=== PATIENT | female | born 1960 | race African-American/Black ===

== ENCOUNTER 2017-02-01 23:01 | Inpatient (IN) | payer MEDICARE ==
--- NOTE | 2017-02-01 23:51 | RAD ---
CHEST ONE VIEW 02/01/17 HISTORY: Dyspnea. COMPARISON: 05/23/16 FINDINGS: The cardiac silhouette is markedly enlarged. Pulmonary vasculature is engorged. Mediastinum is midlin e with aortic calcification and a dual lead left subclavian cardiac electronic device. No lobar conso lidation or pneumothorax are visible. IMPRESSION: CHF. Appearance is similar to the 05/22/16 exam. POS: KACI
[2017-02-02 00:02] LABS: Hematocrit 52.5 % (36.0-47.0); Mean Platelet Volume 9.3 fL (7.4-10.4); Red Blood Cell (RBC) Count 5.39 mill/uL (4.20-5.40); White Blood Cell (WBC) Count 5.1 thou/uL (4.8-10.8)
[2017-02-02] MEDS ORDERED: Nitroglycerin 2% Ointment 1 INCH/1 GM Packet ONE (00:15)
[2017-02-02 00:17] LABS: Lactic Acid - Sepsis 1.8 mmol/L (0.5-2.2)
[2017-02-02 00:21] LABS: ALT (SGPT) 11 U/L (8-55); AST (SGOT) 20 U/L (5-34); Alkaline Phosphatase 83 U/L (40-150); Anion Gap 14 mmol/L (10-20); BUN (Urea Nitrogen) 26 mg/dL (9.8-20.1); Bilirubin, Total 3.1 mg/dL (0.2-1.2); Calc. Creatinine Clearance 0 mL/min (70-130); Calcium 9.6 mg/dL (7.8-10.44); Carbon Dioxide 27 mmol/L (22-29); Chloride 103 mmol/L (98-107); Estimated GFR-MDRD 58; Globulin 3.7 g/dL (2.4-3.5); Lipase 20 U/L (8-78); Magnesium 1.8 mg/dL (1.6-2.6); Protein, Total 7.4 g/dL (6.0-8.3)
[2017-02-02 00:25] LABS: Band 1 % (5-11); Neutrophil 52 % (42-75); Polychromasia SLIGHT = 2-3 cells (100X) (0-2/hpf); Target Cells SLIGHT = 2-5 cells (100X) (0-1/hpf)
[2017-02-02 00:27] LABS: Troponin I 0.548 ng/mL (< 0.028)
[2017-02-02] MEDS ORDERED: Furosemide 40 MG/4 ML VIAL ONE (00:46)
[2017-02-02] MEDS ORDERED: Furosemide 20 MG/2 ML VIAL ONE (00:46)
[2017-02-02] MEDS ORDERED: Enoxaparin Sodium 100 MG/ML SYRINGE ONE (00:46)
[2017-02-02] MEDS ORDERED: Labetalol HCl 100 MG/20 ML VIAL ONE (02:46)
[2017-02-02] MEDS ORDERED: Insulin Regular 300 UNITS/3 ML VIAL SC PRN (03:05)
[2017-02-02] MEDS ORDERED: HYDROcodone/Acetaminophen 5/325 mg Tablet PO PRN (03:05)
[2017-02-02] MEDS ORDERED: Dextrose 50% Abboject 50 ML SYRINGE SLOW IVP PRN (03:05)
[2017-02-02] MEDS ORDERED: Dextrose 5% in Water 1,000 ML IV PRN (03:05)
[2017-02-02] MEDS ORDERED: Acetaminophen 325 MG TAB PO PRN (03:05)
[2017-02-02] MEDS ORDERED: HYDROcodone/Acetaminophen 10/325 mg Tablet PO PRN (03:05)
[2017-02-02] MEDS ORDERED: Ondansetron ODT 4 MG TAB PO PRN (03:05)
--- NOTE | 2017-02-02 03:28 | HP ---
DATE OF ADMISSION: 02/02/2017 TIME OF SERVICE: 0100 hours. CHIEF COMPLAINT: Shortness of breath. HISTORY OF PRESENT ILLNESS: Ms. Plaza is a 56-year-old -[place] female with history of is chemic cardiomyopathy, pacemaker placement, defibrillator placement, hyperlipidemia, and diabetes wit h chronic systolic congestive heart failure, who presented to the emergency department for shortness of breath. The patient had increasing shortness of breath over the last 5 days. She has been decreasing p.o. in take per the family and I had increased the sodium load. The patient has not been taking her medications because she does not have any, because she could not afford them. Subsequently, she comes in she has lower extremity edema, she is satting okay on room air, but is vis ibly short of breath with dyspnea on exertion and orthopnea, and a BNP is elevated at 2100. We were subsequently called for admit. Troponin I was noted to be 0.548, but it is always chronically elevated. She denies any chest pain o r nausea and vomiting, no diarrhea, constipation, no diaphoresis. PAST MEDICAL HISTORY: 1. Hypertension. 2. Hyperlipidemia. 3. Congestive heart failure. 4. Diabetes mellitus type 2. PAST SURGICAL HISTORY: Defibrillator placement. HOME MEDICATIONS: 1. Hydralazine 50 mg p.o. b.i.d. 2. Coreg 25 mg p.o. b.i.d. 3. Lisinopril 10 mg p.o. b.i.d. 4. Amlodipine 5 mg daily. 5. Lasix 20 mg p.o. b.i.d. 6. Glimepiride 4 mg unsure if it is daily or b.i.d. 7. Zocor 20 mg p.o. daily. ALLERGIES: NKDA. FAMILY HISTORY: Negative for clotting or bleeding disorder, no venous function, no premature coronar y artery disease. SOCIAL HISTORY: Significant for ongoing tobacco use one-half pack per day. No alcohol or IV drug us e. She smoked for some 35 years or so. REVIEW OF SYSTEMS: A 10-point review of systems was performed, negative for all other systems except as stated as per HPI. PHYSICAL EXAMINATION: VITAL SIGNS: Temperature 97.3, pulse 91, blood pressure 160/120, respiratory rate 20, satting 95% on room air. GENERAL: She is awake. She is alert. She is oriented x3. She is an obese -[place] female appears to be short of breath. HEENT: Normocephalic, atraumatic, pupils equal and reactive bilaterally, mucous membranes are moist. There are no visible lesions or thrush. NECK: Supple. I cannot palpate any thyromegaly. I do not see JVD. She has normal carotid upstroke s without bruits. LUNGS: Have bibasilar crackles. She has adequate air movement without prolonged expiratory phase. There were no wheezes or rhonchi. CARDIOVASCULAR: She is tachycardic, but regular. Normal S1, S2. I do not appreciate murmurs. ABDOMEN: Obese, it is nontender, nondistended with no rebound, rigidity or guarding. She has good b owel sounds. EXTREMITIES: Show 2+ edema to the mid tibial level. She has chronic venous stasis dermatitis. SKIN: Otherwise warm, moist, and well-perfused without any rashes or lesions. NEUROLOGIC: Cranial nerves II-XII are grossly intact without any focal neurologic deficit. MUSCULOSKELETAL: Normal to inspection without any inflamed joints or palpable joint effusions. LABORATORY DATA: CMP is fairly normal. Creatinine 1.17 at her baseline of 0.9. Lactic acid normal at 1.8, potassium slightly low at 3.4, glucose 133. Liver functions are normal. White blood cell count 5.1 with a fairly normal differential, 52% granulocytes, but 1% bands. Hemogl obin 16.1, hematocrit 52.5, and platelets 137,000. Chest x-ray showed pacemaker in no acute cardiopu lmonary changes. ASSESSMENT AND PLAN: 1. Acute on chronic systolic congestive heart failure: Likely secondary to noncompliance and not ta ursula her medicines. Placed on nitro paste, IV Lasix, strict I's and O's and daily weights. 2. Hypertension: Uncontrolled, blood pressure 160/120. We will restart her regular medicines with hydralazine, Coreg, lisinopril, amlodipine, and p.r.n. hydralazine for elevated pressure. 3. Diabetes mellitus type 2: Sliding scale insulins that ordered. 4. History of medical noncompliance as above. 5. Abnormal troponin: The patient is chronically abnormal. We will serial cardiac biomarkers and c ontinue to monitor.
[2017-02-02 03:37] LABS: Anion Gap 13 mmol/L (10-20); BUN (Urea Nitrogen) 28 mg/dL (9.8-20.1); Calc. Creatinine Clearance 0 mL/min (70-130); Calcium 9.3 mg/dL (7.8-10.44); Carbon Dioxide 25 mmol/L (22-29); Chloride 104 mmol/L (98-107); Estimated GFR-MDRD 66; Magnesium 1.6 mg/dL (1.6-2.6)
[2017-02-02 03:44] LABS: Critical Call Chem Troponin I RESULT DECREASING; Troponin I 0.498 ng/mL (< 0.028)
[2017-02-02] MEDS: Furosemide 40 MG/4 ML VIAL SLOW IVP SCH ×4 (03:48→20:09)
[2017-02-02] MEDS ORDERED: Nitroglycerin 2% Ointment 1 INCH/1 GM Packet TOP SCH (04:00)
[2017-02-02 04:06] LABS: Hematocrit 50.6 % (36.0-47.0); Mean Platelet Volume 9.4 fL (7.4-10.4); Neutrophil 49 % (42-75); Reactive Lymphocytes 1 % (0-10); Red Blood Cell (RBC) Count 5.21 mill/uL (4.20-5.40); White Blood Cell (WBC) Count 5.2 thou/uL (4.8-10.8)
[2017-02-02 04:31] VITALS: BMI 38.9
[2017-02-02] MEDS: Potassium Chloride 20 MEQ TAB PO SCH ×3 (05:10→12:48)
[2017-02-02] MEDS: Aspirin 325 MG TAB PO SCH (08:31)
[2017-02-02] MEDS: Famotidine 20 MG TAB PO SCH ×2 (08:32→20:08)
[2017-02-02] MEDS: Lisinopril 10 MG TAB PO SCH ×2 (08:33→20:09)
[2017-02-02] MEDS: Amlodipine 5 MG TAB PO SCH (08:33)
[2017-02-02] MEDS: hydrALAZINE 25 MG TAB PO SCH ×2 (08:33→20:08)
[2017-02-02] MEDS: Carvedilol 25 MG TAB PO SCH ×2 (08:33→17:09)
[2017-02-02] MEDS: Enoxaparin Sodium 40 MG/0.4 ML SYRINGE SC SCH (08:34)
--- NOTE | 2017-02-02 09:46 | PDOC.PN ---
- Subjective Encounter Start Date: 02/02/17 Encounter Start Time: 08:00 Subjective: is still waking up, says she is breathing better -: no chest pain or palp - Objective Resuscitation Status: Resuscitation Status FULL:Full Resuscitation MAR Reviewed: Yes Vital Signs & Weight: Vital Signs (12 hours) Temp Pulse Resp BP BP Pulse Ox 02/02/17 08:33 86 172/111 H 02/02/17 08:20 97.3 F L 93 18 95 02/02/17 04:00 97.5 F L 73 18 158/95 H 91 L 02/02/17 03:22 97.5 F L 85 22 H 153/96 H 92 L Weight Weight 227 lb Result Diagrams: 02/02/17 03:14 02/02/17 03:14 Additional Labs: Accuchecks 02/02/17 05:46 POC Glucose 160 H Phys Exam - Physical Examination HEENT: PERRLA, sclera anicteric Neck: no JVD, supple Respiratory: no wheezing rhonchi+ Cardiovascular: RRR, no significant murmur Gastrointestinal: soft, non-tender, positive bowel sounds Musculoskeletal: no edema, pulses present Neurological: non-focal, moves all 4 limbs Psychiatric: A&O x 3 Dx/Plan (1) Acute decompensated heart failure Code(s): I50.9 - HEART FAILURE, UNSPECIFIED Status: Acute (2) Demand ischemia of myocardium Code(s): I24.8 - OTHER FORMS OF ACUTE ISCHEMIC HEART DISEASE Status: Acute (3) Non compliance w medication regimen Code(s): Z91.14 - PATIENT'S OTHER NONCOMPLIANCE WITH MEDICATION REGIMEN Status : Chronic (4) Hypokalemia Code(s): E87.6 - HYPOKALEMIA Status: Acute (5) Cardiomyopathy Code(s): I42.9 - CARDIOMYOPATHY, UNSPECIFIED Status: Chronic Qualifiers: Cardiomyopathy type: unspecified Qualified Code(s): I42.9 - Cardiomyopathy , unspecified Comment: non ischemic (6) Diabetes mellitus Code(s): E11.9 - TYPE 2 DIABETES MELLITUS WITHOUT COMPLICATIONS Status: Chronic Qualifiers: Diabetes mellitus type: type 2 Diabetes mellitus complication status: with unspecified complications Diabetes mellitus buttermaker insulin use: without assisted use Qualified Code(s): E11.8 - Type 2 diabetes mellitus with unspecified complications (7) GERD (gastroesophageal reflux disease) Code(s): K21.9 - GASTRO-ESOPHAGEAL REFLUX DISEASE WITHOUT ESOPHAGITIS Status: Chronic Qualifiers: Esophagitis presence: esophagitis presence not specified Qualified Code(s) : K21.9 - Gastro-esophageal reflux disease without esophagitis (8) Hypertension Code(s): I10 - ESSENTIAL (PRIMARY) HYPERTENSION Status: Chronic Qualifiers: Hypertension type: essential hypertension Qualified Code(s): I10 - Essential (primary) hypertension (9) Morbid obesity Code(s): E66.01 - MORBID (SEVERE) OBESITY DUE TO EXCESS CALORIES Status: Chronic Comment: bmi of 39 - Plan lasix as ordered iv q6h -: had ef of 15% on last echo, non compliant with meds -: watch for electrolytes -: to amb as tolerated -: will monitor on tele for potential arrhythmias * . is on asp, coreg, norvasc, hydralazine and lisinopril. Review of Systems - Medications/Allergies Allergies/Adverse Reactions: Allergies Allergy/AdvReac Type Severity Reaction Status Date / Time No Known Drug Allergies Allergy Verified 05/23/16 23:51 Medications: Current Medications Acetaminophen (Tylenol) 650 mg PO Q4H PRN PRN Reason: Headache/Fever or Pain Hydrocodone Bitart/Acetaminophen ([place] 10/325) 1 tab PO Q4H PRN PRN Reason: SEVERE Pain (7-10) Hydrocodone Bitart/Acetaminophen ([place] 5/325) 1 tab PO Q4H PRN PRN Reason: Moderate Pain (4-6) Amlodipine Besylate (Norvasc) 5 mg PO DAILY [facility] Last Admin: 02/02/17 08:33 Dose: 5 mg Aspirin (Aspirin) 325 mg PO DAILY [facility] Last Admin: 02/02/17 08:31 Dose: 325 mg Atorvastatin Calcium (Lipitor) 10 mg PO HS [facility] Carvedilol (Coreg) 25 mg PO BID-WM [facility] Last Admin: 02/02/17 08:33 Dose: 25 mg Dextrose/Water (Dextrose 50%) 25 gm SLOW IVP PRN PRN PRN Reason: Hypoglycemia Enoxaparin Sodium (Lovenox) 40 mg SC 0900 [facility] Last Admin: 02/02/17 08:34 Dose: 40 mg Famotidine (Pepcid) 20 mg PO BID [facility] Last Admin: 02/02/17 08:32 Dose: 20 mg Furosemide (Lasix) 40 mg SLOW IVP 0330,0930,1530,2130 [facility] Stop: 02/02/17 21:31 Last Admin: 02/02/17 03:48 Dose: 40 mg Glucagon (Glucagon) 1 mg IM PRN PRN PRN Reason: Hypoglycemia Hydralazine HCl (Apresoline) 50 mg PO BID [facility] Last Admin: 02/02/17 08:33 Dose: 50 mg Dextrose/Water (D5w) 1,000 mls @ 0 mls/hr IV .Q0M PRN; As Directed PRN Reason: Hypoglycemia Insulin Human Regular (Humulin R) 0 units SC .MILD SLIDING SCALE PRN PRN Reason: Mild Correctional Scale Lisinopril (Zestril) 10 mg PO BID [facility] Last Admin: 02/02/17 08:33 Dose: 10 mg Nitroglycerin (Nitro-Bid 2% Ointment) 1 inch TOP 0400,1200,2000 [facility] Last Admin: 02/02/17 03:48 Dose: 1 inch Ondansetron HCl (Zofran Odt) 4 mg PO Q6H PRN PRN Reason: Nausea/Vomiting Potassium Chloride (K-Dur) 40 meq PO 0500,0900,1300 [facility] Stop: 02/02/17 13:01 Last Admin: 02/02/17 08:32 Dose: 40 meq Sodium Chloride (Flush - Normal Saline) 10 ml IVF PRN PRN PRN Reason: Saline Flush
[2017-02-02 11:51] LABS: Critical Call Chem Troponin I RESULT DECREASING; Troponin I 0.479 ng/mL (< 0.028)
[2017-02-02 19:30] LABS: Troponin I 0.506 ng/mL (< 0.028)
[2017-02-02] MEDS ORDERED: Atorvastatin Calcium 10 MG TAB PO SCH (21:00)
[2017-02-03 08:04] LABS: Anion Gap 17 mmol/L (10-20); BUN (Urea Nitrogen) 28 mg/dL (9.8-20.1); Calc. Creatinine Clearance 80 mL/min (70-130); Calcium 9.6 mg/dL (7.8-10.44); Carbon Dioxide 23 mmol/L (22-29); Chloride 104 mmol/L (98-107); Estimated GFR-MDRD 54
[2017-02-03 08:21] LABS: Hematocrit 51.7 % (36.0-47.0); Mean Platelet Volume 9.6 fL (7.4-10.4); Red Blood Cell (RBC) Count 5.26 mill/uL (4.20-5.40); White Blood Cell (WBC) Count 3.7 thou/uL (4.8-10.8)
[2017-02-03 08:44] LABS: Band 3 % (5-11); Neutrophil 50 % (42-75); Nucleated RBC 1 % (0); Polychromasia MODERATE = 3-4 cells (100X) (0-2/hpf); Target Cells SLIGHT = 2-5 cells (100X) (0-1/hpf)
[2017-02-03] MEDS: Amlodipine 5 MG TAB PO SCH (08:59)
[2017-02-03] MEDS: Carvedilol 25 MG TAB PO SCH (08:59)
[2017-02-03] MEDS: Lisinopril 10 MG TAB PO SCH (09:00)
[2017-02-03] MEDS ORDERED: Heparin 5,000 UNITS/ML VIAL SC SCH (09:00)
[2017-02-03] MEDS: Famotidine 20 MG TAB PO SCH (09:00)
[2017-02-03] MEDS: Enoxaparin Sodium 40 MG/0.4 ML SYRINGE SC SCH (09:00)
[2017-02-03] MEDS: Aspirin 325 MG TAB PO SCH (09:00)
[2017-02-03] MEDS: Furosemide 20 MG TAB PO SCH ×2 (09:00→15:24)
[2017-02-03] MEDS: hydrALAZINE 25 MG TAB PO SCH (09:00)
--- NOTE | 2017-02-03 16:28 | DIS ---
DATE OF ADMISSION: 02/02/2017 DATE OF DISCHARGE: 02/03/2017 DISCHARGE DIAGNOSES: 1. Acute on chronic systolic congestive heart failure exacerbation, improved. 2. Medication noncompliance. 3. Hypertension, labile. 4. Diabetes mellitus type 2, labile. 5. Chronic elevated troponin I. 6. Pulmonary hypertension. CONSULTATIONS: None. PERTINENT LABORATORY DATA AND X-RAY FINDINGS: Creatinine ranged between 1.04-1.24 with estimated GFR ranging between 54-66. Magnesium 1.7. Troponin I ranged between 0.479-0.548. BNP 2134, previously noted 1791 on 05/23/2016. A 2D transthoracic echocardiogram dated 02/02/2017 showed ejection fracti on of 10%-15%. Severe global hypokinesis. Moderate biatrial enlargement. Severe tricuspid valve re gurgitation. Pulmonary hypertension with pulmonary artery pressure estimated at 75 mmHg. Portable c hest x-ray dated 02/01/2017 showed pulmonary vascular prominence. HOSPITAL COURSE: Patient was admitted to the telemetry unit after initially presenting with increase d shortness of breath in the context of known systolic congestive heart failure and ischemic cardiomy opathy. The patient was placed on IV Lasix as well as oxygen supplementation and monitored for fluid status. The patient rapidly clinically improved with diuretic therapy with overall 7 pound weight l oss during the hospital course. The patient's overall blood pressure trend did improve after initial ly presenting with elevated blood pressure in the 160/120 range. The patient resumed her home antihy pertensive regimen stabilizing. Overall, patient remained clinically stable during the hospital cour se with telemetry monitoring showing sinus mechanism with occasional nonsustained ventricular tachyca rdia episodes. Overall, patient is clinically stable and ready for discharge on 02/03/2017. DISCHARGE MEDICATIONS: 1. Norvasc 5 mg 1 tablet p.o. daily. 2. Coreg 25 mg p.o. b.i.d. 3. Lasix 40 mg p.o. b.i.d. 4. Glimepiride 4 mg p.o. daily. 5. Hydralazine 50 mg p.o. b.i.d. 6. Lisinopril 20 mg p.o. daily. 7. Simvastatin 20 mg p.o. at bedtime. FOLLOWUP: Patient will follow up with Dr. Yulia Albert at [facility] within 7 d ays of discharge. CONDITION ON DISCHARGE: Poor. ACTIVITY: Ad julián. DIET: Heart healthy and ADA. CODE STATUS: FULL. DISPOSITION: Home 02/03/2017.
[2017-02-03 17:15] VITALS: BP 131/80; TEMP 98.1
--- NOTE | 2017-03-11 13:38 | EKG ---
Test Reason : Blood Pressure : / mmHG Vent. Rate : 098 BPM Atrial Rate : 098 BPM P-R Int : 158 ms QRS Dur : 090 ms QT Int : 400 ms P-R-T Axes : 032 -06 062 degrees QTc Int : 510 ms Sinus rhythm with Premature atrial complexes Left atrial enlargement Low voltage QRS Cannot rule out Anterior infarct , age undetermined Prolonged QT Abnormal ECG Confirmed by MARTIN MO ([id number]), editor newspaper MARCO RIOS ([id number]) on 03/11/2017 1:38:23 PM Referred By: Confirmed By:MRATIN MO
== END 2017-02-03 16:59 | disposition home or self-care (01) | DRG 292 ==
LOC: ERS 23:01 → 2NO 02-02 01:15
PROVIDERS: ADMIT Internal Medicine Infectious Disease; ATTEND Internal Medicine Infectious Disease
DX: I11.0 Hypertensive heart disease with heart failure (principal); I24.8 Other forms of acute ischemic heart disease; I27.20 Pulmonary hypertension, unspecified; E66.01 Morbid (severe) obesity due to excess calories; E11.9 Type 2 diabetes mellitus without complications; E78.5 Hyperlipidemia, unspecified; I50.23 Acute on chronic systolic (congestive) heart failure; I25.5 Ischemic cardiomyopathy; E87.6 Hypokalemia; K21.9 Gastro-esophageal reflux disease without esophagitis; F17.210 Nicotine dependence, cigarettes, uncomplicated; Z95.810 Presence of automatic (implantable) cardiac defibrillator; Z91.19 Patient's noncompliance with other medical treatment and regimen; Z68.39 Body mass index [BMI] 39.0-39.9, adult
CPT/HCPCS: 36415; 36416; 71010; 80048; 80053; 82553; 83605; 83690; 83735; 83880; 84484; 85025; 93005; 93306; 96372; 96374; 96375; G8978-GP-CL; G8979-GP-CL; G8980-GP-CL; G8987-GO-CJ; G8988-GO-CJ; G8989-GO-CJ; J1650; J1940

== ENCOUNTER 2017-05-06 12:05 | Inpatient (IN) | payer MEDICARE ==
[2017-05-06 13:02] LABS: #Eosinphils 0.1 thou/uL (0.0-0.7); #Lymphocytes 1.4 thou/uL (1.20-3.40); #Monocytes 0.4 thou/uL (0.11-0.59); %Eosinophils 2.5 % (0.0-10.0); %Lymphocytes 35.8 % (21.0-51.0); %Monocytes 9.9 % (0.0-10.0); %Neutrophils 50.7 % (42.0-75.0); Hemoglobin 14.2 g/dL (12.0-16.0); Mean Corpuscular HGB CONC 30.5 g/dL (32.0-36.0); Mean Corpuscular Hemoglobin 28.7 pg (27.0-31.0); Mean Platelet Volume 8.4 fL (7.4-10.4); Platelet Count 180 thou/uL (130-400); RBC Distribution Width 15.7 % (11.5-14.5); Red Blood Cell (RBC) Count 4.93 mill/uL (4.20-5.40)
[2017-05-06 13:27] LABS: ALT (SGPT) 8 U/L (8-55); AST (SGOT) 14 U/L (5-34); Albumin 3.5 g/dL (3.5-5.0); Alkaline Phosphatase 116 U/L (40-150); Anion Gap 10 mmol/L (10-20); BUN (Urea Nitrogen) 17 mg/dL (9.8-20.1); Bilirubin, Total 1.3 mg/dL (0.2-1.2); CK (CPK) 37 U/L (29-168); Calc. Creatinine Clearance 0 mL/min (70-130); Calcium 9.1 mg/dL (7.8-10.44); Carbon Dioxide 27 mmol/L (22-29); Chloride 105 mmol/L (98-107); Estimated GFR-MDRD 89; Globulin 3.7 g/dL (2.4-3.5); Glucose 75 mg/dL (70-105); Lipase 12 U/L (8-78); Potassium 3.1 mmol/L (3.5-5.1); Protein, Total 7.2 g/dL (6.0-8.3); Sodium 139 mmol/L (136-145)
[2017-05-06 13:32] LABS: CKMB 1.1 ng/mL (0-6.6); Troponin I 0.195 ng/mL (< 0.028)
--- NOTE | 2017-05-06 14:18 | RAD ---
PA AND LATERAL VIEWS CHEST: HISTORY: CHF exacerbation. COPD exacerbation. COMPARISON: 02/01/2017 FINDINGS: The heart is enlarged. A left-sided AICD remains in place. The lungs are well expanded without loba r consolidation, pneumothoraces, raquel pulmonary edema, or pleural effusions. There is mild pulmonar y vascular congestion. POS: OFF
[2017-05-06] MEDS ORDERED: Furosemide 100 MG/10 ML VIAL ONE (15:23)
[2017-05-06] MEDS ORDERED: Carvedilol 25 MG TAB PO SCH (16:00)
[2017-05-06] MEDS ORDERED: Amlodipine 5 MG TAB PO SCH (16:00)
[2017-05-06] MEDS ORDERED: hydrALAZINE 25 MG TAB PO SCH (16:00)
[2017-05-06] MEDS ORDERED: Lisinopril 10 MG TAB PO SCH (16:00)
[2017-05-06] MEDS ORDERED: hydrALAZINE 25 MG TAB ONE (16:18)
[2017-05-06] MEDS ORDERED: Dextrose 5% in Water 1,000 ML IV PRN (16:43)
[2017-05-06] MEDS ORDERED: Dextrose 50% Abboject 50 ML SYRINGE SLOW IVP PRN (16:43)
[2017-05-06] MEDS ORDERED: Labetalol HCl 100 MG/20 ML VIAL SLOW IVP PRN (16:43)
[2017-05-06] MEDS ORDERED: Acetaminophen 325 MG TAB PO PRN (16:43)
[2017-05-06] MEDS ORDERED: hydrALAZINE 20 MG/ML VIAL SLOW IVP PRN (16:43)
[2017-05-06] MEDS ORDERED: Ondansetron HCl/PF 4 MG/2 ML Vial IVP PRN (16:43)
[2017-05-06] MEDS ORDERED: Insulin Regular 300 UNITS/3 ML VIAL SC PRN (16:43)
--- NOTE | 2017-05-06 17:08 | HP ---
PRIMARY CARE PROVIDER: Dr. Albert at [facility] REASON FOR ADMISSION/CHIEF COMPLAINT: The patient was referred to the [facility] by [facility]. HISTORY OF PRESENT ILLNESS: The patient was seen today by her primary care doctor in the [facility]. According to the patient, prescriptions were written and an ambulance was called and sh e was sent to [place] Emergency Department. She complains of shortness of breath, progressive o brina the past day, she says; some orthopnea; some swelling in her legs; no chest pain; no sweats. No cough or wheezing. Pertinent for noncompliance. She was admitted similar situation approximately 3 months ago. PAST MEDICAL HISTORY: Pertinent for cardiomyopathy with EF of 10%-15%, hypertension, diabetes mellit us type 2, congestive heart failure, and dyslipidemia. PAST SURGICAL HISTORY: Defibrillator placement. MEDICATIONS: She states she has been out of her medicines "couple of days. CURRENT MEDICATIONS: Before she ran out, amlodipine 5 mg a day, aspirin 81 mg a day, furosemide 20 m g twice a day, Amaryl 4 mg 1 a day, hydralazine 50 mg 2 times a day, lisinopril 20 mg a day, Zocor 20 mg a day, metformin 500 mg has been stopped, spironolactone 50 mg a day, albuterol HFA inhaler two p uffs q.6 hours p.r.n. ALLERGIES: No known allergies. REVIEW OF SYSTEMS: GENERAL: No headaches, dizziness or fainting. EYES: She states she wears glasses, has poor vision, no double vision, flashing lights. ENT: No ear pain or drainage. No nasal bleeding. No trouble swallowing. CARDIAC: No chest pressure or other chest pain. She does have orthopnea, two-pillow, sleeps in a li ft chair. RESPIRATORY: Minimal cough, no wheezing, no asthma. She does have significant shortness of breath a t rest. GASTROINTESTINAL: No nausea, vomiting, diarrhea or constipation. GENITOURINARY: No hematuria or dysuria. MUSCULOSKELETAL: Swelling in her legs up to the knee. No pain in her muscles. PSYCHIATRIC: No anxiety or depression. NEUROLOGICAL: No strokes, seizures or focal weakness. SKIN: No bleeding, bruising, or rash. HEME/LYMPH: No tender or swollen lymph nodes in axilla, inguinal or cervical area. PHYSICAL EXAMINATION: GENERAL: She is an alert lady in very mild respiratory distress. VITAL SIGNS: Initial blood pressure 165/114, pulse 79, respirations 22, O2 sat 97 on 2 liters of O2. HEENT: Pupils equal and round. Extraocular movements are intact. Sclerae white. Tympanic membrane s clear. Nose is clear. Oral mucous membranes are wet. NECK: No jugular venous distention, adenopathy or thyromegaly. CHEST: She has rales diffusely anteriorly and posteriorly. HEART: Regular rate and rhythm. A 2/6 harsh systolic murmur, no gallops noted. First and second he art sounds were audible. ABDOMEN: Soft, bowel sounds are normal. No hepatosplenomegaly, no masses, no rebound. EXTREMITIES: Reveal 2-3+ edema with stasis changes. PULSES: Carotid, radial, and femoral pulses intact. Pedal pulses markedly diminished. SKIN: Warm and dry with aforementioned stasis changes below the knees on both legs. LYMPHATIC SURVEY: Showed no tender or swollen lymph nodes. No petechial rash. No splinter hemorrha ges. NEUROLOGIC: Cranial nerves II-XII are intact. Deep tendon reflexes were intact and symmetric. LABORATORY AND X-RAY FINDINGS: EKG: Regular sinus rhythm, PACs, low voltage QRS, no acute ST-T abno rmality reviewed by me. Chest x-ray: Cardiomegaly, pulmonary vascular congestion, defibrillator lef t upper chest, reviewed by me. CBC: White count 4.0, hemoglobin 14.2, platelet count 180,000. Comp metabolic profile normal except for potassium 3.1, total bilirubin 1.3, troponin 0.195. BNP 2034. ADMITTING DIAGNOSES: 1. Acute on chronic congestive heart failure, systolic. 2. Cardiomyopathy, severe. 3. Hypertensive urgency due to noncompliance with medications. 4. Diabetes mellitus type 2. 5. Dyslipidemia. 6. Noncompliance with medications. PLAN: 1. O2 to keep sats above 92 IV diuresis. 2. Reinstitute blood pressure medicines and medicines for cardiomyopathy, specifically Coreg and lis inopril. 3. Accu-Cheks, sliding scale a.c. and at bedtime. Continue Amaryl. 4. Serial basic metabolic profile.
[2017-05-06 18:43] VITALS: BMI 34.5
[2017-05-06] MEDS: Carvedilol 25 MG TAB PO SCH (18:50)
[2017-05-06] MEDS: hydrALAZINE 25 MG TAB PO SCH (20:56)
[2017-05-06] MEDS: Atorvastatin Calcium 10 MG TAB PO SCH (20:56)
[2017-05-07 05:35] LABS: Anion Gap 13 mmol/L (10-20); BUN (Urea Nitrogen) 17 mg/dL (9.8-20.1); Calc. Creatinine Clearance 113 mL/min (70-130); Carbon Dioxide 22 mmol/L (22-29); Chloride 106 mmol/L (98-107); Estimated GFR-MDRD 90; Glucose 126 mg/dL (70-105); Potassium 3.5 mmol/L (3.5-5.1); Sodium 137 mmol/L (136-145)
[2017-05-07 05:53] LABS: Eosinophils 1 % (0-10); Hemoglobin 13.9 g/dL (12.0-16.0); Hypochromia SLIGHT = 6-15 cells (100X) (0-5/hpf); Lymphocytes 30 % (21-51); MDiff Complete? YES; Mean Corpuscular HGB CONC 30.6 g/dL (32.0-36.0); Mean Corpuscular Hemoglobin 29.1 pg (27.0-31.0); Mean Corpuscular Volume 95.1 fl (81.0-99.0); Mean Platelet Volume 10.3 fL (7.4-10.4); Monocytes 5 % (0-10); Neutrophil 64 % (42-75); PLT Morphology Comment Appears Adequate; Platelet Count 166 thou/uL (130-400); RBC Distribution Width 16.1 % (11.5-14.5); Red Blood Cell (RBC) Count 4.78 mill/uL (4.20-5.40)
[2017-05-07] MEDS ORDERED: Furosemide 40 MG/4 ML VIAL SLOW IVP SCH (06:00)
--- NOTE | 2017-05-07 08:18 | PDOC.PN ---
- Subjective Encounter Start Date: 05/07/17 Encounter Start Time: 08:16 Subjective: less sob, mild diuresis - Objective MAR Reviewed: Yes Vital Signs & Weight: Vital Signs (12 hours) Temp Pulse Resp BP BP Pulse Ox 05/07/17 07:37 98.7 F 77 16 183/84 H 95 05/07/17 03:51 97.7 F 84 20 156/93 H 94 L 05/07/17 00:00 97.9 F 76 20 139/84 95 05/06/17 20:56 76 155/82 H Weight Weight 219 lb 1.6 oz I&O: 05/06/17 05/07/17 05/08/17 06:59 06:59 06:59 Intake Total 570 Output Total 980 Balance -410 Result Diagrams: 05/07/17 04:49 05/07/17 04:49 Additional Labs: Accuchecks 05/07/17 05/06/17 05:30 21:00 POC Glucose 116 H 179 H Phys Exam - Physical Examination Neck: no JVD post rales to mid scapula Cardiovascular: RRR 2/6 harsh murmur Gastrointestinal: soft, positive bowel sounds Musculoskeletal: edema present Dx/Plan (1) Acute on chronic systolic (congestive) heart failure Code(s): I50.23 - ACUTE ON CHRONIC SYSTOLIC (CONGESTIVE) HEART FAILURE Status : Acute (2) Diabetes mellitus Code(s): E11.9 - TYPE 2 DIABETES MELLITUS WITHOUT COMPLICATIONS Status: Chronic Qualifiers: Diabetes mellitus type: type 2 Diabetes mellitus complication status: without complication Diabetes mellitus fpc insulin use: without fpc use Qualified Code(s): E11.9 - Type 2 diabetes mellitus without complications (3) GERD (gastroesophageal reflux disease) Code(s): K21.9 - GASTRO-ESOPHAGEAL REFLUX DISEASE WITHOUT ESOPHAGITIS Status: Chronic Qualifiers: (4) Hypertension Code(s): I10 - ESSENTIAL (PRIMARY) HYPERTENSION Status: Chronic Qualifiers: Hypertension type: essential hypertension (5) Non compliance w medication regimen Code(s): Z91.14 - PATIENT'S OTHER NONCOMPLIANCE WITH MEDICATION REGIMEN Status : Chronic - Plan increase lasix to 80 iv q12h -: cont coreg, lisinopril, statin -: cont accu/ss/amaryl -: start spirolactone * .
[2017-05-07] MEDS: hydrALAZINE 25 MG TAB PO SCH ×2 (09:31→21:43)
[2017-05-07] MEDS: Carvedilol 25 MG TAB PO SCH (09:32)
[2017-05-07] MEDS: Amlodipine 5 MG TAB PO SCH (09:32)
[2017-05-07] MEDS: Glimepiride 2 MG TAB PO SCH (09:32)
[2017-05-07] MEDS: Spironolactone 25 MG TAB PO SCH (09:32)
[2017-05-07] MEDS: Enoxaparin Sodium 40 MG/0.4 ML SYRINGE SC SCH (09:33)
[2017-05-07] MEDS: Lisinopril 20 MG TAB PO SCH (09:39)
--- NOTE | 2017-05-07 11:54 | RAD ---
CHEST TWO VIEWS: History: CHF exacerbation. Comparison: 05-05-17 FINDINGS: Heart size is enlarged. The cardiac device is similar. Gastric bubble is present. No pneumothorax. No acute osseous abnormality. IMPRESSION: Marked cardiomegaly. POS: KACI
[2017-05-07] MEDS: Furosemide 100 MG/10 ML VIAL SLOW IVP SCH (14:46)
[2017-05-07] MEDS: Atorvastatin Calcium 10 MG TAB PO SCH (21:43)
[2017-05-08] MEDS: Carvedilol 25 MG TAB PO SCH ×3 (02:44→17:27)
[2017-05-08] MEDS: Furosemide 100 MG/10 ML VIAL SLOW IVP SCH ×2 (06:03→13:25)
[2017-05-08] MEDS: Spironolactone 25 MG TAB PO SCH (07:58)
--- NOTE | 2017-05-08 08:29 | PDOC.PN ---
- Subjective Encounter Start Date: 05/08/17 Encounter Start Time: 08:28 Subjective: Seen and examined feeling better - Objective Vital Signs & Weight: Vital Signs (12 hours) Temp Pulse Resp BP BP Pulse Ox 05/08/17 04:35 97.9 F 77 18 136/79 93 L 05/07/17 21:43 84 138/87 Weight Weight 217 lb 14.4 oz I&O: 05/07/17 05/08/17 05/09/17 06:59 06:59 06:59 Intake Total 570 2440 Output Total 980 1980 Balance -410 460 Result Diagrams: 05/07/17 04:49 05/07/17 04:49 Additional Labs: Accuchecks 05/08/17 05/07/17 05/07/17 05:58 21:35 16:48 POC Glucose 77 93 71 05/07/17 11:45 POC Glucose 103 Phys Exam - Physical Examination Constitutional: NAD HEENT: PERRLA, moist MMs, sclera anicteric, TM's clear, oral pharynx no lesions Neck: no nodes, no JVD, supple, full ROM Respiratory: no wheezing, no rales, no rhonchi, clear to auscultation bilateral Cardiovascular: RRR, no significant murmur, no rub Gastrointestinal: soft, non-tender, no distention, positive bowel sounds Musculoskeletal: pulses present Dx/Plan (1) Acute on chronic systolic (congestive) heart failure Code(s): I50.23 - ACUTE ON CHRONIC SYSTOLIC (CONGESTIVE) HEART FAILURE Status : Acute (2) Acute decompensated heart failure Code(s): I50.9 - HEART FAILURE, UNSPECIFIED Status: Acute (3) CHF (congestive heart failure) Code(s): I50.9 - HEART FAILURE, UNSPECIFIED Status: Acute (4) Demand ischemia of myocardium Code(s): I24.8 - OTHER FORMS OF ACUTE ISCHEMIC HEART DISEASE Status: Acute (5) Hypomagnesemia Code(s): E83.42 - HYPOMAGNESEMIA Status: Acute (6) Cardiomyopathy Code(s): I42.9 - CARDIOMYOPATHY, UNSPECIFIED Status: Chronic Qualifiers: Cardiomyopathy type: unspecified Qualified Code(s): I42.9 - Cardiomyopathy , unspecified Comment: non ischemic - Plan 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, plan discussed w/ family, PT/OT, high school social studies teacher, respiratory therapy Diuresis -: Dispo planning * .
[2017-05-08] MEDS: hydrALAZINE 25 MG TAB PO SCH ×2 (09:40→21:07)
[2017-05-08] MEDS: Lisinopril 20 MG TAB PO SCH (09:40)
[2017-05-08] MEDS: Glimepiride 2 MG TAB PO SCH (09:40)
[2017-05-08] MEDS: Amlodipine 5 MG TAB PO SCH (09:40)
[2017-05-08] MEDS: Enoxaparin Sodium 40 MG/0.4 ML SYRINGE SC SCH (09:41)
[2017-05-08] MEDS: Atorvastatin Calcium 10 MG TAB PO SCH (21:07)
[2017-05-09] MEDS: Furosemide 100 MG/10 ML VIAL SLOW IVP SCH (06:30)
--- NOTE | 2017-05-09 08:46 | PDOC.PN ---
- Subjective Encounter Start Date: 05/09/17 Encounter Start Time: 08:45 Subjective: Seen and examined feeling better - Objective Vital Signs & Weight: Vital Signs (12 hours) Temp Pulse Resp BP Pulse Ox 05/09/17 04:00 98.3 F 63 18 128/67 96 05/08/17 21:07 76 Weight Weight 207 lb I&O: 05/08/17 05/09/17 05/10/17 06:59 06:59 06:59 Intake Total 2440 1560 Output Total 1980 5500 Balance 460 -3940 Result Diagrams: 05/07/17 04:49 05/07/17 04:49 Additional Labs: Accuchecks 05/09/17 05/08/17 05/08/17 05:49 20:34 16:37 POC Glucose 75 79 75 05/08/17 11:03 POC Glucose 123 H Phys Exam - Physical Examination Constitutional: NAD HEENT: PERRLA, moist MMs, sclera anicteric, TM's clear, oral pharynx no lesions Neck: no nodes, no JVD, supple, full ROM Respiratory: no wheezing, no rales, no rhonchi, clear to auscultation bilateral Cardiovascular: RRR, no significant murmur, no rub Gastrointestinal: soft, non-tender, no distention, positive bowel sounds Musculoskeletal: pulses present, edema present Dx/Plan (1) Acute on chronic systolic (congestive) heart failure Code(s): I50.23 - ACUTE ON CHRONIC SYSTOLIC (CONGESTIVE) HEART FAILURE Status : Acute (2) Acute decompensated heart failure Code(s): I50.9 - HEART FAILURE, UNSPECIFIED Status: Acute (3) CHF (congestive heart failure) Code(s): I50.9 - HEART FAILURE, UNSPECIFIED Status: Acute (4) Demand ischemia of myocardium Code(s): I24.8 - OTHER FORMS OF ACUTE ISCHEMIC HEART DISEASE Status: Acute (5) Hypomagnesemia Code(s): E83.42 - HYPOMAGNESEMIA Status: Acute (6) Cardiomyopathy Code(s): I42.9 - CARDIOMYOPATHY, UNSPECIFIED Status: Chronic Qualifiers: Cardiomyopathy type: unspecified Qualified Code(s): I42.9 - Cardiomyopathy , unspecified Comment: non ischemic - Plan 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, plan discussed w/ family, PT/OT, social media developer, respiratory therapy Diuresis--D/c Iv lasix and start po lasix -: If diuresing and feeling better on po lasix d/c next 24hrs * .
[2017-05-09] MEDS: Furosemide 80 MG TAB PO SCH ×2 (08:50→14:41)
[2017-05-09] MEDS ORDERED: Furosemide 20 MG TAB PO SCH (09:00)
[2017-05-09] MEDS: Lisinopril 20 MG TAB PO SCH (09:52)
[2017-05-09] MEDS: Glimepiride 2 MG TAB PO SCH (09:53)
[2017-05-09] MEDS: Carvedilol 25 MG TAB PO SCH ×2 (09:53→17:08)
[2017-05-09] MEDS: Amlodipine 5 MG TAB PO SCH (09:53)
[2017-05-09] MEDS: Enoxaparin Sodium 40 MG/0.4 ML SYRINGE SC SCH (09:54)
[2017-05-09] MEDS: Spironolactone 25 MG TAB PO SCH (09:54)
[2017-05-09] MEDS: hydrALAZINE 25 MG TAB PO SCH ×2 (09:54→21:07)
[2017-05-09] MEDS ORDERED: Piperacillin/Tazobactam 3.375 GM VIAL ONE (12:56)
[2017-05-09] MEDS: Atorvastatin Calcium 10 MG TAB PO SCH (21:07)
[2017-05-10 06:04] LABS: Anion Gap 16 mmol/L (10-20); BUN (Urea Nitrogen) 25 mg/dL (9.8-20.1); Calc. Creatinine Clearance 94 mL/min (70-130); Calcium 9.4 mg/dL (7.8-10.44); Carbon Dioxide 23 mmol/L (22-29); Chloride 103 mmol/L (98-107); Estimated GFR-MDRD 71; Glucose 61 mg/dL (70-105); Potassium 4.9 mmol/L (3.5-5.1); Sodium 137 mmol/L (136-145)
[2017-05-10] MEDS: Glimepiride 2 MG TAB PO SCH (08:59)
[2017-05-10] MEDS: Spironolactone 25 MG TAB PO SCH (08:59)
[2017-05-10] MEDS: Lisinopril 20 MG TAB PO SCH (08:59)
[2017-05-10] MEDS: Amlodipine 5 MG TAB PO SCH (08:59)
[2017-05-10] MEDS: Carvedilol 25 MG TAB PO SCH (08:59)
[2017-05-10] MEDS: hydrALAZINE 25 MG TAB PO SCH (08:59)
[2017-05-10] MEDS: Enoxaparin Sodium 40 MG/0.4 ML SYRINGE SC SCH (09:00)
[2017-05-10] MEDS: Furosemide 80 MG TAB PO SCH ×2 (09:00→13:54)
[2017-05-10 11:21] VITALS: TEMP 97.7
[2017-05-10 11:54] VITALS: BP 148/78
--- NOTE | 2017-05-10 13:14 | EKG ---
Test Reason : Blood Pressure : / mmHG Vent. Rate : 077 BPM Atrial Rate : 077 BPM P-R Int : 180 ms QRS Dur : 100 ms QT Int : 426 ms P-R-T Axes : 023 -04 095 degrees QTc Int : 482 ms Sinus rhythm with occasional Premature ventricular complexes Left atrial enlargement Nonspecific T wave abnormality Prolonged QT Abnormal ECG Confirmed by PANDA ASHLEY, PURVI ([id number]), staff editor MARCO RIOS ([id number]) on 05/10/2017 1:14:09 PM Referred By: Confirmed By:PURVI MOSQUEDA MD
== END 2017-05-10 14:36 | disposition home health service (06) | DRG 304 ==
LOC: ERS 12:05 → 2NO 18:23
PROVIDERS: ADMIT Internal Medicine; ATTEND Internal Medicine
DX: I16.0 Hypertensive urgency (principal); I50.23 Acute on chronic systolic (congestive) heart failure; I24.8 Other forms of acute ischemic heart disease; I42.9 Cardiomyopathy, unspecified; E83.42 Hypomagnesemia; I11.0 Hypertensive heart disease with heart failure; Z91.14 Patient's other noncompliance with medication regimen; E78.5 Hyperlipidemia, unspecified; E11.9 Type 2 diabetes mellitus without complications; Z95.810 Presence of automatic (implantable) cardiac defibrillator; Z79.82 Long term (current) use of aspirin; Z79.4 Long term (current) use of insulin; K21.9 Gastro-esophageal reflux disease without esophagitis
CPT/HCPCS: 36415; 36416; 71046; 80048; 80053; 82550; 82553; 83690; 83880; 84484; 85025; 93005; 93798; 94760; 96374; 99406; A4216; J1650; J1940; J2543

== ENCOUNTER 2018-01-31 11:42 | Inpatient (IN) | payer MEDICARE ==
[2018-01-31 13:00] LABS: ALT (SGPT) 10 U/L (8-55); AST (SGOT) 15 U/L (5-34); Alkaline Phosphatase 88 U/L (40-150); Anion Gap 17 mmol/L (10-20); BUN (Urea Nitrogen) 25 mg/dL (9.8-20.1); Bilirubin, Total 1.8 mg/dL (0.2-1.2); Calc. Creatinine Clearance 0 mL/min (70-130); Calcium 9.2 mg/dL (7.8-10.44); Carbon Dioxide 23 mmol/L (22-29); Chloride 107 mmol/L (98-107); Estimated GFR-MDRD 65; Globulin 3.8 g/dL (2.4-3.5); Glucose 120 mg/dL (70-105); Potassium 4.3 mmol/L (3.5-5.1); Protein, Total 6.8 g/dL (6.0-8.3); Sodium 143 mmol/L (136-145)
[2018-01-31 13:03] LABS: CKMB 2.3 ng/mL (0-6.6)
[2018-01-31 13:09] LABS: #Eosinphils 0.1 thou/uL (0.0-0.7); #Lymphocytes 1.5 thou/uL (1.20-3.40); #Monocytes 0.7 thou/uL (0.11-0.59); #Neutrophils 2.8 thou/uL (1.40-6.50); %Basophils 0.5 % (0.0-1.0); %Eosinophils 2.4 % (0.0-10.0); %Lymphocytes 29.7 % (21.0-51.0); %Monocytes 13.5 % (0.0-10.0); %Neutrophils 53.9 % (42.0-75.0); Hemoglobin 14.8 g/dL (12.0-16.0); Mean Corpuscular HGB CONC 31.3 g/dL (32.0-36.0); Mean Corpuscular Hemoglobin 28.7 pg (27.0-31.0); Mean Corpuscular Volume 91.8 fL (78.0-98.0); Mean Platelet Volume 9.4 fL (7.4-10.4); Platelet Count 152 thou/uL (130-400); RBC Distribution Width 16.1 % (11.5-14.5); Red Blood Cell (RBC) Count 5.15 mill/uL (4.20-5.40); White Blood Cell (WBC) Count 5.2 thou/uL (4.8-10.8)
[2018-01-31] MEDS ORDERED: Furosemide 100 MG/10 ML VIAL ONE (13:40)
[2018-01-31] MEDS ORDERED: Enoxaparin Sodium 100 MG/ML SYRINGE ONE (13:40)
[2018-01-31] MEDS ORDERED: Nitroglycerin 2% Ointment 1 INCH/1 GM Packet ONE (13:40)
[2018-01-31] MEDS ORDERED: Enoxaparin Sodium 30 MG/0.3 ML SYRINGE ONE ×2 (13:40→13:42)
--- NOTE | 2018-01-31 14:46 | HP ---
DATE OF SERVICE: 01/31/2018 PRIMARY CARE PHYSICIAN: Yulia Albert MD REASON FOR ADMISSION: Acute on chronic systolic congestive heart failure, elevated troponin. HISTORY OF PRESENT ILLNESS: A 57-year-old -[place] female who has underlying history of aren schemic cardiomyopathy with automatic implantable cardioverter defibrillator in place. She also has underlying history of obesity, diabetes, hypertension, and dyslipidemia. She is noncompliant with me dication as well as diet. She reports that for last one or two weeks, she was having increasing bila teral lower extremity pitting edema. She gained 6 pounds in the last 1 week. She also reported that during Thanksgiving, she ate a lot and she drank a lot. After that the patient was feeling more and more shortness of breath. Her shortness of breath is gradually getting worse for about a month, but this week gotten worse after heavy Thanksgiving meal. The patient denies any chest pain. She denie s any palpitation, dizziness, or syncope. She does have orthopnea, PND, and increasing lower extremi ty edema. She denies any cough. She denies any fever, chills, or flu-like symptoms. She denies any constipation, diarrhea, melena or hematochezia. She denies any UTI symptoms. In the emergency room, the patient was hypertensive. She was saturating normal. She had significant ly elevated JVD. She was found with a significantly elevated troponin. In the emergency room, the p atient was given nitropatch, Lovenox 1 mg per kg, aspirin, and Lasix 80 mg. The patient is being adm itted to telemetry floor for further evaluation and treatment. ALLERGIES: No known drug allergy. CURRENT HOME MEDICATIONS: Hydralazine 50 mg twice daily, Coreg 25 mg 2 tablets twice daily, lisinopr il 20 mg twice daily, lisinopril 20 mg twice daily, Lasix 80 mg twice daily, glimepiride 4 mg twice d aily, and Zocor 20 mg p.o. at bedtime. REVIEW OF SYSTEMS: Please see my HPI for pertinent positive and negative. All other review of syste ms reviewed and negative except as mentioned in the HPI. Constitutional: Weight loss or gain, ability to conduct usual activities. Skin: Rash, itching. Eyes: Double vision, pain. ENT/Mouth: Nose bleeding, neck stiffness, pain, tenderness. Cardiovascular: Palpitations, dyspnea on exertion, orthopnea. Respiratory: Shortness of breath, wheezing, cough, hemoptysis, fever or night sweats. Gastrointestinal: Poor appetite, abdominal pain, heartburn, nausea, vomiting, constipation, or diarr hea. Genitourinary: Urgency, frequency, dysuria, nocturia. Musculoskeletal: Pain, swelling. Neurologic/Psychiatric: Anxiety, depression. Allergy/Immunologic: Skin rash, bleeding tendency. PAST MEDICAL HISTORY: Nonischemic cardiomyopathy, chronic systolic and diastolic heart failure with EF 10% to 15%, [id number] tricuspid regurgitation, nonsustained ventricular tachycardia, diab etes type 2, morbid obesity, hypertension, and dyslipidemia. PAST SURGICAL HISTORY: AICD placement, cardiac catheterization in the remote past. PAST PSYCHIATRIC HISTORY: Reviewed and negative. SOCIAL HISTORY: The patient is smoking about half pack per day since the age of 14. She drinks alco hol socially. She denies any other illicit drug abuse. She lives at home with her . FAMILY HISTORY: Diabetes, hypertension, heart disease runs among several family members. EMERGENCY ROOM COURSE: The patient has received Lovenox 1 mg per kg, nitropatch, aspirin 324 mg, and Lasix 80 mg. PHYSICAL EXAMINATION: VITAL SIGNS: On arrival, blood pressure 179/122, pulse 98, respiratory rate 16, temperature 98.6, sa turation 95% on room air, and weight 106 kilograms. GENERAL: The patient is currently alert, awake, no obvious acute distress. HEAD: Normocephalic, atraumatic. EYES: Pupils round, reactive to light. Extraocular muscle intact. ENT: Oropharynx within normal limits. Moist mucous membranes. No oral lesion, no pharyngeal erythe ma, no exudate. NECK: Elevated JVD, no thyromegaly, no carotid bruit. LUNGS: Bibasilar rales noted, coarse breath sounds. No wheeze, no rhonchi. CARDIOVASCULAR: S1, S2 regular. Systolic murmur noted at the lower left sternal border as well as a t apex. No gallop, no rub. ABDOMEN: Obesity present. Bowel sounds present, nontender, nondistended. No organomegaly, no mass, no suprapubic tenderness. BACK: Unremarkable, no CVA tenderness. EXTREMITIES: Upper extremity: Passive movement of all joints are normal. Lower extremities: Bilat eral lower extremity pitting edema up to thigh level. NEUROLOGIC: Nonfocal examination. SIGNIFICANT LABORATORY DATA: CBC: WBC 5.2, hemoglobin 14.8, and platelet 152. BMP: Sodium 143, po tassium 4.3, chloride 107, carbon dioxide 23, BUN 25, creatinine 1.05, glucose 120, calcium 9.2. LFT : AST 15, ALT 10, alkaline phosphatase is 88, albumin 3.0. CK-MB 2.3, troponin I 1.40. BNP 1211.2. IMAGING DATA: EKG showing sinus tachycardia, left atrial enlargement, low voltage QRS complex, nonsp ecific changes. Chest x-ray: Cardiomegaly, pulmonary vascular congestion. ASSESSMENT AND PLAN: IMPRESSION: 1. Acute on chronic systolic congestive heart failure exacerbations, ACC stage C, likely precipitate d by noncompliance with medication and diet. The patient will require admission. She will be treate d with Lasix 40 mg IV b.i.d. Her Coreg will be reduced to 25 mg twice daily, lisinopril 20 mg twice daily, nitropatch q.8 h., and hydralazine 50 mg twice daily. Fluid restriction, 1500 mL per day. We will monitor daily weight, input and output chart and we will monitor labs and replace electrolytes accordingly. Based on level of severity, the patient will need at least more than 2 midnights while in hospital to make her euvolemic. 2. Elevated troponin, demand ischemia of myocardium. The patient does not have any chest pain, most likely related with demand ischemia from congestive heart failure exacerbation. We will do serial c ardiac enzymes x3 and we will consult Cardiology for evaluation. Meanwhile, we will continue the asp irin 325 mg p.o. daily, Lipitor 10 mg p.o. at bedtime, Coreg 25 mg twice daily, lisinopril 20 mg p.o. b.i.d. and we will monitor on telemetry floor. 3. Diabetes type 2. We will continue glimepiride 4 mg p.o. daily. Diabetic diet will be given. In sulin as per sliding scale protocol. 4. Hypertension, not well controlled. Continue Coreg 25 mg twice daily, lisinopril 20 mg twice reji y, hydralazine 50 mg b.i.d., and nitropatch q.8 hourly. 5. Morbid obesity. Dietary education given, weight loss education given. Healthy lifestyle measure s discussed with the patient. 6. Tobacco abuse disorder. Smoking cessation counseling given. Healthy lifestyle measures discusse d with the patient. 7. Deep venous thrombosis prophylaxis. Lovenox 40 mg subcu daily. 8. Gastrointestinal prophylaxis, Pepcid 20 mg p.o. b.i.d. CODE STATUS: The patient is FULL CODE. The patient's is surrogate decision maker. Disposition plan based on clinical course. We are expecting patient's stay in hospital more than 2 m idnights. Plan of care discussed with the patient in detail.
--- NOTE | 2018-01-31 15:21 | RAD ---
CHEST 1 VIEW: HISTORY: Shortness of breath. COMPARISON: Radiograph 11/13/2017. FINDINGS: Heart size is enlarged. Mild pulmonary venous congestion or early edema. No pneumothorax. No acute osseous abnormality. Cardiac device is similar. IMPRESSION: Marked cardiomegaly with early edema. POS: [facility]
[2018-01-31 15:32] VITALS: BMI 39.7
[2018-01-31] MEDS ORDERED: Sodium Chloride 0.65% Nasal 44 ML BOT EA NARE PRN (15:42)
[2018-01-31] MEDS ORDERED: Calcium Carbonate 500 MG ChewTAB PO PRN (15:42)
[2018-01-31] MEDS ORDERED: Dextrose 5% in Water 1,000 ML IV PRN (15:42)
[2018-01-31] MEDS ORDERED: Senokot S 8.6-50 MG TAB PO PRN (15:42)
[2018-01-31] MEDS ORDERED: Ondansetron ODT 4 MG TAB PO PRN (15:42)
[2018-01-31] MEDS ORDERED: hydrALAZINE 20 MG/ML VIAL SLOW IVP PRN (15:42)
[2018-01-31] MEDS ORDERED: Eucerin (Mineral Oil/Petrolatum,White) 30 gm Jar TOP PRN (15:42)
[2018-01-31] MEDS ORDERED: Zolpidem Tartrate 5 MG TAB PO PRN (15:42)
[2018-01-31] MEDS ORDERED: Acetaminophen 325 MG TAB PO PRN (15:42)
[2018-01-31] MEDS ORDERED: Nitroglycerin 0.4 MG TAB (25 Tab Bottle) SL PRN (15:42)
[2018-01-31] MEDS ORDERED: Bisacodyl 5 MG TAB PO PRN (15:42)
[2018-01-31] MEDS ORDERED: Dextrose 50% Abboject 50 ML SYRINGE SLOW IVP PRN (15:42)
[2018-01-31] MEDS ORDERED: Loperamide HCl 2 MG CAP PO PRN (15:42)
[2018-01-31] MEDS ORDERED: Diabetic Tussin 200 MG/10 ML UDCUP PO PRN (15:42)
[2018-01-31] MEDS ORDERED: HYDROcodone/Acetaminophen 5/325 mg Tablet PO PRN (15:42)
[2018-01-31] MEDS ORDERED: Loratadine 10 MG TAB PO PRN (15:42)
[2018-01-31] MEDS ORDERED: HumaLOG 300 UNITS/3 ML VIAL SC PRN ×2 (15:42)
[2018-01-31] MEDS ORDERED: Artificial Tear Sol 15 ML BOT EA EYE PRN (15:42)
[2018-01-31] MEDS ORDERED: Ondansetron PF 4 MG/2 ML Vial IVP PRN (15:42)
[2018-01-31] MEDS ORDERED: Cepastat Lozenges 1 LOZ PO PRN (15:42)
[2018-01-31] MEDS ORDERED: Furosemide 40 MG/4 ML VIAL SLOW IVP SCH (16:00)
[2018-01-31] MEDS ORDERED: Nicotine 21 MG PATCH TD PRN (16:00)
[2018-01-31 16:13] LABS: Critical Call Chem Troponin I RESULT DECREASING; Troponin I 1.395 ng/mL (< 0.028)
[2018-01-31 16:38] LABS: Bilirubin Negative (Negative); Blood, Urine Small (Negative); Clarity CLEAR (Clear); Glucose, Urine (Dipstick) Negative (Negative); Leukocyte Negative (Negative); Nitrite Negative (Negative); Protein, Urine (Dipstick) Negative (Neg-Trace); Specific Gravity, Urine 1.005 (1.002-1.036); pH, Urine 6.5 (5.0-9.0)
[2018-01-31 16:40] LABS: Bacteria/HPF None Seen HPF (None Seen); Hyaline Casts/LPF 0-3 HYALINE CAST LPF (0-3 Hyaline); Squamous Epithelial 0-3 HPF (0-3); WBC/HPF 0-3 HPF (0-3)
[2018-01-31] MEDS: Carvedilol 25 MG TAB PO SCH (17:43)
[2018-01-31 20:03] LABS: Troponin I 1.489 ng/mL (< 0.028)
[2018-01-31] MEDS: Lisinopril 20 MG TAB PO SCH (22:26)
[2018-01-31] MEDS: Nitroglycerin 2% Ointment 1 INCH/1 GM Packet TOP SCH (22:26)
[2018-01-31] MEDS: Famotidine 20 MG TAB PO SCH (22:27)
[2018-01-31] MEDS: hydrALAZINE 25 MG TAB PO SCH (22:27)
[2018-01-31] MEDS: Atorvastatin Calcium 10 MG TAB PO SCH (22:27)
--- NOTE | 2018-01-31 23:50 | CON ---
DATE OF CONSULTATION: 01/31/2018 PRIMARY CARE PHYSICIAN: Yulia Albert MD PRIMARY FINANCIAL SALES MANAGER: Eben Reeves MD PRIMARY FINANCIAL SALES MANAGER HERE: José Tejada MD REASON FOR CARDIOLOGY CONSULTATION: Elevated troponin and congestive heart failure exacerbation. HISTORY OF PRESENT ILLNESS: Ms. Plaza is a 57-year-old -[place] female with significant h istory of noncompliance with medication and treatment, known ischemic cardiomyopathy with automatic i mplantable cardioverter-defibrillator, hypertension, obesity, diabetes, and dyslipidemia. Unfortunat ajay, the patient is noncompliant with medication as well as diet. Also, she has intermittent confusi on. She reported she started having shortness of breath for couple months; however, minutes later, s he said she started having shortness of breath for 2 days. Some time she cannot tell who the current president is, but she can tell her primary care doctors and interactive video technician. Again, the patient is hav ing shortness of breath for some period of time; however, she has not taken any medication for couple days according to her report. The patient denied any chest pain or discomfort in her chest, palpita tion, fluttering, or any other cardiac complaints during the episodes. The patient's last echocardiogram was done in 11/2017, which showed EF 10%-50%, moderately dilated le ft atrium, moderately enlarged bilateral atrium, mildly enlarged right ventricular cavity, moderately increased left ventricular size, mild mitral valve regurgitation, mild aortic valve regurgitation, m [id number] tricuspid regurgitation, dilation of IVC, and small pericardial effusion. The juan ent is status post AICD placed in 05/2016. The patient reports that she have not seen her electrocar diologist lately; however, when she was admitted at [facility] in November, the patient had AICD interrogation, which showed evidence of nonsustained ventricular tachycardia episode. The Core g was increased to 50 mg twice a day. The patient denied any sound from her AICD. PAST MEDICAL HISTORY: 1. Noncompliance of medication. 2. Nonischemic cardiomyopathy. 3. Chronic systolic and diastolic heart failure with EF 10%-50%. 4. History of nonsustained ventricular tachycardia. 5. Diabetes type 2. 6. Morbid obesity. 7. Hypertension. 8. Dyslipidemia. 9. Possible new onset of dementia. PAST SURGICAL HISTORY: AICD replacement, cardiac catheterization in the remote past. FAMILY HISTORY: There are significant diabetes, hypertension, and heart disease in her family. SOCIAL HISTORY: She smoked half pack a day since age of 14. She denied illicit drug abuse. She dri nks alcohol socially. She lives with her . ALLERGIES: No known drug allergies. HOME MEDICATIONS: Carvedilol 50 mg twice a day, hydralazine 50 mg twice a day, aspirin 81 mg once a day, lisinopril 20 mg twice a day, Lasix 80 mg twice a day, glimepiride 4 mg once a day, simvastatin 20 mg once a day. REVIEW OF SYSTEMS: 12-point review of systems is negative, unless otherwise mentioned in the HPI. PHYSICAL EXAMINATION: VITAL SIGNS: Blood pressure 164/110; temperature 97.4; pulse is 100, sinus rhythm; O2 sat 95% on paxton m air; respiratory rate of 20. GENERAL: The patient is alert and oriented to time, self, place, and situation; however, she has int ermittent confusion. The patient is not in acute distress. HEAD: Normocephalic, atraumatic. EYES: Extraocular muscle movement intact. She wears glasses. ENT: Oral and nasal mucosa are moist without lesion. NECK: Supple. No JVD. Normal range of motion. RESPIRATORY: Clear to auscultate bilaterally, but really diminished at the bases. CARDIOVASCULAR: Regular rate and rhythm. Normal S1, S2. There are no S3, S4. There are no signifi cant murmur, heaves, or thrill noted. 2+ pulses in the bilateral radial arteries and 2+ pulses in bi lateral posterior tibial, but diminished in dorsal pedis and popliteal. Did have 2-3 pitting edema i n the bilateral lower extremities. MUSCULOSKELETAL: The patient is able to move all extremities without difficulties. ABDOMEN: Nontender. No mass to palpate. Bowel sounds are present. SKIN: Dry, but no rash, lesion, or bruise noted. NEUROLOGIC: The patient is alert, oriented x4. Nonfocal. PSYCHIATRIC: Normal mood and affect; however, the patient is very easy to forget and confused. IMAGING: Chest x-ray shows cardiomegaly with all the edema. 12-lead EKG shows sinus tachycardia, he art rate of 102, and left atrial enlargement. LABORATORY DATA: WBC 5.2, hemoglobin 14.8, hematocrit 47.3, platelet 152. Sodium 143, potassium 4.3 , BUN 25, creatinine 1.05, AST 15, ALT 10. CK-MB is 2.3. Troponin 1.40 and 1.395. BNP is 1211. ASSESSMENT AND PLAN: 1. Elevated troponin, which is possibly demand ischemia secondary to acute on chronic systolic conge stive heart failure. the patient's troponin is trending down. We would like to continue to mo nitor. The patient is going to have another troponin checked around 7 o'clock, third one. We would like to continue to monitor on the telemetry. 2. Acute on chronic systolic and diastolic heart failure. Last echocardiogram was done in 11/2017, which shows EF in the 10%-50%. The patient is noncomplaint to medications. By the patient's report, the patient's shortness of breath improved significantly after the patient received Lasix 80 mg IV p ush in the ER. He is voiding quite often at this moment. Since the patient's creatinine level is st able, we would like to continue Lasix 40 mg twice a day IV. The patient is on Carvedilol 25 mg twice a day and lisinopril 20 mg twice a day. If the patient's blood pressure is stable, I would like to increase the carvedilol to 50 mg twice a day. 3. Hypertension. Her blood pressure tends to be high, but I would like to wait until she had severa l vital sign reading and we would like to address her medicine according to the patient's vital sign. 4. Diabetes type 2. The patient is on before meals and at bedtime blood glucose check, which is man aged by the primary care doctor. 5. Morbid obesity. Dietary education was given to the patient; however, the patient might need repe ated diet and tobacco cessation education. 6. Tobacco abuse. Smoking cessation education was given to the patient. Thank you very much for allowing the Cardiology service to participate in the care of this patient. We will follow along with the patient care team and make further recommendations as appropriate.
[2018-02-01] MEDS ORDERED: Enoxaparin Sodium 100 MG/ML SYRINGE SC SCH ×2 (03:00→21:00)
[2018-02-01] MEDS: Furosemide 40 MG/4 ML VIAL SLOW IVP SCH ×2 (05:58→15:45)
[2018-02-01] MEDS: Nitroglycerin 2% Ointment 1 INCH/1 GM Packet TOP SCH ×3 (05:58→21:17)
[2018-02-01 06:46] LABS: #Basophils 0.1 thou/uL (0.0-0.2); #Eosinphils 0.1 thou/uL (0.0-0.7); #Lymphocytes 1.5 thou/uL (1.20-3.40); #Monocytes 0.8 thou/uL (0.11-0.59); #Neutrophils 3.1 thou/uL (1.40-6.50); %Basophils 0.9 % (0.0-1.0); %Eosinophils 2.2 % (0.0-10.0); %Lymphocytes 27.6 % (21.0-51.0); %Monocytes 13.7 % (0.0-10.0); %Neutrophils 55.6 % (42.0-75.0); Hemoglobin 14.9 g/dL (12.0-16.0); Mean Corpuscular Hemoglobin 29.3 pg (27.0-31.0); Mean Corpuscular Volume 91.4 fL (78.0-98.0); Mean Platelet Volume 9.5 fL (7.4-10.4); Platelet Count 141 thou/uL (130-400); RBC Distribution Width 16.1 % (11.5-14.5); Red Blood Cell (RBC) Count 5.09 mill/uL (4.20-5.40); White Blood Cell (WBC) Count 5.5 thou/uL (4.8-10.8)
[2018-02-01 07:40] LABS: Anion Gap 16 mmol/L (10-20); BUN (Urea Nitrogen) 28 mg/dL (9.8-20.1); Calc. Creatinine Clearance 88 mL/min (70-130); Calcium 8.9 mg/dL (7.8-10.44); Carbon Dioxide 21 mmol/L (22-29); Chloride 104 mmol/L (98-107); Estimated GFR-MDRD 58; Glucose 120 mg/dL (70-105); Magnesium 1.5 mg/dL (1.6-2.6); Potassium 3.8 mmol/L (3.5-5.1); Sodium 137 mmol/L (136-145); Uric Acid 11.7 mg/dL (2.6-6.0)
--- NOTE | 2018-02-01 07:46 | ADD-CON ---
DATE OF ADMISSION: 01/31/2018 ADDENDUM INDICATION FOR CONSULTATION: A 57-year-old female with a history of nonischemic cardiomyopathy. She has had defibrillator in place. She has been noncompliant with her medications and diet. She prese nted to the hospital after complaining of increasing shortness of breath and dyspnea. She had her la st echocardiogram performed in November of this year which showed an ejection fraction of 10%-15% wi th dilated left atrium as well as the right atrium and also the right ventricle and left ventricle, 4 chamber dilatation with severe tricuspid valve regurgitation, mild mitral and aortic valve regurgita tion. She has had a defibrillator placed. She also had a trivial pericardial effusion. Also in the last summer, echocardiogram was performed. She does have a history of hypertension. She presented after being noncompliant with her diet and after eating a heavy meal over , most likely i t was salt load. She, at this time, is somewhat more comfortable; however, she continued to have emeterio e dyspnea and appears to be very ill patient. She denies any chest pain, but does have lower extremi ty edema which is not severe, but is mild and mainly complained that she is unable to breathe adequat ajay, but O2 saturations are 95% on room air. Her blood pressure is still elevated and we will need t o readjust her medications in order to lower the blood pressure and blood pressure was 164/110. She is afebrile. The heart rate is anywhere between 80-100. She does have sinus rhythm on the EKG and n o acute ST segment changes to indicate ischemia, but she has a history also of normal coronaries in t he past and she remains in sinus rhythm. For her past medical history, social history, family histor y, review of systems, medications and allergies, please refer to the notes already dictated by the [facility] practitioner and also the review of systems. PHYSICAL EXAMINATION: GENERAL: Reveals a middle-aged female who actually appears older than her stated age. VITAL SIGNS: Her blood pressure 164/110, heart rate is 102 and shows sinus tachycardia, respiratory rate is 20. She is afebrile, O2 saturations 95% on room air. HEENT: Showed head to be normocephalic and atraumatic. I did not hear any significant bruits. Ther e is no obvious JVD. CHEST: Clear to auscultation. I did not hear any rales, rhonchi or wheezing at this time. She does have some decreased breath sounds at the bases. CARDIOVASCULAR: Exam reveals a slight tachycardia. She does have an audible S3. I did not hear any gross murmurs otherwise. She does have a systolic murmur at the apex. ABDOMEN: Shows morbid obesity. Positive bowel sounds are present. EXTREMITIES: Showed 1+ lower extremity edema. Pedal pulses are present. NEUROLOGIC: The patient appears to be somewhat confused, but this may be due to the decreased perfus ion associated with severe decrease in left ventricular systolic function. The patient at this time remains a FULL CODE, but we should possibly discuss the issues of palliative care or hospice with thi s patient if she continues to be noncompliant with medications. I do not believe she has been seen r ecently by the morning show host. She is followed in the [facility] for her heart failure. We will try to advise her or to seek followup with a morning show host of her choice. She has been seen by Amara Reddy in the past and also I believe she was seen by Soni previous to that and also recently has been seen by Dr. Tejada. We will be more than happy to continue to follow the patient with you. IMPRESSION: 1. Severe end-stage cardiomyopathy in a noncompliant patient with congestive heart failure exacerbat ion, most likely systolic as well as diastolic dysfunction. We will try to continue her medications, get her back on her medications. Try to diurese the patient if possible. She may need to be placed on pressors and inotropic medications to help increase the cardiac output for better perfusion. 2. Status post automatic implantable cardioverter defibrillator implant. I did not wince last check ed, but appears that it would be stable, but may need to have someone to interrogate the device as it has not had recently been done. 3. Diabetes will be dealt with by the primary care service. 4. Hypertension. We will adjust her medications in order to lower the blood pressure. She has not been on medications which I determine exactly what medicines she is taking and resume these medicatio ns. At this time she is on nitroglycerin, atorvastatin, Coreg, as well as her medications for her di abetes. Hydralazine and lisinopril as well as her insulin and other medications. Her troponin I is slightly elevated, but I suspect this is due to just demand ischemia or due to overall cardiomyopathy . Her BNP was 1211. Renal function still remains normal, but this may be a reflection of volume ove rload. Previously, her creatinine has remained stable the majority of the time.
[2018-02-01] MEDS ORDERED: Enoxaparin Sodium 40 MG/0.4 ML SYRINGE SC SCH (09:00)
[2018-02-01] MEDS: Aspirin 325 MG TAB PO SCH (10:00)
[2018-02-01] MEDS: hydrALAZINE 25 MG TAB PO SCH ×2 (10:00→21:17)
[2018-02-01] MEDS: Glimepiride 4 MG TAB PO SCH (10:01)
[2018-02-01] MEDS: Famotidine 20 MG TAB PO SCH ×2 (10:01→21:18)
[2018-02-01] MEDS: Carvedilol 25 MG TAB PO SCH ×2 (10:01→18:04)
[2018-02-01] MEDS: Lisinopril 20 MG TAB PO SCH ×2 (10:01→21:18)
--- NOTE | 2018-02-01 10:16 | PDOC.PN ---
- Subjective Encounter Start Date: 02/01/18 Encounter Start Time: 07:50 Patient seen and examined. No new complaints. No overnight events - Objective Resuscitation Status: Resuscitation Status FULL:Full Resuscitation MAR Reviewed: Yes Vital Signs & Weight: Vital Signs (12 hours) Temp Pulse Resp BP BP Pulse Ox 02/01/18 10:01 131/97 H 02/01/18 10:00 73 02/01/18 09:55 97.9 F 73 19 138/91 H 97 02/01/18 05:45 71 116/76 02/01/18 03:37 97.8 F 81 14 145/106 H 93 L 01/31/18 23:18 137/93 H 01/31/18 22:27 96 131/97 H 01/31/18 22:26 131/97 H Weight Weight 231 lb 6.4 oz I&O: 01/31/18 02/01/18 02/02/18 06:59 06:59 06:59 Intake Total 540 Output Total 1575 Balance -1035 Result Diagrams: 02/01/18 06:06 02/01/18 06:06 Additional Labs: Accuchecks 02/01/18 01/31/18 06:04 20:57 POC Glucose 115 H 147 H EKG Reviewed by me: Yes (nsr) Phys Exam - Physical Examination Constitutional: NAD HEENT: PERRLA, moist MMs, sclera anicteric Neck: supple, full ROM high jvd Respiratory: no wheezing, no rhonchi few basal rales Cardiovascular: RRR, no significant murmur, no rub Gastrointestinal: soft, non-tender, no distention, positive bowel sounds obesity+ Musculoskeletal: pulses present, edema present Neurological: non-focal, normal sensation, moves all 4 limbs Lymphatic: no nodes Psychiatric: normal affect, A&O x 3 Skin: no rash, normal turgor Dx/Plan (1) Acute on chronic systolic ACC/AHA stage C congestive heart failure Code(s): I50.23 - ACUTE ON CHRONIC SYSTOLIC (CONGESTIVE) HEART FAILURE Status : Acute (2) Demand ischemia of myocardium Code(s): I24.8 - OTHER FORMS OF ACUTE ISCHEMIC HEART DISEASE Status: Acute (3) Diabetes type 2, controlled Code(s): E11.9 - TYPE 2 DIABETES MELLITUS WITHOUT COMPLICATIONS Status: Chronic (4) Dyslipidemia Code(s): E78.5 - HYPERLIPIDEMIA, UNSPECIFIED Status: Chronic (5) GERD (gastroesophageal reflux disease) Code(s): K21.9 - GASTRO-ESOPHAGEAL REFLUX DISEASE WITHOUT ESOPHAGITIS Status: Chronic Qualifiers: (6) Hypertension Code(s): I10 - ESSENTIAL (PRIMARY) HYPERTENSION Status: Chronic Qualifiers: (7) Non compliance w medication regimen Code(s): Z91.14 - PATIENT'S OTHER NONCOMPLIANCE WITH MEDICATION REGIMEN Status : Chronic (8) Nonischemic cardiomyopathy Code(s): I42.8 - OTHER CARDIOMYOPATHIES Status: Chronic (9) Obesity (BMI 30-39.9) Code(s): E66.9 - OBESITY, UNSPECIFIED Status: Chronic - Plan 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 * medication reviewed as below * symptomatic treatment * cardiology recommendation noted * continue diuresis until she become euvolemic * may need few more days to make her euvolemic * will titrate medication as tolerated * will monitor. Review of Systems - Review of Systems Constitutional: negative: fever, chills, sweats, weakness, malaise, other Eyes: negative: Pain, Vision Change, Conjunctivae Inflammation, Eyelid Inflammation, Redness, Other ENT: negative: Ear Pain, Ear Discharge, Nose Pain, Nose Discharge, Nose Congestion, Mouth Pain, Mouth Swelling, Throat Pain, Throat Swelling, Other Respiratory: Shortness of Breath, SOB with Excertion. negative: Cough, Dry, Hemoptysis, Pleuritic Pain, Sputum, Wheezing Cardiovascular: orthopnea, edema. negative: chest pain, palpitations, paroxysmal nocturnal dyspnea, light headedness, other Gastrointestinal: negative: Nausea, Vomiting, Abdominal Pain, Diarrhea, Constipation, Melena, Hematochezia, Other Genitourinary: negative: Dysuria, Frequency, Incontinence, Hematuria, Retention , Other Musculoskeletal: negative: Neck Pain, Shoulder Pain, Arm Pain, Back Pain, Hand Pain, Leg Pain, Foot Pain, Other Skin: negative: Rash, Lesions, Mikhail, Bruising, Other - Medications/Allergies Allergies/Adverse Reactions: Allergies Allergy/AdvReac Type Severity Reaction Status Date / Time No Known Drug Allergies Allergy Verified 11/12/17 22:06 Medications: Current Medications Acetaminophen (Tylenol) 650 mg PO Q4H PRN PRN Reason: Headache/Fever/Mild Pain (1-3) Hydrocodone Bitart/Acetaminophen ([place] 5/325) 1 tab PO Q4H PRN PRN Reason: Moderate Pain (4-6) Albuterol/Ipratropium (Duoneb) 3 ml NEB [id number] PRN PRN Reason: SOB &/or Wheezing Artificial Tears (Tears Renewed 15ml Bottle) 2 drop EA EYE PRN PRN PRN Reason: Dry Eyes Aspirin (Aspirin) 325 mg PO DAILY [facility] Last Admin: 02/01/18 10:00 Dose: 325 mg Atorvastatin Calcium (Lipitor) 10 mg PO HS [facility] Last Admin: 01/31/18 22:27 Dose: 10 mg Bisacodyl (Dulcolax) 10 mg PO DAILYPRN PRN PRN Reason: Constipation Calcium Carbonate (Tums) 1,000 mg PO Q4H PRN PRN Reason: Heartburn or Indigestion [facility] Last Admin: 02/01/18 10:01 Dose: 25 mg Dextrose/Water (Dextrose 50%) 25 gm SLOW IVP PRN PRN PRN Reason: Hypoglycemia Enoxaparin Sodium (Lovenox) 100 mg SC 0300,1500 [facility] Last Admin: 02/01/18 04:37 Dose: 100 mg Famotidine (Pepcid) 20 mg PO BID [facility] Last Admin: 02/01/18 10:01 Dose: 20 mg Furosemide (Lasix) 40 mg SLOW IVP 0600,1400 [facility] Last Admin: 02/01/18 05:58 Dose: 40 mg Glimepiride (Amaryl) 4 mg PO QA-[facility] Last Admin: 02/01/18 10:01 Dose: 4 mg Glucagon (Glucagon) 1 mg IM PRN PRN PRN Reason: Hypoglycemia Guaifenesin (Robitussin Sf) 200 mg PO Q4H PRN PRN Reason: Cough Hydralazine HCl (Apresoline) 10 mg SLOW IVP Q4H PRN PRN Reason: SBP > 180 and HR < 70 Hydralazine HCl (Apresoline) 50 mg PO BID [facility] Last Admin: 02/01/18 10:00 Dose: 50 mg Dextrose/Water (D5w) 1,000 mls @ 0 mls/hr IV .Q0M PRN PRN Reason: Hypoglycemia Insulin Human Lispro (Humalog) 0 units SC .MODERATE SLIDING SC PRN PRN Reason: Moderate Correctional Scale Insulin Human Lispro (Humalog) 0 units SC .BEDTIME SLIDING SC PRN PRN Reason: Bedtime Correctional Scale Lisinopril (Zestril) 20 mg PO BID [facility] Last Admin: 02/01/18 10:01 Dose: 20 mg Loperamide HCl (Imodium) 2 mg PO PRN PRN PRN Reason: Diarrhea/Loose Stools Loratadine (Claritin) 10 mg PO DAILYPRN PRN PRN Reason: Sinus Symptoms Mineral Oil/White Petrolatum (Eucerin Cream) 0 gm TOP BIDPRN PRN PRN Reason: Dry Skin Nicotine (Nicoderm Patch) 21 mg TD Q24HR PRN PRN Reason: Smoking Cessation Nitroglycerin (Nitrostat) 0.4 mg SL Q5MIN PRN PRN Reason: Chest Pain Nitroglycerin (Nitro-Bid 2% Ointment) 0.5 inch TOP Q8HR [facility] Last Admin: 02/01/18 05:58 Dose: 0.5 inch Ondansetron HCl (Zofran Odt) 4 mg PO Q6H PRN PRN Reason: Nausea/Vomiting Ondansetron HCl (Zofran) 4 mg IVP Q6H PRN PRN Reason: Nausea/Vomiting Senna/Docusate Sodium (Senokot S) 2 tab PO BID PRN PRN Reason: Constipation Sodium Chloride ([place] Nasal [place] 0.65%) 0 ml EA NARE QIDPRN PRN PRN Reason: Nasal Congestion Throat Lozenges (Cepastat Lozenges) 1 jorgito PO Q2H PRN PRN Reason: Sore Throat Zolpidem Tartrate (Ambien) 5 mg PO HSPRN PRN PRN Reason: Insomnia
[2018-02-01] MEDS: Atorvastatin Calcium 10 MG TAB PO SCH (21:17)
[2018-02-02] MEDS: Furosemide 40 MG/4 ML VIAL SLOW IVP SCH ×2 (06:24→15:09)
[2018-02-02] MEDS: Nitroglycerin 2% Ointment 1 INCH/1 GM Packet TOP SCH (06:24)
[2018-02-02] MEDS ORDERED: Magnesium Sulfate 3 GM in Sodium Chloride 0.9% 100 ML IVPB SCH (08:15)
[2018-02-02] MEDS: Allopurinol 100 MG TAB PO SCH (08:22)
[2018-02-02] MEDS: Lisinopril 20 MG TAB PO SCH ×2 (08:22→20:37)
[2018-02-02] MEDS: Famotidine 20 MG TAB PO SCH ×2 (08:22→20:38)
[2018-02-02] MEDS: Glimepiride 4 MG TAB PO SCH (08:23)
[2018-02-02] MEDS: Aspirin 325 MG TAB PO SCH (08:23)
[2018-02-02] MEDS: Enoxaparin Sodium 40 MG/0.4 ML SYRINGE SC SCH (08:24)
[2018-02-02] MEDS: hydrALAZINE 25 MG TAB PO SCH ×2 (08:24→20:38)
[2018-02-02] MEDS: Carvedilol 25 MG TAB PO SCH ×2 (08:24→17:10)
--- NOTE | 2018-02-02 13:22 | PDOC.PN ---
- Subjective Encounter Start Date: 02/02/18 Encounter Start Time: 09:45 Patient seen and examined. No new complaints. No overnight events - Objective Resuscitation Status: Resuscitation Status FULL:Full Resuscitation MAR Reviewed: Yes Vital Signs & Weight: Vital Signs (12 hours) Temp Pulse Resp BP Pulse Ox 02/02/18 11:30 97.6 F 69 18 123/71 95 02/02/18 07:40 97.3 F L 71 17 142/84 H 95 02/02/18 04:00 97.7 F 77 20 149/95 H 96 Weight Weight 229 lb 1.6 oz I&O: 02/01/18 02/02/18 02/03/18 06:59 06:59 06:59 Intake Total 540 740 Output Total 1575 745 Balance -1035 -5 Result Diagrams: 02/01/18 06:06 02/01/18 06:06 Additional Labs: Accuchecks 02/02/18 02/02/18 02/01/18 10:46 05:59 20:49 POC Glucose 132 H 109 140 H 02/01/18 17:00 POC Glucose 114 H EKG Reviewed by me: Yes (nsr) Phys Exam - Physical Examination Constitutional: NAD HEENT: PERRLA, moist MMs, sclera anicteric Neck: no JVD, supple Respiratory: no wheezing, no rales, no rhonchi Cardiovascular: RRR, no significant murmur, no rub Gastrointestinal: soft, non-tender, no distention, positive bowel sounds Musculoskeletal: pulses present, edema present Neurological: non-focal, normal sensation Lymphatic: no nodes Psychiatric: normal affect, A&O x 3 Skin: no rash, normal turgor Dx/Plan (1) Acute on chronic systolic ACC/AHA stage C congestive heart failure Code(s): I50.23 - ACUTE ON CHRONIC SYSTOLIC (CONGESTIVE) HEART FAILURE Status : Acute (2) Demand ischemia of myocardium Code(s): I24.8 - OTHER FORMS OF ACUTE ISCHEMIC HEART DISEASE Status: Acute (3) Diabetes type 2, controlled Code(s): E11.9 - TYPE 2 DIABETES MELLITUS WITHOUT COMPLICATIONS Status: Chronic (4) Dyslipidemia Code(s): E78.5 - HYPERLIPIDEMIA, UNSPECIFIED Status: Chronic (5) GERD (gastroesophageal reflux disease) Code(s): K21.9 - GASTRO-ESOPHAGEAL REFLUX DISEASE WITHOUT ESOPHAGITIS Status: Chronic Qualifiers: (6) Hypertension Code(s): I10 - ESSENTIAL (PRIMARY) HYPERTENSION Status: Chronic Qualifiers: (7) Non compliance w medication regimen Code(s): Z91.14 - PATIENT'S OTHER NONCOMPLIANCE WITH MEDICATION REGIMEN Status : Chronic (8) Nonischemic cardiomyopathy Code(s): I42.8 - OTHER CARDIOMYOPATHIES Status: Chronic (9) Obesity (BMI 30-39.9) Code(s): E66.9 - OBESITY, UNSPECIFIED Status: Chronic (10) Hyperuricemia Code(s): E79.0 - HYPERURICEMIA W/O SIGNS OF INFLAM ARTHRIT AND TOPHACEOUS DIS Status: Acute (11) Hypomagnesemia Code(s): E83.42 - HYPOMAGNESEMIA Status: Acute (12) Hypothyroidism Code(s): E03.9 - HYPOTHYROIDISM, UNSPECIFIED Status: Acute - Plan 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 * pt is not euvolemic yet, continue IV lasix today * medication reviewed as below * symptomatic treatment * repeat labs tomorrow * continue current optimum CHF treatment * cardiac rehab. * replace magnesium and ptassium * start synthroid 25 mcg po daily * start allopurinol for hyperuricemia Review of Systems - Review of Systems Eyes: negative: Pain, Vision Change, Conjunctivae Inflammation, Eyelid Inflammation, Redness, Other ENT: negative: Ear Pain, Ear Discharge, Nose Pain, Nose Discharge, Nose Congestion, Mouth Pain, Mouth Swelling, Throat Pain, Throat Swelling, Other Cardiovascular: orthopnea, paroxysmal nocturnal dyspnea, edema. negative: chest pain, palpitations, light headedness, other Gastrointestinal: negative: Nausea, Vomiting, Abdominal Pain, Diarrhea, Constipation, Melena, Hematochezia, Other Genitourinary: negative: Dysuria, Frequency, Incontinence, Hematuria, Retention , Other Musculoskeletal: negative: Neck Pain, Shoulder Pain, Arm Pain, Back Pain, Hand Pain, Leg Pain, Foot Pain, Other Skin: negative: Rash, Lesions, Mikhail, Bruising, Other - Medications/Allergies Allergies/Adverse Reactions: Allergies Allergy/AdvReac Type Severity Reaction Status Date / Time No Known Drug Allergies Allergy Verified 11/12/17 22:06 Medications: Current Medications Acetaminophen (Tylenol) 650 mg PO Q4H PRN PRN Reason: Headache/Fever/Mild Pain (1-3) Hydrocodone Bitart/Acetaminophen ([place] 5/325) 1 tab PO Q4H PRN PRN Reason: Moderate Pain (4-6) Albuterol/Ipratropium (Duoneb) 3 ml NEB [id number] PRN PRN Reason: SOB &/or Wheezing Allopurinol (Zyloprim) 100 mg PO DAILY [facility] Last Admin: 02/02/18 08:22 Dose: 100 mg Artificial Tears (Tears Renewed 15ml Bottle) 2 drop EA EYE PRN PRN PRN Reason: Dry Eyes Aspirin (Aspirin) 325 mg PO DAILY [facility] Last Admin: 02/02/18 08:23 Dose: 325 mg Atorvastatin Calcium (Lipitor) 10 mg PO HS [facility] Last Admin: 02/01/18 21:17 Dose: 10 mg Bisacodyl (Dulcolax) 10 mg PO DAILYPRN PRN PRN Reason: Constipation Calcium Carbonate (Tums) 1,000 mg PO Q4H PRN PRN Reason: Heartburn or Indigestion [facility] Last Admin: 02/02/18 08:24 Dose: 25 mg Dextrose/Water (Dextrose 50%) 25 gm SLOW IVP PRN PRN PRN Reason: Hypoglycemia Enoxaparin Sodium (Lovenox) 40 mg SC 0900 [facility] Last Admin: 02/02/18 08:24 Dose: Not Given Famotidine (Pepcid) 20 mg PO BID [facility] Last Admin: 02/02/18 08:22 Dose: 20 mg Furosemide (Lasix) 40 mg SLOW IVP 0600,1400 [facility] Last Admin: 02/02/18 06:24 Dose: 40 mg Glimepiride (Amaryl) 4 mg PO [facility] Last Admin: 02/02/18 08:23 Dose: 4 mg Glucagon (Glucagon) 1 mg IM PRN PRN PRN Reason: Hypoglycemia Guaifenesin (Robitussin Sf) 200 mg PO Q4H PRN PRN Reason: Cough Hydralazine HCl (Apresoline) 10 mg SLOW IVP Q4H PRN PRN Reason: SBP > 180 and HR < 70 Hydralazine HCl (Apresoline) 50 mg PO BID [facility] Last Admin: 02/02/18 08:24 Dose: 50 mg Dextrose/Water (D5w) 1,000 mls @ 0 mls/hr IV .Q0M PRN PRN Reason: Hypoglycemia Insulin Human Lispro (Humalog) 0 units SC .MODERATE SLIDING SC PRN PRN Reason: Moderate Correctional Scale Insulin Human Lispro (Humalog) 0 units SC .BEDTIME SLIDING SC PRN PRN Reason: Bedtime Correctional Scale Isosorbide Mononitrate (Imdur Er) 30 mg PO DAILY [facility] Last Admin: 02/02/18 08:23 Dose: 30 mg Levothyroxine Sodium (Synthroid) 25 mcg PO 0600 [facility] Lisinopril (Zestril) 20 mg PO BID [facility] Last Admin: 02/02/18 08:22 Dose: 20 mg Loperamide HCl (Imodium) 2 mg PO PRN PRN PRN Reason: Diarrhea/Loose Stools Loratadine (Claritin) 10 mg PO DAILYPRN PRN PRN Reason: Sinus Symptoms Mineral Oil/White Petrolatum (Eucerin Cream) 0 gm TOP BIDPRN PRN PRN Reason: Dry Skin Nicotine (Nicoderm Patch) 21 mg TD Q24HR PRN PRN Reason: Smoking Cessation Nitroglycerin (Nitrostat) 0.4 mg SL Q5MIN PRN PRN Reason: Chest Pain Ondansetron HCl (Zofran Odt) 4 mg PO Q6H PRN PRN Reason: Nausea/Vomiting Ondansetron HCl (Zofran) 4 mg IVP Q6H PRN PRN Reason: Nausea/Vomiting Senna/Docusate Sodium (Senokot S) 2 tab PO BID PRN PRN Reason: Constipation Sodium Chloride ([place] Nasal [place] 0.65%) 0 ml EA NARE QIDPRN PRN PRN Reason: Nasal Congestion Throat Lozenges (Cepastat Lozenges) 1 jorgito PO Q2H PRN PRN Reason: Sore Throat Zolpidem Tartrate (Ambien) 5 mg PO HSPRN PRN PRN Reason: Insomnia
[2018-02-02] MEDS: Atorvastatin Calcium 10 MG TAB PO SCH (20:38)
[2018-02-02 23:34] LABS: Hemoglobin 14.3 g/dL (12.0-16.0); Platelet Count 140 thou/uL (130-400)
[2018-02-03] MEDS: Furosemide 100 MG/10 ML VIAL SLOW IVP SCH ×2 (05:12→13:48)
[2018-02-03] MEDS: Levothyroxine Sodium 25 MCG TAB PO SCH (05:13)
[2018-02-03 06:35] LABS: Anion Gap 14 mmol/L (10-20); BUN (Urea Nitrogen) 28 mg/dL (9.8-20.1); Calc. Creatinine Clearance 94 mL/min (70-130); Carbon Dioxide 23 mmol/L (22-29); Chloride 106 mmol/L (98-107); Estimated GFR-MDRD 63; Glucose 87 mg/dL (70-105); Magnesium 1.9 mg/dL (1.6-2.6); Potassium 3.4 mmol/L (3.5-5.1); Sodium 140 mmol/L (136-145)
[2018-02-03 06:50] LABS: Band 1 % (5-11); Eosinophils 3 % (0-10); Hemoglobin 14.5 g/dL (12.0-16.0); Lymphocytes 33 % (21-51); MDiff Complete? YES; Mean Corpuscular HGB CONC 30.7 g/dL (32.0-36.0); Mean Corpuscular Hemoglobin 28.3 pg (27.0-31.0); Mean Platelet Volume 9.5 fL (7.4-10.4); Monocytes 10 % (0-10); Neutrophil 51 % (42-75); Platelet Count 155 thou/uL (130-400); RBC Distribution Width 16.1 % (11.5-14.5); Reactive Lymphocytes 2 % (0-10); Red Blood Cell (RBC) Count 5.12 mill/uL (4.20-5.40); White Blood Cell (WBC) Count 3.6 thou/uL (4.8-10.8)
--- NOTE | 2018-02-03 08:09 | PQF ---
CLINICAL DOCUMENTATION IMPROVEMENT CLARIFICATION FORM: ICD-10 Updated PLEASE DO AN ADDENDUM TO THE PROGRESS NOTE WITH ANY DOCUMENTATION UPDATES OR ADDITIONS AND CARRY THROUGH TO DC SUMMARY. THANK YOU. DATE: 02/03 ATTN: DR. GILBERT MONROE Please exercise your independent, professional judgment in responding to the clarification form. Clinical indicators are provided on the bottom of this form for your review. Please check appropriate box(s): [ ] Acute Renal Failure (ARF) / Acute Kidney Injury (DEE) [ ] Acute on Chronic Renal Failure please specify Stage of CKD (see below) [ ] CKD without ARF/DEE please specify Stage of CKD [ ] Other diagnosis [ ] Unable to determine National Kidney Foundation Guidelines for CKD Staging Stage I Kidney damage with normal or increased GFR GFR > 90 Stage II Kidney damage with mildly decreased GFR GFR 60-89 Stage III Kidney damage with moderately decreased GFR GFR 30-59 Stage IV Kidney damage with severely decreased GFR GFR 16-29 Stage V Kidney failure GFR<15 ESRD End Stage Renal Disease On dialysis For continuity of documentation, please document condition throughout progress notes and discharge summary. Thank You. CLINICAL INDICATORS - SIGNS / SYMPTOMS / LABS BUN: 25 CR: 1.05 GFR: 65 (ADMIT, 01/31) 28 1.17 58 (02/01) 1.28 52 (02/02) 28 1.08 63 (02/03) RISK FACTORS: HTN DM II NON-ISCHEMIC CARDIOMYOPATHY ACUTE ON CHRONIC SYSTOLIC CHF NON-COMPLIANCE W/MEDICATIONS TREATMENTS: SERIAL BASMET LABS THANK YOU! Mera (This form is maintained as a part of the permanent medical record) 2014 [employer]. All Rights Reserved Mera Massey RN, BSN [email or web address] Office: [phone] [facility]
--- NOTE | 2018-02-03 10:01 | PQF ---
CLINICAL DOCUMENTATION IMPROVEMENT CLARIFICATION FORM: ICD-10 Updated PLEASE DO AN ADDENDUM TO THE PROGRESS NOTE WITH ANY DOCUMENTATION UPDATES OR ADDITIONS AND CARRY THROUGH TO DC SUMMARY. THANK YOU. DATE: 02/03 ATTN: DR. GILBERT MONROE Please exercise your independent, professional judgment in responding to the clarification form. Clinical indicators are provided on the bottom of this form for your review. Please check appropriate box(s): AMI TYPE: [ ] NSTEMI [ ] MO Type II [x] Demand Ischemia [ ] Other diagnosis [ ] Unable to determine CLINICAL INDICATORS - SIGNS / SYMPTOMS / LABS TROP I: 1.400, 1.395, 1.489 (ADMIT, 01/31) ER PHYSICIAN DIAGNOSES 01/31: CHF EXACERBATION, NSTEMI H&P DOCUMENTATION 01/31 (JACQUELINE): HX PRESENT ILLNESS: ...SHE WAS FOUND TO HAVE SIGNIFICANTLY ELEVATED TROPONIN. ASSESSMENT & PLAN: 2) ELEVATED TROPONIN, DEMAND ISCHEMIA OF MYOCARDIUM. THE PT DOES NOT HAVE ANY CHEST PAIN, MOST LIKELY RELATED WITH DEMAND ISCHEMIA FROM CHF EXACERBATION CARDIOLOGY CONSULT 01/31: ...SHE DOES HAVE SR ON THE EKG AND NO ACUTE ST SEGMENT CHANGES TO INDICATE ISCHEMIA, BUT SHE HAS A HX ALSO OF NORMAL CORONARIES IN THE PAST. IMPRESSION: 4) ...HER TROPONIN I IS SLIGHTLY ELEVATED , BUT I SUSPECT THIS D/T JUST DEMAND ISCHEMIA OR D/T OVERALL CARDIOMYOPATHY PN 02/01 & (JACQUELINE): 2) DEMAND ISCHEMIA OF MYOCARDIUM RISKS: NON-ISCHEMIC CARDIOMYOPATHY ACUTE ON CHRONIC SYSTOLIC CHF EXACERBATION TREATMENTS: CARDIOLOGY CONSULT IV LASIX (01/31 - PRESENT) TELEMETRY MONITORING THANK YOU! [employer] (This form is maintained as a part of the permanent medical record) 2014 [employer]. All Rights Reserved Mera Massey RN, BSN [email or web address] Office: [phone] [facility]
[2018-02-03] MEDS: Enoxaparin Sodium 40 MG/0.4 ML SYRINGE SC SCH (10:56)
[2018-02-03] MEDS: Aspirin 325 MG TAB PO SCH (10:57)
[2018-02-03] MEDS: hydrALAZINE 25 MG TAB PO SCH ×2 (10:57→21:32)
[2018-02-03] MEDS: Metolazone 5 MG TAB PO SCH (10:57)
[2018-02-03] MEDS: Lisinopril 20 MG TAB PO SCH ×2 (10:58→21:40)
[2018-02-03] MEDS: Spironolactone 25 MG TAB PO SCH (10:58)
[2018-02-03] MEDS: Famotidine 20 MG TAB PO SCH ×2 (10:58→21:40)
[2018-02-03] MEDS: Glimepiride 4 MG TAB PO SCH (10:58)
[2018-02-03] MEDS: Carvedilol 25 MG TAB PO SCH ×2 (10:58→17:14)
[2018-02-03] MEDS: Allopurinol 100 MG TAB PO SCH (10:58)
--- NOTE | 2018-02-03 20:03 | PDOC.PN ---
- Subjective Encounter Start Date: 02/03/18 Encounter Start Time: 13:00 Patient seen and examined for CHF. SOB improving. No CP. No new complaints. No overnight events - Objective Resuscitation Status - Order Detail: 02/03/18 12:36 Resuscitation Status Routine Resuscitation Status: FULL: Full Resuscitation Discussed with: per previous order MAR Reviewed: Yes Vital Signs & Weight: Vital Signs (12 hours) Temp Pulse Resp BP BP BP Pulse Ox 02/03/18 16:50 97.6 F 61 16 116/64 94 L 02/03/18 11:03 97.8 F 70 18 126/69 96 02/03/18 10:58 126/69 02/03/18 10:57 64 126/69 Weight Weight 228 lb 3.2 oz I&O: 02/02/18 02/03/18 02/04/18 06:59 06:59 06:59 Intake Total 024 325 1236 Output Total 745 1150 Balance -5 -262 1200 Result Diagrams: 02/03/18 06:00 02/03/18 06:00 Additional Labs: Accuchecks 02/03/18 02/03/18 02/03/18 16:56 10:45 06:06 POC Glucose 101 135 H 87 02/02/18 20:46 POC Glucose 148 H Phys Exam - Physical Examination Constitutional: NAD Respiratory: no wheezing, no rhonchi Bibasilar rales Cardiovascular: RRR, no rub Gastrointestinal: soft, non-tender, positive bowel sounds Musculoskeletal: edema present Neurological: moves all 4 limbs Dx/Plan - Plan DVT proph w/lovenox, DVT proph w/SCDs 1. Acute on chronic sytolic HF 2. Elevated troponins due to demand ishcemia 3. Obesity BMI 38.2 4. CKD 2 5. HTN 6. DM2 7. Tobacco abuse PLAN: Cont diuresis Cont BB/ACEI/Aldactone AM labs Cont Amaryl with sliding scale Cont other meds as below Review of Systems - Review of Systems Constitutional: negative: fever, chills, sweats, weakness, malaise, other Gastrointestinal: negative: Nausea, Vomiting, Abdominal Pain, Diarrhea, Constipation, Melena, Hematochezia, Other - Medications/Allergies Allergies/Adverse Reactions: Allergies Allergy/AdvReac Type Severity Reaction Status Date / Time No Known Drug Allergies Allergy Verified 11/12/17 22:06 Medications: Current Medications Acetaminophen (Tylenol) 650 mg PO Q4H PRN PRN Reason: Headache/Fever/Mild Pain (1-3) Hydrocodone Bitart/Acetaminophen ([place] 5/325) 1 tab PO Q4H PRN PRN Reason: Moderate Pain (4-6) Albuterol/Ipratropium (Duoneb) 3 ml NEB [id number] PRN PRN Reason: SOB &/or Wheezing Allopurinol (Zyloprim) 100 mg PO DAILY [facility] Last Admin: 02/03/18 10:58 Dose: 100 mg Artificial Tears (Tears Renewed 15ml Bottle) 2 drop EA EYE PRN PRN PRN Reason: Dry Eyes Aspirin (Aspirin) 325 mg PO DAILY [facility] Last Admin: 02/03/18 10:57 Dose: 325 mg Atorvastatin Calcium (Lipitor) 10 mg PO HS [facility] Last Admin: 02/02/18 20:38 Dose: 10 mg Bisacodyl (Dulcolax) 10 mg PO DAILYPRN PRN PRN Reason: Constipation Calcium Carbonate (Tums) 1,000 mg PO Q4H PRN PRN Reason: Heartburn or Indigestion Carvedilol (Coreg) 25 mg PO BID[facility] Last Admin: 02/03/18 17:14 Dose: 25 mg Dextrose/Water (Dextrose 50%) 25 gm SLOW IVP PRN PRN PRN Reason: Hypoglycemia Enoxaparin Sodium (Lovenox) 40 mg SC 0900 [facility] Last Admin: 02/03/18 10:56 Dose: 40 mg Famotidine (Pepcid) 20 mg PO BID [facility] Last Admin: 02/03/18 10:58 Dose: 20 mg Furosemide (Lasix) 80 mg SLOW IVP 0600,1400 [facility] Last Admin: 02/03/18 13:48 Dose: 80 mg Glimepiride (Amaryl) 4 mg PO QAM-[facility] Last Admin: 02/03/18 10:58 Dose: 4 mg Glucagon (Glucagon) 1 mg IM PRN PRN PRN Reason: Hypoglycemia Guaifenesin (Robitussin Sf) 200 mg PO Q4H PRN PRN Reason: Cough Hydralazine HCl (Apresoline) 10 mg SLOW IVP Q4H PRN PRN Reason: SBP > 180 and HR < 70 Hydralazine HCl (Apresoline) 50 mg PO BID [facility] Last Admin: 02/03/18 10:57 Dose: 50 mg Dextrose/Water (D5w) 1,000 mls @ 0 mls/hr IV .Q0M PRN PRN Reason: Hypoglycemia Insulin Human Lispro (Humalog) 0 units SC .MODERATE SLIDING SC PRN PRN Reason: Moderate Correctional Scale Insulin Human Lispro (Humalog) 0 units SC .BEDTIME SLIDING SC PRN PRN Reason: Bedtime Correctional Scale Isosorbide Mononitrate (Imdur Er) 30 mg PO DAILY [facility] Last Admin: 02/03/18 10:57 Dose: 30 mg Levothyroxine Sodium (Synthroid) 25 mcg PO 0600 [facility] Last Admin: 02/03/18 05:13 Dose: 25 mcg Lisinopril (Zestril) 20 mg PO BID [facility] Last Admin: 02/03/18 10:58 Dose: 20 mg Loperamide HCl (Imodium) 2 mg PO PRN PRN PRN Reason: Diarrhea/Loose Stools Loratadine (Claritin) 10 mg PO DAILYPRN PRN PRN Reason: Sinus Symptoms Metolazone (Zaroxolyn) 5 mg PO 0830 [facility] Last Admin: 02/03/18 10:57 Dose: 5 mg Mineral Oil/White Petrolatum (Eucerin Cream) 0 gm TOP BIDPRN PRN PRN Reason: Dry Skin Nicotine (Nicoderm Patch) 21 mg TD Q24HR PRN PRN Reason: Smoking Cessation Nitroglycerin (Nitrostat) 0.4 mg SL Q5MIN PRN PRN Reason: Chest Pain Ondansetron HCl (Zofran Odt) 4 mg PO Q6H PRN PRN Reason: Nausea/Vomiting Ondansetron HCl (Zofran) 4 mg IVP Q6H PRN PRN Reason: Nausea/Vomiting Senna/Docusate Sodium (Senokot S) 2 tab PO BID PRN PRN Reason: Constipation Sodium Chloride ([place] Nasal [place] 0.65%) 0 ml EA NARE QIDPRN PRN PRN Reason: Nasal Congestion Spironolactone (Aldactone) 25 mg PO QAM-WM [facility] Last Admin: 02/03/18 10:58 Dose: 25 mg Throat Lozenges (Cepastat Lozenges) 1 jorgito PO Q2H PRN PRN Reason: Sore Throat Zolpidem Tartrate (Ambien) 5 mg PO HSPRN PRN PRN Reason: Insomnia
[2018-02-03] MEDS: Atorvastatin Calcium 10 MG TAB PO SCH (21:32)
[2018-02-04] MEDS: Levothyroxine Sodium 25 MCG TAB PO SCH (05:21)
[2018-02-04] MEDS: Furosemide 100 MG/10 ML VIAL SLOW IVP SCH ×2 (05:21→13:51)
[2018-02-04 06:05] LABS: Anion Gap 12 mmol/L (10-20); BUN (Urea Nitrogen) 30 mg/dL (9.8-20.1); Calc. Creatinine Clearance 79 mL/min (70-130); Calcium 9.2 mg/dL (7.8-10.44); Carbon Dioxide 27 mmol/L (22-29); Chloride 106 mmol/L (98-107); Estimated GFR-MDRD 53; Glucose 81 mg/dL (70-105); Potassium 3.3 mmol/L (3.5-5.1); Sodium 142 mmol/L (136-145)
[2018-02-04] MEDS ORDERED: Potassium Chloride 20 MEQ TAB PO SCH (08:00)
[2018-02-04] MEDS: Carvedilol 25 MG TAB PO SCH (08:45)
[2018-02-04] MEDS: Famotidine 20 MG TAB PO SCH (08:46)
[2018-02-04] MEDS: hydrALAZINE 25 MG TAB PO SCH (08:46)
[2018-02-04] MEDS: Lisinopril 20 MG TAB PO SCH (08:46)
[2018-02-04] MEDS: Metolazone 5 MG TAB PO SCH (08:46)
[2018-02-04] MEDS: Allopurinol 100 MG TAB PO SCH (08:46)
[2018-02-04] MEDS: Glimepiride 4 MG TAB PO SCH (08:46)
[2018-02-04] MEDS: Aspirin 325 MG TAB PO SCH (08:46)
[2018-02-04] MEDS: Spironolactone 25 MG TAB PO SCH (08:46)
[2018-02-04] MEDS: Enoxaparin Sodium 40 MG/0.4 ML SYRINGE SC SCH (08:47)
--- NOTE | 2018-02-04 15:13 | DIS ---
DATE OF ADMISSION: 01/31/2018 DATE OF DISCHARGE: 02/04/2018 DISCHARGE DISPOSITION: Home. FOLLOWUP: 1. Follow up with primary care physician, Dr. Yulia Albert in 1 week. 2. Follow up with Dr. José Tejada on February 09, 2018, at 2 p.m. 3. Follow up with [facility]. 4. Outpatient cardiac rehab. ALLERGIES: NO KNOWN DRUG ALLERGIES. DISCHARGE MEDICATIONS: 1. Carvedilol 25 mg twice a day. 2. Imdur 30 mg daily. 3. Aldactone 25 mg daily. 4. Simvastatin 20 mg at bedtime. 5. Hydralazine 50 mg b.i.d. 6. Glimepiride 4 mg daily. 7. Lasix 80 mg twice a day. 8. Aspirin 81 mg daily. 9. Lisinopril 20 mg b.i.d. The patient was extensively counseled on congestive heart failure. Basic metabolic profile after 1 week is recommended. Primary care physician advised to follow. The patient was seen and examined on the day of discharge. Denies any new complaints. No chest pain or palpitations reported. Shortness of breath has significantly improved. BRIEF HOSPITAL COURSE: The patient is a 57-year-old female with nonischemic cardiomyopathy, status post AICD, who presented to the emergency room with worsening shortness of breath. Workup was consistent with congestive heart failure exacerbation. BNP was 1200 with maximum troponin of 1.48. The patient was seen by Cardiology, Dr. José Tejada. She showed good improvement with diuretics. Weight on the day of discharge was 222 pounds from 231 pounds. She is currently on room air. She has been cleared by Cardiology for discharge. She will follow up with Cardiology for possible cardiac transplant. A basic metabolic profile after 1 week will be beneficial. Primary care physician advised to follow. She also had some electrolyte abnormalities, which were replaced. She had been cleared by Cardiology for discharge. Plan of care was discussed with the patient in detail. She stated understanding. FINAL DIAGNOSES: 1. Acute on chronic systolic heart failure exacerbation, ACC stage C. 2. Elevated troponin secondary to demand ischemia. 3. Obesity with a BMI of 38.2. 4. Chronic kidney disease stage II. 5. Hypertension. 6. Diabetes mellitus type 2. 7. Tobacco dependence. 8. History of automatic implantable cardioverter-defibrillator placement. 9. . Job ID: [id number]
[2018-02-04 15:43] VITALS: BP 107/57; TEMP 97.4
--- NOTE | 2018-02-07 16:47 | EKG ---
Test Reason : SOB Blood Pressure : / mmHG Vent. Rate : 102 BPM Atrial Rate : 102 BPM P-R Int : 180 ms QRS Dur : 090 ms QT Int : 396 ms P-R-T Axes : 020 -19 057 degrees QTc Int : 516 ms Sinus tachycardia Left atrial enlargement Low voltage QRS Cannot rule out Anterior infarct , age undetermined Abnormal ECG Confirmed by CALIXTO ASHLEY, EUGENIO ([id number]), supervising film or videotape editor DEVIN HUGO ([id number]) on 02/07/2018 4:46:40 PM Referred By: CALIXTO Confirmed By:EUGENIO DE LUNA MD
== END 2018-02-04 15:40 | disposition home health service (06) | DRG 291 ==
LOC: ERS 11:42 → 2NO 15:14
PROVIDERS: ADMIT Internal Medicine; ATTEND Internal Medicine
DX: I13.0 Hypertensive heart and chronic kidney disease with heart failure and stage 1 through stage 4 chronic kidney disease, or unspecified chronic kidney disease (principal); I50.23 Acute on chronic systolic (congestive) heart failure; I24.8 Other forms of acute ischemic heart disease; N18.2 Chronic kidney disease, stage 2 (mild); E11.22 Type 2 diabetes mellitus with diabetic chronic kidney disease; Z79.84 Long term (current) use of oral hypoglycemic drugs; Z68.38 Body mass index [BMI] 38.0-38.9, adult; F17.210 Nicotine dependence, cigarettes, uncomplicated; Z95.810 Presence of automatic (implantable) cardiac defibrillator; I42.8 Other cardiomyopathies; E78.5 Hyperlipidemia, unspecified; E66.01 Morbid (severe) obesity due to excess calories; Z91.14 Patient's other noncompliance with medication regimen; Z91.11 Patient's noncompliance with dietary regimen
CPT/HCPCS: 36415; 36416; 71045; 80048; 80053; 81001; 82553; 82565; 83735; 83880; 84443; 84484; 84550; 85014; 85018; 85025; 85049; 93005; 94760; 96372; 96374; J1650; J1940; J3475; J7050

== ENCOUNTER 2018-02-06 16:29 | Emergency (ER) | payer MEDICARE ==
[2018-02-06 17:40] LABS: Mean Corpuscular HGB CONC 30.8 g/dL (32.0-36.0); Mean Platelet Volume 9.4 fL (7.4-10.4); Platelet Count 163 thou/uL (130-400); RBC Distribution Width 15.6 % (11.5-14.5); Red Blood Cell (RBC) Count 5.36 mill/uL (4.20-5.40); White Blood Cell (WBC) Count 5.2 thou/uL (4.8-10.8)
[2018-02-06 17:56] LABS: Anisocytosis SLIGHT = 6-15 cells (100X) (0-5/hpf); Eosinophils 2 % (0-10); Lymphocytes 28 % (21-51); MDiff Complete? YES; Monocytes 14 % (0-10); Neutrophil 55 % (42-75); Ovalocytes SLIGHT = 2-5 cells (100X) (0-1/hpf); PLT Morphology Comment Appears Adequate; Reactive Lymphocytes 1 % (0-10)
[2018-02-06 17:59] LABS: ALT (SGPT) 16 U/L (8-55); AST (SGOT) 24 U/L (5-34); Albumin 3.5 g/dL (3.5-5.0); Alkaline Phosphatase 94 U/L (40-150); Anion Gap 12 mmol/L (10-20); BUN (Urea Nitrogen) 28 mg/dL (9.8-20.1); Bilirubin, Total 1.5 mg/dL (0.2-1.2); Calc. Creatinine Clearance 0 mL/min (70-130); Calcium 9.9 mg/dL (7.8-10.44); Carbon Dioxide 33 mmol/L (22-29); Chloride 100 mmol/L (98-107); Estimated GFR-MDRD 53; Globulin 3.8 g/dL (2.4-3.5); Glucose 60 mg/dL (70-105); Potassium 3.7 mmol/L (3.5-5.1); Protein, Total 7.3 g/dL (6.0-8.3); Sodium 141 mmol/L (136-145)
[2018-02-06 18:02] LABS: CKMB 1.2 ng/mL (0-6.6)
[2018-02-06 18:29] LABS: Bilirubin Negative (Negative); Blood, Urine Negative (Negative); Clarity CLEAR (Clear); Glucose, Urine (Dipstick) Negative (Negative); Leukocyte Negative (Negative); Nitrite Negative (Negative); Protein, Urine (Dipstick) Negative (Neg-Trace); Specific Gravity, Urine 1.006 (1.002-1.036)
--- NOTE | 2018-02-06 19:39 | RAD ---
SINGLE VIEW OF THE CHEST: 02/06/18 COMPARISON: 12/31/17 HISTORY: Incontinence and bilateral leg pain. Cough. FINDINGS: Single view of the chest shows an enlarged but stable cardiomediastinal silhouette. The pacemaker is unchanged in position. There is no evidence of consolidation, mass, or pleural effusion. IMPRESSION: Stable cardiomegaly. POS: [facility]
[2018-02-06 21:17] LABS: Troponin I 0.544 ng/mL (< 0.028)
== END 2018-02-06 23:14 | disposition home or self-care (01) ==
LOC: ERS 16:29
DX: R35.0 Frequency of micturition (principal); R79.89 Other specified abnormal findings of blood chemistry; E11.9 Type 2 diabetes mellitus without complications; E78.5 Hyperlipidemia, unspecified; I11.0 Hypertensive heart disease with heart failure; I50.9 Heart failure, unspecified; F03.90 Unspecified dementia, unspecified severity, without behavioral disturbance, psychotic disturbance, mood disturbance, and anxiety; F17.210 Nicotine dependence, cigarettes, uncomplicated; Z79.899 Other long term (current) drug therapy
CPT/HCPCS: 36415; 71045; 80053; 81003; 82553; 83880; 84484; 85025; 93005; A4353

== ENCOUNTER 2018-04-22 13:15 | Inpatient (IN) | payer MEDICARE ==
--- NOTE | 2018-04-22 14:04 | RAD ---
PORTABLE CHEST Date: 04-22-18 Provided Clinical History: Hypertensive crisis. FINDINGS: Comparison 02-06-18. The cardiac silhouette remains prominently enlarged. Left subclavian cardiac pacing device is again d emonstrated with lead tips in similar positions. Prominence of the pulmonary vasculature and pulmonar y interstitium. No definite lobar consolidation, large pleural effusion or pneumothorax evident. IMPRESSION: Cardiomegaly and findings suggesting congestive failure. Follow up is recommended. POS: [facility]
[2018-04-22 14:07] LABS: #Eosinphils 0.1 thou/uL (0.0-0.7); #Monocytes 0.6 thou/uL (0.11-0.59); %Basophils 0.6 % (0.0-1.0); %Eosinophils 2.7 % (0.0-10.0); %Lymphocytes 25.2 % (21.0-51.0); %Monocytes 11.1 % (0.0-10.0); %Neutrophils 60.4 % (42.0-75.0); Hemoglobin 16.2 g/dL (12.0-16.0); Mean Corpuscular Hemoglobin 28.1 pg (27.0-31.0); Mean Corpuscular Volume 93.6 fL (78.0-98.0); Mean Platelet Volume 10.7 fL (7.4-10.4); Platelet Count 150 thou/uL (130-400); RBC Distribution Width 19.4 % (11.5-14.5); Red Blood Cell (RBC) Count 5.77 mill/uL (4.20-5.40); White Blood Cell (WBC) Count 4.9 thou/uL (4.8-10.8)
[2018-04-22 14:25] LABS: ALT (SGPT) 9 U/L (8-55); AST (SGOT) 20 U/L (5-34); Albumin 3.7 g/dL (3.5-5.0); Alkaline Phosphatase 97 U/L (40-150); Anion Gap 19 mmol/L (10-20); BUN (Urea Nitrogen) 32 mg/dL (9.8-20.1); Bilirubin, Total 4.3 mg/dL (0.2-1.2); CK (CPK) 76 U/L (29-168); Calc. Creatinine Clearance 0 mL/min (70-130); Calcium 9.9 mg/dL (7.8-10.44); Carbon Dioxide 23 mmol/L (22-29); Chloride 104 mmol/L (98-107); Estimated GFR-MDRD 52; Globulin 4.1 g/dL (2.4-3.5); Glucose 129 mg/dL (70-105); Lipase 12 U/L (8-78); Potassium 3.5 mmol/L (3.5-5.1); Protein, Total 7.8 g/dL (6.0-8.3); Sodium 142 mmol/L (136-145)
--- NOTE | 2018-04-22 14:31 | CT ---
CT BRAIN: Date: 04-22-18 Provided Clinical History: Hypertensive crisis. FINDINGS: No comparisons. The ventricular system appears normal in size and morphology. There is no evidence for intracranial h emorrhage or mass effect. The extracranial soft tissues and osseous structures demonstrate no acute f indings. Chronic microvascular ischemic changes noted. IMPRESSION: No evidence for intracranial hemorrhage or mass effect. POS: [facility]
[2018-04-22] MEDS ORDERED: Aspirin Chewable 81 MG TAB ONE ×2 (14:39→20:33)
[2018-04-22] MEDS ORDERED: Enoxaparin Sodium 40 MG/0.4 ML SYRINGE ONE (14:40)
[2018-04-22] MEDS ORDERED: Enoxaparin Sodium 60 MG/0.6 ML SYRINGE ONE (14:40)
[2018-04-22 14:51] LABS: CKMB 5.1 ng/mL (0-6.6)
--- NOTE | 2018-04-22 16:13 | HP ---
PRIMARY CARE PHYSICIAN: REASON FOR ADMISSION: [id number] systolic congestive heart failure exacerbation, hypertensive urgency, NSTEMI. HISTORY OF PRESENT ILLNESS: A 57-year-old female who has severe cardiomyopathy with EF 10% to 15%. She has underlying severe tricuspid regurgitation as well as AICD in place, who was brought to emergency room by paramedics for elevated blood pressure. This patient was having difficulty getting around at home for the last 4 days. She was found with blood pressure 200/132 by paramedics at home. The patient has increasing bilateral lower extremity edema. She was feeling weak and tired. She did not have any chest pain at home. This patient is a very poor historian, but she denies any headache, focal motor weakness. She is moving all 4 limbs. She denies any palpitation, dizziness, or syncope. She denies any headaches. She denies any fever or chills. She denies any UTI symptoms. It is unclear whether this patient is taking all medication as prescribed or not because patient is not able to provide that history at all and is not reliable from her as well. When I saw this patient in the emergency room, the patient's blood pressure already improved after nitroglycerin x2 and nitroglycerin patch, which was given by paramedics. The patient was on room air and saturating normal, but her blood pressure was elevated and she was found with significantly elevated JVD and bilateral lower extremity edema. The patient was repeatedly asking during conversation about food. The patient denies any melena, hematochezia, constipation, diarrhea. REVIEW OF SYSTEMS: CONSTITUTIONAL: Negative for weight loss or gain, ability to conduct usual activities. SKIN: Negative for rash, itching. EYES: Negative for double vision, pain. ENT/MOUTH: Negative for nose bleeding, neck stiffness, pain, tenderness. CARDIOVASCULAR: Negative for palpitations, dyspnea on exertion, orthopnea. RESPIRATORY: Negative for shortness of breath, wheezing, cough, hemoptysis, fever or night sweats. GASTROINTESTINAL: Negative for poor appetite, abdominal pain, heartburn, nausea, vomiting, constipation, or diarrhea. GENITOURINARY: Negative for urgency, frequency, dysuria, nocturia. MUSCULOSKELETAL: Negative for pain, swelling. NEUROLOGIC/PSYCHIATRIC: Negative for anxiety, depression. ALLERGY/IMMUNOLOGIC: Negative for skin rash, bleeding tendency. Please see my HPI for pertinent positives and negative. All other review of systems reviewed and negative except as mentioned in HPI. ALLERGIES: NO KNOWN DRUG ALLERGY. CURRENT HOME MEDICATION: 1. Lisinopril 20 mg p.o. b.i.d. 2. Aspirin 81 mg p.o. daily. 3. Coreg 25 mg p.o. b.i.d. 4. Lasix 80 mg p.o. b.i.d. 5. Glimepiride 4 mg daily. 6. Hydralazine 50 mg p.o. b.i.d. 7. Imdur 30 mg daily. 8. Zocor 20 mg p.o. at bedtime. 9. Aldactone 25 mg p.o. daily. PAST MEDICAL HISTORY: Nonischemic cardiomyopathy with EF 10-15%, chronic systolic and diastolic heart failure, [id number] tricuspid regurgitation, nonsustained ventricular tachycardia, diabetes type 2, morbid obesity, hypertension, and dyslipidemia. PAST SURGICAL HISTORY: AICD placement, cardiac catheterization in the remote past. PAST PSYCHIATRIC HISTORY: Reviewed and negative. SOCIAL HISTORY: The patient is , lives at home with her . She has a smoking history since age of 14. She also drinks alcohol occasionally. She does not have any other illicit drug abuse. FAMILY HISTORY: Diabetes, hypertension, heart disease runs among several family members. EMERGENCY ROOM COURSE: The patient has received Lovenox 1 mg/kg, nitroglycerin patch and nitroglycerin sublingual x2 and Lasix. PHYSICAL EXAMINATION: VITAL SIGNS: Vital signs most recently, blood pressure 164/124, pulse 96, respiratory rate 18, temperature 97.6, saturation 94% on room air, weight 101.0 kg. GENERAL: The patient is currently alert, awake, follows commands. No obvious acute distress. HEENT: Head; normocephalic, atraumatic. Eyes; pupils round, reactive to light. Extraocular muscle intact. ENT: Oropharynx within normal limits. Moist mucous membranes. No oral lesion. No pharyngeal erythema. No exudate. NECK: Elevated JVD. No thyromegaly. No carotid bruit. LUNGS: Reduced air entry at bases. No basal rales noted. CARDIAC: S1, S2 appears regular with premature ventricular complexes. Systolic murmur noted parasternally. Gallop present. ABDOMEN: Obesity present. Abdominal wall edema noted. No suprapubic tenderness. BACK: Unremarkable no CVA tenderness. EXTREMITIES: Upper extremities; passive movement of all joints are normal. Lower extremities; extensive bilateral lower extremity pitting edema noted. Good distal pulsation. Chronic skin changes in both lower extremities noted. SKIN: No skin rash other than dry and chronic skin changes in lower extremities. PSYCHIATRIC: Normal affect. HEMATOLOGICAL SYSTEM: No lymphadenopathy. NEUROLOGIC: The patient is at baseline currently. She does not have any lateralization on either side. She is moving all 4 limbs. Her speech is normal. Pupils round and reactive to light. Cranial nerves intact. Reflexes and sensation intact. SIGNIFICANT LABORATORY DATA: EKG showing normal sinus rhythm, premature ventricular complexes, biatrial enlargement. Chest x-ray showing cardiomegaly, pulmonary vascular congestion consistent with congestive heart failure. CBC: WBC is 4.9, hemoglobin 16.2, platelet 150. BMP: Sodium 142, potassium 3.5, chloride 104, carbon dioxide 23, BUN 32, creatinine 1.29, glucose 129, calcium 9.9. LFT: AST 20, ALT 9, alkaline phosphatase 97, albumin 3.7, lipase 12. CK 76, CK-MB 5.1, troponin 1.950. ASSESSMENT AND PLAN: 1. Bjgsz-mw-tnhhenk systolic congestive heart failure exacerbation. The patient also has underlying zocdaxao-hv-uuttbq tricuspid regurgitation. The patient already has automatic implantable cardioverter defibrillator in place. She has associated non-sustained ventricular tachycardia intermittently. This patient is currently significantly volume overloaded. She has significantly elevated jugular venous distention, bilateral lower extremity edema, gallop. We will check BNP. The patient will need Lasix therapy. Fluid restriction 1500 mL per day. We will continue Lasix 40 mg IV b.i.d. along with Zaroxolyn 5 mg p.o. daily. We will monitor renal function, electrolytes, daily weight and input/output chart. 2. Hypertensive urgency currently improved with the emergency room treatment. We will continue to monitor on telemetry floor and will continuously address her medication. Currently we will continue with Coreg 25 mg p.o. b.i.d., hydralazine 50 mg t.i.d., nitroglycerin patch q.8 hourly, lisinopril 20 mg p.o. b.i.d. along with diuretic therapy. 3. Non-ST elevation myocardial infarction type 2, likely related with demand ischemia. This patient does not have any angina, but we will do serial cardiac enzyme x3 and we will obtain a cardiology consultation. The patient already has received Lovenox 1 mg/kg. We will continue with aspirin 325 mg p.o. daily. 4. Lipitor 10 mg p.o. at bedtime, along with beta reshma and angiotensin converting enzyme inhibitor therapy. 5. Dyslipidemia. We will continue Lipitor 10 mg p.o. at bedtime. 6. Chronic kidney disease stage 3. We will monitor renal function. Avoid nephrotoxic agent. 7. Diabetes type 2. At this point, we will hold on oral hypoglycemic agent, but we will continue with insulin as per sliding scale per protocol. Diabetic diet will be given. 8. Deep venous thrombosis prophylaxis Lovenox 40 mg subcu daily. 9. Gastrointestinal prophylaxis, Pepcid 20 mg p.o. b.i.d. CODE STATUS: The patient is full code. The patient's is surrogate decision maker. DISPOSITION PLAN: Based on clinical course we are expecting the patient's stay in hospital more than 2 midnights. Plan of care discussed with the patient in detail. Job ID: [id number]
[2018-04-22] MEDS ORDERED: Furosemide 40 MG/4 ML VIAL ONE (17:34)
[2018-04-22 17:53] LABS: Critical Call Chem Troponin I DECREASED; Troponin I 1.864 ng/mL (< 0.028)
[2018-04-22] MEDS ORDERED: Nitroglycerin 50 MG/250 ML BOT 250 ML IVPB SCH (19:45)
[2018-04-22] MEDS ORDERED: Nitroglycerin 50 MG/250 ML BOT 250 ML ONE (19:50)
[2018-04-22 20:39] LABS: Troponin I 1.996 ng/mL (< 0.028)
[2018-04-22 21:31] LABS: Bilirubin Moderate (Negative); Blood, Urine Negative (Negative); Clarity CLEAR (Clear); Glucose, Urine (Dipstick) Negative (Negative); Leukocyte Negative (Negative); Nitrite Negative (Negative); Protein, Urine (Dipstick) 100 mg/dL (Neg-Trace); Specific Gravity, Urine 1.013 (1.002-1.036); pH, Urine 5.5 (5.0-9.0)
[2018-04-22 21:35] LABS: Bacteria/HPF None Seen HPF (None Seen); Hyaline Casts/LPF 0-3 HYALINE CAST LPF (0-3 Hyaline); Pathc Cast-AUWi Flag 0.14 (0-2.49); RBC/HPF 0-3 HPF (0-3); Squamous Epithelial 0-3 HPF (0-3); WBC/HPF 0-3 HPF (0-3)
[2018-04-23] MEDS ORDERED: Loperamide HCl 2 MG CAP PO PRN (00:53)
[2018-04-23] MEDS ORDERED: Labetalol HCl 100 MG/20 ML VIAL SLOW IVP PRN (00:53)
[2018-04-23] MEDS ORDERED: Artificial Tears 18 DROP/0.9 ML EA EYE PRN (00:53)
[2018-04-23] MEDS ORDERED: Eucerin (Mineral Oil/Petrolatum,White) 30 gm Jar TOP PRN (00:53)
[2018-04-23] MEDS ORDERED: Nitroglycerin 0.4 MG TAB (25 Tab Bottle) SL PRN (00:53)
[2018-04-23] MEDS ORDERED: hydrALAZINE 20 MG/ML VIAL SLOW IVP PRN (00:53)
[2018-04-23] MEDS ORDERED: Cepastat Lozenges 1 LOZ PO PRN (00:53)
[2018-04-23] MEDS ORDERED: Ondansetron ODT 4 MG TAB PO PRN (00:53)
[2018-04-23] MEDS ORDERED: Bisacodyl 5 MG TAB PO PRN (00:53)
[2018-04-23] MEDS ORDERED: Senokot S 8.6-50 MG TAB PO PRN (00:53)
[2018-04-23] MEDS ORDERED: Dextrose 50% Abboject 50 ML SYRINGE SLOW IVP PRN (00:53)
[2018-04-23] MEDS ORDERED: Diabetic Tussin 200 MG/10 ML UDCUP PO PRN (00:53)
[2018-04-23] MEDS ORDERED: Sodium Chloride 0.65% Nasal 44 ML BOT EA NARE PRN (00:53)
[2018-04-23] MEDS ORDERED: Dextrose 5% in Water 1,000 ML IV PRN (00:53)
[2018-04-23] MEDS ORDERED: Bisacodyl 10 MG SUPP PR PRN (00:53)
[2018-04-23] MEDS ORDERED: Calcium Carbonate 500 MG ChewTAB PO PRN (00:53)
[2018-04-23] MEDS ORDERED: HYDROcodone/Acetaminophen 5/325 mg Tablet PO PRN (00:53)
[2018-04-23] MEDS ORDERED: Acetaminophen 325 MG TAB PO PRN (00:53)
[2018-04-23] MEDS ORDERED: HumaLOG 300 UNITS/3 ML VIAL SC PRN ×2 (00:53)
[2018-04-23] MEDS ORDERED: Metolazone 5 MG TAB PO SCH (00:53)
[2018-04-23] MEDS ORDERED: Loratadine 10 MG TAB PO PRN (00:53)
[2018-04-23] MEDS ORDERED: Zolpidem Tartrate 5 MG TAB PO PRN (00:53)
[2018-04-23] MEDS ORDERED: Ondansetron PF 4 MG/2 ML Vial IVP PRN (00:53)
[2018-04-23] MEDS ORDERED: cloNIDine 0.1 MG TAB PO PRN (00:53)
[2018-04-23] MEDS ORDERED: Lisinopril 20 MG TAB PO SCH (01:15)
[2018-04-23] MEDS ORDERED: Nitroglycerin 2% Ointment 1 INCH/1 GM Packet TOP SCH (01:15)
[2018-04-23] MEDS ORDERED: Famotidine 20 MG TAB PO SCH (01:15)
[2018-04-23] MEDS ORDERED: hydrALAZINE 25 MG TAB PO SCH (01:15)
[2018-04-23] MEDS: Carvedilol 25 MG TAB PO SCH ×3 (02:29→17:07)
[2018-04-23 03:21] VITALS: BMI 30.5
[2018-04-23] MEDS ORDERED: niCARdipine HCl 25 MG in Sodium Chloride 0.9% 250 ML 240 ML IVPB SCH (03:45)
[2018-04-23 03:48] LABS: Amphetamine Not Detected (NotDetected); Barbiturates Screen Not Detected (NotDetected); Benzodiazepine Screen Not Detected (NotDetected); Cocaine Metabolite Screen Not Detected (NotDetected); Medtox Control Line Valid? VALID (VALID); Medtox Reader # READER 4; Methadone Not Detected (NotDetected); Methamphetamine Not Detected (NotDetected); Opiate Screen Not Detected (NotDetected); Oxycodone Screen Not Detected (NotDetected); Phencyclidine (PCP) Not Detected (NotDetected); THC/Cannabinoid Screen Not Detected (NotDetected); Tricyclic Screen Not Detected (NotDetected)
[2018-04-23] MEDS: Furosemide 40 MG/4 ML VIAL SLOW IVP SCH ×2 (06:10→14:07)
[2018-04-23 06:17] LABS: Anion Gap 12 mmol/L (10-20); BUN (Urea Nitrogen) 32 mg/dL (9.8-20.1); Calc. Creatinine Clearance 63 mL/min (70-130); Carbon Dioxide 26 mmol/L (22-29); Chloride 104 mmol/L (98-107); Estimated GFR-MDRD 53; Glucose 131 mg/dL (70-105); Magnesium 1.3 mg/dL (1.6-2.6); Potassium 3.1 mmol/L (3.5-5.1); Sodium 139 mmol/L (136-145); Uric Acid 13.5 mg/dL (2.6-6.0)
[2018-04-23 06:26] LABS: Band 3 % (5-11); Eosinophils 3 % (0-10); Hemoglobin 13.1 g/dL (12.0-16.0); Lymphocytes 26 % (21-51); MDiff Complete? YES; Mean Corpuscular HGB CONC 28.6 g/dL (32.0-36.0); Mean Corpuscular Hemoglobin 26.6 pg (27.0-31.0); Mean Platelet Volume 10.2 fL (7.4-10.4); Monocytes 9 % (0-10); Neutrophil 59 % (42-75); Platelet Count 147 thou/uL (130-400); Platelet Morphology Comment Appears Adequate; RBC Distribution Width 19.1 % (11.5-14.5); Red Blood Cell (RBC) Count 4.94 mill/uL (4.20-5.40); Tear Drops SLIGHT = 2-5 cells (100X) (0-1/hpf); White Blood Cell (WBC) Count 4.2 thou/uL (4.8-10.8)
[2018-04-23] MEDS ORDERED: Magnesium Sulfate 3 GM in Sodium Chloride 0.9% 100 ML IVPB SCH (08:00)
[2018-04-23] MEDS ORDERED: Potassium Chloride 20 MEQ TAB PO SCH ×2 (08:00)
[2018-04-23] MEDS: Metolazone 5 MG TAB PO SCH (08:44)
[2018-04-23] MEDS: Aspirin 325 MG TAB PO SCH (08:44)
[2018-04-23] MEDS: hydrALAZINE 25 MG TAB PO SCH ×3 (08:47→20:25)
[2018-04-23] MEDS: Nitroglycerin 2% Ointment 1 INCH/1 GM Packet TOP SCH ×2 (08:48→20:26)
[2018-04-23] MEDS: Lisinopril 20 MG TAB PO SCH ×2 (08:48→20:25)
[2018-04-23] MEDS: Spironolactone 25 MG TAB PO SCH (09:00)
[2018-04-23] MEDS ORDERED: Carvedilol 25 MG TAB PO SCH (09:00)
[2018-04-23] MEDS ORDERED: Spironolactone 25 MG TAB PO SCH (09:00)
[2018-04-23] MEDS: Enoxaparin Sodium 40 MG/0.4 ML SYRINGE SC SCH (09:08)
--- NOTE | 2018-04-23 09:35 | PDOC.PN ---
- Subjective Encounter Start Date: 04/23/18 Encounter Start Time: 08:10 -: old records requested/rev last night pt required CCU transfer for her uncontrolled BP, started on NTG drip , this morning BP controlled, she does not have chest pain, denies dyspnea, edema reduced - Objective Resuscitation Status - Order Detail: 04/22/18 15:04 Resuscitation Status Routine Resuscitation Status: FULL: Full Resuscitation MAR Reviewed: Yes Vital Signs & Weight: Vital Signs (12 hours) Temp Pulse Resp BP Pulse Ox 04/23/18 08:48 142/75 H 04/23/18 08:47 67 142/75 H 04/23/18 04:00 97.2 F L 04/23/18 02:16 96 154/130 H 04/23/18 02:15 154/130 H 04/23/18 01:45 97.5 F L 96 20 96 04/23/18 01:40 96 Weight Admit Weight 180 lb Weight 179 lb 0.246 oz Most Recent Monitor Data Heart Rate from ECG 77 NIBP 124/87 NIBP BP-Mean 99 Respiration from ECG 19 SpO2 94 I&O: 04/22/18 04/23/18 04/24/18 06:59 06:59 06:59 Intake Total 423 Output Total 0 Balance 423 Result Diagrams: 04/23/18 05:40 04/23/18 05:40 Additional Labs: Accuchecks 04/22/18 13:23 POC Glucose 129 H EKG Reviewed by me: Yes (nsr) Phys Exam - Physical Examination Constitutional: NAD HEENT: PERRLA, moist MMs, sclera anicteric high JVD Respiratory: no wheezing, no rhonchi basal rales, reduced air entry Cardiovascular: RRR, no rub SM+ Gastrointestinal: soft, non-tender, no distention, positive bowel sounds obesity+ Musculoskeletal: pulses present, edema present Neurological: non-focal, normal sensation Lymphatic: no nodes Psychiatric: normal affect Skin: no rash, normal turgor Dx/Plan (1) Acute on chronic systolic ACC/AHA stage C congestive heart failure Code(s): I50.23 - ACUTE ON CHRONIC SYSTOLIC (CONGESTIVE) HEART FAILURE Status : Acute (2) Hypertensive emergency Code(s): I16.1 - HYPERTENSIVE EMERGENCY Status: Acute (3) Hypomagnesemia Code(s): E83.42 - HYPOMAGNESEMIA Status: Acute (4) NSTEMI (non-ST elevated myocardial infarction) Code(s): I21.4 - NON-ST ELEVATION (NSTEMI) MYOCARDIAL INFARCTION Status: Acute (5) CKD (chronic kidney disease) stage 3, GFR 30-59 ml/min Code(s): N18.3 - CHRONIC KIDNEY DISEASE, STAGE 3 (MODERATE) Status: Chronic (6) Diabetes type 2, controlled Code(s): E11.9 - TYPE 2 DIABETES MELLITUS WITHOUT COMPLICATIONS Status: Chronic (7) Dyslipidemia Code(s): E78.5 - HYPERLIPIDEMIA, UNSPECIFIED Status: Chronic (8) GERD (gastroesophageal reflux disease) Code(s): K21.9 - GASTRO-ESOPHAGEAL REFLUX DISEASE WITHOUT ESOPHAGITIS Status: Chronic Qualifiers: (9) Hypertension Code(s): I10 - ESSENTIAL (PRIMARY) HYPERTENSION Status: Chronic Qualifiers: (10) Hyperuricemia Code(s): E79.0 - HYPERURICEMIA W/O SIGNS OF INFLAM ARTHRIT AND TOPHACEOUS DIS Status: Chronic (11) Hypothyroidism Code(s): E03.9 - HYPOTHYROIDISM, UNSPECIFIED Status: Chronic (12) Non compliance w medication regimen Code(s): Z91.14 - PATIENT'S OTHER NONCOMPLIANCE WITH MEDICATION REGIMEN Status : Chronic (13) Nonischemic cardiomyopathy Code(s): I42.8 - OTHER CARDIOMYOPATHIES Status: Chronic (14) Obesity (BMI 30-39.9) Code(s): E66.9 - OBESITY, UNSPECIFIED Status: Chronic - Plan 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 * continue nitro drip * continue lasix and zaroxolyn for CHF * replace potassium and magnesium today * will adjust BP meds as needed * cardiology on case * currently on optimum medical therapy for CHF and CAD * medication reviewed as below * symptomatic treatment. Review of Systems - Review of Systems Constitutional: negative: fever, chills, sweats, weakness, malaise, other ENT: negative: Ear Pain, Ear Discharge, Nose Pain, Nose Discharge, Nose Congestion, Mouth Pain, Mouth Swelling, Throat Pain, Throat Swelling, Other Respiratory: Shortness of Breath, SOB with Excertion. negative: Cough, Dry, Hemoptysis, Pleuritic Pain, Sputum, Wheezing Cardiovascular: edema. negative: chest pain, palpitations, orthopnea, paroxysmal nocturnal dyspnea, light headedness, other Gastrointestinal: negative: Nausea, Vomiting, Abdominal Pain, Diarrhea, Constipation, Melena, Hematochezia, Other Genitourinary: negative: Dysuria, Frequency, Incontinence, Hematuria, Retention , Other Musculoskeletal: negative: Neck Pain, Shoulder Pain, Arm Pain, Back Pain, Hand Pain, Leg Pain, Foot Pain, Other Skin: negative: Rash, Lesions, Mikhail, Bruising, Other - Medications/Allergies Allergies/Adverse Reactions: Allergies Allergy/AdvReac Type Severity Reaction Status Date / Time No Known Drug Allergies Allergy Verified 04/23/18 02:59 Medications: Current Medications Acetaminophen (Tylenol) 650 mg PO Q4H PRN PRN Reason: Headache/Fever/Mild Pain (1-3) Hydrocodone Bitart/Acetaminophen ([place] 5/325) 1 tab PO Q4H PRN PRN Reason: Moderate Pain (4-6) Albuterol/Ipratropium (Duoneb) 3 ml NEB [id number] PRN PRN Reason: SOB &/or Wheezing Artificial Tears (Tears Naturale) 2 drop EA EYE PRN PRN PRN Reason: Dry Eyes Aspirin (Aspirin) 325 mg PO DAILY [facility] Last Admin: 04/23/18 08:44 Dose: 325 mg Atorvastatin Calcium (Lipitor) 10 mg PO HS SHITAL Bisacodyl (Dulcolax) 10 mg PO DAILYPRN PRN PRN Reason: Constipation Bisacodyl (Dulcolax) 10 mg NV DAILYPRN PRN PRN Reason: Constipation Calcium Carbonate (Tums) 1,000 mg PO Q4H PRN PRN Reason: Heartburn or Indigestion Carvedilol (Coreg) 25 mg PO BID-[facility] Last Admin: 04/23/18 09:02 Dose: Not Given Carvedilol (Coreg) 25 mg PO ONE [facility] Stop: 04/23/18 10:00 Clonidine (Catapres) 0.1 mg PO Q4H PRN PRN Reason: SBP Greater Than 170 Dextrose/Water (Dextrose 50%) 25 gm SLOW IVP PRN PRN PRN Reason: Hypoglycemia Enoxaparin Sodium (Lovenox) 40 mg SC 0900 [facility] Last Admin: 04/23/18 09:08 Dose: 40 mg Famotidine (Pepcid) 20 mg PO BID [facility] Furosemide (Lasix) 40 mg SLOW IVP 0600,1400 [facility] Last Admin: 04/23/18 06:10 Dose: 40 mg Glucagon (Glucagon) 1 mg IM PRN PRN PRN Reason: Hypoglycemia Guaifenesin (Robitussin Sf) 200 mg PO Q4H PRN PRN Reason: Cough Hydralazine HCl (Apresoline) 10 mg SLOW IVP Q4H PRN PRN Reason: SBP > 180 and HR < 70 Hydralazine HCl (Apresoline) 50 mg PO TID [facility] Last Admin: 04/23/18 08:47 Dose: 50 mg Nitroglycerin/Dextrose (Nitroglycerin 50 Mg/250 Ml Bot) 250 mls @ 0 mls/hr IVPB INF [facility]; Protocol Last Admin: 04/23/18 04:25 Dose: 250 mls Dextrose/Water (D5w) 1,000 mls @ 0 mls/hr IV .Q0M PRN PRN Reason: Hypoglycemia Nicardipine HCl 25 mg/ Sodium (Chloride) 250 mls @ 0 mls/hr IVPB INF [facility]; Protocol Magnesium Sulfate 3 gm/ Sodium (Chloride) 106 mls @ 100 mls/hr IVPB ONE [facility] Stop: 04/23/18 10:00 Last Admin: 04/23/18 09:02 Dose: 106 mls Insulin Human Lispro (Humalog) 0 units SC .MODERATE SLIDING SC PRN PRN Reason: Moderate Correctional Scale Insulin Human Lispro (Humalog) 0 units SC .BEDTIME SLIDING SC PRN PRN Reason: Bedtime Correctional Scale Labetalol HCl (Normodyne) 20 mg SLOW IVP Q4H PRN PRN Reason: SBP > 180 and HR >/= 70 Lisinopril (Zestril) 20 mg PO BID [facility] Last Admin: 04/23/18 08:48 Dose: 20 mg Loperamide HCl (Imodium) 2 mg PO PRN PRN PRN Reason: Diarrhea/Loose Stools Loratadine (Claritin) 10 mg PO DAILYPRN PRN PRN Reason: Sinus Symptoms Metolazone (Zaroxolyn) 5 mg PO 0830 [facility] Last Admin: 04/23/18 08:44 Dose: 5 mg Mineral Oil/White Petrolatum (Eucerin Cream) 0 gm TOP BIDPRN PRN PRN Reason: Dry Skin Nitroglycerin (Nitrostat) 0.4 mg SL Q5MIN PRN PRN Reason: Chest Pain Nitroglycerin (Nitro-Bid 2% Ointment) 1 inch TOP BID [facility] Last Admin: 04/23/18 08:48 Dose: 1 inch Ondansetron HCl (Zofran Odt) 4 mg PO Q6H PRN PRN Reason: Nausea/Vomiting Ondansetron HCl (Zofran) 4 mg IVP Q6H PRN PRN Reason: Nausea/Vomiting Potassium Chloride (K-Dur) 40 meq PO ONE [facility] Stop: 04/23/18 10:00 Last Admin: 04/23/18 08:49 Dose: 40 meq Potassium Chloride (K-Dur) 20 meq PO QA-[facility] Senna/Docusate Sodium (Senokot S) 2 tab PO BID PRN PRN Reason: Constipation Sodium Chloride ([place] Nasal [place] 0.65%) 0 ml EA NARE QIDPRN PRN PRN Reason: Nasal Congestion Sodium Chloride (Flush - Normal Saline) 10 ml IVF Q12HR [facility] Last Admin: 04/23/18 08:48 Dose: 10 ml Sodium Chloride (Flush - Normal Saline) 10 ml IVF PRN PRN PRN Reason: Saline Flush Spironolactone (Aldactone) 25 mg PO DAILY [facility] Throat Lozenges (Cepastat Lozenges) 1 jorgito PO Q2H PRN PRN Reason: Sore Throat Zolpidem Tartrate (Ambien) 5 mg PO HSPRN PRN PRN Reason: Insomnia
[2018-04-24] MEDS: Furosemide 40 MG/4 ML VIAL SLOW IVP SCH ×2 (05:47→15:09)
[2018-04-24] MEDS: Spironolactone 25 MG TAB PO SCH (08:35)
[2018-04-24] MEDS: Potassium Chloride 20 MEQ TAB PO SCH (08:35)
[2018-04-24] MEDS: Famotidine 20 MG TAB PO SCH ×2 (08:35→20:27)
[2018-04-24] MEDS: Aspirin 325 MG TAB PO SCH (08:35)
[2018-04-24] MEDS: Carvedilol 25 MG TAB PO SCH ×2 (08:35→17:43)
[2018-04-24] MEDS: hydrALAZINE 25 MG TAB PO SCH ×3 (08:36→20:26)
[2018-04-24] MEDS: Lisinopril 20 MG TAB PO SCH ×2 (08:36→20:26)
[2018-04-24] MEDS: Nitroglycerin 2% Ointment 1 INCH/1 GM Packet TOP SCH ×2 (08:36→20:30)
[2018-04-24] MEDS: Metolazone 5 MG TAB PO SCH (08:36)
[2018-04-24] MEDS: Enoxaparin Sodium 40 MG/0.4 ML SYRINGE SC SCH (09:10)
[2018-04-24 10:05] LABS: Anion Gap 17 mmol/L (10-20); BUN (Urea Nitrogen) 31 mg/dL (9.8-20.1); Calc. Creatinine Clearance 62 mL/min (70-130); Calcium 9.2 mg/dL (7.8-10.44); Carbon Dioxide 25 mmol/L (22-29); Chloride 102 mmol/L (98-107); Estimated GFR-MDRD 52; Glucose 122 mg/dL (70-105); Magnesium 1.8 mg/dL (1.6-2.6); Potassium 3.8 mmol/L (3.5-5.1); Sodium 140 mmol/L (136-145)
--- NOTE | 2018-04-24 10:17 | PQF ---
PIPE ESTRADA, DENA MYERS MD [id number] CLINICAL DOCUMENTATION IMPROVEMENT CLARIFICATION FORM: ICD-10 Updated PLEASE DO AN ADDENDUM TO THE PROGRESS NOTE WITH ANY DOCUMENTATION UPDATES OR ADDITIONS AND CARRY THROUGH TO DC SUMMARY. THANK YOU. DATE: 04/24/2018 ATTN: DR. Gavino PHILLIPS Please exercise your independent, professional judgment in responding to the clarification form. Clinical indicators are provided on the bottom of this form for your review. Please check appropriate box(s): AMI TYPE: [ x ] MD Type II D/T Acute On Chronic Systolic Heart Failure [ ] Demand Ischemia D/T Acute On Chronic Systolic Heart Failure [ ] Other diagnosis [ ] Unable to determine In addition, please specify: Present on Admission (POA): [ x ] Yes [ ] No [ ] Unable to determine CLINICAL INDICATORS - SIGNS / SYMPTOMS / LABS TROPONIN I: 1.950, 1.864, 1.996 H & P 04/22: 3) NON-ST ELEVATION MYOCARDIAL INFARCTION TYPE 2, LIKELY RELATED WITH DEMAND ISCHEMIA. PN 04/23 : DX/PLAN 4) NSTEMI , ACUTE RISKS: HYPERTENSIVE EMERGENCY ACUTE ON CHRONIC SYSTOLIC HEART FAILURE TREATMENTS: LASIX IV (04/22 - PRESENT ) CARDIOLOGY CONSULT (PENDING) THANK YOU ! ERMELINDA FRANKEL RN (This form is maintained as a part of the permanent medical record) 2014 [employer], [employer] All Rights Reserved [email or web address] [phone] [email or web address]
[2018-04-24 10:19] LABS: #Eosinphils 0.1 thou/uL (0.0-0.7); #Lymphocytes 0.9 thou/uL (1.20-3.40); #Monocytes 0.7 thou/uL (0.11-0.59); #Neutrophils 2.8 thou/uL (1.40-6.50); %Basophils 0.8 % (0.0-1.0); %Eosinophils 2.9 % (0.0-10.0); %Lymphocytes 19.2 % (21.0-51.0); %Monocytes 14.8 % (0.0-10.0); %Neutrophils 62.3 % (42.0-75.0); Band 7 % (5-11); Eosinophils 3 % (0-10); Hemoglobin 14.7 g/dL (12.0-16.0); Lymphocytes 16 % (21-51); MDiff Complete? YES; Mean Corpuscular Hemoglobin 27.8 pg (27.0-31.0); Mean Corpuscular Volume 92.7 fL (78.0-98.0); Metamyelocyte 6 % (0-0); Monocytes 7 % (0-10); Myelocyte 1 % (0-0); Neutrophil 57 % (42-75); Platelet Count 142 thou/uL (130-400); RBC Distribution Width 18.7 % (11.5-14.5); Reactive Lymphocytes 3 % (0-10); Red Blood Cell (RBC) Count 5.27 mill/uL (4.20-5.40); White Blood Cell (WBC) Count 4.8 thou/uL (4.8-10.8)
--- NOTE | 2018-04-24 12:37 | PDOC.PN ---
- Subjective Encounter Start Date: 04/24/18 Encounter Start Time: 09:45 Patient seen and examined. No new complaints. No overnight events - Objective Resuscitation Status - Order Detail: 04/22/18 15:04 Resuscitation Status Routine Resuscitation Status: FULL: Full Resuscitation MAR Reviewed: Yes Vital Signs & Weight: Vital Signs (12 hours) Temp Pulse BP Pulse Ox 04/24/18 12:00 98 F 04/24/18 08:36 71 140/93 H 04/24/18 08:00 95 04/24/18 07:00 97.7 F 04/24/18 03:00 96.8 F L Weight Admit Weight 180 lb Weight 178 lb 9.191 oz Most Recent Monitor Data Heart Rate from ECG 72 NIBP 121/85 NIBP BP-Mean 97 Respiration from ECG 17 SpO2 97 I&O: 04/23/18 04/24/18 04/25/18 06:59 06:59 06:59 Intake Total 423 604.8 245 Output Total 0 1950 1185 Balance 423 -1345.2 -940 Result Diagrams: 04/24/18 09:31 04/24/18 09:31 Additional Labs: Accuchecks 04/24/18 04/24/18 04/23/18 11:49 06:43 20:25 POC Glucose 107 98 109 04/23/18 16:45 POC Glucose 113 H EKG Reviewed by me: Yes (nsr) Phys Exam - Physical Examination Constitutional: NAD HEENT: PERRLA, moist MMs, sclera anicteric has elevated JVD Respiratory: no wheezing, no rhonchi basal rales Cardiovascular: RRR, no rub SM+ Gastrointestinal: soft, non-tender, no distention, positive bowel sounds Musculoskeletal: pulses present, edema present Neurological: non-focal, normal sensation Lymphatic: no nodes Psychiatric: normal affect, A&O x 3 Skin: no rash, normal turgor Dx/Plan (1) Acute on chronic systolic ACC/AHA stage C congestive heart failure Code(s): I50.23 - ACUTE ON CHRONIC SYSTOLIC (CONGESTIVE) HEART FAILURE Status : Acute (2) Hypertensive emergency Code(s): I16.1 - HYPERTENSIVE EMERGENCY Status: Acute (3) Hypomagnesemia Code(s): E83.42 - HYPOMAGNESEMIA Status: Acute (4) NSTEMI (non-ST elevated myocardial infarction) Code(s): I21.4 - NON-ST ELEVATION (NSTEMI) MYOCARDIAL INFARCTION Status: Acute (5) CKD (chronic kidney disease) stage 3, GFR 30-59 ml/min Code(s): N18.3 - CHRONIC KIDNEY DISEASE, STAGE 3 (MODERATE) Status: Chronic (6) Diabetes type 2, controlled Code(s): E11.9 - TYPE 2 DIABETES MELLITUS WITHOUT COMPLICATIONS Status: Chronic (7) Dyslipidemia Code(s): E78.5 - HYPERLIPIDEMIA, UNSPECIFIED Status: Chronic (8) GERD (gastroesophageal reflux disease) Code(s): K21.9 - GASTRO-ESOPHAGEAL REFLUX DISEASE WITHOUT ESOPHAGITIS Status: Chronic Qualifiers: (9) Hypertension Code(s): I10 - ESSENTIAL (PRIMARY) HYPERTENSION Status: Chronic Qualifiers: (10) Hyperuricemia Code(s): E79.0 - HYPERURICEMIA W/O SIGNS OF INFLAM ARTHRIT AND TOPHACEOUS DIS Status: Chronic (11) Hypothyroidism Code(s): E03.9 - HYPOTHYROIDISM, UNSPECIFIED Status: Chronic (12) Non compliance w medication regimen Code(s): Z91.14 - PATIENT'S OTHER NONCOMPLIANCE WITH MEDICATION REGIMEN Status : Chronic (13) Nonischemic cardiomyopathy Code(s): I42.8 - OTHER CARDIOMYOPATHIES Status: Chronic (14) Obesity (BMI 30-39.9) Code(s): E66.9 - OBESITY, UNSPECIFIED Status: Chronic - Plan 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 * DC NTG drip * transfer to tele * continue diuresis * medication reviewed as below * symptomatic treatment. Review of Systems - Review of Systems ENT: negative: Ear Pain, Ear Discharge, Nose Pain, Nose Discharge, Nose Congestion, Mouth Pain, Mouth Swelling, Throat Pain, Throat Swelling, Other Respiratory: negative: Cough, Dry, Shortness of Breath, Hemoptysis, SOB with Excertion, Pleuritic Pain, Sputum, Wheezing Cardiovascular: edema. negative: chest pain, palpitations, orthopnea, paroxysmal nocturnal dyspnea, light headedness, other Gastrointestinal: negative: Nausea, Vomiting, Abdominal Pain, Diarrhea, Constipation, Melena, Hematochezia, Other Genitourinary: negative: Dysuria, Frequency, Incontinence, Hematuria, Retention , Other Musculoskeletal: negative: Neck Pain, Shoulder Pain, Arm Pain, Back Pain, Hand Pain, Leg Pain, Foot Pain, Other Skin: negative: Rash, Lesions, Mikhail, Bruising, Other - Medications/Allergies Allergies/Adverse Reactions: Allergies Allergy/AdvReac Type Severity Reaction Status Date / Time No Known Drug Allergies Allergy Verified 04/23/18 02:59 Medications: Current Medications Acetaminophen (Tylenol) 650 mg PO Q4H PRN PRN Reason: Headache/Fever/Mild Pain (1-3) Hydrocodone Bitart/Acetaminophen ([place] 5/325) 1 tab PO Q4H PRN PRN Reason: Moderate Pain (4-6) Albuterol/Ipratropium (Duoneb) 3 ml NEB [id number] PRN PRN Reason: SOB &/or Wheezing Artificial Tears (Tears Naturale) 2 drop EA EYE PRN PRN PRN Reason: Dry Eyes Aspirin (Aspirin) 325 mg PO DAILY [facility] Last Admin: 04/24/18 08:35 Dose: 325 mg Atorvastatin Calcium (Lipitor) 10 mg PO HS [facility] Bisacodyl (Dulcolax) 10 mg PO DAILYPRN PRN PRN Reason: Constipation Bisacodyl (Dulcolax) 10 mg [place] DAILYPRN PRN PRN Reason: Constipation Calcium Carbonate (Tums) 1,000 mg PO Q4H PRN PRN Reason: Heartburn or Indigestion Carvedilol (Coreg) 25 mg PO BID-[facility] Last Admin: 04/24/18 08:35 Dose: 25 mg Clonidine (Catapres) 0.1 mg PO Q4H PRN PRN Reason: SBP Greater Than 170 Dextrose/Water (Dextrose 50%) 25 gm SLOW IVP PRN PRN PRN Reason: Hypoglycemia Enoxaparin Sodium (Lovenox) 40 mg SC 0900 [facility] Last Admin: 04/24/18 09:10 Dose: 40 mg Famotidine (Pepcid) 20 mg PO BID [facility] Last Admin: 04/24/18 08:35 Dose: 20 mg Furosemide (Lasix) 40 mg SLOW IVP 0600,1400 [facility] Last Admin: 04/24/18 05:47 Dose: 40 mg Glucagon (Glucagon) 1 mg IM PRN PRN PRN Reason: Hypoglycemia Guaifenesin (Robitussin Sf) 200 mg PO Q4H PRN PRN Reason: Cough Hydralazine HCl (Apresoline) 10 mg SLOW IVP Q4H PRN PRN Reason: SBP > 180 and HR < 70 Hydralazine HCl (Apresoline) 50 mg PO TID [facility] Last Admin: 04/24/18 08:36 Dose: 50 mg Dextrose/Water (D5w) 1,000 mls @ 0 mls/hr IV .Q0M PRN PRN Reason: Hypoglycemia Insulin Human Lispro (Humalog) 0 units SC .MODERATE SLIDING SC PRN PRN Reason: Moderate Correctional Scale Insulin Human Lispro (Humalog) 0 units SC .BEDTIME SLIDING SC PRN PRN Reason: Bedtime Correctional Scale Isosorbide Dinitrate (Isordil) 20 mg PO TID [facility] Labetalol HCl (Normodyne) 20 mg SLOW IVP Q4H PRN PRN Reason: SBP > 180 and HR >/= 70 Lisinopril (Zestril) 20 mg PO BID [facility] Last Admin: 04/24/18 08:36 Dose: 20 mg Loperamide HCl (Imodium) 2 mg PO PRN PRN PRN Reason: Diarrhea/Loose Stools Loratadine (Claritin) 10 mg PO DAILYPRN PRN PRN Reason: Sinus Symptoms Mineral Oil/White Petrolatum (Eucerin Cream) 0 gm TOP BIDPRN PRN PRN Reason: Dry Skin Nitroglycerin (Nitrostat) 0.4 mg SL Q5MIN PRN PRN Reason: Chest Pain Nitroglycerin (Nitro-Bid 2% Ointment) 1 inch TOP BID [facility] Last Admin: 04/24/18 08:36 Dose: 1 inch Ondansetron HCl (Zofran Odt) 4 mg PO Q6H PRN PRN Reason: Nausea/Vomiting Ondansetron HCl (Zofran) 4 mg IVP Q6H PRN PRN Reason: Nausea/Vomiting Potassium Chloride (K-Dur) 20 meq PO QAM-WM [facility] Last Admin: 04/24/18 08:35 Dose: 20 meq Senna/Docusate Sodium (Senokot S) 2 tab PO BID PRN PRN Reason: Constipation Sodium Chloride ([place] Nasal [place] 0.65%) 0 ml EA NARE QIDPRN PRN PRN Reason: Nasal Congestion Sodium Chloride (Flush - Normal Saline) 10 ml IVF Q12HR [facility] Last Admin: 04/24/18 08:38 Dose: 10 ml Sodium Chloride (Flush - Normal Saline) 10 ml IVF PRN PRN PRN Reason: Saline Flush Spironolactone (Aldactone) 25 mg PO DAILY [facility] Last Admin: 04/24/18 08:35 Dose: 25 mg Throat Lozenges (Cepastat Lozenges) 1 jorgito PO Q2H PRN PRN Reason: Sore Throat Zolpidem Tartrate (Ambien) 5 mg PO HSPRN PRN PRN Reason: Insomnia
[2018-04-24] MEDS: Isosorbide Dinitrate 20 MG TAB PO SCH ×2 (15:16→20:27)
[2018-04-24] MEDS: Atorvastatin Calcium 10 MG TAB PO SCH (20:26)
--- NOTE | 2018-04-25 00:16 | CON ---
DATE OF CONSULTATION: HISTORY OF PRESENT ILLNESS: Ms. Plaza is a 57-year-old female with hypertension. She is very slow to respond to questions. She quickly admits that she does not take her blood pressure pills as she has been prescribed. She presented with hypertension. Apparently, she has been weak and unable to get around at home, complaining of feeling tired. She subsequently has been admitted for control of the above symptoms. PAST MEDICAL HISTORY: Remarkable for, 1. Severe cardiomyopathy. 2. Status post hospitalization in 01/2018 for [id number] congestive heart failure. Her ejection fraction poorly 15%. 3. History of obesity. 4. Chronic kidney disease. 5. History of diabetes. 6. History of ongoing tobacco use, still using tobacco. 7. History of placement of defibrillator in the past. FAMILY HISTORY: Negative for lung disease in early age. REVIEW OF SYSTEMS: Ten points otherwise negative, but as mentioned above she is very slow to answer any simple question. PHYSICAL EXAMINATION: VITAL SIGNS: Blood pressure 127/81, heart rate 65, respiratory rate 11, and oximetry is 92. HEENT: Pupils are equal. She has a scar in her right face, but cannot tell me why she has scar on the right side of her face. NECK: Supple. No lymphadenopathy. LUNGS: Remarkable for crackles at her lung bases. HEART: Regular rhythm. S1 and S2 are normal. There is a S4. She has a grade 2/6 systolic murmur. ABDOMEN: Soft and nontender. EXTREMITIES: Without clubbing, cyanosis, or edema. LABORATORY DATA: White count 4.8, hemoglobin 14.7, and platelets 142,000. Sodium 140, potassium 3.8, chloride 102, bicarb 25, BUN 31, creatinine 1.29, and glucose 122. Chest radiograph shows findings consistent with congestive heart failure. IMPRESSION: 1. Hypertensive heart failure with [id number] systolic left ventricular dysfunction. 2. Obesity. 3. Medical noncompliance. PLAN: Continue attempts at blood pressure control but are not optimistic that she will continue to do well at home given her admitted noncompliance and her ongoing tobacco use. She does not clinically appear to have COPD at this point in time or any reactive airway. We will follow the other physicians caring for. This is a 70-minute consult, 50% of the time was spent on the unit coordinating care. Job ID: [id number]
[2018-04-25] MEDS: Furosemide 40 MG/4 ML VIAL SLOW IVP SCH ×2 (05:43→14:51)
[2018-04-25] MEDS: Lisinopril 20 MG TAB PO SCH ×2 (08:56→21:21)
[2018-04-25] MEDS: Potassium Chloride 20 MEQ TAB PO SCH (08:56)
[2018-04-25] MEDS: Isosorbide Dinitrate 20 MG TAB PO SCH ×3 (08:56→21:17)
[2018-04-25] MEDS: Famotidine 20 MG TAB PO SCH ×2 (08:56→21:16)
[2018-04-25] MEDS: Aspirin 325 MG TAB PO SCH (08:56)
[2018-04-25] MEDS: Spironolactone 25 MG TAB PO SCH (08:57)
[2018-04-25] MEDS: hydrALAZINE 25 MG TAB PO SCH ×3 (08:57→21:17)
[2018-04-25] MEDS: Nitroglycerin 2% Ointment 1 INCH/1 GM Packet TOP SCH ×2 (08:57→21:25)
[2018-04-25] MEDS: Carvedilol 25 MG TAB PO SCH ×2 (08:58→18:21)
[2018-04-25] MEDS: Enoxaparin Sodium 40 MG/0.4 ML SYRINGE SC SCH (08:59)
--- NOTE | 2018-04-25 13:15 | PDOC.PN ---
- Subjective Encounter Start Date: 04/25/18 Encounter Start Time: 07:45 Patient seen and examined. No new complaints. No overnight events - Objective Resuscitation Status - Order Detail: 04/22/18 15:04 Resuscitation Status Routine Resuscitation Status: FULL: Full Resuscitation MAR Reviewed: Yes Vital Signs & Weight: Vital Signs (12 hours) Temp Pulse Resp BP BP Pulse Ox 04/25/18 08:57 61 140/80 04/25/18 08:56 140/80 04/25/18 08:00 97.6 F 61 15 140/80 95 04/25/18 04:00 97.7 F 86 19 129/76 94 L Weight Admit Weight 180 lb Weight 216 lb 8 oz Most Recent Monitor Data Heart Rate from ECG 71 NIBP 122/83 NIBP BP-Mean 96 Respiration from ECG 21 SpO2 92 I&O: 04/24/18 04/25/18 04/26/18 06:59 06:59 06:59 Intake Total 604.8 839 Output Total 1950 3630 Balance -1345.2 -2791 Result Diagrams: 04/24/18 09:31 04/24/18 09:31 Additional Labs: Accuchecks 04/25/18 04/25/18 04/24/18 10:24 05:40 20:31 POC Glucose 96 123 H 114 H 04/24/18 17:42 POC Glucose 118 H EKG Reviewed by me: Yes Phys Exam - Physical Examination Constitutional: NAD HEENT: PERRLA, moist MMs, sclera anicteric Neck: supple Respiratory: no wheezing, no rhonchi reduced air entry at base Cardiovascular: RRR, no significant murmur, no rub Gastrointestinal: soft, non-tender, no distention, positive bowel sounds Musculoskeletal: pulses present, edema present edema improving Neurological: non-focal, normal sensation Lymphatic: no nodes Psychiatric: normal affect, A&O x 3 Skin: no rash, normal turgor Dx/Plan (1) Acute on chronic systolic ACC/AHA stage C congestive heart failure Code(s): I50.23 - ACUTE ON CHRONIC SYSTOLIC (CONGESTIVE) HEART FAILURE Status : Acute (2) Hypertensive emergency Code(s): I16.1 - HYPERTENSIVE EMERGENCY Status: Acute (3) Hypomagnesemia Code(s): E83.42 - HYPOMAGNESEMIA Status: Acute (4) NSTEMI (non-ST elevated myocardial infarction) Code(s): I21.4 - NON-ST ELEVATION (NSTEMI) MYOCARDIAL INFARCTION Status: Acute (5) CKD (chronic kidney disease) stage 3, GFR 30-59 ml/min Code(s): N18.3 - CHRONIC KIDNEY DISEASE, STAGE 3 (MODERATE) Status: Chronic (6) Diabetes type 2, controlled Code(s): E11.9 - TYPE 2 DIABETES MELLITUS WITHOUT COMPLICATIONS Status: Chronic (7) Dyslipidemia Code(s): E78.5 - HYPERLIPIDEMIA, UNSPECIFIED Status: Chronic (8) GERD (gastroesophageal reflux disease) Code(s): K21.9 - GASTRO-ESOPHAGEAL REFLUX DISEASE WITHOUT ESOPHAGITIS Status: Chronic Qualifiers: (9) Hypertension Code(s): I10 - ESSENTIAL (PRIMARY) HYPERTENSION Status: Chronic Qualifiers: (10) Hyperuricemia Code(s): E79.0 - HYPERURICEMIA W/O SIGNS OF INFLAM ARTHRIT AND TOPHACEOUS DIS Status: Chronic (11) Hypothyroidism Code(s): E03.9 - HYPOTHYROIDISM, UNSPECIFIED Status: Chronic (12) Non compliance w medication regimen Code(s): Z91.14 - PATIENT'S OTHER NONCOMPLIANCE WITH MEDICATION REGIMEN Status : Chronic (13) Nonischemic cardiomyopathy Code(s): I42.8 - OTHER CARDIOMYOPATHIES Status: Chronic (14) Obesity (BMI 30-39.9) Code(s): E66.9 - OBESITY, UNSPECIFIED Status: Chronic - Plan 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 * continue diuresis * her noncompliance is major issue and that contributed this presentation * medication reviewed as below * symptomatic treatment * expecting discharge on Friday. Review of Systems - Review of Systems ENT: negative: Ear Pain, Ear Discharge, Nose Pain, Nose Discharge, Nose Congestion, Mouth Pain, Mouth Swelling, Throat Pain, Throat Swelling, Other Respiratory: Shortness of Breath, SOB with Excertion. negative: Cough, Dry, Hemoptysis, Pleuritic Pain, Sputum, Wheezing Cardiovascular: edema. negative: chest pain, palpitations, orthopnea, paroxysmal nocturnal dyspnea, light headedness, other Gastrointestinal: negative: Nausea, Vomiting, Abdominal Pain, Diarrhea, Constipation, Melena, Hematochezia, Other Genitourinary: negative: Dysuria, Frequency, Incontinence, Hematuria, Retention , Other Musculoskeletal: negative: Neck Pain, Shoulder Pain, Arm Pain, Back Pain, Hand Pain, Leg Pain, Foot Pain, Other Skin: negative: Rash, Lesions, Mikhail, Bruising, Other - Medications/Allergies Allergies/Adverse Reactions: Allergies Allergy/AdvReac Type Severity Reaction Status Date / Time No Known Drug Allergies Allergy Verified 04/23/18 02:59 Medications: Current Medications Acetaminophen (Tylenol) 650 mg PO Q4H PRN PRN Reason: Headache/Fever/Mild Pain (1-3) Hydrocodone Bitart/Acetaminophen ([place] 5/325) 1 tab PO Q4H PRN PRN Reason: Moderate Pain (4-6) Albuterol/Ipratropium (Duoneb) 3 ml NEB [id number] PRN PRN Reason: SOB &/or Wheezing Artificial Tears (Tears Naturale) 2 drop EA EYE PRN PRN PRN Reason: Dry Eyes Aspirin (Aspirin) 325 mg PO DAILY [facility] Last Admin: 04/25/18 08:56 Dose: 325 mg Atorvastatin Calcium (Lipitor) 10 mg PO HS [facility] Last Admin: 04/24/18 20:26 Dose: 10 mg Bisacodyl (Dulcolax) 10 mg PO DAILYPRN PRN PRN Reason: Constipation Bisacodyl (Dulcolax) 10 mg [place] DAILYPRN PRN PRN Reason: Constipation Calcium Carbonate (Tums) 1,000 mg PO Q4H PRN PRN Reason: Heartburn or Indigestion Carvedilol (Coreg) 25 mg PO BID-[facility] Last Admin: 04/25/18 08:58 Dose: 25 mg Clonidine (Catapres) 0.1 mg PO Q4H PRN PRN Reason: SBP Greater Than 170 Dextrose/Water (Dextrose 50%) 25 gm SLOW IVP PRN PRN PRN Reason: Hypoglycemia Enoxaparin Sodium (Lovenox) 40 mg SC 0900 [facility] Last Admin: 04/25/18 08:59 Dose: 40 mg Famotidine (Pepcid) 20 mg PO BID [facility] Last Admin: 04/25/18 08:56 Dose: 20 mg Furosemide (Lasix) 40 mg SLOW IVP 0600,1400 [facility] Last Admin: 04/25/18 05:43 Dose: 40 mg Glucagon (Glucagon) 1 mg IM PRN PRN PRN Reason: Hypoglycemia Guaifenesin (Robitussin Sf) 200 mg PO Q4H PRN PRN Reason: Cough Hydralazine HCl (Apresoline) 10 mg SLOW IVP Q4H PRN PRN Reason: SBP > 180 and HR < 70 Hydralazine HCl (Apresoline) 50 mg PO TID [facility] Last Admin: 04/25/18 08:57 Dose: 50 mg Dextrose/Water (D5w) 1,000 mls @ 0 mls/hr IV .Q0M PRN PRN Reason: Hypoglycemia Insulin Human Lispro (Humalog) 0 units SC .MODERATE SLIDING SC PRN PRN Reason: Moderate Correctional Scale Insulin Human Lispro (Humalog) 0 units SC .BEDTIME SLIDING SC PRN PRN Reason: Bedtime Correctional Scale Isosorbide Dinitrate (Isordil) 20 mg PO TID [facility] Last Admin: 04/25/18 08:56 Dose: 20 mg Labetalol HCl (Normodyne) 20 mg SLOW IVP Q4H PRN PRN Reason: SBP > 180 and HR >/= 70 Lisinopril (Zestril) 20 mg PO BID [facility] Last Admin: 04/25/18 08:56 Dose: 20 mg Loperamide HCl (Imodium) 2 mg PO PRN PRN PRN Reason: Diarrhea/Loose Stools Loratadine (Claritin) 10 mg PO DAILYPRN PRN PRN Reason: Sinus Symptoms Mineral Oil/White Petrolatum (Eucerin Cream) 0 gm TOP BIDPRN PRN PRN Reason: Dry Skin Nitroglycerin (Nitrostat) 0.4 mg SL Q5MIN PRN PRN Reason: Chest Pain Nitroglycerin (Nitro-Bid 2% Ointment) 1 inch TOP BID [facility] Last Admin: 04/25/18 08:57 Dose: 1 inch Ondansetron HCl (Zofran Odt) 4 mg PO Q6H PRN PRN Reason: Nausea/Vomiting Ondansetron HCl (Zofran) 4 mg IVP Q6H PRN PRN Reason: Nausea/Vomiting Potassium Chloride (K-Dur) 20 meq PO QAM-WM [facility] Last Admin: 04/25/18 08:56 Dose: 20 meq Senna/Docusate Sodium (Senokot S) 2 tab PO BID PRN PRN Reason: Constipation Sodium Chloride ([place] Nasal [place] 0.65%) 0 ml EA NARE QIDPRN PRN PRN Reason: Nasal Congestion Sodium Chloride (Flush - Normal Saline) 10 ml IVF Q12HR [facility] Last Admin: 04/25/18 08:59 Dose: 10 ml Sodium Chloride (Flush - Normal Saline) 10 ml IVF PRN PRN PRN Reason: Saline Flush Last Admin: 04/25/18 05:44 Dose: 10 ml Spironolactone (Aldactone) 25 mg PO DAILY [facility] Last Admin: 04/25/18 08:57 Dose: 25 mg Throat Lozenges (Cepastat Lozenges) 1 jorgito PO Q2H PRN PRN Reason: Sore Throat Zolpidem Tartrate (Ambien) 5 mg PO HSPRN PRN PRN Reason: Insomnia
--- NOTE | 2018-04-25 17:06 | PDOC.CTH ---
Cardiology Progress Note - Subjective The pt seen and examined. No overnight events. No cardiac complaints. - Objective Vital Signs Temp Pulse Resp BP BP Pulse Ox 04/25/18 16:07 63 110/62 04/25/18 16:00 96.3 F L 61 18 110/62 04/25/18 12:00 96.4 F L 68 18 105/66 04/25/18 08:57 61 140/80 04/25/18 08:56 140/80 04/25/18 08:00 97.6 F 61 15 140/80 95 Admit Weight 180 lb Weight 216 lb 8 oz 04/24/18 04/25/18 04/26/18 06:59 06:59 06:59 Intake Total 604.8 839 Output Total 1950 3630 Balance -1345.2 -2791 - Physical Examination General/Neuro: alert & oriented x3 Neck: no JVD present Lungs: CTA Heart: RRR Abdomen: soft Extremities: other: (No edema) - Telemetry Telemetry Rhythm: SR 60s - Labs Result Diagrams: 04/24/18 09:31 04/27/18 17:36 Troponin/CKMB CK-MB (CK-2) 5.1 ng/mL (0-6.6) 04/22/18 13:54 Troponin I 1.996 ng/mL (< 0.028) H* 04/22/18 20:02 - Assessment/Plan 1. Acute on chronic combined HF - Stable; on Bblocker, JUSTIN, and Lasix 40mg IV BID, which will be changed to 80mg po qd 2. HTN urgency - stable 3. Severe end-stae CMY with AICD - 4. CKD stage 3 - stable 5. DM type 2 - managed by pcp 6. current smoker - smoking cessation education given to the pt 7. Non compliance with medication tx - education given to the pt. MAR reviewed Pt.seen and eval.by me.I agree with the A/P by the WAREHOU[employer] EXAMINER. RRR,chest clear. Review of Systems - Review of Systems Constitutional: reports: no symptoms reported EENTM: reports: no symptoms reported Respiratory: reports: no symptoms reported Cardiac (ROS): reports: no symptoms reported ABD/GI: reports: no symptoms reported : reports: no symptoms reported Musculoskeletal: reports: no symptoms reported Skin: reports: no symptoms reported
[2018-04-25] MEDS: Atorvastatin Calcium 10 MG TAB PO SCH (21:16)
[2018-04-26] MEDS: Famotidine 20 MG TAB PO SCH ×2 (08:26→19:52)
[2018-04-26] MEDS: Enoxaparin Sodium 40 MG/0.4 ML SYRINGE SC SCH (08:26)
[2018-04-26] MEDS: Nitroglycerin 2% Ointment 1 INCH/1 GM Packet TOP SCH ×2 (08:27→19:52)
[2018-04-26] MEDS: Carvedilol 25 MG TAB PO SCH ×2 (08:27→17:17)
[2018-04-26] MEDS: Isosorbide Dinitrate 20 MG TAB PO SCH ×3 (08:27→19:52)
[2018-04-26] MEDS: Spironolactone 25 MG TAB PO SCH (08:27)
[2018-04-26] MEDS: Furosemide 80 MG TAB PO SCH (08:27)
[2018-04-26] MEDS: hydrALAZINE 25 MG TAB PO SCH ×3 (08:27→19:52)
[2018-04-26] MEDS: Aspirin 325 MG TAB PO SCH (08:27)
[2018-04-26] MEDS: Potassium Chloride 20 MEQ TAB PO SCH (08:27)
[2018-04-26] MEDS: Lisinopril 20 MG TAB PO SCH ×2 (08:28→19:51)
--- NOTE | 2018-04-26 12:15 | PDOC.PN ---
- Subjective Encounter Start Date: 04/26/18 Encounter Start Time: 10:00 Patient seen and examined. No new complaints. No overnight events - Objective Resuscitation Status - Order Detail: 04/22/18 15:04 Resuscitation Status Routine Resuscitation Status: FULL: Full Resuscitation MAR Reviewed: Yes Vital Signs & Weight: Vital Signs (12 hours) Temp Pulse Resp BP Pulse Ox 04/26/18 11:52 97.8 F 65 17 102/59 L 94 L 04/26/18 07:40 97.4 F L 78 18 136/78 94 L 04/26/18 04:00 97.3 F L 69 16 128/72 92 L Weight Admit Weight 180 lb Weight 204 lb Most Recent Monitor Data Heart Rate from ECG 71 NIBP 122/83 NIBP BP-Mean 96 Respiration from ECG 21 SpO2 92 I&O: 04/25/18 04/26/18 04/27/18 06:59 06:59 06:59 Intake Total 839 620 Output Total 3630 5025 Balance -3794 -4133 Result Diagrams: 04/24/18 09:31 04/24/18 09:31 Additional Labs: Accuchecks 04/25/18 04/25/18 20:28 17:05 POC Glucose 136 H 127 H EKG Reviewed by me: Yes Phys Exam - Physical Examination Constitutional: NAD HEENT: PERRLA, moist MMs, sclera anicteric Neck: no JVD, supple Respiratory: no wheezing, no rales, no rhonchi Cardiovascular: RRR, no significant murmur, no rub Gastrointestinal: soft, non-tender, no distention, positive bowel sounds Musculoskeletal: no edema, pulses present Neurological: non-focal, normal sensation Psychiatric: normal affect, A&O x 3 Skin: no rash, normal turgor Dx/Plan (1) Acute on chronic systolic ACC/AHA stage C congestive heart failure Code(s): I50.23 - ACUTE ON CHRONIC SYSTOLIC (CONGESTIVE) HEART FAILURE Status : Acute (2) Hypertensive emergency Code(s): I16.1 - HYPERTENSIVE EMERGENCY Status: Acute (3) Hypomagnesemia Code(s): E83.42 - HYPOMAGNESEMIA Status: Acute (4) NSTEMI (non-ST elevated myocardial infarction) Code(s): I21.4 - NON-ST ELEVATION (NSTEMI) MYOCARDIAL INFARCTION Status: Acute (5) CKD (chronic kidney disease) stage 3, GFR 30-59 ml/min Code(s): N18.3 - CHRONIC KIDNEY DISEASE, STAGE 3 (MODERATE) Status: Chronic (6) Diabetes type 2, controlled Code(s): E11.9 - TYPE 2 DIABETES MELLITUS WITHOUT COMPLICATIONS Status: Chronic (7) Dyslipidemia Code(s): E78.5 - HYPERLIPIDEMIA, UNSPECIFIED Status: Chronic (8) GERD (gastroesophageal reflux disease) Code(s): K21.9 - GASTRO-ESOPHAGEAL REFLUX DISEASE WITHOUT ESOPHAGITIS Status: Chronic Qualifiers: (9) Hypertension Code(s): I10 - ESSENTIAL (PRIMARY) HYPERTENSION Status: Chronic Qualifiers: (10) Hyperuricemia Code(s): E79.0 - HYPERURICEMIA W/O SIGNS OF INFLAM ARTHRIT AND TOPHACEOUS DIS Status: Chronic (11) Hypothyroidism Code(s): E03.9 - HYPOTHYROIDISM, UNSPECIFIED Status: Chronic (12) Non compliance w medication regimen Code(s): Z91.14 - PATIENT'S OTHER NONCOMPLIANCE WITH MEDICATION REGIMEN Status : Chronic (13) Nonischemic cardiomyopathy Code(s): I42.8 - OTHER CARDIOMYOPATHIES Status: Chronic (14) Obesity (BMI 30-39.9) Code(s): E66.9 - OBESITY, UNSPECIFIED Status: Chronic - Plan 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 * medication reviewed as below * symptomatic treatment * see my discharge lisa. Review of Systems - Review of Systems ENT: negative: Ear Pain, Ear Discharge, Nose Pain, Nose Discharge, Nose Congestion, Mouth Pain, Mouth Swelling, Throat Pain, Throat Swelling, Other Respiratory: negative: Cough, Dry, Shortness of Breath, Hemoptysis, SOB with Excertion, Pleuritic Pain, Sputum, Wheezing Cardiovascular: negative: chest pain, palpitations, orthopnea, paroxysmal nocturnal dyspnea, edema, light headedness, other Gastrointestinal: negative: Nausea, Vomiting, Abdominal Pain, Diarrhea, Constipation, Melena, Hematochezia, Other Genitourinary: negative: Dysuria, Frequency, Incontinence, Hematuria, Retention , Other Musculoskeletal: negative: Neck Pain, Shoulder Pain, Arm Pain, Back Pain, Hand Pain, Leg Pain, Foot Pain, Other Skin: negative: Rash, Lesions, Mikhail, Bruising, Other - Medications/Allergies Allergies/Adverse Reactions: Allergies Allergy/AdvReac Type Severity Reaction Status Date / Time No Known Drug Allergies Allergy Verified 04/23/18 02:59 Medications: Current Medications Acetaminophen (Tylenol) 650 mg PO Q4H PRN PRN Reason: Headache/Fever/Mild Pain (1-3) Hydrocodone Bitart/Acetaminophen ([place] 5/325) 1 tab PO Q4H PRN PRN Reason: Moderate Pain (4-6) Albuterol/Ipratropium (Duoneb) 3 ml NEB [id number] PRN PRN Reason: SOB &/or Wheezing Artificial Tears (Tears Naturale) 2 drop EA EYE PRN PRN PRN Reason: Dry Eyes Aspirin (Aspirin) 325 mg PO DAILY [facility] Last Admin: 04/26/18 08:27 Dose: 325 mg Atorvastatin Calcium (Lipitor) 10 mg PO HS [facility] Last Admin: 04/25/18 21:16 Dose: 10 mg Bisacodyl (Dulcolax) 10 mg PO DAILYPRN PRN PRN Reason: Constipation Bisacodyl (Dulcolax) 10 mg DC DAILYPRN PRN PRN Reason: Constipation Calcium Carbonate (Tums) 1,000 mg PO Q4H PRN PRN Reason: Heartburn or Indigestion Carvedilol (Coreg) 25 mg PO BID-[facility] Last Admin: 04/26/18 08:27 Dose: 25 mg Clonidine (Catapres) 0.1 mg PO Q4H PRN PRN Reason: SBP Greater Than 170 Dextrose/Water (Dextrose 50%) 25 gm SLOW IVP PRN PRN PRN Reason: Hypoglycemia Enoxaparin Sodium (Lovenox) 40 mg SC 0900 [facility] Last Admin: 04/26/18 08:26 Dose: 40 mg Famotidine (Pepcid) 20 mg PO BID [facility] Last Admin: 04/26/18 08:26 Dose: 20 mg Furosemide (Lasix) 80 mg PO DAILY-[facility] Last Admin: 04/26/18 08:27 Dose: 80 mg Glucagon (Glucagon) 1 mg IM PRN PRN PRN Reason: Hypoglycemia Guaifenesin (Robitussin Sf) 200 mg PO Q4H PRN PRN Reason: Cough Hydralazine HCl (Apresoline) 10 mg SLOW IVP Q4H PRN PRN Reason: SBP > 180 and HR < 70 Hydralazine HCl (Apresoline) 50 mg PO TID [facility] Last Admin: 04/26/18 08:27 Dose: 50 mg Dextrose/Water (D5w) 1,000 mls @ 0 mls/hr IV .Q0M PRN PRN Reason: Hypoglycemia Insulin Human Lispro (Humalog) 0 units SC .MODERATE SLIDING SC PRN PRN Reason: Moderate Correctional Scale Insulin Human Lispro (Humalog) 0 units SC .BEDTIME SLIDING SC PRN PRN Reason: Bedtime Correctional Scale Isosorbide Dinitrate (Isordil) 20 mg PO TID [facility] Last Admin: 04/26/18 08:27 Dose: 20 mg Labetalol HCl (Normodyne) 20 mg SLOW IVP Q4H PRN PRN Reason: SBP > 180 and HR >/= 70 Lisinopril (Zestril) 20 mg PO BID [facility] Last Admin: 04/26/18 08:28 Dose: 20 mg Loperamide HCl (Imodium) 2 mg PO PRN PRN PRN Reason: Diarrhea/Loose Stools Loratadine (Claritin) 10 mg PO DAILYPRN PRN PRN Reason: Sinus Symptoms Mineral Oil/White Petrolatum (Eucerin Cream) 0 gm TOP BIDPRN PRN PRN Reason: Dry Skin Nitroglycerin (Nitrostat) 0.4 mg SL Q5MIN PRN PRN Reason: Chest Pain Nitroglycerin (Nitro-Bid 2% Ointment) 1 inch TOP BID [facility] Last Admin: 04/26/18 08:27 Dose: 1 inch Ondansetron HCl (Zofran Odt) 4 mg PO Q6H PRN PRN Reason: Nausea/Vomiting Ondansetron HCl (Zofran) 4 mg IVP Q6H PRN PRN Reason: Nausea/Vomiting Potassium Chloride (K-Dur) 20 meq PO QAM-WM [facility] Last Admin: 04/26/18 08:27 Dose: 20 meq Senna/Docusate Sodium (Senokot S) 2 tab PO BID PRN PRN Reason: Constipation Sodium Chloride ([place] Nasal [place] 0.65%) 0 ml EA NARE QIDPRN PRN PRN Reason: Nasal Congestion Sodium Chloride (Flush - Normal Saline) 10 ml IVF Q12HR [facility] Last Admin: 04/26/18 08:28 Dose: 10 ml Sodium Chloride (Flush - Normal Saline) 10 ml IVF PRN PRN PRN Reason: Saline Flush Last Admin: 04/25/18 14:51 Dose: 10 ml Spironolactone (Aldactone) 25 mg PO DAILY [facility] Last Admin: 04/26/18 08:27 Dose: 25 mg Throat Lozenges (Cepastat Lozenges) 1 jorgito PO Q2H PRN PRN Reason: Sore Throat Zolpidem Tartrate (Ambien) 5 mg PO HSPRN PRN PRN Reason: Insomnia
--- NOTE | 2018-04-26 12:19 | DIS ---
DATE OF ADMISSION: 04/22/2018 DATE OF DISCHARGE: 04/26/2018 PRIMARY CARE PHYSICIAN: Dr. Yulia Albert. DISCHARGE DISPOSITION: Home. PRIMARY DISCHARGE DIAGNOSES: 1. Hypertensive emergency. 2. Acute on chronic systolic congestive heart failure, ACC stage C. 3. [id number] elevation myocardial infarction, type 2. 4. Demand ischemia of myocardium. 5. Hypomagnesemia. SECONDARY DISCHARGE DIAGNOSES: 1. Obesity with BMI of 34. 2. Nonischemic cardiomyopathy. 3. Noncompliance with medical treatment. 4. Hypothyroidism. 5. Hyperuricemia. 6. Hypertension. 7. Gastroesophageal reflux disease. 8. Dyslipidemia. 9. Diabetes, type 2. 10. Chronic kidney disease, stage 3. 11. Chronic systolic heart failure with ejection fraction of 10% to 15%. PRIMARY PROCEDURE/OPERATION: None. RADIOLOGICAL INVESTIGATIONS: Chest x-ray showed pulmonary vascular congestion. CT brain, negative for any intracranial process. SIGNIFICANT LABORATORY DATA: WBC 4.8, hemoglobin 14.7, and platelets 142. Sodium 140, creatinine 1.29, calcium 9.2, magnesium 1.8, and uric acid 13.5. Urinalysis unremarkable. Urine drug screen negative. DISCHARGE MEDICATIONS: 1. Aspirin 81 mg p.o. daily. 2. Coreg 25 mg p.o. b.i.d. 3. Lasix 80 mg p.o. b.i.d. 4. Glimepiride 4 mg daily. 5. Hydralazine 50 mg t.i.d. 6. Isordil 20 mg p.o. t.i.d. 7. Lisinopril 20 mg p.o. b.i.d. 8. Potassium chloride 20 mEq p.o. daily. 9. Simvastatin 20 mg p.o. at bedtime. 10. Aldactone 25 mg p.o. daily. 11. Allopurinol 100 mg p.o. daily. CONTRAINDICATION: None. CODE STATUS: Full code. INPATIENT FURNACE MAINTENANCE: Dr. Gerber was following in ICU. Cardiology Group was following while in the hospital. TEST RESULTS PENDING ON DISCHARGE: None. ALLERGIES: NO KNOWN DRUG ALLERGIES. DISCHARGE PLAN: Posthospital, the patient will follow up with primary care physician and hydro station operator as instructed. HOSPITAL COURSE: A 57-year-old female who has above-mentioned medical problem, and she was not taking any medication at home. She was brought to ER with elevated blood pressure. She was having anasarca with lower extremity edema and dyspnea. Her chest x-ray was consistent with pulmonary vascular congestion. Her CT brain was negative for any acute intracranial process. Was having significant volume overload status from congestive heart failure exacerbation and that is why we kept this patient in hospital. Because of hypertensive emergency, this patient required ICU transfer where we treated her with nitroglycerin drip and subsequently, we adjusted medication as above. During entire hospital course, the patient was receiving IV Lasix and Zaroxolyn. By the time of discharge, the patient is euvolemic. She is on room air. She is ambulatory, tolerating p.o. well. We have provided the patient education about heart failure, dietary restriction, fluid restriction, as well as compliance with medication. The patient unfortunately has recurrent ongoing personal problem of noncompliance with the treatment. We sent all new prescription this time to the pharmacy. I have seen and examined the patient at bedside today. PHYSICAL EXAMINATION: VITAL SIGNS: Currently, temperature 97.4, pulse 78, respiratory rate 18, saturation 94% on room air, blood pressure 136/78, and weight 204 pounds. GENERAL: The patient is currently alert and awake, no obvious acute distress. HEENT: Head; normocephalic, atraumatic. Eyes; pupils round, reactive to light. Extraocular muscle intact. ENT, oropharynx within normal limits. Moist mucous membranes. No oral lesion. No pharyngeal erythema. No exudate. NECK: Supple. No JVD. No thyromegaly. No carotid bruit. LUNGS: Clear to auscultation without any rhonchi or rales. CARDIAC: S1, S2. Regular without any murmur. ABDOMEN: Soft and benign. EXTREMITIES: No edema. NEUROLOGIC: Nonfocal examination. The patient is continuously at high risk for recurrent admission given her noncompliance. Job ID: [id number] [facility]
[2018-04-26] MEDS: Atorvastatin Calcium 10 MG TAB PO SCH (19:52)
[2018-04-27] MEDS: Aspirin 325 MG TAB PO SCH (09:43)
[2018-04-27] MEDS: Nitroglycerin 2% Ointment 1 INCH/1 GM Packet TOP SCH ×2 (09:43→20:13)
[2018-04-27] MEDS: Enoxaparin Sodium 40 MG/0.4 ML SYRINGE SC SCH (09:43)
[2018-04-27] MEDS: Lisinopril 20 MG TAB PO SCH ×2 (09:45→20:12)
[2018-04-27] MEDS: Spironolactone 25 MG TAB PO SCH (09:45)
[2018-04-27] MEDS: hydrALAZINE 25 MG TAB PO SCH ×3 (09:45→20:13)
[2018-04-27] MEDS: Famotidine 20 MG TAB PO SCH ×2 (09:46→20:12)
[2018-04-27] MEDS: Furosemide 80 MG TAB PO SCH (09:46)
[2018-04-27] MEDS: Carvedilol 25 MG TAB PO SCH ×2 (09:46→17:24)
[2018-04-27] MEDS: Isosorbide Dinitrate 20 MG TAB PO SCH ×3 (09:46→20:12)
[2018-04-27] MEDS: Potassium Chloride 20 MEQ TAB PO SCH (09:46)
--- NOTE | 2018-04-27 11:55 | PDOC.PN ---
- Subjective Encounter Start Date: 04/27/18 Encounter Start Time: 07:10 Patient seen and examined. No new complaints. No overnight events - Objective Resuscitation Status - Order Detail: 04/22/18 15:04 Resuscitation Status Routine Resuscitation Status: FULL: Full Resuscitation MAR Reviewed: Yes Vital Signs & Weight: Vital Signs (12 hours) Temp Pulse Resp BP BP BP Pulse Ox 04/27/18 09:45 66 122/71 04/27/18 07:55 98.2 F 66 14 122/71 92 L 04/27/18 05:00 97.6 F 63 20 112/60 92 L Weight Admit Weight 180 lb Weight 197 lb Most Recent Monitor Data Heart Rate from ECG 71 NIBP 122/83 NIBP BP-Mean 96 Respiration from ECG 21 SpO2 92 I&O: 04/26/18 04/27/18 04/28/18 06:59 06:59 06:59 Intake Total 620 710 Output Total 5025 1775 Balance -4405 -1065 Result Diagrams: 04/24/18 09:31 04/24/18 09:31 Additional Labs: Accuchecks 04/27/18 04/27/18 04/26/18 10:15 05:08 20:05 POC Glucose 98 113 H 111 H 04/26/18 04/26/18 04/26/18 17:29 12:05 05:21 POC Glucose 117 H 121 H 114 H EKG Reviewed by me: Yes Phys Exam - Physical Examination Constitutional: NAD HEENT: PERRLA, moist MMs, sclera anicteric Neck: no JVD, supple Respiratory: no wheezing, no rales, no rhonchi Cardiovascular: RRR, no significant murmur, no rub Gastrointestinal: soft, non-tender, no distention, positive bowel sounds Musculoskeletal: no edema, pulses present Neurological: non-focal, normal sensation Lymphatic: no nodes Psychiatric: normal affect Skin: no rash, normal turgor Dx/Plan (1) Acute on chronic systolic ACC/AHA stage C congestive heart failure Code(s): I50.23 - ACUTE ON CHRONIC SYSTOLIC (CONGESTIVE) HEART FAILURE Status : Acute (2) Hypertensive emergency Code(s): I16.1 - HYPERTENSIVE EMERGENCY Status: Acute (3) Hypomagnesemia Code(s): E83.42 - HYPOMAGNESEMIA Status: Acute (4) NSTEMI (non-ST elevated myocardial infarction) Code(s): I21.4 - NON-ST ELEVATION (NSTEMI) MYOCARDIAL INFARCTION Status: Acute (5) CKD (chronic kidney disease) stage 3, GFR 30-59 ml/min Code(s): N18.3 - CHRONIC KIDNEY DISEASE, STAGE 3 (MODERATE) Status: Chronic (6) Diabetes type 2, controlled Code(s): E11.9 - TYPE 2 DIABETES MELLITUS WITHOUT COMPLICATIONS Status: Chronic (7) Dyslipidemia Code(s): E78.5 - HYPERLIPIDEMIA, UNSPECIFIED Status: Chronic (8) GERD (gastroesophageal reflux disease) Code(s): K21.9 - GASTRO-ESOPHAGEAL REFLUX DISEASE WITHOUT ESOPHAGITIS Status: Chronic Qualifiers: (9) Hypertension Code(s): I10 - ESSENTIAL (PRIMARY) HYPERTENSION Status: Chronic Qualifiers: (10) Hyperuricemia Code(s): E79.0 - HYPERURICEMIA W/O SIGNS OF INFLAM ARTHRIT AND TOPHACEOUS DIS Status: Chronic (11) Hypothyroidism Code(s): E03.9 - HYPOTHYROIDISM, UNSPECIFIED Status: Chronic (12) Non compliance w medication regimen Code(s): Z91.14 - PATIENT'S OTHER NONCOMPLIANCE WITH MEDICATION REGIMEN Status : Chronic (13) Nonischemic cardiomyopathy Code(s): I42.8 - OTHER CARDIOMYOPATHIES Status: Chronic (14) Obesity (BMI 30-39.9) Code(s): E66.9 - OBESITY, UNSPECIFIED Status: Chronic - Plan 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, 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 Review of Systems - Review of Systems ENT: negative: Ear Pain, Ear Discharge, Nose Pain, Nose Discharge, Nose Congestion, Mouth Pain, Mouth Swelling, Throat Pain, Throat Swelling, Other Respiratory: negative: Cough, Dry, Shortness of Breath, Hemoptysis, SOB with Excertion, Pleuritic Pain, Sputum, Wheezing Cardiovascular: negative: chest pain, palpitations, orthopnea, paroxysmal nocturnal dyspnea, edema, light headedness, other Gastrointestinal: negative: Nausea, Vomiting, Abdominal Pain, Diarrhea, Constipation, Melena, Hematochezia, Other Genitourinary: negative: Dysuria, Frequency, Incontinence, Hematuria, Retention , Other Musculoskeletal: negative: Neck Pain, Shoulder Pain, Arm Pain, Back Pain, Hand Pain, Leg Pain, Foot Pain, Other - Medications/Allergies Allergies/Adverse Reactions: Allergies Allergy/AdvReac Type Severity Reaction Status Date / Time No Known Drug Allergies Allergy Verified 04/23/18 02:59 Medications: Current Medications Acetaminophen (Tylenol) 650 mg PO Q4H PRN PRN Reason: Headache/Fever/Mild Pain (1-3) Hydrocodone Bitart/Acetaminophen ([place] 5/325) 1 tab PO Q4H PRN PRN Reason: Moderate Pain (4-6) Albuterol/Ipratropium (Duoneb) 3 ml NEB [id number] PRN PRN Reason: SOB &/or Wheezing Artificial Tears (Tears Naturale) 2 drop EA EYE PRN PRN PRN Reason: Dry Eyes Aspirin (Aspirin) 325 mg PO DAILY [facility] Last Admin: 04/27/18 09:43 Dose: 325 mg Atorvastatin Calcium (Lipitor) 10 mg PO HS [facility] Last Admin: 04/26/18 19:52 Dose: 10 mg Bisacodyl (Dulcolax) 10 mg PO DAILYPRN PRN PRN Reason: Constipation Bisacodyl (Dulcolax) 10 mg ID DAILYPRN PRN PRN Reason: Constipation Calcium Carbonate (Tums) 1,000 mg PO Q4H PRN PRN Reason: Heartburn or Indigestion Carvedilol (Coreg) 25 mg PO BID-[facility] Last Admin: 04/27/18 09:46 Dose: 25 mg Clonidine (Catapres) 0.1 mg PO Q4H PRN PRN Reason: SBP Greater Than 170 Dextrose/Water (Dextrose 50%) 25 gm SLOW IVP PRN PRN PRN Reason: Hypoglycemia Enoxaparin Sodium (Lovenox) 40 mg SC 0900 [facility] Last Admin: 04/27/18 09:43 Dose: 40 mg Famotidine (Pepcid) 20 mg PO BID [facility] Last Admin: 04/27/18 09:46 Dose: 20 mg Furosemide (Lasix) 80 mg PO DAILY-[facility] Last Admin: 04/27/18 09:46 Dose: 80 mg Glucagon (Glucagon) 1 mg IM PRN PRN PRN Reason: Hypoglycemia Guaifenesin (Robitussin Sf) 200 mg PO Q4H PRN PRN Reason: Cough Hydralazine HCl (Apresoline) 10 mg SLOW IVP Q4H PRN PRN Reason: SBP > 180 and HR < 70 Hydralazine HCl (Apresoline) 50 mg PO TID [facility] Last Admin: 04/27/18 09:45 Dose: 50 mg Dextrose/Water (D5w) 1,000 mls @ 0 mls/hr IV .Q0M PRN PRN Reason: Hypoglycemia Insulin Human Lispro (Humalog) 0 units SC .MODERATE SLIDING SC PRN PRN Reason: Moderate Correctional Scale Insulin Human Lispro (Humalog) 0 units SC .BEDTIME SLIDING SC PRN PRN Reason: Bedtime Correctional Scale Isosorbide Dinitrate (Isordil) 20 mg PO TID [facility] Last Admin: 04/27/18 09:46 Dose: 20 mg Labetalol HCl (Normodyne) 20 mg SLOW IVP Q4H PRN PRN Reason: SBP > 180 and HR >/= 70 Lisinopril (Zestril) 20 mg PO BID [facility] Last Admin: 04/27/18 09:45 Dose: 20 mg Loperamide HCl (Imodium) 2 mg PO PRN PRN PRN Reason: Diarrhea/Loose Stools Loratadine (Claritin) 10 mg PO DAILYPRN PRN PRN Reason: Sinus Symptoms Mineral Oil/White Petrolatum (Eucerin Cream) 0 gm TOP BIDPRN PRN PRN Reason: Dry Skin Nitroglycerin (Nitrostat) 0.4 mg SL Q5MIN PRN PRN Reason: Chest Pain Nitroglycerin (Nitro-Bid 2% Ointment) 1 inch TOP BID [facility] Last Admin: 04/27/18 09:43 Dose: 1 inch Ondansetron HCl (Zofran Odt) 4 mg PO Q6H PRN PRN Reason: Nausea/Vomiting Ondansetron HCl (Zofran) 4 mg IVP Q6H PRN PRN Reason: Nausea/Vomiting Potassium Chloride (K-Dur) 20 meq PO QAM-[facility] Last Admin: 04/27/18 09:46 Dose: 20 meq Senna/Docusate Sodium (Senokot S) 2 tab PO BID PRN PRN Reason: Constipation Sodium Chloride ([place] Nasal [place] 0.65%) 0 ml EA NARE QIDPRN PRN PRN Reason: Nasal Congestion Sodium Chloride (Flush - Normal Saline) 10 ml IVF Q12HR [facility] Last Admin: 04/27/18 09:48 Dose: 10 ml Sodium Chloride (Flush - Normal Saline) 10 ml IVF PRN PRN PRN Reason: Saline Flush Last Admin: 04/25/18 14:51 Dose: 10 ml Spironolactone (Aldactone) 25 mg PO DAILY [facility] Last Admin: 04/27/18 09:45 Dose: 25 mg Throat Lozenges (Cepastat Lozenges) 1 jorgito PO Q2H PRN PRN Reason: Sore Throat Zolpidem Tartrate (Ambien) 5 mg PO HSPRN PRN PRN Reason: Insomnia
[2018-04-27 17:57] LABS: Anion Gap 17 mmol/L (10-20); BUN (Urea Nitrogen) 30 mg/dL (9.8-20.1); Calc. Creatinine Clearance 53 mL/min (70-130); Calcium 9.3 mg/dL (7.8-10.44); Carbon Dioxide 24 mmol/L (22-29); Chloride 101 mmol/L (98-107); Estimated GFR-MDRD 39; Glucose 117 mg/dL (70-105); Magnesium 1.8 mg/dL (1.6-2.6); Potassium 4.9 mmol/L (3.5-5.1); Sodium 137 mmol/L (136-145)
[2018-04-27] MEDS: Atorvastatin Calcium 10 MG TAB PO SCH (20:12)
[2018-04-28] MEDS: Famotidine 20 MG TAB PO SCH (09:36)
[2018-04-28] MEDS: Nitroglycerin 2% Ointment 1 INCH/1 GM Packet TOP SCH (09:36)
[2018-04-28] MEDS: Aspirin 325 MG TAB PO SCH (09:36)
[2018-04-28] MEDS: Lisinopril 20 MG TAB PO SCH (09:36)
[2018-04-28] MEDS: hydrALAZINE 25 MG TAB PO SCH ×2 (09:37→15:00)
[2018-04-28] MEDS: Furosemide 80 MG TAB PO SCH (09:37)
[2018-04-28] MEDS: Potassium Chloride 20 MEQ TAB PO SCH (09:37)
[2018-04-28] MEDS: Enoxaparin Sodium 40 MG/0.4 ML SYRINGE SC SCH (09:37)
[2018-04-28] MEDS: Carvedilol 25 MG TAB PO SCH ×2 (09:37→15:48)
[2018-04-28] MEDS: Spironolactone 25 MG TAB PO SCH (09:37)
[2018-04-28] MEDS: Isosorbide Dinitrate 20 MG TAB PO SCH ×2 (09:37→15:48)
--- NOTE | 2018-04-28 11:30 | PDOC.PN ---
- Subjective Encounter Start Date: 04/28/18 Encounter Start Time: 07:30 Patient seen and examined. No new complaints. No overnight events - Objective Resuscitation Status - Order Detail: 04/22/18 15:04 Resuscitation Status Routine Resuscitation Status: FULL: Full Resuscitation MAR Reviewed: Yes Vital Signs & Weight: Vital Signs (12 hours) Temp Pulse Resp BP BP Pulse Ox 04/28/18 09:37 71 04/28/18 09:36 128/73 04/28/18 08:00 98.4 F 71 16 128/73 94 L Weight Admit Weight 180 lb Weight 190 lb Most Recent Monitor Data Heart Rate from ECG 71 NIBP 122/83 NIBP BP-Mean 96 Respiration from ECG 21 SpO2 92 I&O: 04/27/18 04/28/18 04/29/18 06:59 06:59 06:59 Intake Total 710 Output Total 1775 Balance -1065 Result Diagrams: 04/24/18 09:31 04/27/18 17:36 Additional Labs: Accuchecks 04/28/18 04/28/18 04/27/18 10:42 06:16 20:42 POC Glucose 141 H 90 120 H 04/27/18 16:51 POC Glucose 118 H Phys Exam - Physical Examination Constitutional: NAD HEENT: PERRLA, moist MMs, sclera anicteric Neck: no JVD, supple, full ROM Respiratory: no wheezing, no rales, no rhonchi Cardiovascular: RRR, no significant murmur, no rub Gastrointestinal: soft, non-tender, no distention, positive bowel sounds Musculoskeletal: no edema, pulses present Neurological: non-focal, normal sensation Lymphatic: no nodes Psychiatric: normal affect Skin: no rash, normal turgor Dx/Plan (1) Acute on chronic systolic ACC/AHA stage C congestive heart failure Code(s): I50.23 - ACUTE ON CHRONIC SYSTOLIC (CONGESTIVE) HEART FAILURE Status : Acute (2) Hypertensive emergency Code(s): I16.1 - HYPERTENSIVE EMERGENCY Status: Acute (3) Hypomagnesemia Code(s): E83.42 - HYPOMAGNESEMIA Status: Acute (4) NSTEMI (non-ST elevated myocardial infarction) Code(s): I21.4 - NON-ST ELEVATION (NSTEMI) MYOCARDIAL INFARCTION Status: Acute (5) CKD (chronic kidney disease) stage 3, GFR 30-59 ml/min Code(s): N18.3 - CHRONIC KIDNEY DISEASE, STAGE 3 (MODERATE) Status: Chronic (6) Diabetes type 2, controlled Code(s): E11.9 - TYPE 2 DIABETES MELLITUS WITHOUT COMPLICATIONS Status: Chronic (7) Dyslipidemia Code(s): E78.5 - HYPERLIPIDEMIA, UNSPECIFIED Status: Chronic (8) GERD (gastroesophageal reflux disease) Code(s): K21.9 - GASTRO-ESOPHAGEAL REFLUX DISEASE WITHOUT ESOPHAGITIS Status: Chronic Qualifiers: (9) Hypertension Code(s): I10 - ESSENTIAL (PRIMARY) HYPERTENSION Status: Chronic Qualifiers: (10) Hyperuricemia Code(s): E79.0 - HYPERURICEMIA W/O SIGNS OF INFLAM ARTHRIT AND TOPHACEOUS DIS Status: Chronic (11) Hypothyroidism Code(s): E03.9 - HYPOTHYROIDISM, UNSPECIFIED Status: Chronic (12) Non compliance w medication regimen Code(s): Z91.14 - PATIENT'S OTHER NONCOMPLIANCE WITH MEDICATION REGIMEN Status : Chronic (13) Nonischemic cardiomyopathy Code(s): I42.8 - OTHER CARDIOMYOPATHIES Status: Chronic (14) Obesity (BMI 30-39.9) Code(s): E66.9 - OBESITY, UNSPECIFIED Status: Chronic - 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 Review of Systems - Review of Systems ENT: negative: Ear Pain, Ear Discharge, Nose Pain, Nose Discharge, Nose Congestion, Mouth Pain, Mouth Swelling, Throat Pain, Throat Swelling, Other Respiratory: negative: Cough, Dry, Shortness of Breath, Hemoptysis, SOB with Excertion, Pleuritic Pain, Sputum, Wheezing Cardiovascular: negative: chest pain, palpitations, orthopnea, paroxysmal nocturnal dyspnea, edema, light headedness, other Gastrointestinal: negative: Nausea, Vomiting, Abdominal Pain, Diarrhea, Constipation, Melena, Hematochezia, Other Genitourinary: negative: Dysuria, Frequency, Incontinence, Hematuria, Retention , Other Musculoskeletal: negative: Neck Pain, Shoulder Pain, Arm Pain, Back Pain, Hand Pain, Leg Pain, Foot Pain, Other - Medications/Allergies Allergies/Adverse Reactions: Allergies Allergy/AdvReac Type Severity Reaction Status Date / Time No Known Drug Allergies Allergy Verified 02/14/19 02:59 Medications: Current Medications Acetaminophen (Tylenol) 650 mg PO Q4H PRN PRN Reason: Headache/Fever/Mild Pain (1-3) Hydrocodone Bitart/Acetaminophen ([place] 5/325) 1 tab PO Q4H PRN PRN Reason: Moderate Pain (4-6) Albuterol/Ipratropium (Duoneb) 3 ml NEB [id number] PRN PRN Reason: SOB &/or Wheezing Artificial Tears (Tears Naturale) 2 drop EA EYE PRN PRN PRN Reason: Dry Eyes Aspirin (Aspirin) [address] [facility] Last Admin: 04/28/18 09:36 Dose: 325 mg Atorvastatin Calcium (Lipitor) [address] [facility] Last Admin: 04/27/18 20:12 Dose: 10 mg Bisacodyl (Dulcolax) 10 mg PO DAILYPRN PRN PRN Reason: Constipation Bisacodyl (Dulcolax) 10 mg VT DAILYPRN PRN PRN Reason: Constipation Calcium Carbonate (Tums) 1,000 mg PO Q4H PRN PRN Reason: Heartburn or Indigestion Carvedilol (Coreg) 25 mg PO BID-[facility] Last Admin: 04/28/18 09:37 Dose: 25 mg Clonidine (Catapres) 0.1 mg PO Q4H PRN PRN Reason: SBP Greater Than 170 Dextrose/Water (Dextrose 50%) 25 gm SLOW IVP PRN PRN PRN Reason: Hypoglycemia Enoxaparin Sodium (Lovenox) [address] [facility] Last Admin: 04/28/18 09:37 Dose: 40 mg Famotidine (Pepcid) [address] [facility] Last Admin: 04/28/18 09:36 Dose: 20 mg Furosemide (Lasix) 80 mg PO DAILY-[facility] Last Admin: 04/28/18 09:37 Dose: 80 mg Glucagon (Glucagon) 1 mg IM PRN PRN PRN Reason: Hypoglycemia Guaifenesin (Robitussin Sf) 200 mg PO Q4H PRN PRN Reason: Cough Hydralazine HCl (Apresoline) 10 mg SLOW IVP Q4H PRN PRN Reason: SBP > 180 and HR < 70 Hydralazine HCl (Apresoline) [address] [facility] Last Admin: 04/28/18 09:37 Dose: 50 mg Dextrose/Water (D5w) 1,000 mls @ 0 mls/hr IV .Q0M PRN PRN Reason: Hypoglycemia Insulin Human Lispro (Humalog) 0 units SC .MODERATE SLIDING SC PRN PRN Reason: Moderate Correctional Scale Insulin Human Lispro (Humalog) 0 units SC .BEDTIME SLIDING SC PRN PRN Reason: Bedtime Correctional Scale Isosorbide Dinitrate (Isordil) [address] [facility] Last Admin: 04/28/18 09:37 Dose: 20 mg Labetalol HCl (Normodyne) 20 mg SLOW IVP Q4H PRN PRN Reason: SBP > 180 and HR >/= 70 Lisinopril (Zestril) [address] [facility] Last Admin: 04/28/18 09:36 Dose: 20 mg Loperamide HCl (Imodium) 2 mg PO PRN PRN PRN Reason: Diarrhea/Loose Stools Loratadine (Claritin) 10 mg PO DAILYPRN PRN PRN Reason: Sinus Symptoms Mineral Oil/White Petrolatum (Eucerin Cream) 0 gm TOP BIDPRN PRN PRN Reason: Dry Skin Nitroglycerin (Nitrostat) 0.4 mg SL Q5MIN PRN PRN Reason: Chest Pain Nitroglycerin (Nitro-Bid 2% Ointment) [address] [facility] Last Admin: 04/28/18 09:36 Dose: 1 inch Ondansetron HCl (Zofran Odt) 4 mg PO Q6H PRN PRN Reason: Nausea/Vomiting Ondansetron HCl (Zofran) 4 mg IVP Q6H PRN PRN Reason: Nausea/Vomiting Potassium Chloride (K-Dur) 20 meq PO QAM-WM [facility] Last Admin: 04/28/18 09:37 Dose: 20 meq Senna/Docusate Sodium (Senokot S) 2 tab PO BID PRN PRN Reason: Constipation Sodium Chloride ([place] Nasal [place] 0.65%) 0 ml EA NARE QIDPRN PRN PRN Reason: Nasal Congestion Sodium Chloride (Flush - Normal Saline) [address] [facility] Last Admin: 04/28/18 09:38 Dose: 10 ml Sodium Chloride (Flush - Normal Saline) 10 ml IVF PRN PRN PRN Reason: Saline Flush Last Admin: 04/25/18 14:51 Dose: 10 ml Spironolactone (Aldactone) 25 mg PO DAILY [facility] Last Admin: 04/28/18 09:37 Dose: 25 mg Throat Lozenges (Cepastat Lozenges) 1 jorgito PO Q2H PRN PRN Reason: Sore Throat Zolpidem Tartrate (Ambien) 5 mg PO HSPRN PRN PRN Reason: Insomnia
[2018-04-28 11:49] VITALS: TEMP 98.3
[2018-04-28 16:18] VITALS: BP 110/61
--- NOTE | 2018-04-29 07:26 | DIS ---
DATE OF ADMISSION: 04/22/2018 DATE OF DISCHARGE: 04/28/2018 ADDENDUM: HOSPITAL COURSE: Please see my discharge summary dictated on 04/26/2018. There is no change in medication. The patient stayed in hospital because initially there was plan for discharging her home with home health, but eventually, family member decided that she was not good enough to go home yet and that is why with help of manager case management, we arranged rehabilitation. With the help of manager case management, rehabilitation is arranged and she has approval for go rehab today. The patient is seen and examined at bedside today. Please see my progress note from today for further details. Job ID: [id number]
== END 2018-04-28 19:44 | DRG 280 ==
LOC: ERS 13:15 → ERHOLD 15:32 → CCU 04-23 00:59 → 2NO 04-24 19:50
PROVIDERS: ADMIT Internal Medicine; ATTEND Internal Medicine
DX: I13.0 Hypertensive heart and chronic kidney disease with heart failure and stage 1 through stage 4 chronic kidney disease, or unspecified chronic kidney disease (principal); I50.23 Acute on chronic systolic (congestive) heart failure; I21.4 Non-ST elevation (NSTEMI) myocardial infarction; I16.1 Hypertensive emergency; E11.22 Type 2 diabetes mellitus with diabetic chronic kidney disease; N18.3 Chronic kidney disease, stage 3 (moderate); E83.42 Hypomagnesemia; K21.9 Gastro-esophageal reflux disease without esophagitis; E78.5 Hyperlipidemia, unspecified; I10 Essential (primary) hypertension; E79.0 Hyperuricemia without signs of inflammatory arthritis and tophaceous disease; E03.9 Hypothyroidism, unspecified; Z91.14 Patient's other noncompliance with medication regimen; I42.8 Other cardiomyopathies; E66.9 Obesity, unspecified; Z68.32 Body mass index [BMI] 32.0-32.9, adult; F17.210 Nicotine dependence, cigarettes, uncomplicated; Z95.810 Presence of automatic (implantable) cardiac defibrillator
CPT/HCPCS: 36415; 36416; 70450; 71045; 80048; 80053; 80306; 81003; 81015; 82550; 82553; 83690; 83735; 84443; 84484; 84550; 85025; 93005; 93798; 96365; 96366; 96372; 96375; J1650; J1940; J3475; J7050

== ENCOUNTER 2018-09-07 21:14 | Inpatient (IN) | payer MEDICARE ==
[~2018-09-07 21:14] MED LIST: Iopamidol 370 76% 100 ML VIAL ONE
--- NOTE | 2018-09-07 21:46 | RAD ---
EXAM: Single view of the chest HISTORY: Weakness and fall COMPARISON: 04/22/2018 FINDINGS: Single view of the chest shows an enlarged but stable cardiomediastinal silhouette. The pa cemaker is unchanged in position. There is no evidence of consolidation, mass, or pleural effusion. The bones are unremarkable. IMPRESSION: Cardiomegaly without evidence of acute cardiopulmonary disease
[2018-09-07 22:02] LABS: #Lymphocytes 2.3 thou/uL (1.20-3.40); #Monocytes 0.8 thou/uL (0.11-0.59); #Neutrophils 4.7 thou/uL (1.40-6.50); %Basophils 0.5 % (0.0-1.0); %Eosinophils 0.4 % (0.0-10.0); %Lymphocytes 29.3 % (21.0-51.0); %Monocytes 9.7 % (0.0-10.0); %Neutrophils 60.1 % (42.0-75.0); Hemoglobin 13.1 g/dL (12.0-16.0); Mean Corpuscular HGB CONC 31.8 g/dL (32.0-36.0); Mean Corpuscular Hemoglobin 29.9 pg (27.0-31.0); Mean Corpuscular Volume 94.2 fL (78.0-98.0); Mean Platelet Volume 8.6 fL (7.4-10.4); Platelet Count 154 thou/uL (130-400); RBC Distribution Width 14.8 % (11.5-14.5); Red Blood Cell (RBC) Count 4.37 mill/uL (4.20-5.40); White Blood Cell (WBC) Count 7.8 thou/uL (4.8-10.8)
[2018-09-07] MEDS ORDERED: Aspirin Chewable 81 MG TAB ONE (22:07)
[2018-09-07] MEDS ORDERED: Morphine 4 MG/ML VIAL ONE (22:07)
[2018-09-07 22:28] LABS: ALT (SGPT) 27 U/L (8-55); AST (SGOT) 22 U/L (5-34); Albumin 3.6 g/dL (3.5-5.0); Alkaline Phosphatase 150 U/L (40-150); Anion Gap 16 mmol/L (10-20); BUN (Urea Nitrogen) 25 mg/dL (9.8-20.1); Bilirubin, Total 2.6 mg/dL (0.2-1.2); Calc. Creatinine Clearance 0 mL/min (70-130); Calcium 9.1 mg/dL (7.8-10.44); Carbon Dioxide 19 mmol/L (22-29); Chloride 107 mmol/L (98-107); Estimated GFR-MDRD 73; Globulin 3.4 g/dL (2.4-3.5); Glucose 139 mg/dL (70-105); Magnesium 1.6 mg/dL (1.6-2.6); Sodium 138 mmol/L (136-145)
[2018-09-07 22:49] LABS: CKMB 1.4 ng/mL (0-6.6)
--- NOTE | 2018-09-07 22:55 | CT ---
EXAM: CT brain without contrast HISTORY: Weakness and fall with confusion COMPARISON: 04/22/2018 TECHNIQUE: Multiple contiguous axial images were obtained and a CT of the brain without contrast. FINDINGS: There are scattered hypodensities in the subcortical and periventricular white matter consi stent with small vessel ischemic disease. There is also new loss of gutierrez-white matter differentiation in the right parietal and temporal lobes consistent with an evolving infarction. Ther e is no evidence of hydrocephalus, intracranial hemorrhage, or extra-axial fluid collection. The calvarium and overlying soft tissues are unremarkable. The visualized paranasal sinuses and masto id air cells are well aerated. IMPRESSION: Evolving right MCA distribution infarction
[2018-09-07 22:57] LABS: Acetaminophen Less than 6.0 mcg/mL (10.0-30.0); Alcohol Less than 10 mg/dL (Less than 10); Salicylate Less than 8.0 mg/dL (15.0-30.0)
--- NOTE | 2018-09-07 23:06 | CT ---
EXAM: CTA of the chest HISTORY: Weakness and fall. Atrial fibrillation. COMPARISON: 04/18/2015 TECHNIQUE: Multiple contiguous axial images were obtained a CTA of the chest with contrast per pulmon ashwin embolism protocol. 3-D oblique MIP reformats and direct coronal reformats were performed. FINDINGS: HEART: Global cardiomegaly. There is a pacemaker with its leads in the right atrium and ventricle. Th ere is a small pericardial effusion. PULMONARY ARTERIES: Normal in caliber without filling defects to suggest pulmonary emboli. MEDIASTINUM: No hilar or mediastinal lymphadenopathy. LUNGS: No focal infiltrates or masses. PLEURAL SPACE: No pleural effusion or pneumothorax. CHEST WALL SOFT TISSUES: Unremarkable VISUALIZED OSSEOUS STRUCTURES: Degenerative changes in the spine VISUALIZED SUBDIAPHRAGMATIC STRUCTURES: Unremarkable. Status post cholecystectomy. IMPRESSION: 1. No evidence of pulmonary thromboembolism 2. Cardiomegaly 3. Pericardial effusion
[2018-09-07] MEDS ORDERED: Furosemide 40 MG/4 ML VIAL ONE (23:21)
[2018-09-07] MEDS ORDERED: Furosemide 20 MG/2 ML VIAL ONE (23:21)
[2018-09-07] MEDS ORDERED: Lorazepam 2 MG/ML VIAL ONE (23:27)
[2018-09-08 00:42] LABS: Bilirubin Large (Negative); Blood, Urine Trace (Negative); Clarity CLOUDY (Clear); Glucose, Urine (Dipstick) Negative (Negative); Leukocyte Trace (Negative); Nitrite Positive (Negative); Protein, Urine (Dipstick) 300 mg/dL (Neg-Trace)
[2018-09-08 00:45] LABS: Bacteria/HPF None Seen HPF (None Seen); RBC/HPF 0-3 HPF (0-3)
[2018-09-08 00:46] LABS: Pathc Cast-AUWi Flag 4.08 (0-2.49)
[2018-09-08 00:51] LABS: Amphetamine Not Detected (NotDetected); Barbiturates Screen Not Detected (NotDetected); Benzodiazepine Screen Not Detected (NotDetected); Cocaine Metabolite Screen Not Detected (NotDetected); Medtox Control Line Valid? VALID (VALID); Medtox Reader # READER 4; Methadone Not Detected (NotDetected); Methamphetamine Not Detected (NotDetected); Opiate Screen Not Detected (NotDetected); Oxycodone Screen Not Detected (NotDetected); Phencyclidine (PCP) Not Detected (NotDetected); THC/Cannabinoid Screen Not Detected (NotDetected); Tricyclic Screen Not Detected (NotDetected)
[2018-09-08 00:52] LABS: Renal Epithelial 0-3 HPF (0-3); Transitional Epithelial None Seen HPF (0-3)
[2018-09-08 00:53] LABS: Hyaline Casts/LPF 0-3 HYALINE CAST LPF (0-3 Hyaline); Other Casts/LPF None Seen LPF (0-3 Hyaline); Oval Fat Bodies/HPF None Seen HPF (None Seen); Sperm/HPF None Seen HPF (None Seen); Trichomonas/HPF None Seen HPF (None Seen); Yeast-All Forms None Seen HPF (None Seen)
[2018-09-08 00:58] LABS: Troponin I 0.294 ng/mL (< 0.028)
[2018-09-08] MEDS ORDERED: Labetalol HCl 100 MG/20 ML VIAL SLOW IVP PRN ×2 (01:54→08:20)
[2018-09-08] MEDS ORDERED: Dextrose 5% in Water 1,000 ML IV PRN (01:56)
[2018-09-08] MEDS ORDERED: Dextrose 50% Abboject 50 ML SYRINGE SLOW IVP PRN (01:56)
[2018-09-08] MEDS ORDERED: HumaLOG 300 UNITS/3 ML VIAL SC PRN (01:56)
[2018-09-08] MEDS ORDERED: Amiodarone 150 MG, Admixture Fee 1 EACH in Dextrose 5% in Water 100 ML IVPB SCH (02:15)
[2018-09-08] MEDS: Amiodarone 450 MG in Dextrose 5% in Water 250 ML IVPB SCH ×2 (03:25→11:26)
[2018-09-08 03:28] LABS: #Lymphocytes 1.9 thou/uL (1.20-3.40); #Monocytes 0.5 thou/uL (0.11-0.59); #Neutrophils 2.7 thou/uL (1.40-6.50); %Basophils 0.4 % (0.0-1.0); %Eosinophils 0.8 % (0.0-10.0); %Lymphocytes 35.8 % (21.0-51.0); %Monocytes 10.5 % (0.0-10.0); %Neutrophils 52.5 % (42.0-75.0); Hemoglobin 12.9 g/dL (12.0-16.0); Mean Corpuscular HGB CONC 32.3 g/dL (32.0-36.0); Mean Corpuscular Hemoglobin 30.7 pg (27.0-31.0); Mean Corpuscular Volume 95.1 fL (78.0-98.0); Mean Platelet Volume 8.6 fL (7.4-10.4); Platelet Count 150 thou/uL (130-400); RBC Distribution Width 14.8 % (11.5-14.5); Red Blood Cell (RBC) Count 4.19 mill/uL (4.20-5.40); White Blood Cell (WBC) Count 5.2 thou/uL (4.8-10.8)
[2018-09-08 03:49] LABS: Anion Gap 15 mmol/L (10-20); BUN (Urea Nitrogen) 26 mg/dL (9.8-20.1); Calc. Creatinine Clearance 0 mL/min (70-130); Calcium 9.4 mg/dL (7.8-10.44); Carbon Dioxide 22 mmol/L (22-29); Cardiac Risk 3.8 (Less than 4.5); Chloride 106 mmol/L (98-107); Cholesterol 165 mg/dl (< 200 Desired); Estimated GFR-MDRD 65; Glucose 135 mg/dL (70-105); HDL Cholesterol 43 mg/dL (>60 Neg Risk); LDL Cholesterol, Calculated 102 mg/dL; Potassium 3.7 mmol/L (3.5-5.1); Sodium 139 mmol/L (136-145); Triglycerides 98 mg/dL (Less than 150)
[2018-09-08 03:58] LABS: Troponin I 0.293 ng/mL (< 0.028)
--- NOTE | 2018-09-08 05:14 | HP ---
CHIEF COMPLAINT: Altered. HISTORY OF PRESENT ILLNESS: This patient is a 57-year-old female, with a history of a nonischemic cardiomyopathy with an EF around 10% to 15% with prior cardiac arrhythmias including nonsustained ventricular arrhythmia. The patient apparently was found by family to be somewhat altered. They attempted to call an ambulance for the patient, however, she declined. Apparently, she has had some progression and came to the emergency room today. The patient is unable to give any history and the patient's family is no longer here and available to assist with any further history. Nonetheless, the patient had a CT scan in the emergency department which revealed a large right posteroparietal infarct. The patient is outside the window for intervention. In the emergency department, the patient has received some Ativan for some agitation as well as Lasix, morphine, and aspirin. REVIEW OF SYSTEMS: Unobtainable given the patient's altered mental status. PAST MEDICAL HISTORY: Notable for ischemic cardiomyopathy with an EF of 10% to 15% with some diastolic dysfunction as well. She has [id number] tricuspid regurgitation, history of nonsustained ventricular tachycardia, diabetes mellitus type 2, morbid obesity, hypertension, and dyslipidemia. PAST SURGICAL HISTORY: Heart catheterization, AICD placement. SOCIAL HISTORY: The patient was previously noted to be and lives at home with her as recently as of April. She has a history of smoking since the age of 14. Occasional alcohol consumption, but previously denied any other drug use. FAMILY HISTORY: Per the record, diabetes, hypertension, heart disease in multiple family members. ALLERGIES: NONE. HOME MEDICATIONS: Per the external medication history in the electronic record, the patient has been on; 1. Amlodipine 2.5 mg daily. 2. Aspirin 81 mg daily. 3. Carvedilol 25 mg b.i.d. 4. Lasix 80 mg daily. 5. Glimepiride 4 mg daily. 6. Hydralazine 50 mg t.i.d. 7. Lisinopril 20 mg daily. 8. Simvastatin 20 mg daily. 9. Aldactone 25 mg daily. Of note, the most recent any of these were filled was July 27 and most were July 15. PHYSICAL EXAMINATION: VITAL SIGNS: Pulse is 120s; BP initially systolic over 200, most recently 160s/110s. GENERAL APPEARANCE: The patient is noted to have hyperdynamic cardiac function with some JVD and a visible right subclavian pulse. She is not awake or interactive, but she does tend to thrash a little bit in the bed. She does not respond to external stimuli. She is not able to cooperate with the exam. HEENT: Left pupil is slightly sluggish. She does not have any apparent or pharyngeal lesions. Mucosa is moist. NECK: Showed some JVD with no other masses or lesions noted. Normal thyroid. HEART: Tachycardic, hyperdynamic. No wheezes or rales. LUNGS: Clear to auscultation bilaterally, although again taking full deep breaths. ABDOMEN: Soft, nondistended. Positive bowel sounds. No masses. No organomegaly. EXTREMITIES: No cyanosis, clubbing, or edema. NEURO: Again, the patient appears to be significantly encephalopathic. She appears to have no movement on the left, either with a Babinski or painful stimuli including the lower extremity and the upper extremity. SKIN: Normal turgor, warm, and dry. LABORATORY DATA: White count 7.8, hemoglobin 13.1, platelets 154. Sodium 138, potassium 4.0, chloride 107, CO2 of 19, BUN 25, creatinine 0.95, total bilirubin 2.6. Troponin 0.259. BNP 2226. Urinalysis; positive nitrites, large bilirubin, 4 to 6 white cells. Tox screen negative. Chest x-ray shows implanted device described as a pacemaker, but presumably an AICD. CTA of the chest shows no PE, cardiomegaly, and pericardial effusion. CT of the brain shows an evolving right MCA distribution infarction. IMPRESSION AND PLAN: 1. Acute to subacute right posterior middle cerebral artery distribution cerebrovascular accident. The patient was last known normal over 36 hours prior to presentation. She is not an interventional candidate. She will be admitted to the intermediate care unit. She will have a Stroke Team and Neurology consultation. We will give her rectal aspirin and allow some permissive hypertension. 2. It appears the patient is in atrial flutter primarily based on some strips from the EMS in an effort to avoid significantly low on her blood pressure. We will start her on amiodarone. We will get Cardiology consult. 3. Hypertension. The patient has a history of severe hypertension, questionable compliance of medications. Certainly, she has a large stroke mainly likely driving some of the hypertension. We will provide p.r.n. labetalol. Otherwise, allow some permissive hypertension. 4. History of diabetes mellitus. We will order Accu-Cheks and sliding scale insulin. 5. History of cardiomyopathy. I will need to monitor volume status. 6. Abnormal EKG showing some inferior ST-segment changes without reciprocal changes. This was discussed in the ER with Dr. Reddy. It was not felt there was any interventions indicated. 7. Hyperlipidemia. We will resume statin once the patient is cleared to take p.o. DISPOSITION: We will consult Palliative Care as the patient is likely going to have a difficult course with large stroke and the encephalopathy that she is demonstrating now. In the meantime, we will continue with DVT and PUD prophylaxis. Job ID: [id number]
[2018-09-08] MEDS ORDERED: Ondansetron ODT 4 MG TAB PO PRN (08:18)
[2018-09-08] MEDS ORDERED: Sodium Chloride 0.65% Nasal 44 ML BOT EA NARE PRN (08:18)
[2018-09-08] MEDS ORDERED: Senokot S 8.6-50 MG TAB PO PRN (08:18)
[2018-09-08] MEDS ORDERED: Diabetic Tussin 200 MG/10 ML UDCUP PO PRN (08:18)
[2018-09-08] MEDS ORDERED: Cepastat Lozenges 1 LOZ PO PRN (08:18)
[2018-09-08] MEDS ORDERED: Loperamide HCl 2 MG CAP PO PRN (08:18)
[2018-09-08] MEDS ORDERED: Acetaminophen 650 MG Suppository PR PRN (08:18)
[2018-09-08] MEDS ORDERED: Loratadine 10 MG TAB PO PRN (08:18)
[2018-09-08] MEDS ORDERED: Ondansetron PF 4 MG/2 ML Vial IVP PRN (08:18)
[2018-09-08] MEDS ORDERED: Calcium Carbonate 500 MG ChewTAB PO PRN (08:18)
[2018-09-08] MEDS ORDERED: Bisacodyl 10 MG SUPP PR PRN (08:18)
[2018-09-08] MEDS ORDERED: Aspirin 300 MG Suppository PR SCH (09:00)
--- NOTE | 2018-09-08 10:41 | PDOC.PN ---
- Subjective Encounter Start Date: 09/08/18 Encounter Start Time: 07:00 -: old records requested/rev pt tried to leave AMA from ER, I explained her to stay and she agreed, she wanted to eat, she is on amiodaron drip, she is stable to go to stroke floor, she is not giving good history, she is moving all four limbs - Objective Resuscitation Status - Order Detail: 09/08/18 01:51 Resuscitation Status Routine Resuscitation Status: FULL: Full Resuscitation MAR Reviewed: Yes Result Diagrams: 09/08/18 03:16 09/08/18 03:16 Radiology Reviewed by me: Yes (CT brain, chest xray reviewed) EKG Reviewed by me: Yes (afib/flutter) Phys Exam - Physical Examination Constitutional: NAD HEENT: PERRLA, moist MMs, sclera anicteric Neck: supple high JVD Respiratory: no wheezing, no rhonchi basal rales Cardiovascular: no significant murmur, irregular Gastrointestinal: soft, non-tender, no distention, positive bowel sounds Musculoskeletal: pulses present, edema present Neurological: non-focal, normal sensation, moves all 4 limbs Lymphatic: no nodes Psychiatric: normal affect, A&O x 3 Skin: no rash, normal turgor Dx/Plan (1) Acute on chronic systolic ACC/AHA stage C congestive heart failure Code(s): I50.23 - ACUTE ON CHRONIC SYSTOLIC (CONGESTIVE) HEART FAILURE Status : Acute (2) Acute right MCA stroke Code(s): I63.511 - CEREB INFRC D/T UNSP OCCLS OR STENOS OF RIGHT MID CEREB ART Status: Acute (3) UTI (urinary tract infection) Status: Acute (4) CKD (chronic kidney disease) stage 3, GFR 30-59 ml/min Code(s): N18.3 - CHRONIC KIDNEY DISEASE, STAGE 3 (MODERATE) Status: Chronic (5) Diabetes type 2, controlled Code(s): E11.9 - TYPE 2 DIABETES MELLITUS WITHOUT COMPLICATIONS Status: Chronic (6) Dyslipidemia Code(s): E78.5 - HYPERLIPIDEMIA, UNSPECIFIED Status: Chronic (7) GERD (gastroesophageal reflux disease) Code(s): K21.9 - GASTRO-ESOPHAGEAL REFLUX DISEASE WITHOUT ESOPHAGITIS Status: Chronic Qualifiers: (8) Hypertension Code(s): I10 - ESSENTIAL (PRIMARY) HYPERTENSION Status: Chronic Qualifiers: (9) Hyperuricemia Code(s): E79.0 - HYPERURICEMIA W/O SIGNS OF INFLAM ARTHRIT AND TOPHACEOUS DIS Status: Chronic (10) Hypothyroidism Code(s): E03.9 - HYPOTHYROIDISM, UNSPECIFIED Status: Chronic (11) Non compliance w medication regimen Code(s): Z91.14 - PATIENT'S OTHER NONCOMPLIANCE WITH MEDICATION REGIMEN Status : Chronic (12) Nonischemic cardiomyopathy Code(s): I42.8 - OTHER CARDIOMYOPATHIES Status: Chronic (13) Obesity (BMI 30-39.9) Code(s): E66.9 - OBESITY, UNSPECIFIED Status: Chronic - Plan 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, 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 Review of Systems - Review of Systems ENT: negative: Ear Pain, Ear Discharge, Nose Pain, Nose Discharge, Nose Congestion, Mouth Pain, Mouth Swelling, Throat Pain, Throat Swelling, Other Respiratory: SOB with Excertion. negative: Cough, Dry, Shortness of Breath, Hemoptysis, Pleuritic Pain, Sputum, Wheezing Cardiovascular: edema Gastrointestinal: negative: Nausea, Vomiting, Abdominal Pain, Diarrhea, Constipation, Melena, Hematochezia, Other Genitourinary: negative: Dysuria, Frequency, Incontinence, Hematuria, Retention , Other Musculoskeletal: negative: Neck Pain, Shoulder Pain, Arm Pain, Back Pain, Hand Pain, Leg Pain, Foot Pain, Other Skin: negative: Rash, Lesions, Mikhail, Bruising, Other - Medications/Allergies Allergies/Adverse Reactions: Allergies Allergy/AdvReac Type Severity Reaction Status Date / Time No Known Drug Allergies Allergy Verified 04/23/18 02:59 Medications: Current Medications Acetaminophen (Tylenol) 650 mg PO Q6H PRN PRN Reason: Mild Pain (1-3) Acetaminophen (Tylenol) 650 mg IA Q4H PRN PRN Reason: Fever > 101 Albuterol/Ipratropium (Duoneb) 3 ml NEB Q4TB-PE PRN PRN Reason: SOB &/or Wheezing Aspirin (Aspirin) 325 mg PO DAILY [facility] Atorvastatin Calcium (Lipitor) 40 mg PO HS [facility] Bisacodyl (Dulcolax) 10 mg IA DAILYPRN PRN PRN Reason: Constipation Calcium Carbonate (Tums) 1,000 mg PO Q4H PRN PRN Reason: Heartburn or Indigestion Dextrose/Water (Dextrose 50%) 25 gm SLOW IVP PRN PRN PRN Reason: Hypoglycemia Enoxaparin Sodium (Lovenox) 40 mg SC 0900 [facility] Furosemide (Lasix) 20 mg SLOW IVP 0600,1400 [facility] Glucagon (Glucagon) 1 mg IM PRN PRN PRN Reason: Hypoglycemia Guaifenesin (Robitussin Sf) 200 mg PO Q4H PRN PRN Reason: Cough Dextrose/Water (D5w) 1,000 mls @ 0 mls/hr IV .Q0M PRN PRN Reason: Hypoglycemia Amiodarone HCl 450 mg/ (Dextrose/Water) 259 mls @ 0 mls/hr IVPB INF [facility]; Protocol Last Admin: 09/08/18 03:25 Dose: 259 mls Insulin Human Lispro (Humalog) 0 units SC .MILD SLIDING SCALE PRN PRN Reason: Mild Correctional Scale Insulin Human Lispro (Humalog) 0 units SC .BEDTIME SLIDING SC PRN PRN Reason: Bedtime Correctional Scale Labetalol HCl (Normodyne) 20 mg SLOW IVP Q1H PRN PRN Reason: SBP Greater Than 180 Loperamide HCl (Imodium) 2 mg PO PRN PRN PRN Reason: Diarrhea/Loose Stools Loratadine (Claritin) 10 mg PO DAILYPRN PRN PRN Reason: Sinus Symptoms Ondansetron HCl (Zofran Odt) 4 mg PO Q6H PRN PRN Reason: Nausea/Vomiting Ondansetron HCl (Zofran) 4 mg IVP Q6H PRN PRN Reason: Nausea/Vomiting Senna/Docusate Sodium (Senokot S) 2 tab PO BID PRN PRN Reason: Constipation Sodium Chloride (Flush - Normal Saline) 10 ml IVF PRN PRN PRN Reason: Saline Flush Sodium Chloride ([place] Nasal [place] 0.65%) 0 ml EA NARE QIDPRN PRN PRN Reason: Nasal Congestion Temazepam ([place]) 15 mg PO HSPRN PRN PRN Reason: Insomnia Throat Lozenges (Cepastat Lozenges) 1 jorgito PO Q2H PRN PRN Reason: Sore Throat
[2018-09-08] MEDS: Aspirin 325 MG TAB PO SCH (11:24)
[2018-09-08] MEDS: Enoxaparin Sodium 40 MG/0.4 ML SYRINGE SC SCH (12:24)
[2018-09-08] MEDS: cefTRIAXone\\ROCEPHIN 1 GM in Sodium Chloride 0.9% 100 ML IVPB SCH (12:25)
[2018-09-08] MEDS: Furosemide 20 MG/2 ML VIAL SLOW IVP SCH (14:13)
[2018-09-08] MEDS ORDERED: Spironolactone 25 MG TAB PO SCH (14:45)
[2018-09-08] MEDS ORDERED: Carvedilol 25 MG TAB PO SCH (14:45)
--- NOTE | 2018-09-08 15:47 | CON ---
DATE OF CONSULTATION: 09/08/2018 PRIMARY MANAGER RISK MANAGEMENT: At [facility] is Dr. José Tejada. REASON FOR CONSULTATION: History of cardiomyopathy and stroke, probably embolic. HISTORY OF PRESENT ILLNESS: Ms. Plaza is a 57-year-old woman with a long history of nonischemic cardiomyopathy. The patient has undergone cardiac catheterization in the past showing severely depressed left ventricular function with no significant coronary artery disease. She was initially followed at [facility] by Dr. Hernandez. She states that more recently she has seen Dr. Reeves. The patient has had a previous pacemaker defibrillator. The patient presented last night with altered mental status. CT scan revealed that she has had a stroke. PAST MEDICAL HISTORY: 1. Nonischemic cardiomyopathy, ejection fraction noted to be 15%. 2. [id number] tricuspid insufficiency. 3. History of nonsustained ventricular tachycardia. 4. Previous defibrillator. PAST SURGICAL HISTORY: Previous defibrillator implantation. SOCIAL HISTORY: Lives at home with her . She has a history of smoking. Occasional alcohol. MEDICATIONS: Medications at home; the patient states she ran out of lot of her medicines. The list however includes amlodipine 2.5 mg a day, aspirin 81 mg a day, carvedilol 25 mg twice a day, Lasix, hydralazine 50 mg 3 times a day, lisinopril, simvastatin, and spironolactone. REVIEW OF SYSTEMS: CONSTITUTIONAL: No significant weight gain or loss. VISION: No changes. HEARING: No changes. PULMONARY: No cough or wheezing. GASTROINTESTINAL: No nausea, vomiting, or diarrhea. SKIN: No rashes. NEUROLOGIC: No unilateral weakness or numbness PSYCHIATRIC: No unusual depression or anxiety. PHYSICAL EXAMINATION: VITAL SIGNS: The patient's blood pressure 130/92 and pulse 110. GENERAL: She is alert and oriented and follows directions. HEENT: Eyes, sclerae nonicteric. Mouth, mucous membranes moist. NECK: Supple. No lymphadenopathy. LUNGS: Clear. No wheezing, rales, or rhonchi. CARDIAC: Normal S1. Normal S2. She is tachycardic. I do not hear murmur, rub, or gallop. ABDOMEN: Soft and nontender. EXTREMITIES: Warm and dry. No clubbing or cyanosis. No edema. Pedal pulses are difficult to feel. NEUROLOGIC: The patient's speech appears normal now. She has normal strength in the right. On the left side, she has decreased strength in the left hand. SKIN: Warm and dry. DIAGNOSTIC STUDIES: Chest x-ray shows defibrillator in place. Brain CT revealed evolving right middle cerebral artery distribution infarction. EKG, appears to be most likely atrial flutter. ASSESSMENT: 1. History of cardiomyopathy. 2. Stroke, probably embolic. 3. History of noncompliance. 4. Tachycardia, probably an atrial tachycardia or atrial flutter. PLAN: 1. We are going to try to interrogate the defibrillator. 2. She is on intravenous amiodarone. 3. Resume carvedilol. 4. We will be glad to follow with you. We will probably need anticoagulation. 5. Dr. Tejada to resume care tomorrow. Job ID: [id number]
[2018-09-08] MEDS: HumaLOG 300 UNITS/3 ML VIAL SC PRN (16:42)
[2018-09-08] MEDS: Acetaminophen 500 MG TAB PO PRN (17:41)
[2018-09-08] MEDS: Atorvastatin Calcium 40 MG TAB PO SCH (22:26)
--- NOTE | 2018-09-09 00:10 | CON ---
DATE OF CONSULTATION: 09/08/2018 CONSULTING PHYSICIAN: Hospitalist Service. IMPRESSION: 1. 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 2. Noncompliance with medical therapy. PLAN: 1. Restart aspirin. 2. Lipitor. 3. I would consider anticoagulation as optimal therapy, but I am questionable as to whether she will be compliant and be willing to pay for it. 4. Rehab screening. HISTORY OF PRESENT ILLNESS: Ms. Plaza is a 57-year-old black female with a known history of cardiomyopathy. She presented with a fall and development of some left-sided weakness. Her CT scan of the brain showed an area of evolving infarction involving the right posterior division of the MCA territory. Her echocardiogram showed an ejection fraction of 10% to 15%. Her lab work showed unremarkable CBC and chemistry panel was only notable for glucoses in the 130 to 150 range and a cholesterol ratio of 3.8. Urine was consistent with a mild urinary tract infection. Her drug screen was negative. She at this point does not have any particular complaints. PAST MEDICAL HISTORY: As listed above. ALLERGIES: NONE. SOCIAL HISTORY: No illicit drug use. FAMILY HISTORY: Noncontributory 10. REVIEW OF SYSTEMS: Ten-system review of systems is otherwise negative. PHYSICAL EXAMINATION: VITAL SIGNS: Blood pressure 136/88, pulse 111, respirations 18, and temperature 97.3. HEENT: Pupils equal and reactive. Conjunctivae clear. Oropharynx clear. NECK: Supple. EXTREMITIES: No cyanosis or edema. NEUROLOGIC: Her speech is fluent and clear. Face appears to be symmetric. She had antigravity strength on the left side. There seemed to be some degree of neglect present. She had good chrome plater helper strength bilaterally. No abnormal movements were seen. Gait was not tested. IMAGING: Reviewed. SUMMARY: A middle-aged woman with large area of infarction on the right, although her deficits are fairly mild. I suspect she is going to have some difficulty walking secondary to neglect. I agree with Dr. Watt that anticoagulation would be optimal. This could be postponed until we determine her safety in regard to her gait. Job ID: [id number]
[2018-09-09] MEDS: Amiodarone 450 MG in Dextrose 5% in Water 250 ML IVPB SCH (02:23)
[2018-09-09] MEDS: Furosemide 20 MG/2 ML VIAL SLOW IVP SCH ×2 (05:33→14:30)
[2018-09-09] MEDS: Carvedilol 25 MG TAB PO SCH ×2 (07:56→17:15)
[2018-09-09] MEDS: Spironolactone 25 MG TAB PO SCH (07:56)
[2018-09-09] MEDS: Lisinopril 2.5 MG TAB PO SCH ×3 (07:56→21:01)
[2018-09-09] MEDS: Amiodarone 200 MG TAB PO SCH ×2 (07:56→21:02)
[2018-09-09] MEDS: Acetaminophen 500 MG TAB PO PRN ×2 (09:34→21:15)
[2018-09-09] MEDS: Aspirin 325 MG TAB PO SCH (09:34)
[2018-09-09] MEDS: Enoxaparin Sodium 40 MG/0.4 ML SYRINGE SC SCH (09:34)
--- NOTE | 2018-09-09 10:41 | PDOC.PN ---
- Subjective Encounter Start Date: 09/09/18 Encounter Start Time: 07:10 -: old records requested/rev Patient seen and examined. No new complaints. No overnight events - Objective Resuscitation Status - Order Detail: 09/08/18 01:51 Resuscitation Status Routine Resuscitation Status: FULL: Full Resuscitation MAR Reviewed: Yes Vital Signs & Weight: Vital Signs (12 hours) Temp Pulse Resp BP BP Pulse Ox 09/09/18 09:34 60 97/81 09/09/18 07:50 88 L 09/09/18 07:49 97.6 F 60 17 97/81 88 L 09/09/18 04:00 97.5 F L 60 18 86/54 L 96 09/09/18 00:00 97.5 F L 60 18 92/71 97 Weight Weight 192 lb 3 oz I&O: 09/08/18 09/09/18 09/10/18 06:59 06:59 06:59 Intake Total 540 300 Output Total 300 Balance 240 300 Result Diagrams: 09/08/18 03:16 09/08/18 03:16 Additional Labs: Accuchecks 09/09/18 09/08/18 09/08/18 05:53 19:54 16:25 POC Glucose 153 H 140 H 191 H 09/08/18 10:42 POC Glucose 153 H EKG Reviewed by me: Yes (rate controlled) Phys Exam - Physical Examination Constitutional: NAD HEENT: PERRLA, moist MMs, sclera anicteric Neck: no JVD, supple Respiratory: no wheezing, no rales, no rhonchi Cardiovascular: no significant murmur, irregular Gastrointestinal: soft, non-tender, no distention, positive bowel sounds Musculoskeletal: no edema, pulses present Neurological: moves all 4 limbs Lymphatic: no nodes Psychiatric: normal affect Skin: no rash, normal turgor Dx/Plan (1) Acute on chronic systolic ACC/AHA stage C congestive heart failure Code(s): I50.23 - ACUTE ON CHRONIC SYSTOLIC (CONGESTIVE) HEART FAILURE Status : Acute (2) Acute right MCA stroke Code(s): I63.511 - CEREB INFRC D/T UNSP OCCLS OR STENOS OF RIGHT MID CEREB ART Status: Acute (3) UTI (urinary tract infection) Status: Acute (4) CKD (chronic kidney disease) stage 3, GFR 30-59 ml/min Code(s): N18.3 - CHRONIC KIDNEY DISEASE, STAGE 3 (MODERATE) Status: Chronic (5) Diabetes type 2, controlled Code(s): E11.9 - TYPE 2 DIABETES MELLITUS WITHOUT COMPLICATIONS Status: Chronic (6) Dyslipidemia Code(s): E78.5 - HYPERLIPIDEMIA, UNSPECIFIED Status: Chronic (7) GERD (gastroesophageal reflux disease) Code(s): K21.9 - GASTRO-ESOPHAGEAL REFLUX DISEASE WITHOUT ESOPHAGITIS Status: Chronic Qualifiers: (8) Hypertension Code(s): I10 - ESSENTIAL (PRIMARY) HYPERTENSION Status: Chronic Qualifiers: (9) Hyperuricemia Code(s): E79.0 - HYPERURICEMIA W/O SIGNS OF INFLAM ARTHRIT AND TOPHACEOUS DIS Status: Chronic (10) Hypothyroidism Code(s): E03.9 - HYPOTHYROIDISM, UNSPECIFIED Status: Chronic (11) Non compliance w medication regimen Code(s): Z91.14 - PATIENT'S OTHER NONCOMPLIANCE WITH MEDICATION REGIMEN Status : Chronic (12) Nonischemic cardiomyopathy Code(s): I42.8 - OTHER CARDIOMYOPATHIES Status: Chronic (13) Obesity (BMI 30-39.9) Code(s): E66.9 - OBESITY, UNSPECIFIED Status: Chronic - Plan 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, plan discussed w/ family, continue antibiotics, PT/OT , social problems specialist * rocephin for UTI * showcase maker for placement * rehab screen * amiodaron as per cardiology * home meds reconciled * she is not reliable for chronic anticoagulation, risk is more due to that * medication reviewed as below * symptomatic treatment. Review of Systems - Review of Systems ENT: negative: Ear Pain, Ear Discharge, Nose Pain, Nose Discharge, Nose Congestion, Mouth Pain, Mouth Swelling, Throat Pain, Throat Swelling, Other Respiratory: SOB with Excertion. negative: Cough, Dry, Shortness of Breath, Hemoptysis, Pleuritic Pain, Sputum, Wheezing Cardiovascular: negative: chest pain, palpitations, orthopnea, paroxysmal nocturnal dyspnea, edema, light headedness, other Gastrointestinal: negative: Nausea, Vomiting, Abdominal Pain, Diarrhea, Constipation, Melena, Hematochezia, Other Genitourinary: negative: Dysuria, Frequency, Incontinence, Hematuria, Retention , Other Musculoskeletal: negative: Neck Pain, Shoulder Pain, Arm Pain, Back Pain, Hand Pain, Leg Pain, Foot Pain, Other Skin: negative: Rash, Lesions, Mikhail, Bruising, Other - Medications/Allergies Allergies/Adverse Reactions: Allergies Allergy/AdvReac Type Severity Reaction Status Date / Time No Known Drug Allergies Allergy Verified 04/23/18 02:59 Medications: Current Medications Acetaminophen (Tylenol) 650 mg PO Q6H PRN PRN Reason: Mild Pain (1-3) Last Admin: 09/09/18 09:34 Dose: 650 mg Acetaminophen (Tylenol) 650 mg WI Q4H PRN PRN Reason: Fever > 101 Albuterol/Ipratropium (Duoneb) 3 ml NEB [id number] PRN PRN Reason: SOB &/or Wheezing Amiodarone HCl (Cordarone) 400 mg PO BID [facility] Last Admin: 09/09/18 07:56 Dose: Not Given Aspirin (Aspirin) 325 mg PO DAILY [facility] Last Admin: 09/09/18 09:34 Dose: 325 mg Atorvastatin Calcium (Lipitor) 40 mg PO HS [facility] Last Admin: 09/08/18 22:26 Dose: 40 mg Bisacodyl (Dulcolax) 10 mg WI DAILYPRN PRN PRN Reason: Constipation Calcium Carbonate (Tums) 1,000 mg PO Q4H PRN PRN Reason: Heartburn or Indigestion Carvedilol (Coreg) 25 mg PO BID[facility] Last Admin: 09/09/18 07:56 Dose: Not Given Dextrose/Water (Dextrose 50%) 25 gm SLOW IVP PRN PRN PRN Reason: Hypoglycemia Enoxaparin Sodium (Lovenox) 40 mg SC 0900 [facility] Last Admin: 09/09/18 09:34 Dose: 40 mg Furosemide (Lasix) 20 mg SLOW IVP 0600,1400 [facility] Last Admin: 09/09/18 05:33 Dose: Not Given Glimepiride (Amaryl) 4 mg PO DAILY [facility] Glucagon (Glucagon) 1 mg IM PRN PRN PRN Reason: Hypoglycemia Guaifenesin (Robitussin Sf) 200 mg PO Q4H PRN PRN Reason: Cough Dextrose/Water (D5w) 1,000 mls @ 0 mls/hr IV .Q0M PRN PRN Reason: Hypoglycemia Amiodarone HCl 450 mg/ (Dextrose/Water) 259 mls @ 0 mls/hr IVPB INF [facility]; Protocol Last Admin: 09/09/18 02:23 Dose: 259 mls Ceftriaxone Sodium 1 gm/ (Sodium Chloride) 100 mls @ 200 mls/hr IVPB Q24HR [facility] Last Admin: 09/08/18 12:25 Dose: 100 mls Insulin Human Lispro (Humalog) 0 units SC .MILD SLIDING SCALE PRN PRN Reason: Mild Correctional Scale Last Admin: 09/08/18 16:42 Dose: 2 unit Insulin Human Lispro (Humalog) 0 units SC .BEDTIME SLIDING SC PRN PRN Reason: Bedtime Correctional Scale Labetalol HCl (Normodyne) 20 mg SLOW IVP Q1H PRN PRN Reason: SBP Greater Than 180 Lisinopril (Zestril) 2.5 mg PO BID [facility] Last Admin: 09/09/18 09:34 Dose: 2.5 mg Loperamide HCl (Imodium) 2 mg PO PRN PRN PRN Reason: Diarrhea/Loose Stools Loratadine (Claritin) 10 mg PO DAILYPRN PRN PRN Reason: Sinus Symptoms Ondansetron HCl (Zofran Odt) 4 mg PO Q6H PRN PRN Reason: Nausea/Vomiting Ondansetron HCl (Zofran) 4 mg IVP Q6H PRN PRN Reason: Nausea/Vomiting Senna/Docusate Sodium (Senokot S) 2 tab PO BID PRN PRN Reason: Constipation Sodium Chloride (Flush - Normal Saline) 10 ml IVF PRN PRN PRN Reason: Saline Flush Sodium Chloride ([place] Nasal [place] 0.65%) 0 ml EA NARE QIDPRN PRN PRN Reason: Nasal Congestion Spironolactone (Aldactone) 25 mg PO QAM-[facility] Last Admin: 09/09/18 07:56 Dose: Not Given Temazepam (Restoril) 15 mg PO HSPRN PRN PRN Reason: Insomnia Throat Lozenges (Cepastat Lozenges) 1 jorgito PO Q2H PRN PRN Reason: Sore Throat
[2018-09-09] MEDS: HumaLOG 300 UNITS/3 ML VIAL SC PRN ×2 (11:24→17:21)
[2018-09-09] MEDS: cefTRIAXone\\ROCEPHIN 1 GM in Sodium Chloride 0.9% 100 ML IVPB SCH (11:31)
[2018-09-09 14:12] VITALS: BMI 34.0
[2018-09-09] MEDS: Atorvastatin Calcium 40 MG TAB PO SCH (21:01)
[2018-09-09] MEDS ORDERED: Acetaminophen 325 MG TAB PO PRN (21:06)
[2018-09-10] MEDS: Furosemide 20 MG/2 ML VIAL SLOW IVP SCH ×2 (05:54→13:27)
[2018-09-10] MEDS: Glimepiride 2 MG TAB PO SCH (10:24)
[2018-09-10] MEDS: Magnesium Oxide 400 MG TAB PO SCH (10:24)
[2018-09-10] MEDS: Aspirin 325 MG TAB PO SCH (10:24)
[2018-09-10] MEDS: Amiodarone 200 MG TAB PO SCH ×2 (10:24→23:51)
[2018-09-10] MEDS: Spironolactone 25 MG TAB PO SCH (10:24)
[2018-09-10] MEDS: Enoxaparin Sodium 40 MG/0.4 ML SYRINGE SC SCH (10:24)
[2018-09-10] MEDS: Carvedilol 25 MG TAB PO SCH (10:25)
[2018-09-10] MEDS: Lisinopril 2.5 MG TAB PO SCH ×2 (10:26→23:50)
--- NOTE | 2018-09-10 10:33 | PDOC.PN ---
- Subjective Encounter Start Date: 09/10/18 Encounter Start Time: 07:00 Patient seen and examined. No new complaints. No overnight events - Objective Resuscitation Status - Order Detail: 09/08/18 01:51 Resuscitation Status Routine Resuscitation Status: FULL: Full Resuscitation MAR Reviewed: Yes Vital Signs & Weight: Vital Signs (12 hours) Temp Pulse Pulse Pulse Resp BP BP 09/10/18 10:26 60 09/10/18 08:57 61 59 L 108/72 113/66 09/10/18 08:00 97.6 F 60 18 09/10/18 04:00 97.3 F L 61 18 09/10/18 00:00 97.5 F L 60 16 BP Pulse Ox 09/10/18 10:26 09/10/18 08:57 09/10/18 08:00 99/60 94 L 09/10/18 04:00 106/69 99 09/10/18 00:00 110/75 94 L Weight Admit Weight 193 lb 6 oz Weight 192 lb 5 oz I&O: 09/09/18 09/10/18 09/11/18 06:59 06:59 06:59 Intake Total 540 1360 Output Total 300 350 Balance 240 1010 Result Diagrams: 09/08/18 03:16 09/08/18 03:16 Additional Labs: Accuchecks 09/10/18 09/09/18 09/09/18 06:17 20:15 17:14 POC Glucose 125 H 190 H 178 H 09/09/18 10:40 POC Glucose 168 H EKG Reviewed by me: Yes Phys Exam - Physical Examination Constitutional: NAD HEENT: PERRLA, moist MMs, sclera anicteric Neck: no JVD, supple Respiratory: no wheezing, no rales, no rhonchi Cardiovascular: RRR, no significant murmur, no rub Gastrointestinal: soft, non-tender, no distention, positive bowel sounds Musculoskeletal: no edema, pulses present Neurological: non-focal, normal sensation, moves all 4 limbs Lymphatic: no nodes Psychiatric: normal affect, A&O x 3 Skin: no rash, normal turgor Dx/Plan (1) Acute on chronic systolic ACC/AHA stage C congestive heart failure Code(s): I50.23 - ACUTE ON CHRONIC SYSTOLIC (CONGESTIVE) HEART FAILURE Status : Acute (2) Acute right MCA stroke Code(s): I63.511 - CEREB INFRC D/T UNSP OCCLS OR STENOS OF RIGHT MID CEREB ART Status: Acute (3) UTI (urinary tract infection) Status: Acute (4) CKD (chronic kidney disease) stage 3, GFR 30-59 ml/min Code(s): N18.3 - CHRONIC KIDNEY DISEASE, STAGE 3 (MODERATE) Status: Chronic (5) Diabetes type 2, controlled Code(s): E11.9 - TYPE 2 DIABETES MELLITUS WITHOUT COMPLICATIONS Status: Chronic (6) Dyslipidemia Code(s): E78.5 - HYPERLIPIDEMIA, UNSPECIFIED Status: Chronic (7) GERD (gastroesophageal reflux disease) Code(s): K21.9 - GASTRO-ESOPHAGEAL REFLUX DISEASE WITHOUT ESOPHAGITIS Status: Chronic Qualifiers: (8) Hypertension Code(s): I10 - ESSENTIAL (PRIMARY) HYPERTENSION Status: Chronic Qualifiers: (9) Hyperuricemia Code(s): E79.0 - HYPERURICEMIA W/O SIGNS OF INFLAM ARTHRIT AND TOPHACEOUS DIS Status: Chronic (10) Hypothyroidism Code(s): E03.9 - HYPOTHYROIDISM, UNSPECIFIED Status: Chronic (11) Non compliance w medication regimen Code(s): Z91.14 - PATIENT'S OTHER NONCOMPLIANCE WITH MEDICATION REGIMEN Status : Chronic (12) Nonischemic cardiomyopathy Code(s): I42.8 - OTHER CARDIOMYOPATHIES Status: Chronic (13) Obesity (BMI 30-39.9) Code(s): E66.9 - OBESITY, UNSPECIFIED Status: Chronic - Plan 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, continue antibiotics, 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 Review of Systems - Review of Systems ENT: negative: Ear Pain, Ear Discharge, Nose Pain, Nose Discharge, Nose Congestion, Mouth Pain, Mouth Swelling, Throat Pain, Throat Swelling, Other Respiratory: negative: Cough, Dry, Shortness of Breath, Hemoptysis, SOB with Excertion, Pleuritic Pain, Sputum, Wheezing Cardiovascular: negative: chest pain, palpitations, orthopnea, paroxysmal nocturnal dyspnea, edema, light headedness, other Gastrointestinal: negative: Nausea, Vomiting, Abdominal Pain, Diarrhea, Constipation, Melena, Hematochezia, Other Genitourinary: negative: Dysuria, Frequency, Incontinence, Hematuria, Retention , Other Musculoskeletal: negative: Neck Pain, Shoulder Pain, Arm Pain, Back Pain, Hand Pain, Leg Pain, Foot Pain, Other - Medications/Allergies Allergies/Adverse Reactions: Allergies Allergy/AdvReac Type Severity Reaction Status Date / Time No Known Drug Allergies Allergy Verified 04/23/18 02:59 Medications: Current Medications Acetaminophen (Tylenol) 650 mg MO Q4H PRN PRN Reason: Fever > 101 Acetaminophen (Tylenol) 650 mg PO Q6H PRN PRN Reason: Mild Pain (1-3) Albuterol/Ipratropium (Duoneb) 3 ml NEB [id number] PRN PRN Reason: SOB &/or Wheezing Amiodarone HCl (Cordarone) 400 mg PO BID [facility] Last Admin: 09/10/18 10:24 Dose: 400 mg Aspirin (Aspirin) 325 mg PO DAILY [facility] Last Admin: 09/10/18 10:24 Dose: 325 mg Atorvastatin Calcium (Lipitor) 40 mg PO [facility] Last Admin: 09/09/18 21:01 Dose: 40 mg Bisacodyl (Dulcolax) 10 mg [place] DAILYPRN PRN PRN Reason: Constipation Calcium Carbonate (Tums) 1,000 mg PO Q4H PRN PRN Reason: Heartburn or Indigestion Carvedilol (Coreg) 25 mg PO BID-[facility] Last Admin: 09/10/18 10:25 Dose: Not Given Dextrose/Water (Dextrose 50%) 25 gm SLOW IVP PRN PRN PRN Reason: Hypoglycemia Enoxaparin Sodium (Lovenox) 40 mg SC 0900 [facility] Last Admin: 09/10/18 10:24 Dose: 40 mg Furosemide (Lasix) 20 mg SLOW IVP 0600,1400 [facility] Last Admin: 09/10/18 05:54 Dose: 20 mg Glimepiride (Amaryl) 4 mg PO DAILY [facility] Last Admin: 09/10/18 10:24 Dose: 4 mg Glucagon (Glucagon) 1 mg IM PRN PRN PRN Reason: Hypoglycemia Guaifenesin (Robitussin Sf) 200 mg PO Q4H PRN PRN Reason: Cough Dextrose/Water (D5w) 1,000 mls @ 0 mls/hr IV .Q0M PRN PRN Reason: Hypoglycemia Ceftriaxone Sodium 1 gm/ (Sodium Chloride) 100 mls @ 200 mls/hr IVPB Q24HR [facility] Last Admin: 09/09/18 11:31 Dose: 100 mls Insulin Human Lispro (Humalog) 0 units SC .MILD SLIDING SCALE PRN PRN Reason: Mild Correctional Scale Last Admin: 09/09/18 17:21 Dose: 2 unit Insulin Human Lispro (Humalog) 0 units SC .BEDTIME SLIDING SC PRN PRN Reason: Bedtime Correctional Scale Labetalol HCl (Normodyne) 20 mg SLOW IVP Q1H PRN PRN Reason: SBP Greater Than 180 Lisinopril (Zestril) 2.5 mg PO BID [facility] Last Admin: 09/10/18 10:26 Dose: Not Given Loperamide HCl (Imodium) 2 mg PO PRN PRN PRN Reason: Diarrhea/Loose Stools Loratadine (Claritin) 10 mg PO DAILYPRN PRN PRN Reason: Sinus Symptoms Last Admin: 09/09/18 11:27 Dose: 10 mg Magnesium Oxide (Magnesium Oxide) 400 mg PO DAILY [facility] Last Admin: 09/10/18 10:24 Dose: 400 mg Ondansetron HCl (Zofran Odt) 4 mg PO Q6H PRN PRN Reason: Nausea/Vomiting Ondansetron HCl (Zofran) 4 mg IVP Q6H PRN PRN Reason: Nausea/Vomiting Senna/Docusate Sodium (Senokot S) 2 tab PO BID PRN PRN Reason: Constipation Sodium Chloride (Flush - Normal Saline) 10 ml IVF PRN PRN PRN Reason: Saline Flush Sodium Chloride ([place] Nasal [place] 0.65%) 0 ml EA NARE QIDPRN PRN PRN Reason: Nasal Congestion Spironolactone (Aldactone) 25 mg PO QAM[facility] Last Admin: 09/10/18 10:24 Dose: 25 mg Temazepam (Restoril) 15 mg PO HSPRN PRN PRN Reason: Insomnia Throat Lozenges (Cepastat Lozenges) 1 jorgito PO Q2H PRN PRN Reason: Sore Throat
[2018-09-10] MEDS: cefTRIAXone\\ROCEPHIN 1 GM in Sodium Chloride 0.9% 100 ML IVPB SCH (11:03)
--- NOTE | 2018-09-10 11:37 | PDOC.CTH ---
Cardiology Progress Note - Subjective The pt seen and examined. No overnight events. No cardiac complaints. - Objective Vital Signs Temp Pulse Pulse Pulse Resp BP BP 09/10/18 10:26 60 09/10/18 08:57 61 59 L 108/72 113/66 09/10/18 08:00 97.6 F 60 18 09/10/18 04:00 97.3 F L 61 18 09/10/18 00:00 97.5 F L 60 16 BP Pulse Ox 09/10/18 10:26 09/10/18 08:57 09/10/18 08:00 99/60 94 L 09/10/18 04:00 106/69 99 09/10/18 00:00 110/75 94 L Admit Weight 193 lb 6 oz Weight 192 lb 5 oz 09/09/18 09/10/18 09/11/18 06:59 06:59 06:59 Intake Total 540 1360 Output Total 300 350 Balance 240 1010 - Physical Examination General/Neuro: alert & oriented x3 Neck: no JVD present Lungs: other: (diminished at bases) Heart: RRR Abdomen: soft Extremities: other: (No edema) - Telemetry Telemetry Rhythm: SR - Labs Result Diagrams: 09/08/18 03:16 09/08/18 03:16 Troponin/CKMB CK-MB (CK-2) 1.4 ng/mL (0-6.6) 09/07/18 21:37 Troponin I 0.293 ng/mL (< 0.028) H 09/08/18 03:16 - Assessment/Plan 1. Acute on chronic combined HF - stable with Lasix 20mg IV BID, Spironolactone , Lisinopril 2.5mg BID, Coreg 25mg BID. 2. Acute right MCA stroke - managed by neurologist 3. HTN - stable 4. End stage non-ischemic CMY with AICD 5. CKD stage 3 - stable 6. DM type 2 - managed by PCP 7. UTI - on ABX IV, which managed by PCP 8. Smoker - smoking cassation education given to the pt 9. Hypothyroidism - 10. Non compliance w medication regimen 11. S/p Aflutter on 09/08/2018 - converted back to SR on 09/09/2018; on Amiodarone 400mg BID since 09/09/2018; On ASA 325mg qd only due to high risk of fall (she is legally blind per the pt, s/p CVA, and Non-compliance with medication) MAR reviewed * Echo on 09/08/2018 with EF 15-20%, severe LVH, severe dilated LA, markedly ERA , mod MR, mild-mod AI, mod-severe TR, and severe PAP. <addendum> will decrease Coreg from 25mg to 12.5mg BID for hypotension. Pt. seen and eval. by me. I agree with the A/P by the FRONT END DEVELOPER DESIGNER. We have discussed the pt. together.[email or web address] Review of Systems - Review of Systems Constitutional: reports: no symptoms reported EENTM: reports: no symptoms reported Respiratory: reports: no symptoms reported Cardiac (ROS): reports: no symptoms reported ABD/GI: reports: no symptoms reported : reports: no symptoms reported Musculoskeletal: reports: no symptoms reported
[2018-09-10] MEDS: HumaLOG 300 UNITS/3 ML VIAL SC PRN (13:27)
[2018-09-10] MEDS: Carvedilol 6.25 MG TAB PO SCH (17:25)
[2018-09-10] MEDS: Atorvastatin Calcium 40 MG TAB PO SCH (23:51)
[2018-09-11] MEDS: Temazepam 15 MG CAP PO PRN ×2 (01:42→22:12)
[2018-09-11 05:50] LABS: Anion Gap 13 mmol/L (10-20); BUN (Urea Nitrogen) 53 mg/dL (9.8-20.1); Calc. Creatinine Clearance 43 mL/min (70-130); Carbon Dioxide 23 mmol/L (22-29); Chloride 105 mmol/L (98-107); Estimated GFR-MDRD 31; Glucose 141 mg/dL (70-105); Magnesium 2.1 mg/dL (1.6-2.6); Potassium 3.8 mmol/L (3.5-5.1); Sodium 137 mmol/L (136-145); Uric Acid 13.2 mg/dL (2.6-6.0)
[2018-09-11] MEDS: Furosemide 20 MG/2 ML VIAL SLOW IVP SCH (07:54)
[2018-09-11] MEDS: Enoxaparin Sodium 40 MG/0.4 ML SYRINGE SC SCH (10:18)
[2018-09-11] MEDS: Carvedilol 6.25 MG TAB PO SCH ×2 (10:18→18:12)
[2018-09-11] MEDS: Amiodarone 200 MG TAB PO SCH ×2 (10:18→22:11)
[2018-09-11] MEDS: Allopurinol 100 MG TAB PO SCH (10:18)
[2018-09-11] MEDS: Aspirin 325 MG TAB PO SCH (10:18)
[2018-09-11] MEDS: Glimepiride 2 MG TAB PO SCH (10:19)
[2018-09-11] MEDS: Magnesium Oxide 400 MG TAB PO SCH (10:19)
--- NOTE | 2018-09-11 11:09 | PDOC.PN ---
- Subjective Encounter Start Date: 09/11/18 Encounter Start Time: 07:00 Patient seen and examined. she is on room air, No overnight events today her creatinine is increased - Objective Resuscitation Status - Order Detail: 09/08/18 01:51 Resuscitation Status Routine Resuscitation Status: FULL: Full Resuscitation MAR Reviewed: Yes Vital Signs & Weight: Vital Signs (12 hours) Temp Pulse Pulse Pulse Resp BP BP 09/11/18 10:18 118/80 09/11/18 09:30 60 61 130/85 09/11/18 07:37 97.5 F L 61 20 09/11/18 05:00 97.3 F L 59 L 18 09/11/18 00:00 97.4 F L 62 20 09/10/18 23:50 62 118/80 BP BP Pulse Ox 09/11/18 10:18 09/11/18 09:30 126/80 09/11/18 07:37 130/86 91 L 09/11/18 05:00 126/79 93 L 09/11/18 00:00 112/81 95 09/10/18 23:50 Weight Admit Weight 193 lb 6 oz Weight 192 lb 5 oz I&O: 09/10/18 09/11/18 09/12/18 06:59 06:59 06:59 Intake Total 1360 Output Total 350 Balance 1010 Result Diagrams: 09/08/18 03:16 09/11/18 04:43 Additional Labs: Accuchecks 09/11/18 09/11/18 09/10/18 10:48 06:39 21:52 POC Glucose 142 H 137 H 195 H 09/10/18 09/10/18 16:40 10:44 POC Glucose 130 H 218 H EKG Reviewed by me: Yes Phys Exam - Physical Examination Constitutional: NAD HEENT: PERRLA, moist MMs, sclera anicteric Neck: no JVD, supple Respiratory: no wheezing, no rales, no rhonchi Cardiovascular: RRR, no significant murmur, no rub Gastrointestinal: soft, non-tender, no distention, positive bowel sounds Musculoskeletal: no edema, pulses present Neurological: non-focal, normal sensation Lymphatic: no nodes Psychiatric: normal affect, A&O x 3 Skin: no rash, normal turgor Dx/Plan (1) Acute on chronic systolic ACC/AHA stage C congestive heart failure Code(s): I50.23 - ACUTE ON CHRONIC SYSTOLIC (CONGESTIVE) HEART FAILURE Status : Acute (2) Acute right MCA stroke Code(s): I63.511 - CEREB INFRC D/T UNSP OCCLS OR STENOS OF RIGHT MID CEREB ART Status: Acute (3) UTI (urinary tract infection) Status: Acute (4) CKD (chronic kidney disease) stage 3, GFR 30-59 ml/min Code(s): N18.3 - CHRONIC KIDNEY DISEASE, STAGE 3 (MODERATE) Status: Chronic (5) Diabetes type 2, controlled Code(s): E11.9 - TYPE 2 DIABETES MELLITUS WITHOUT COMPLICATIONS Status: Chronic (6) Dyslipidemia Code(s): E78.5 - HYPERLIPIDEMIA, UNSPECIFIED Status: Chronic (7) GERD (gastroesophageal reflux disease) Code(s): K21.9 - GASTRO-ESOPHAGEAL REFLUX DISEASE WITHOUT ESOPHAGITIS Status: Chronic Qualifiers: (8) Hypertension Code(s): I10 - ESSENTIAL (PRIMARY) HYPERTENSION Status: Chronic Qualifiers: (9) Hyperuricemia Code(s): E79.0 - HYPERURICEMIA W/O SIGNS OF INFLAM ARTHRIT AND TOPHACEOUS DIS Status: Chronic (10) Hypothyroidism Code(s): E03.9 - HYPOTHYROIDISM, UNSPECIFIED Status: Chronic (11) Non compliance w medication regimen Code(s): Z91.14 - PATIENT'S OTHER NONCOMPLIANCE WITH MEDICATION REGIMEN Status : Chronic (12) Nonischemic cardiomyopathy Code(s): I42.8 - OTHER CARDIOMYOPATHIES Status: Chronic (13) Obesity (BMI 30-39.9) Code(s): E66.9 - OBESITY, UNSPECIFIED Status: Chronic - 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 * will need placement Review of Systems - Review of Systems ENT: negative: Ear Pain, Ear Discharge, Nose Pain, Nose Discharge, Nose Congestion, Mouth Pain, Mouth Swelling, Throat Pain, Throat Swelling, Other Respiratory: negative: Cough, Dry, Shortness of Breath, Hemoptysis, SOB with Excertion, Pleuritic Pain, Sputum, Wheezing Cardiovascular: negative: chest pain, palpitations, orthopnea, paroxysmal nocturnal dyspnea, edema, light headedness, other Gastrointestinal: negative: Nausea, Vomiting, Abdominal Pain, Diarrhea, Constipation, Melena, Hematochezia, Other Genitourinary: negative: Dysuria, Frequency, Incontinence, Hematuria, Retention , Other Musculoskeletal: negative: Neck Pain, Shoulder Pain, Arm Pain, Back Pain, Hand Pain, Leg Pain, Foot Pain, Other - Medications/Allergies Allergies/Adverse Reactions: Allergies Allergy/AdvReac Type Severity Reaction Status Date / Time No Known Drug Allergies Allergy Verified 04/23/18 02:59 Medications: Current Medications Acetaminophen (Tylenol) 650 mg ID Q4H PRN PRN Reason: Fever > 101 Acetaminophen (Tylenol) 650 mg PO Q6H PRN PRN Reason: Mild Pain (1-3) Albuterol/Ipratropium (Duoneb) 3 ml NEB [id number] PRN PRN Reason: SOB &/or Wheezing Allopurinol (Zyloprim) 100 mg PO DAILY [facility] Last Admin: 09/11/18 10:18 Dose: Not Given Amiodarone HCl (Cordarone) 400 mg PO BID [facility] Last Admin: 09/11/18 10:18 Dose: Not Given Aspirin (Aspirin) 325 mg PO DAILY [facility] Last Admin: 09/11/18 10:18 Dose: Not Given Atorvastatin Calcium (Lipitor) 40 mg PO HS [facility] Last Admin: 09/10/18 23:51 Dose: 40 mg Bisacodyl (Dulcolax) 10 mg ID DAILYPRN PRN PRN Reason: Constipation Calcium Carbonate (Tums) 1,000 mg PO Q4H PRN PRN Reason: Heartburn or Indigestion Carvedilol (Coreg) 12.5 mg PO BID-[facility] Last Admin: 09/11/18 10:18 Dose: Not Given Dextrose/Water (Dextrose 50%) 25 gm SLOW IVP PRN PRN PRN Reason: Hypoglycemia Enoxaparin Sodium (Lovenox) 40 mg SC 0900 [facility] Last Admin: 09/11/18 10:18 Dose: Not Given Glimepiride (Amaryl) 4 mg PO DAILY [facility] Last Admin: 09/11/18 10:19 Dose: Not Given Glucagon (Glucagon) 1 mg IM PRN PRN PRN Reason: Hypoglycemia Guaifenesin (Robitussin Sf) 200 mg PO Q4H PRN PRN Reason: Cough Dextrose/Water (D5w) 1,000 mls @ 0 mls/hr IV .Q0M PRN PRN Reason: Hypoglycemia Ceftriaxone Sodium 1 gm/ (Sodium Chloride) 100 mls @ 200 mls/hr IVPB Q24HR [facility] Last Admin: 09/10/18 11:03 Dose: 100 mls Insulin Human Lispro (Humalog) 0 units SC .MILD SLIDING SCALE PRN PRN Reason: Mild Correctional Scale Last Admin: 09/10/18 13:27 Dose: 3 unit Insulin Human Lispro (Humalog) 0 units SC .BEDTIME SLIDING SC PRN PRN Reason: Bedtime Correctional Scale Labetalol HCl (Normodyne) 20 mg SLOW IVP Q1H PRN PRN Reason: SBP Greater Than 180 Loperamide HCl (Imodium) 2 mg PO PRN PRN PRN Reason: Diarrhea/Loose Stools Loratadine (Claritin) 10 mg PO DAILYPRN PRN PRN Reason: Sinus Symptoms Last Admin: 09/09/18 11:27 Dose: 10 mg Magnesium Oxide (Magnesium Oxide) 400 mg PO DAILY [facility] Last Admin: 09/11/18 10:19 Dose: Not Given Ondansetron HCl (Zofran Odt) 4 mg PO Q6H PRN PRN Reason: Nausea/Vomiting Ondansetron HCl (Zofran) 4 mg IVP Q6H PRN PRN Reason: Nausea/Vomiting Senna/Docusate Sodium (Senokot S) 2 tab PO BID PRN PRN Reason: Constipation Sodium Chloride (Flush - Normal Saline) 10 ml IVF PRN PRN PRN Reason: Saline Flush Last Admin: 09/10/18 23:52 Dose: 10 ml Sodium Chloride ([place] Nasal [place] 0.65%) 0 ml EA NARE QIDPRN PRN PRN Reason: Nasal Congestion Temazepam (Restoril) 15 mg PO HSPRN PRN PRN Reason: Insomnia Last Admin: 09/11/18 01:42 Dose: 15 mg Throat Lozenges (Cepastat Lozenges) 1 jorgito PO Q2H PRN PRN Reason: Sore Throat
[2018-09-11] MEDS: cefTRIAXone\\ROCEPHIN 1 GM in Sodium Chloride 0.9% 100 ML IVPB SCH (11:18)
[2018-09-11] MEDS: Atorvastatin Calcium 40 MG TAB PO SCH (22:12)
[2018-09-12 05:42] LABS: Anion Gap 15 mmol/L (10-20); BUN (Urea Nitrogen) 40 mg/dL (9.8-20.1); Calc. Creatinine Clearance 67 mL/min (70-130); Calcium 8.8 mg/dL (7.8-10.44); Carbon Dioxide 17 mmol/L (22-29); Chloride 110 mmol/L (98-107); Estimated GFR-MDRD 52; Glucose 128 mg/dL (70-105); Potassium 4.8 mmol/L (3.5-5.1); Sodium 137 mmol/L (136-145)
[2018-09-12] MEDS: Carvedilol 6.25 MG TAB PO SCH (09:29)
[2018-09-12] MEDS: Allopurinol 100 MG TAB PO SCH (09:31)
[2018-09-12] MEDS: Amiodarone 200 MG TAB PO SCH (09:31)
[2018-09-12] MEDS: Aspirin 325 MG TAB PO SCH (09:32)
[2018-09-12] MEDS: Glimepiride 2 MG TAB PO SCH (09:32)
[2018-09-12] MEDS: Magnesium Oxide 400 MG TAB PO SCH (09:33)
[2018-09-12] MEDS: Enoxaparin Sodium 40 MG/0.4 ML SYRINGE SC SCH (09:33)
--- NOTE | 2018-09-12 10:05 | PDOC.PN ---
- Subjective Encounter Start Date: 09/12/18 Encounter Start Time: 07:00 Patient seen and examined. No new complaints. No overnight events - Objective Resuscitation Status - Order Detail: 09/08/18 01:51 Resuscitation Status Routine Resuscitation Status: FULL: Full Resuscitation MAR Reviewed: Yes Vital Signs & Weight: Vital Signs (12 hours) Temp Pulse Resp BP BP Pulse Ox 09/12/18 09:29 153/98 H 09/12/18 07:46 97.7 F 73 16 153/98 H 95 09/12/18 04:00 98.3 F 68 20 162/98 H 95 09/12/18 00:00 97.8 F 65 19 140/92 H 95 Weight Admit Weight 193 lb 6 oz Weight 192 lb 5 oz I&O: 09/11/18 09/12/18 09/13/18 06:59 06:59 06:59 Intake Total 720 Balance 720 Result Diagrams: 09/08/18 03:16 09/12/18 04:54 Additional Labs: Accuchecks 09/12/18 09/11/18 09/11/18 06:12 19:51 16:48 POC Glucose 119 H 127 H 119 H 09/11/18 10:48 POC Glucose 142 H EKG Reviewed by me: Yes Phys Exam - Physical Examination Constitutional: NAD HEENT: PERRLA, moist MMs, sclera anicteric Neck: no JVD, supple Respiratory: no wheezing, no rales, no rhonchi Cardiovascular: no significant murmur, no rub Gastrointestinal: soft, non-tender, no distention Musculoskeletal: no edema, pulses present Neurological: non-focal, normal sensation Psychiatric: normal affect, A&O x 3 Skin: no rash, normal turgor Dx/Plan (1) Acute on chronic systolic ACC/AHA stage C congestive heart failure Code(s): I50.23 - ACUTE ON CHRONIC SYSTOLIC (CONGESTIVE) HEART FAILURE Status : Acute (2) Acute right MCA stroke Code(s): I63.511 - CEREB INFRC D/T UNSP OCCLS OR STENOS OF RIGHT MID CEREB ART Status: Acute (3) UTI (urinary tract infection) Status: Acute (4) CKD (chronic kidney disease) stage 3, GFR 30-59 ml/min Code(s): N18.3 - CHRONIC KIDNEY DISEASE, STAGE 3 (MODERATE) Status: Chronic (5) Diabetes type 2, controlled Code(s): E11.9 - TYPE 2 DIABETES MELLITUS WITHOUT COMPLICATIONS Status: Chronic (6) Dyslipidemia Code(s): E78.5 - HYPERLIPIDEMIA, UNSPECIFIED Status: Chronic (7) GERD (gastroesophageal reflux disease) Code(s): K21.9 - GASTRO-ESOPHAGEAL REFLUX DISEASE WITHOUT ESOPHAGITIS Status: Chronic Qualifiers: (8) Hypertension Code(s): I10 - ESSENTIAL (PRIMARY) HYPERTENSION Status: Chronic Qualifiers: (9) Hyperuricemia Code(s): E79.0 - HYPERURICEMIA W/O SIGNS OF INFLAM ARTHRIT AND TOPHACEOUS DIS Status: Chronic (10) Hypothyroidism Code(s): E03.9 - HYPOTHYROIDISM, UNSPECIFIED Status: Chronic (11) Non compliance w medication regimen Code(s): Z91.14 - PATIENT'S OTHER NONCOMPLIANCE WITH MEDICATION REGIMEN Status : Chronic (12) Nonischemic cardiomyopathy Code(s): I42.8 - OTHER CARDIOMYOPATHIES Status: Chronic (13) Obesity (BMI 30-39.9) Code(s): E66.9 - OBESITY, UNSPECIFIED Status: Chronic - Plan 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, 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, 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 * creatinine has improvement * await rehab placement * medication reviewed as below * symptomatic treatment Review of Systems - Review of Systems ENT: negative: Ear Pain, Ear Discharge, Nose Pain, Nose Discharge, Nose Congestion, Mouth Pain, Mouth Swelling, Throat Pain, Throat Swelling, Other Respiratory: negative: Cough, Dry, Shortness of Breath, Hemoptysis, SOB with Excertion, Pleuritic Pain, Sputum, Wheezing Cardiovascular: negative: chest pain, palpitations, orthopnea, paroxysmal nocturnal dyspnea, edema, light headedness, other Gastrointestinal: negative: Nausea, Vomiting, Abdominal Pain, Diarrhea, Constipation, Melena, Hematochezia, Other Genitourinary: negative: Dysuria, Frequency, Incontinence, Hematuria, Retention , Other Musculoskeletal: negative: Neck Pain, Shoulder Pain, Arm Pain, Back Pain, Hand Pain, Leg Pain, Foot Pain, Other - Medications/Allergies Allergies/Adverse Reactions: Allergies Allergy/AdvReac Type Severity Reaction Status Date / Time No Known Drug Allergies Allergy Verified 04/23/18 02:59 Medications: Current Medications Acetaminophen (Tylenol) 650 mg MA Q4H PRN PRN Reason: Fever > 101 Acetaminophen (Tylenol) 650 mg PO Q6H PRN PRN Reason: Mild Pain (1-3) Albuterol/Ipratropium (Duoneb) 3 ml NEB [id number] PRN PRN Reason: SOB &/or Wheezing Allopurinol (Zyloprim) 100 mg PO DAILY [facility] Last Admin: 09/12/18 09:31 Dose: 100 mg Amiodarone HCl (Cordarone) 400 mg PO BID [facility] Last Admin: 09/12/18 09:31 Dose: 400 mg Aspirin (Aspirin) 325 mg PO DAILY [facility] Last Admin: 09/12/18 09:32 Dose: 325 mg Atorvastatin Calcium (Lipitor) 40 mg PO HS [facility] Last Admin: 09/11/18 22:12 Dose: 40 mg Bisacodyl (Dulcolax) 10 mg MA DAILYPRN PRN PRN Reason: Constipation Calcium Carbonate (Tums) 1,000 mg PO Q4H PRN PRN Reason: Heartburn or Indigestion Carvedilol (Coreg) 12.5 mg PO BID-[facility] Last Admin: 09/12/18 09:29 Dose: 12.5 mg Dextrose/Water (Dextrose 50%) 25 gm SLOW IVP PRN PRN PRN Reason: Hypoglycemia Enoxaparin Sodium (Lovenox) 40 mg SC 0900 [facility] Last Admin: 09/12/18 09:33 Dose: 40 mg Glimepiride (Amaryl) 4 mg PO DAILY [facility] Last Admin: 09/12/18 09:32 Dose: 4 mg Glucagon (Glucagon) 1 mg IM PRN PRN PRN Reason: Hypoglycemia Guaifenesin (Robitussin Sf) 200 mg PO Q4H PRN PRN Reason: Cough Dextrose/Water (D5w) 1,000 mls @ 0 mls/hr IV .Q0M PRN PRN Reason: Hypoglycemia Insulin Human Lispro (Humalog) 0 units SC .MILD SLIDING SCALE PRN PRN Reason: Mild Correctional Scale Last Admin: 09/10/18 13:27 Dose: 3 unit Insulin Human Lispro (Humalog) 0 units SC .BEDTIME SLIDING SC PRN PRN Reason: Bedtime Correctional Scale Labetalol HCl (Normodyne) 20 mg SLOW IVP Q1H PRN PRN Reason: SBP Greater Than 180 Loperamide HCl (Imodium) 2 mg PO PRN PRN PRN Reason: Diarrhea/Loose Stools Loratadine (Claritin) 10 mg PO DAILYPRN PRN PRN Reason: Sinus Symptoms Last Admin: 09/09/18 11:27 Dose: 10 mg Magnesium Oxide (Magnesium Oxide) 400 mg PO DAILY [facility] Last Admin: 09/12/18 09:33 Dose: 400 mg Ondansetron HCl (Zofran Odt) 4 mg PO Q6H PRN PRN Reason: Nausea/Vomiting Ondansetron HCl (Zofran) 4 mg IVP Q6H PRN PRN Reason: Nausea/Vomiting Senna/Docusate Sodium (Senokot S) 2 tab PO BID PRN PRN Reason: Constipation Sodium Chloride (Flush - Normal Saline) 10 ml IVF PRN PRN PRN Reason: Saline Flush Last Admin: 09/10/18 23:52 Dose: 10 ml Sodium Chloride ([place] Nasal [place] 0.65%) 0 ml EA NARE QIDPRN PRN PRN Reason: Nasal Congestion Temazepam (Restoril) 15 mg PO HSPRN PRN PRN Reason: Insomnia Last Admin: 09/11/18 22:12 Dose: 15 mg Throat Lozenges (Cepastat Lozenges) 1 jorgito PO Q2H PRN PRN Reason: Sore Throat
--- NOTE | 2018-09-12 11:22 | DIS ---
DATE OF ADMISSION: 09/08/2018 DATE OF DISCHARGE: 09/12/2018 PRIMARY CARE PHYSICIAN: Dr. Yulia Albert. DISCHARGE DISPOSITION: Rehab. PRIMARY DISCHARGE DIAGNOSES: Acute on chronic systolic ACC AHA stage C; congestive heart failure exacerbation; acute right middle cerebral artery stroke; urinary tract infection, treated in hospital; acute kidney failure; atrial flutter converted to sinus rhythm. SECONDARY DISCHARGE DIAGNOSES: Obesity with body mass index 34, nonischemic cardiomyopathy, noncompliance with medication treatment, hypothyroidism, hyperuricemia, hypertension, gastroesophageal reflux disease, dyslipidemia, diabetes type 2, chronic kidney disease stage 3, chronic systolic and diastolic heart failure. PRIMARY PROCEDURE/OPERATION: None. RADIOLOGICAL INVESTIGATION: Chest x-ray, CT angiography, echocardiography. SIGNIFICANT LABORATORY DATA: WBC 5.2, hemoglobin 12.9, platelet 150. D-dimer 1.84. Creatinine 1.27. Urinalysis suggestive of UTI. Urine culture grew nothing. Urine drug screen negative. DISCHARGE MEDICATIONS: 1. Allopurinol 100 mg p.o. daily. 2. Amiodarone 400 mg b.i.d. for 5 days, then 200 mg b.i.d. for 1 week and then 200 mg daily. 3. Aspirin 325 mg p.o. daily. 4. Lipitor 40 mg p.o. at bedtime. 5. Coreg 12.5 mg p.o. b.i.d. 6. Lasix 40 mg daily. 7. Glimepiride 4 mg daily. 8. Lisinopril 20 mg daily. 9. Aldactone 25 mg p.o. daily. CONTRAINDICATION: None. CODE STATUS: Full code. 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 Neurology was consulted while in hospital. TEST RESULT PENDING ON DISCHARGE: None. ALLERGIES: NO KNOWN DRUG ALLERGIES. DISCHARGE PLAN: Posthospital, the patient is planned for discharge to rehab. Subsequently, the patient will follow up with primary care physician and primary supervisor [employer]. HOSPITAL COURSE: A 57-year-old female, who has noncompliance with medication. She was not taking her medication. She was admitted by Dr. Bell. The patient was having increasing shortness of breath. She was diagnosed with acute on chronic systolic congestive heart failure exacerbation. During this admission, the patient also had atrial flutter. The patient was having altered mental status, that is why CT brain was done in the emergency room, which showed some acute-subacute right MCA stroke. This patient was also having urinary tract infection. She was admitted to the stroke floor. Entire Stroke Team evaluated this patient. The patient's congestive heart failure treated with IV Lasix. Because of IV Lasix, the patient developed acute kidney failure that was also improved by the time of discharge. We reduced dose of Lasix upon discharge. The patient is euvolemic by the time of discharge, she is on room air. Her current CHF exacerbation is related with her noncompliance with the treatment. Her acute kidney failure because of diuretic therapy has been improved. The patient is requiring PT, OT, and speech therapy while in hospital for stroke and now she is going to rehab for further therapy. The patient had urinary tract infection, which was treated with Rocephin while in hospital. The patient is given counseling for medication compliance. The patient will continue above-mentioned medication as per adjustment. While in hospital, this patient is not a good candidate for chronic anticoagulation therapy because of her noncompliance and risk is more involved with anticoagulation and that is why not prescribed. Cardiology and Neurology were following while in hospital. This patient has approval to go to rehab today. The patient is seen and examined at bedside today. Paper work for discharge done and discharge medication reconciliation done. The patient is medically stable for discharge. Job ID: [id number]
[2018-09-12 11:37] VITALS: BP 145/94; TEMP 98.1
--- NOTE | 2018-09-12 22:52 | EKG ---
Test Reason : WEAKNESS Blood Pressure : / mmHG Vent. Rate : 122 BPM Atrial Rate : 125 BPM P-R Int : 000 ms QRS Dur : 106 ms QT Int : 390 ms P-R-T Axes : 038 024 079 degrees QTc Int : 555 ms Sinus tachycardia with Premature atrial complexes with Abberant conduction Cannot rule out Anterior infarct , age undetermined Inferior injury pattern Abnormal ECG Confirmed by MARTIN MO ([id number]), editor news DEVIN HUGO ([id number]) on 09/12/2018 10:52:23 PM Referred By: CHEPE Confirmed By:MARTIN MO
== END 2018-09-12 14:40 | DRG 64 ==
LOC: ERS 21:14 → ERHOLD 09-08 00:06 → 2SE 09-08 10:57
PROVIDERS: ADMIT Internal Medicine; ATTEND Internal Medicine
DX: I63.9 Cerebral infarction, unspecified (principal); I50.43 Acute on chronic combined systolic (congestive) and diastolic (congestive) heart failure; I13.0 Hypertensive heart and chronic kidney disease with heart failure and stage 1 through stage 4 chronic kidney disease, or unspecified chronic kidney disease; N39.0 Urinary tract infection, site not specified; N17.9 Acute kidney failure, unspecified; I48.92 Unspecified atrial flutter; I42.9 Cardiomyopathy, unspecified; Z51.5 Encounter for palliative care; E03.9 Hypothyroidism, unspecified; K21.9 Gastro-esophageal reflux disease without esophagitis; F17.210 Nicotine dependence, cigarettes, uncomplicated; E66.9 Obesity, unspecified; E78.5 Hyperlipidemia, unspecified; N18.3 Chronic kidney disease, stage 3 (moderate); I48.91 Unspecified atrial fibrillation; E11.22 Type 2 diabetes mellitus with diabetic chronic kidney disease; Z79.4 Long term (current) use of insulin; Z68.34 Body mass index [BMI] 34.0-34.9, adult; Z91.14 Patient's other noncompliance with medication regimen; Z79.01 Long term (current) use of anticoagulants; Z95.810 Presence of automatic (implantable) cardiac defibrillator
CPT/HCPCS: 36415; 36416; 51702; 70450; 71045; 71275; 80048; 80053; 80061; 80306; 80307; 81003; 81015; 82553; 83605; 83690; 83735; 83880; 84439; 84443; 84484; 84550; 85025; 85379; 93005; 93306; 94760; 96361; 96374; 96375; J0282; J0696; J1650; J1940; J2060; J2270; J3490; J7070; Q9967

== ENCOUNTER 2018-11-30 17:30 | Inpatient (IN) | payer MEDICARE ==
--- NOTE | 2018-11-30 18:41 | RAD ---
Exam:Right ankle 3 views HISTORY: Pain. Trauma. COMPARISON: None FINDINGS: Lateral greater than medial soft tissue swelling. There there is significant soft tissue swelling along the calcaneus. There is irregularity involving the posterior aspect of the calcaneus. There may be an avulsive fracture at Achilles tendon insertion site. There is diffuse bone demineralization. IMPRESSION: Medial ankle and calcaneal soft tissue swelling. Possibility of a calcaneal fracture, avulsive at the Achilles tendon insertion site. Correlate clinically.
[2018-11-30 18:58] LABS: #Basophils 0.1 thou/uL (0.0-0.2); #Eosinphils 0.2 thou/uL (0.0-0.7); #Lymphocytes 1.5 thou/uL (1.20-3.40); #Monocytes 0.5 thou/uL (0.11-0.59); #Neutrophils 5.6 thou/uL (1.40-6.50); %Eosinophils 2.2 % (0.0-10.0); %Lymphocytes 18.6 % (21.0-51.0); %Monocytes 6.8 % (0.0-10.0); %Neutrophils 71.4 % (42.0-75.0); Hemoglobin 17.3 g/dL (12.0-16.0); Mean Corpuscular HGB CONC 32.7 g/dL (32.0-36.0); Mean Corpuscular Volume 91.9 fL (78.0-98.0); Mean Platelet Volume 9.1 fL (7.4-10.4); Platelet Count 151 thou/uL (130-400); RBC Distribution Width 13.4 % (11.5-14.5); Red Blood Cell (RBC) Count 5.75 mill/uL (4.20-5.40); White Blood Cell (WBC) Count 7.8 thou/uL (4.8-10.8)
[2018-11-30 19:12] LABS: ALT (SGPT) 46 U/L (8-55); AST (SGOT) 36 U/L (5-34); Albumin 4.4 g/dL (3.5-5.0); Alkaline Phosphatase 161 U/L (40-150); Anion Gap 13 mmol/L (10-20); BUN (Urea Nitrogen) 32 mg/dL (9.8-20.1); Bilirubin, Total 0.7 mg/dL (0.2-1.2); Calc. Creatinine Clearance 0 mL/min (70-130); Calcium 10.4 mg/dL (7.8-10.44); Carbon Dioxide 27 mmol/L (22-29); Chloride 105 mmol/L (98-107); Estimated GFR-MDRD 49; Globulin 4.5 g/dL (2.4-3.5); Glucose 105 mg/dL (70-105); Potassium 5.3 mmol/L (3.5-5.1); Protein, Total 8.9 g/dL (6.0-8.3); Sodium 140 mmol/L (136-145)
--- NOTE | 2018-11-30 19:32 | RAD ---
THERE VIEWS RIGHT FOOT: Comparison: None. History: Fell out of bed, right foot pain. FINDINGS: Three views of the right foot shows a fracture off the posterior aspect of the calcaneus at the inser tion of the Achilles tendon into the calcaneus. No other fractures are seen. No dislocation is presen t. IMPRESSION: Avulsion fracture at the insertion of the Achilles tendon into the calcaneus. This fracture fragment is a large fracture fragment. POS: C
[2018-11-30] MEDS ORDERED: Acetaminophen 325 MG TAB PO PRN (19:40)
[2018-11-30] MEDS ORDERED: Fentanyl 100 MCG/2 ML VIAL SLOW IVP PRN (19:40)
[2018-11-30] MEDS ORDERED: traMADol HCl 50 MG TAB PO PRN (19:40)
[2018-11-30] MEDS ORDERED: Milk Of Magnesia 30 ML UDCUP PO PRN (19:40)
[2018-11-30] MEDS ORDERED: Communication Order-Pharmacy FS SCH (19:45)
[2018-11-30] MEDS ORDERED: RENALLY ADJUST ALL ANTIBIOTICS IVPB PRN (19:57)
[2018-11-30] MEDS ORDERED: cloNIDine 0.1 MG TAB ONE (20:03)
[2018-11-30] MEDS: Atorvastatin Calcium 40 MG TAB PO SCH (20:59)
[2018-11-30] MEDS: Amiodarone 200 MG TAB PO SCH (20:59)
[2018-11-30] MEDS: Carvedilol 6.25 MG TAB PO SCH (22:04)
[2018-12-01] MEDS: cloNIDine 0.1 MG TAB PO PRN (00:17)
[2018-12-01] MEDS: Morphine 2 MG/ML SYRINGE SLOW IVP PRN ×2 (00:18→11:55)
[2018-12-01 01:29] VITALS: BMI 32.3
[2018-12-01] MEDS ORDERED: hydrALAZINE 20 MG/ML VIAL SLOW IVP PRN (01:53)
[2018-12-01] MEDS ORDERED: Dextrose 50% Abboject 50 ML SYRINGE SLOW IVP PRN (02:32)
[2018-12-01] MEDS ORDERED: Dextrose 5% in Water 1,000 ML IV PRN (02:32)
--- NOTE | 2018-12-01 02:32 | PDOC.EVN ---
Event Note - Event Note Event Note: pt has been seen and evaluated in consultation, pt has unknown baseline functional capacity, and high risk for cardiovascular complications during surgery would consult cardiology for clearance for that reason if not an emergent/urgent procedure, if pt needs to be taken to OR, can proceed with surgery for a moderate risk procedure with high risk for cardiovascular complications from Sx, given pt's hx and RCRI>1 full note is pending, medications have been reviewed and reconciled
--- NOTE | 2018-12-01 06:09 | CON ---
DATE OF CONSULTATION: PRIMARY CARE DOCTOR: Dr. Yulia Albert. CODE STATUS: Full code. TIME OF EVALUATION: 11:00 p.m. CHIEF COMPLAINT: Patient presented with right foot pain. HISTORY OF PRESENT ILLNESS: A 58-year-old female patient, past medical history of multiple comorbidities, including atrial fibrillation, congestive heart failure, status post AICD, diabetes type 2, hypertension, hyperlipidemia, came to the hospital and has been admitted to Orthopedic Surgery for having a mechanical fall early in the morning and having right metatarsal fracture and being taking to the OR probably in the morning to fix the fracture. Symptoms were severe. The patient has severe pain, has been treated with opioid medications on a high dose and having difficulty with relieving the pain. Symptoms started suddenly, was severe with decreased range of motion in the right lower extremity due to fracture. REVIEW OF SYSTEMS: All other systems reviewed were negative except for the findings mentioned above. PAST MEDICAL HISTORY: As mentioned in the HPI. PAST SURGICAL HISTORY: ICD. PSYCHIATRIC HISTORY: No previous psych history. SOCIAL HISTORY: The patient is at home with family. The patient drinks socially. No drug use. KNOWN ALLERGIES: No known drug allergies. REPORTED MEDICATIONS: Metformin, furosemide, amiodarone, atorvastatin, carvedilol, glipizide, lisinopril, spironolactone. PHYSICAL EXAMINATION: VITAL SIGNS: On presentation, blood pressure 218/104 with heart rate 84, respiratory rate was 20, temperature 98.5, oxygen saturation was 94% on room air. GENERAL APPEARANCE: The patient is alert, oriented, in no acute distress. HEENT: Eyes, normal conjunctiva, moist oral mucosa. Anicteric. No JVD. RESPIRATORY: Bilateral air entry. No rales. No wheezes. Symmetric expansion. CARDIOVASCULAR: Normal rate regular rhythm. No murmurs. No edema. ABDOMEN: Soft. Normal bowel sounds. MUSCULOSKELETAL: Baseline range of motion and strength except for the right lower extremity, the patient has severe pain in the foot with decreased range of motion. Inability to walk due to this problem, swelling, and redness. SKIN: Warm, intact. No pallor. No rash. No redness. Capillary refill seems to be intact. NEUROLOGIC: No evidence of any new focal weakness. Cranial nerves seem to be intact. PSYCHIATRIC: Patient is in good mood. No anxiety. Optimal judgment. DIAGNOSTIC DATA: EKG was reviewed. The patient has normal sinus rhythm with a rate of 77 with no ectopics, sinus arrhythmia. RADIOLOGY INTERPRETATION: The patient had displaced fracture of the calcaneus. Labs were reviewed. The patient has white count 7.8, hemoglobin 17.3, MCV 91.9, platelet count 151. Chemistry; sodium 140, potassium 5.3, chloride 105, carbon dioxide 27, anion gap 13, BUN 32 with creatinine 1.34 and in previous admission was about the same value. GFR 49, glucose 105, calcium 10.4, total bilirubin 0.7, AST 36, ALT 46, alkaline phosphatase 161. Beta natriuretic peptide 287. Serum total protein 8.9, albumin 4.4, globulin 4.5. Albumin-globulin ratio 1.0. ASSESSMENT AND PLAN: The patient will be placed in the hospital with following medical problems. 1. Right calcaneous fracture as seen on the x-ray. Orthopedic Surgery is taking care of this problem. 2. Hyperkalemia that is mild. Potassium 5.3. We will monitor and treat accordingly. No need for any acute intervention at this point. 3. Chronic kidney disease stage 3 with GFR 49. We will hydrate and monitor kidney function. 4. Severe pain, being treated with opioid medications. This places the patient at high risk of complication from treatment. Systolic and diastolic heart failure seen on the previous echo on the records. The patient has an EF around 15% to 20%, so is severely compromised. The patient's CHF seems to be stable. At this point, reconcile home medications and adjust treatment as needed. 5. Controlled diabetes, blood sugar is 105. Reconcile home medications. Place the patient on sliding scale for optimal control. We will avoid metformin at this point given risk for metabolic acidosis if kidney function deteriorates. 6. Hyperlipidemia. Low-cholesterol diet is advised. Reconcile home medications. 7. Uncontrolled hypertension with systolic blood pressure in the 190s. Reconcile home medications. IV p.r.n. medications according for optimal control. 8. Deep venous thrombosis prophylaxis as per Surgery recommendations. 9. Cardiovascular risk assessment. The patient has a revised cardiac risk index of more than 1, will put her high risk of complication from the cardiac standpoint in the perioperative period and if the patient needs emergent/urgent surgery, can go for surgery with risk stratification of going for moderate risk of procedure and high risk of complication for cardiovascular events. If not emergent/urgent, could clear the patient with Cardiology given severe underlying cardiovascular conditions, although at this point seems to be stable. Job ID: [id number]
[2018-12-01] MEDS: HumaLOG 300 UNITS/3 ML VIAL SC PRN (06:42)
[2018-12-01] MEDS ORDERED: Glimepiride 2 MG TAB PO SCH (07:30)
[2018-12-01] MEDS: Furosemide 40 MG TAB PO SCH (08:01)
[2018-12-01] MEDS: Lisinopril 10 MG TAB PO SCH (08:01)
[2018-12-01] MEDS: Amiodarone 200 MG TAB PO SCH ×2 (08:01→21:13)
[2018-12-01] MEDS: Spironolactone 25 MG TAB PO SCH (08:01)
[2018-12-01] MEDS: Allopurinol 100 MG TAB PO SCH (08:01)
[2018-12-01] MEDS: Carvedilol 6.25 MG TAB PO SCH ×2 (08:23→21:12)
--- NOTE | 2018-12-01 08:53 | RAD ---
CHEST ONE VIEW: INDICATIONS: Preoperative evaluation for heel fracture surgery. COMPARISON: 09/07/2018 FINDINGS: There is persistent moderate cardiomegaly and moderate pulmonary vascular congestion with mild inters titial prominence, suspicious for edema. There is no pleural effusion. AICD is unchanged. Vascular calcification of the aortic arch is similar appearing. No acute osseous abnormality is evident. IMPRESSION: Persistent cardiomegaly with pulmonary vascular congestion. There are slightly more pronounced inter stitial opacities, suspicious for interstitial edema and a component of congestive heart failure. POS: C
[2018-12-01] MEDS ORDERED: Lisinopril 2.5 MG TAB PO SCH (09:00)
--- NOTE | 2018-12-01 12:23 | CON ---
DATE OF CONSULTATION: HISTORY OF PRESENT ILLNESS: The patient is a 58-year-old woman with a long history of nonischemic cardiomyopathy. The patient was seen many years ago with congestive heart failure. She underwent a cardiac catheterization, found to have normal coronary arteries. She has been subsequently on medical therapy. She has also had placement of automatic implantable cardiac defibrillator. The patient has been followed primarily by Dr. Reeves. The patient was admitted after she had an ankle fracture. The patient needs to undergo surgery. The patient denies having any chest discomfort. The patient denies having any dyspnea, PND, or orthopnea. The patient was able to walk significant distance without difficulty prior to her fall. PAST MEDICAL HISTORY: 1. Cardiomyopathy. 2. Hypertension. 3. Diabetes mellitus. 4. Obesity. PAST SURGICAL HISTORY: None. SOCIAL HISTORY: Long history of tobacco abuse. MEDICATIONS: See nursing list. ALLERGIES: NO KNOWN DRUG ALLERGIES. FAMILY HISTORY: Positive family history of coronary artery disease. PHYSICAL EXAMINATION: GENERAL: Elderly woman in no acute distress with a blood pressure of 134/99. NECK: Showed no jugular venous distention. LUNGS: Clear to auscultation. HEART: Regular rate and rhythm. Normal S1, S2. ABDOMEN: Nondistended. EXTREMITIES: Showed no edema. Vascular radial pulses 2+. LABORATORY DATA: Sodium 140, potassium 5.3, chloride 105, bicarb 27, BUN 32, creatinine 1.3. Her white blood cell count is 7.8, hemoglobin 17.3, hematocrit 52.8, platelets 151. IMAGING STUDIES: EKG revealed normal sinus rhythm with left atrial enlargement. IMPRESSION: 1. Status post ankle fracture. 2. History of severe nonischemic cardiomyopathy. 3. Diabetes mellitus. 4. Hypertension. 5. Obesity. This patient presents after an ankle fracture. She is followed primarily by Dr. Reeves. From a cardiac standpoint, she was able to perform much more than 4 METS without any difficulty. She should be at acceptable risk for noncardiac surgery. Job ID: [id number]
[2018-12-01] MEDS ORDERED: CEFAZOLIN 2 GM in Premix Bag 1 BAG IVPB SCH (13:00)
--- NOTE | 2018-12-01 13:19 | HP ---
CHIEF COMPLAINT: Right foot pain. HISTORY OF PRESENT ILLNESS: Ms. Plaza is a 58-year-old female, who was getting out of bed yesterday. She feels that she was possibly sleepwalking. She did not have get balance. She fell. She awoke with pain in her foot. She was unable to ambulate. She denies hitting her head of loss or loss of consciousness. She is in poor health in general with history of CHF, diabetes, hypertension, and other medical problems. She was found to have a calcaneus fracture on x-ray with avulsion of the Achilles insertion. She is admitted to the hospital. She is currently resting comfortably. She denies significant pain at rest, but is unable to ambulate or move her foot and ankle. REVIEW OF SYSTEMS: Positive for right foot and ankle pain. Otherwise, negative 10-point review of systems. PAST MEDICAL HISTORY: Positive for atrial fibrillation, CHF, status post defibrillator placement, diabetes, hypertension, and hyperlipidemia. PSYCHIATRIC HISTORY: Negative. SOCIAL HISTORY: The patient drinks alcohol occasionally. No tobacco or drug use. ALLERGIES: NO KNOWN DRUG ALLERGIES. PHYSICAL EXAMINATION: VITAL SIGNS: Temperature is 98.7, pulse is 81, respiratory rate is 16, oxygen saturation is 96%, and blood pressure is 177/113. GENERAL: She is alert and oriented, in no apparent distress. Breathing comfortably. ABDOMEN: Soft, nontender, and nondistended. MUSCULOSKELETAL: The patient's right lower extremity has intact skin. She is tender to palpation over the Achilles tendon and calcaneus. She has swelling and ecchymosis. Positive Kris test. She has a warm and well-perfused foot. Pulse is weakly palpable over the dorsalis pedis. Sensation is intact. IMAGING DATA: X-rays of the right foot and ankle demonstrate a large avulsion of the calcaneus at the Achilles insertion. The tuberosity is split and elevated proximally. IMPRESSION: Calcaneal fracture with Achilles avulsion. PLAN: At this point, the patient will need to go to the operating room. I will plan to do an open reduction and screw fixation technique to restore the anatomy of the calcaneus and reinsert the Achilles tendon. Hopefully, we can do this through a very minimal approach given the patient's history of medical comorbidities. She is at risk for wound complication or infection. She is aware of the surgery and plan. She wants to proceed. She will be n.p.o. until surgery. She has antibiotics ordered. She will have DVT prophylaxis after surgery. Job ID: [id number]
[2018-12-01] MEDS ORDERED: Fentanyl 100 MCG/2 ML VIAL ONE ×2 (17:44→20:06)
[2018-12-01] MEDS ORDERED: Lidocaine 2% Jelly 5 ML TUBE ONE (17:44)
[2018-12-01] MEDS ORDERED: Norepinephrine 4 MG/4 ML VIAL ONE (17:57)
[2018-12-01] MEDS ORDERED: Phenylephrine HCL 10 MG/ML VIAL ONE (17:57)
--- NOTE | 2018-12-01 18:55 | RAD ---
TWO VIEWS OF THE RIGHT CALCANEUS: 12/01/18 COMPARISON: 11/30/18 HISTORY: Calcaneal fracture. FINDINGS/IMPRESSION: Two limited intraoperative fluoroscopic views of the right calcaneus were submitted for interpretatio n. Two screws fixate the fracture of the posterior aspect of the calcaneus. No perihardware lucency i s seen. POS: C
[2018-12-01] MEDS ORDERED: Ondansetron HCl/PF 4 MG/2 ML Vial IVP PRN (19:04)
[2018-12-01] MEDS ORDERED: hydrALAZINE 20 MG/ML VIAL ONE (19:23)
[2018-12-01] MEDS ORDERED: Morphine 4 MG/ML VIAL ONE (20:06)
[2018-12-01] MEDS: CEFAZOLIN 2 GM in Premix Bag 1 BAG IVPB SCH (21:13)
[2018-12-01] MEDS: Atorvastatin Calcium 40 MG TAB PO SCH (21:13)
[2018-12-01] MEDS ORDERED: Lidocaine 1% PF 5 ML VIAL ONE (22:39)
[2018-12-01] MEDS ORDERED: Glycopyrrolate 0.2 MG/ML 5 ML SYRINGE ONE (22:39)
[2018-12-01] MEDS ORDERED: PROPOFOL 200 MG/20 ML VIAL ONE (22:39)
[2018-12-01] MEDS ORDERED: Ondansetron PF 4 MG/2 ML Vial ONE (22:39)
[2018-12-01] MEDS ORDERED: Rocuronium Bromide 10 MG/ML (10ML VIAL) ONE (22:39)
--- NOTE | 2018-12-01 23:49 | OP ---
DATE OF PROCEDURE: 12/01/2018 OPERATION: Open reduction and internal fixation of right calcaneus fracture. PREOPERATIVE DIAGNOSIS: Right displaced calcaneus fracture. POSTOPERATIVE DIAGNOSIS: Right displaced calcaneus fracture. COMPLICATIONS: None. ESTIMATED BLOOD LOSS: Minimal. ANESTHESIA: General. INDICATIONS: Ms. Plaza is a 58-year-old female, who fell. She fractured her calcaneus with an avulsion of the insertion of the Achilles tendon. This was a large tuberosity fracture. She was indicated for open reduction and internal fixation to restore anatomic alignment and promote healing. Risks were reviewed in detail. She elected to proceed with the operation. DESCRIPTION OF PROCEDURE: Ms. Plaza was identified in the preoperative holding area. Her correct extremity was marked. She was carried to the operating room. She was positioned supine. General anesthesia was induced. A multidisciplinary time-out was performed. The right lower extremity was prepped and draped in sterile fashion. At this point, we made an incision over the posterior aspect of the heel near the Achilles tendon. We dissected down through the subcutaneous tissues to the tuberosity of the calcaneus. We encountered the displaced tuberosity fracture. We irrigated the fracture and cleared the bony edges. At this point, we reduced the fracture back into its anatomic position. This was held with a reduction clamp. At this point, we placed two 4.0 fully-threaded screws across the fracture site. These were placed under intraoperative x-ray. These gave secure repair of the Achilles insertion and calcaneus fracture. At this point, we took final images. We then thoroughly irrigated and closed in layers and a sterile splint was placed. The patient was placed in a supine position and taken to the recovery room. Job ID: [id number]
[2018-12-02] MEDS: cloNIDine 0.1 MG TAB PO PRN (02:15)
[2018-12-02] MEDS: Allopurinol 100 MG TAB PO SCH (08:24)
[2018-12-02] MEDS: Lisinopril 10 MG TAB PO SCH (08:25)
[2018-12-02] MEDS: Carvedilol 6.25 MG TAB PO SCH ×2 (08:25→21:48)
[2018-12-02] MEDS: Spironolactone 25 MG TAB PO SCH (08:25)
[2018-12-02] MEDS: Furosemide 40 MG TAB PO SCH (08:25)
[2018-12-02] MEDS: Amiodarone 200 MG TAB PO SCH ×2 (08:25→21:48)
[2018-12-02] MEDS ORDERED: Loratadine 10 MG TAB PO PRN (08:31)
[2018-12-02] MEDS ORDERED: Metoclopramide HCl 10 MG TAB PO PRN (08:31)
[2018-12-02] MEDS ORDERED: Cepastat Lozenges 1 LOZ PO PRN (08:31)
[2018-12-02] MEDS ORDERED: Sodium Chloride 0.65% Nasal 44 ML BOT EA NARE PRN (08:31)
[2018-12-02] MEDS ORDERED: Calcium Carbonate 500 MG ChewTAB PO PRN (08:31)
[2018-12-02] MEDS ORDERED: Diabetic Tussin 200 MG/10 ML UDCUP PO PRN (08:31)
[2018-12-02] MEDS ORDERED: Loperamide HCl 2 MG CAP PO PRN (08:31)
[2018-12-02] MEDS ORDERED: Artificial Tears 18 DROP/0.9 ML EA EYE PRN (08:31)
[2018-12-02] MEDS ORDERED: Metoclopramide HCl 10 MG/2 ML VIAL IVP PRN (08:31)
[2018-12-02] MEDS ORDERED: Senokot S 8.6-50 MG TAB PO PRN (08:31)
[2018-12-02] MEDS ORDERED: Zolpidem Tartrate 5 MG TAB PO PRN (08:31)
[2018-12-02] MEDS ORDERED: Bisacodyl 10 MG SUPP PR PRN (08:31)
[2018-12-02] MEDS: CEFAZOLIN 2 GM in Premix Bag 1 BAG IVPB SCH (08:32)
[2018-12-02] MEDS: Famotidine 20 MG TAB PO SCH ×2 (08:52→21:48)
[2018-12-02] MEDS: Enoxaparin Sodium 40 MG/0.4 ML SYRINGE SC SCH (08:52)
[2018-12-02] MEDS ORDERED: CEFAZOLIN 2 GM in Premix Bag 1 BAG IVPB SCH (09:00)
[2018-12-02] MEDS: HYDROcodone/Acetaminophen 5/325 mg Tablet PO PRN (12:41)
[2018-12-02] MEDS: HumaLOG 300 UNITS/3 ML VIAL SC PRN (12:41)
--- NOTE | 2018-12-02 13:59 | PDOC.HOSPP ---
- Subjective Encounter Date: 12/02/18 Encounter Time: 09:15 Subjective: Patient seen and examined. No new complaints. No overnight events - Objective Vital Signs & Weight: Vital Signs (12 hours) Temp Pulse Resp BP BP Pulse Ox 12/02/18 11:20 98.6 F 60 18 138/85 92 L 12/02/18 08:25 139/82 94 L 12/02/18 08:02 97.9 F 64 18 139/82 94 L 12/02/18 03:22 98.6 F 64 16 148/82 H 96 12/02/18 02:15 163/99 H Weight Weight 188 lb 6 oz I&O: 12/01/18 12/02/18 12/03/18 06:59 06:59 06:59 Intake Total 200 560 Balance 200 560 Result Diagrams: 11/30/18 18:43 11/30/18 18:43 Additional Labs: Accuchecks 12/02/18 12/02/18 12/01/18 10:26 05:25 23:45 POC Glucose 227 H 132 H 117 H Hospitalist ROS - Review of Systems ENT: denies: ear pain, ear discharge, nose pain, nose discharge, nose congestion , mouth pain, mouth swelling, throat pain, throat swelling, other Respiratory: denies: cough, dry, shortness of breath, hemoptysis, SOB with excertion, pleuritic pain, sputum, wheezing, other Cardiovascular: denies: chest pain, palpitations, orthopnea, paroxysmal noc. dyspnea, edema, light headedness, other Gastrointestinal: denies: nausea, vomiting, abdominal pain, diarrhea, constipation, melena, hematochezia, other Genitourinary: denies: dysuria, frequency, incontinence, hematuria, retention, other Musculoskeletal: denies: neck pain, shoulder pain, arm pain, back pain, hand pain, leg pain, foot pain, other Skin: denies: rash, lesions, valerie, bruising, other - Medication Medications: Active Medications Generic Name Dose Route Start Last Admin Trade Name Freq PRN Reason Stop Dose Admin Hydrocodone Bitart/Acetaminophen 1 tab 12/02/18 08:31 12/02/18 12:41 [place] 5/325 PO 1 tab Q4H PRN Administration Moderate Pain (4-6) Allopurinol 100 mg 12/01/18 09:00 12/02/18 08:24 Zyloprim PO 100 mg DAILY SHITAL Administration Amiodarone HCl 400 mg 11/30/18 21:00 12/02/18 08:25 Cordarone PO 12/05/18 21:01 400 mg BID SHITAL Administration Atorvastatin Calcium 40 mg 11/30/18 21:00 12/01/18 21:13 Lipitor PO 40 mg HS SHITAL Administration Carvedilol 12.5 mg 11/30/18 21:00 12/02/18 08:25 Coreg PO 12.5 mg BID SHITAL Administration Clonidine 0.1 mg 11/30/18 23:07 12/02/18 02:15 Catapres PO 0.1 mg Q4H PRN Administration SBP > 160 OR DBP > 100 Enoxaparin Sodium 40 mg 12/02/18 09:00 12/02/18 08:52 Lovenox SC 40 mg 09 SHITAL Administration Famotidine 20 mg 12/02/18 09:00 12/02/18 08:52 Pepcid PO 20 mg BID SIHTAL Administration Furosemide 40 mg 12/01/18 09:00 12/02/18 08:25 Lasix PO 40 mg DAILY SHITAL Administration Hydralazine HCl 10 mg 12/01/18 01:53 12/01/18 02:11 Apresoline SLOW IVP 10 mg Q4H PRN Administration SBP > 160 OR DBP > 100 Insulin Human Lispro 0 units 12/01/18 02:32 12/02/18 12:41 Humalog SC 3 unit .MILD SLIDING SCALE PRN Administration Mild Correctional Scale Lisinopril 10 mg 12/01/18 09:00 12/02/18 08:25 Zestril PO 10 mg DAILY SHITAL Administration Morphine Sulfate 2 mg 11/30/18 23:51 12/01/18 11:55 Morphine SLOW IVP 2 mg Q2H PRN Administration Severe Pain (7-10) Spironolactone 25 mg 12/01/18 08:00 12/02/18 08:25 Aldactone PO 25 mg QAM-WM SHITAL Administration Tramadol HCl 50 mg 11/30/18 19:40 11/30/18 21:00 Ultram PO 50 mg Q6H PRN Administration Mild Pain (1-3) - Exam General Appearance: NAD, awake alert Eye: PERRL, anicteric sclera ENT: normocephalic atraumatic, no oropharyngeal lesions Neck: supple, symmetric, no JVD, no thyromegaly Heart: RRR, no murmur, no gallops, no rubs Respiratory: CTAB, no wheezes, no rales, no ronchi Gastrointestinal: soft, non-tender, non-distended, normal bowel sounds, no palpable masses, no hepatomegaly Extremities: no cyanosis, no clubbing, no edema Extremities - other findings: surgical site with dressing Skin: normal turgor, no lesions, no rashes Neurological: cranial nerve grossly intact, no focal deficits Musculoskeletal: normal tone, normal strength Psychiatric: normal affect, normal behavior Hosp A/P (1) Chronic combined systolic and diastolic CHF, NYHA class 2 and MAMTA/AHA stage C Code(s): I50.42 - CHRONIC COMBINED SYSTOLIC AND DIASTOLIC HRT FAIL Status: Chronic (2) CKD (chronic kidney disease) stage 3, GFR 30-59 ml/min Code(s): N18.3 - CHRONIC KIDNEY DISEASE, STAGE 3 (MODERATE) Status: Chronic (3) Diabetes type 2, controlled Code(s): E11.9 - TYPE 2 DIABETES MELLITUS WITHOUT COMPLICATIONS Status: Chronic (4) Dyslipidemia Code(s): E78.5 - HYPERLIPIDEMIA, UNSPECIFIED Status: Chronic (5) GERD (gastroesophageal reflux disease) Code(s): K21.9 - GASTRO-ESOPHAGEAL REFLUX DISEASE WITHOUT ESOPHAGITIS Status: Chronic Qualifiers: (6) Hypertension Code(s): I10 - ESSENTIAL (PRIMARY) HYPERTENSION Status: Chronic Qualifiers: (7) Hyperuricemia Code(s): E79.0 - HYPERURICEMIA W/O SIGNS OF INFLAM ARTHRIT AND TOPHACEOUS DIS Status: Chronic (8) Hypothyroidism Code(s): E03.9 - HYPOTHYROIDISM, UNSPECIFIED Status: Chronic (9) Non compliance w medication regimen Code(s): Z91.14 - PATIENT'S OTHER NONCOMPLIANCE WITH MEDICATION REGIMEN Status : Chronic (10) Nonischemic cardiomyopathy Code(s): I42.8 - OTHER CARDIOMYOPATHIES Status: Chronic (11) Obesity (BMI 30-39.9) Code(s): E66.9 - OBESITY, UNSPECIFIED Status: Chronic (12) Calcaneal fracture Code(s): S92.009A - UNSP FRACTURE OF UNSP CALCANEUS, INIT FOR CLOS FX Status: Acute - Plan old records reviewed/req, PT/OT, social media strategist 12/02/18- continue current medical management, medication reviewed as above, symptomatic treatment, post operative care as per ortho
[2018-12-02] MEDS: traMADol HCl 50 MG TAB PO PRN (14:35)
[2018-12-02] MEDS: Atorvastatin Calcium 40 MG TAB PO SCH (21:49)
[2018-12-03] MEDS: traMADol HCl 50 MG TAB PO PRN (06:07)
[2018-12-03] MEDS: Allopurinol 100 MG TAB PO SCH (08:58)
[2018-12-03] MEDS: Spironolactone 25 MG TAB PO SCH (08:58)
[2018-12-03] MEDS: Amiodarone 200 MG TAB PO SCH (08:58)
[2018-12-03] MEDS: Enoxaparin Sodium 40 MG/0.4 ML SYRINGE SC SCH (08:59)
[2018-12-03] MEDS: Famotidine 20 MG TAB PO SCH ×2 (08:59→20:55)
[2018-12-03] MEDS: Furosemide 40 MG TAB PO SCH (08:59)
[2018-12-03] MEDS: Lisinopril 10 MG TAB PO SCH (08:59)
[2018-12-03] MEDS: Carvedilol 6.25 MG TAB PO SCH ×2 (08:59→20:54)
--- NOTE | 2018-12-03 10:14 | PDOC.HOSPP ---
- Subjective Encounter Date: 12/03/18 Encounter Time: 07:50 Subjective: pt does not like to go to rehab, she has not ambulated yet, her pain controlled. - Objective Vital Signs & Weight: Vital Signs (12 hours) Temp Pulse Resp BP BP Pulse Ox 12/03/18 08:59 145/80 H 12/03/18 07:43 98.5 F 60 16 145/80 H 93 L 12/03/18 04:57 99.0 F 66 16 115/70 94 L 12/03/18 00:20 98.2 F 60 16 121/73 92 L Weight Weight 188 lb 6 oz I&O: 12/02/18 12/03/18 12/04/18 06:59 06:59 06:59 Intake Total 2130 Balance 2130 Result Diagrams: 11/30/18 18:43 11/30/18 18:43 Additional Labs: Accuchecks 12/03/18 12/03/18 12/02/18 05:12 00:17 16:01 POC Glucose 135 H 119 H 86 12/02/18 10:26 POC Glucose 227 H Hospitalist ROS - Review of Systems ENT: denies: ear pain, ear discharge, nose pain, nose discharge, nose congestion , mouth pain, mouth swelling, throat pain, throat swelling, other Respiratory: denies: cough, dry, shortness of breath, hemoptysis, SOB with excertion, pleuritic pain, sputum, wheezing, other Cardiovascular: denies: chest pain, palpitations, orthopnea, paroxysmal noc. dyspnea, edema, light headedness, other Gastrointestinal: denies: nausea, vomiting, abdominal pain, diarrhea, constipation, melena, hematochezia, other Genitourinary: denies: dysuria, frequency, incontinence, hematuria, retention, other Musculoskeletal: denies: neck pain, shoulder pain, arm pain, back pain, hand pain, leg pain, foot pain, other - Medication Medications: Active Medications Generic Name Dose Route Start Last Admin Trade Name Freq PRN Reason Stop Dose Admin Hydrocodone Bitart/Acetaminophen 1 tab 12/02/18 08:31 12/02/18 12:41 [place] 5/325 PO 1 tab Q4H PRN Administration Moderate Pain (4-6) Allopurinol 100 mg 12/01/18 09:00 12/03/18 08:58 Zyloprim PO 100 mg DAILY SHITAL Administration Amiodarone HCl 200 mg 12/03/18 09:00 12/03/18 08:58 Cordarone PO 200 mg DAILY SHITAL Administration Atorvastatin Calcium 40 mg 11/30/18 21:00 12/02/18 21:49 Lipitor PO 40 mg HS SHITAL Administration Carvedilol 12.5 mg 11/30/18 21:00 12/03/18 08:59 Coreg PO 12.5 mg BID SHITAL Administration Clonidine 0.1 mg 11/30/18 23:07 12/02/18 02:15 Catapres PO 0.1 mg Q4H PRN Administration SBP > 160 OR DBP > 100 Enoxaparin Sodium 40 mg 12/02/18 09:00 12/03/18 08:59 Lovenox SC 40 mg 899 SHITAL Administration Famotidine 20 mg 12/02/18 09:00 12/03/18 08:59 Pepcid PO 20 mg BID SHITAL Administration Furosemide 40 mg 12/01/18 09:00 12/03/18 08:59 Lasix PO 40 mg DAILY SHITAL Administration Hydralazine HCl 10 mg 12/01/18 01:53 12/01/18 02:11 Apresoline SLOW IVP 10 mg Q4H PRN Administration SBP > 160 OR DBP > 100 Insulin Human Lispro 0 units 12/01/18 02:32 12/02/18 12:41 Humalog SC 3 unit .MILD SLIDING SCALE PRN Administration Mild Correctional Scale Lisinopril 10 mg 12/01/18 09:00 12/03/18 08:59 Zestril PO 10 mg DAILY SHITAL Administration Morphine Sulfate 2 mg 11/30/18 23:51 12/01/18 11:55 Morphine SLOW IVP 2 mg Q2H PRN Administration Severe Pain (7-10) Spironolactone 25 mg 12/01/18 08:00 12/03/18 08:58 Aldactone PO 25 mg QAM-WM SHITAL Administration Tramadol HCl 50 mg 11/30/18 19:40 11/30/18 21:00 Ultram PO 50 mg Q6H PRN Administration Mild Pain (1-3) Tramadol HCl 100 mg 11/30/18 19:40 12/03/18 06:07 Ultram PO 100 mg Q6H PRN Administration Moderate Pain (4-6) - Exam General Appearance: NAD, awake alert Eye: PERRL, anicteric sclera ENT: normocephalic atraumatic, no oropharyngeal lesions Neck: supple, symmetric, no JVD, no thyromegaly Heart: RRR, no murmur, no gallops, no rubs, normal peripheral pulses Respiratory: CTAB, no wheezes, no rales, no ronchi Gastrointestinal: soft, non-tender, non-distended, normal bowel sounds Extremities: no cyanosis, no clubbing, no edema Extremities - other findings: right ankle with dressing Skin: normal turgor, no lesions, no rashes Neurological: cranial nerve grossly intact, normal sensation to touch, no weakness, no focal deficits Musculoskeletal: normal tone, normal strength Psychiatric: normal affect, normal behavior, A&O x 3 Hosp A/P (1) Calcaneal fracture Code(s): S92.009A - UNSP FRACTURE OF UNSP CALCANEUS, INIT FOR CLOS FX Status: Acute Plan: s/p ORIF (2) Chronic combined systolic and diastolic CHF, NYHA class 2 and MAMTA/AHA stage C Code(s): I50.42 - CHRONIC COMBINED SYSTOLIC AND DIASTOLIC HRT FAIL Status: Chronic (3) CKD (chronic kidney disease) stage 3, GFR 30-59 ml/min Code(s): N18.3 - CHRONIC KIDNEY DISEASE, STAGE 3 (MODERATE) Status: Chronic (4) Diabetes type 2, controlled Code(s): E11.9 - TYPE 2 DIABETES MELLITUS WITHOUT COMPLICATIONS Status: Chronic (5) Dyslipidemia Code(s): E78.5 - HYPERLIPIDEMIA, UNSPECIFIED Status: Chronic (6) GERD (gastroesophageal reflux disease) Code(s): K21.9 - GASTRO-ESOPHAGEAL REFLUX DISEASE WITHOUT ESOPHAGITIS Status: Chronic Qualifiers: (7) Hypertension Code(s): I10 - ESSENTIAL (PRIMARY) HYPERTENSION Status: Chronic Qualifiers: (8) Hyperuricemia Code(s): E79.0 - HYPERURICEMIA W/O SIGNS OF INFLAM ARTHRIT AND TOPHACEOUS DIS Status: Chronic (9) Hypothyroidism Code(s): E03.9 - HYPOTHYROIDISM, UNSPECIFIED Status: Chronic (10) Non compliance w medication regimen Code(s): Z91.14 - PATIENT'S OTHER NONCOMPLIANCE WITH MEDICATION REGIMEN Status : Chronic (11) Nonischemic cardiomyopathy Code(s): I42.8 - OTHER CARDIOMYOPATHIES Status: Chronic (12) Obesity (BMI 30-39.9) Code(s): E66.9 - OBESITY, UNSPECIFIED Status: Chronic - Plan old records reviewed/req, PT/OT, school social worker 12/02/18- continue current medical management, medication reviewed as above, symptomatic treatment, post operative care as per ortho 12/03/18- will change amiodaron 200 mg po daily, continue other optimum medical therapy for CHF, medication reviewed as above, symptomatic treatment., ambulate with PT, consider discharge planning, will defer to primary team, pt does not want rehab or snu option
[2018-12-03] MEDS: Atorvastatin Calcium 40 MG TAB PO SCH (20:54)
[2018-12-03] MEDS: HYDROcodone/Acetaminophen 5/325 mg Tablet PO PRN (20:56)
[2018-12-04] MEDS: Enoxaparin Sodium 40 MG/0.4 ML SYRINGE SC SCH (08:36)
[2018-12-04] MEDS: Famotidine 20 MG TAB PO SCH (08:37)
[2018-12-04] MEDS: Furosemide 40 MG TAB PO SCH (08:37)
[2018-12-04] MEDS: Lisinopril 10 MG TAB PO SCH (08:37)
[2018-12-04] MEDS: Allopurinol 100 MG TAB PO SCH (08:37)
[2018-12-04] MEDS: Carvedilol 6.25 MG TAB PO SCH (08:37)
[2018-12-04] MEDS: Amiodarone 200 MG TAB PO SCH (08:38)
[2018-12-04] MEDS: Spironolactone 25 MG TAB PO SCH (08:38)
[2018-12-04] MEDS: HYDROcodone/Acetaminophen 5/325 mg Tablet PO PRN (10:06)
--- NOTE | 2018-12-04 10:27 | PDOC.HOSPP ---
- Subjective Encounter Date: 12/04/18 Encounter Time: 08:45 Subjective: Patient seen and examined. No new complaints. No overnight events - Objective Vital Signs & Weight: Vital Signs (12 hours) Temp Pulse Resp BP BP Pulse Ox 12/04/18 08:37 179/94 H 12/04/18 03:38 98.6 F 63 16 173/82 H 92 L 12/03/18 23:49 99.2 F 62 16 165/84 H 98 Weight Weight 188 lb 6 oz I&O: 12/03/18 12/04/18 12/05/18 06:59 06:59 06:59 Intake Total 2130 Balance 2130 Result Diagrams: 11/30/18 18:43 11/30/18 18:43 Additional Labs: Accuchecks 12/04/18 12/03/18 12/03/18 05:35 21:02 15:42 POC Glucose 114 H 110 144 H 12/03/18 12:15 POC Glucose 175 H Hospitalist ROS - Review of Systems ENT: denies: ear pain, ear discharge, nose pain, nose discharge, nose congestion , mouth pain, mouth swelling, throat pain, throat swelling, other Respiratory: denies: cough, dry, shortness of breath, hemoptysis, SOB with excertion, pleuritic pain, sputum, wheezing, other Cardiovascular: denies: chest pain, palpitations, orthopnea, paroxysmal noc. dyspnea, edema, light headedness, other Gastrointestinal: denies: nausea, vomiting, abdominal pain, diarrhea, constipation, melena, hematochezia, other Genitourinary: denies: dysuria, frequency, incontinence, hematuria, retention, other Musculoskeletal: denies: neck pain, shoulder pain, arm pain, back pain, hand pain, leg pain, foot pain, other - Medication Medications: Active Medications Generic Name Dose Route Start Last Admin Trade Name Freq PRN Reason Stop Dose Admin Hydrocodone Bitart/Acetaminophen 1 tab 12/02/18 08:31 12/04/18 10:06 Jaffrey 5/325 PO 1 tab Q4H PRN Administration Moderate Pain (4-6) Allopurinol 100 mg 12/01/18 09:00 12/04/18 08:37 Zyloprim PO 100 mg DAILY SHITAL Administration Amiodarone HCl 200 mg 12/03/18 09:00 12/04/18 08:38 Cordarone PO 200 mg DAILY SHITAL Administration Atorvastatin Calcium 40 mg 11/30/18 21:00 12/03/18 20:54 Lipitor PO 40 mg HS SHITAL Administration Carvedilol 12.5 mg 11/30/18 21:00 12/04/18 08:37 Coreg PO 12.5 mg BID SHITAL Administration Clonidine 0.1 mg 11/30/18 23:07 12/02/18 02:15 Catapres PO 0.1 mg Q4H PRN Administration SBP > 160 OR DBP > 100 Enoxaparin Sodium 40 mg 12/02/18 09:00 12/04/18 08:36 Lovenox SC 40 mg 0900 SHITAL Administration Famotidine 20 mg 12/02/18 09:00 12/04/18 08:37 Pepcid PO 20 mg BID SHITAL Administration Furosemide 40 mg 12/01/18 09:00 12/04/18 08:37 Lasix PO 40 mg DAILY SHITAL Administration Hydralazine HCl 10 mg 12/01/18 01:53 12/01/18 02:11 Apresoline SLOW IVP 10 mg Q4H PRN Administration SBP > 160 OR DBP > 100 Insulin Human Lispro 0 units 12/01/18 02:32 12/02/18 12:41 Humalog SC 3 unit .MILD SLIDING SCALE PRN Administration Mild Correctional Scale Lisinopril 10 mg 12/01/18 09:00 12/04/18 08:37 Zestril PO 10 mg DAILY SHITAL Administration Morphine Sulfate 2 mg 11/30/18 23:51 12/01/18 11:55 Morphine SLOW IVP 2 mg Q2H PRN Administration Severe Pain (7-10) Spironolactone 25 mg 12/01/18 08:00 12/04/18 08:38 Aldactone PO 25 mg QAM-WM SHITAL Administration Tramadol HCl 50 mg 11/30/18 19:40 11/30/18 21:00 Ultram PO 50 mg Q6H PRN Administration Mild Pain (1-3) Tramadol HCl 100 mg 11/30/18 19:40 12/03/18 06:07 Ultram PO 100 mg Q6H PRN Administration Moderate Pain (4-6) - Exam General Appearance: NAD, awake alert Eye: PERRL, anicteric sclera ENT: normocephalic atraumatic, no oropharyngeal lesions Neck: supple, symmetric, no JVD Heart: RRR, no murmur, no gallops, no rubs Respiratory: CTAB, no wheezes, no rales, no ronchi Gastrointestinal: soft, non-tender, non-distended, normal bowel sounds, no palpable masses Extremities: no cyanosis, no clubbing, no edema Extremities - other findings: right foot with dressing Skin: normal turgor, no lesions Neurological: no focal deficits Musculoskeletal: normal tone, normal strength Psychiatric: normal affect, normal behavior Hosp A/P (1) Calcaneal fracture Code(s): S92.009A - UNSP FRACTURE OF UNSP CALCANEUS, INIT FOR CLOS FX Status: Acute (2) Chronic combined systolic and diastolic CHF, NYHA class 2 and MAMTA/AHA stage C Code(s): I50.42 - CHRONIC COMBINED SYSTOLIC AND DIASTOLIC HRT FAIL Status: Chronic (3) CKD (chronic kidney disease) stage 3, GFR 30-59 ml/min Code(s): N18.3 - CHRONIC KIDNEY DISEASE, STAGE 3 (MODERATE) Status: Chronic (4) Diabetes type 2, controlled Code(s): E11.9 - TYPE 2 DIABETES MELLITUS WITHOUT COMPLICATIONS Status: Chronic (5) Dyslipidemia Code(s): E78.5 - HYPERLIPIDEMIA, UNSPECIFIED Status: Chronic (6) GERD (gastroesophageal reflux disease) Code(s): K21.9 - GASTRO-ESOPHAGEAL REFLUX DISEASE WITHOUT ESOPHAGITIS Status: Chronic Qualifiers: (7) Hypertension Code(s): I10 - ESSENTIAL (PRIMARY) HYPERTENSION Status: Chronic Qualifiers: (8) Hyperuricemia Code(s): E79.0 - HYPERURICEMIA W/O SIGNS OF INFLAM ARTHRIT AND TOPHACEOUS DIS Status: Chronic (9) Hypothyroidism Code(s): E03.9 - HYPOTHYROIDISM, UNSPECIFIED Status: Chronic (10) Non compliance w medication regimen Code(s): Z91.14 - PATIENT'S OTHER NONCOMPLIANCE WITH MEDICATION REGIMEN Status : Chronic (11) Nonischemic cardiomyopathy Code(s): I42.8 - OTHER CARDIOMYOPATHIES Status: Chronic (12) Obesity (BMI 30-39.9) Code(s): E66.9 - OBESITY, UNSPECIFIED Status: Chronic - Plan old records reviewed/req, PT/OT, oncology social worker 12/02/18- continue current medical management, medication reviewed as above, symptomatic treatment, post operative care as per ortho 12/03/18- will change amiodaron 200 mg po daily, continue other optimum medical therapy for CHF, medication reviewed as above, symptomatic treatment., ambulate with PT, consider discharge planning, will defer to primary team, pt does not want rehab or snu option 12/04/18- post operatively after ORIF, she is stable medically, consider discharge planning, medication reviewed as above, symptomatic treatment
[2018-12-04 15:38] VITALS: BP 165/92; TEMP 97.9
--- NOTE | 2018-12-05 10:25 | DIS ---
DATE OF ADMISSION: 11/30/2018 DATE OF DISCHARGE: 12/04/2018 PRIMARY CARE PHYSICIAN: Dr. Yulia Albert. DISCHARGE DISPOSITION: nursing home home. PRIMARY DISCHARGE DIAGNOSIS: Calcaneal fracture, status post open reduction and internal fixation. SECONDARY DISCHARGE DIAGNOSES: Obesity with body mass index 32; nonischemic cardiomyopathy; noncompliance with medical treatment; hypothyroidism; hyperuricemia; hypertension; gastroesophageal reflux disease; dyslipidemia; diabetes, type 2; chronic kidney disease, stage 3; chronic combined systolic and diastolic heart failure; and history of cerebrovascular accident in the past. PRIMARY PROCEDURE/OPERATION: Open reduction and internal fixation by Dr. Cantu for calcaneal fracture. RADIOLOGICAL INVESTIGATION: Foot x-ray, ankle x-ray, heel x-ray, and chest x-ray. SIGNIFICANT LABORATORY DATA: Hemoglobin 17.3. Creatinine 1.34. DISCHARGE MEDICATIONS: 1. Amiodarone 200 mg p.o. daily. 2. Allopurinol 100 mg p.o. daily. 3. Aspirin 325 mg p.o. daily. 4. Lipitor 40 mg p.o. at bedtime. 5. Coreg 12.5 mg p.o. b.i.d. 6. Lasix 40 mg p.o. daily. 7. Glimepiride 4 mg daily. 8. Lisinopril 2.5 mg p.o. daily. 9. Aldactone 25 mg p.o. daily. CONTRAINDICATION: None. CODE STATUS: Full code. 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 Sound Team was consulted for medical management. Dr. Cantu was primary while in hospital. DISCHARGE PLAN: Posthospital, the patient is planned for discharge to half-way home, and subsequently, the patient will follow up with primary care physician and Dr. Cantu as instructed. HOSPITAL COURSE: A 58-year-old female who has underlying above-mentioned medical problem, who had mechanical fall, and subsequently, she was diagnosed with calcaneal fracture after radiological investigation in the emergency room. Cardiology was consulted for preoperative clearance. The patient was admitted under Orthopedic Service. Sound Team was consulted for medical management. The patient was cleared for surgery and after surgery, the patient remained in the hospital for PT, OT, and pain control use. Her hospital course uncomplicated. The patient will continue all her previous medication upon discharge. The patient is planned for discharge to half-way home. The patient was seen and examined on the day of discharge. Please see my progress note from that day. Job ID: [id number]
[2018-12-06] MEDS ORDERED: Amiodarone 200 MG TAB PO SCH (09:00)
[2018-12-13] MEDS ORDERED: Amiodarone 200 MG TAB PO SCH (09:00)
== END 2018-12-04 17:07 | DRG 504 ==
LOC: ERS 17:30 → SURG A 20:27
PROVIDERS: ADMIT Orthopaedic Surgery; ATTEND Orthopaedic Surgery
PROC: 0QSM04Z Reposition Left Tarsal with Internal Fixation Device, Open Approach (ICD-10-PCS; principal; 2018-12-01)
DX: S92.001A Unspecified fracture of right calcaneus, initial encounter for closed fracture (principal); I13.0 Hypertensive heart and chronic kidney disease with heart failure and stage 1 through stage 4 chronic kidney disease, or unspecified chronic kidney disease; I50.42 Chronic combined systolic (congestive) and diastolic (congestive) heart failure; I42.8 Other cardiomyopathies; I48.91 Unspecified atrial fibrillation; I50.9 Heart failure, unspecified; E78.5 Hyperlipidemia, unspecified; W06.XXXA Fall from bed, initial encounter; E87.5 Hyperkalemia; N18.3 Chronic kidney disease, stage 3 (moderate); E66.9 Obesity, unspecified; E11.22 Type 2 diabetes mellitus with diabetic chronic kidney disease; E79.0 Hyperuricemia without signs of inflammatory arthritis and tophaceous disease; E03.9 Hypothyroidism, unspecified; K21.9 Gastro-esophageal reflux disease without esophagitis; Z91.14 Patient's other noncompliance with medication regimen; Z95.810 Presence of automatic (implantable) cardiac defibrillator; Z68.32 Body mass index [BMI] 32.0-32.9, adult
CPT/HCPCS: 36416; 71045; 76000; 80053; 83880; 85025; 93005; C1713; J0360; J0690; J1650; J2001; J2270; J2370; J2405; J2704; J3010

== ENCOUNTER 2019-01-05 17:57 | Emergency (ER) | payer MEDICARE ==
[2019-01-05] MEDS ORDERED: Ondansetron ODT 4 MG TAB ONE (19:20)
[2019-01-05] MEDS ORDERED: Acetaminophen 500 MG TAB ONE (19:43)
[2019-01-05] MEDS ORDERED: Bacitracin 1 PK ONE (19:46)
== END 2019-01-05 20:20 | disposition home or self-care (01) ==
LOC: ERS 17:57
DX: R11.2 Nausea with vomiting, unspecified (principal); L97.419 Non-pressure chronic ulcer of right heel and midfoot with unspecified severity; E11.9 Type 2 diabetes mellitus without complications; I48.91 Unspecified atrial fibrillation; I11.0 Hypertensive heart disease with heart failure; I50.9 Heart failure, unspecified; F17.210 Nicotine dependence, cigarettes, uncomplicated
CPT/HCPCS: 99284; Q0162

== ENCOUNTER 2019-01-18 13:49 | Inpatient (IN) | payer MEDICARE ==
[2019-01-18 14:51] LABS: #Eosinphils 0.2 thou/uL (0.0-0.7); #Lymphocytes 2.1 thou/uL (1.20-3.40); #Monocytes 0.6 thou/uL (0.11-0.59); #Neutrophils 3.7 thou/uL (1.40-6.50); %Basophils 0.6 % (0.0-1.0); %Eosinophils 3.1 % (0.0-10.0); %Lymphocytes 31.8 % (21.0-51.0); %Monocytes 8.3 % (0.0-10.0); %Neutrophils 56.1 % (42.0-75.0); Hemoglobin 15.1 g/dL (12.0-16.0); Mean Corpuscular HGB CONC 31.6 g/dL (32.0-36.0); Mean Corpuscular Hemoglobin 28.9 pg (27.0-31.0); Mean Corpuscular Volume 91.4 fL (78.0-98.0); Mean Platelet Volume 8.7 fL (7.4-10.4); Platelet Count 177 thou/uL (130-400); RBC Distribution Width 13.8 % (11.5-14.5); Red Blood Cell (RBC) Count 5.23 mill/uL (4.20-5.40); White Blood Cell (WBC) Count 6.7 thou/uL (4.8-10.8)
--- NOTE | 2019-01-18 14:53 | RAD ---
THREE VIEWS RIGHT FOOT: HISTORY: Recent wound. Nonhealing. COMPARISON: 11/30/2018. FINDINGS: Interval internal fixation of a displaced fracture along the posterior aspect of the calcaneus. Fract ure lucency persists. There appears to be ulceration and defect of the soft tissues. Possible subtalar collapse. There is diffuse bone demineralization. Lisfranc alignment is maintained. No evidence of forefoot and midfoot fracture. IMPRESSION: Persistent lucency involving a calcaneal fracture. Soft tissue erosion. Transcribed Date/Time: 01/18/2019 3:06 PM
[2019-01-18 15:15] LABS: ALT (SGPT) 30 U/L (8-55); AST (SGOT) 25 U/L (5-34); Albumin 4.2 g/dL (3.5-5.0); Alkaline Phosphatase 171 U/L (40-110); Anion Gap 10 mmol/L (10-20); BUN (Urea Nitrogen) 19 mg/dL (9.8-20.1); Bilirubin, Total 0.5 mg/dL (0.2-1.2); Calc. Creatinine Clearance 0 mL/min (70-130); Carbon Dioxide 33 mmol/L (22-29); Chloride 105 mmol/L (98-107); Estimated GFR-MDRD 55; Globulin 3.9 g/dL (2.4-3.5); Glucose 130 mg/dL (70-105); Potassium 4.4 mmol/L (3.5-5.1); Protein, Total 8.1 g/dL (6.0-8.3); Sodium 144 mmol/L (136-145)
[2019-01-18] MEDS ORDERED: HYDROcodone/Acetaminophen 10/325 mg Tablet ONE (16:20)
[2019-01-18] MEDS ORDERED: Bacitracin 1 PK ONE (17:11)
[2019-01-18] MEDS ORDERED: Piperacillin/Tazobactam 4.5 GM VIAL ONE (17:24)
[2019-01-18] MEDS ORDERED: Ondansetron PF 4 MG/2 ML Vial ONE (18:23)
[2019-01-18 22:46] VITALS: BMI 42.7
[2019-01-18] MEDS ORDERED: Dextrose 5% in Water 1,000 ML IV PRN (23:06)
[2019-01-18] MEDS ORDERED: HumaLOG 300 UNITS/3 ML VIAL SC PRN ×2 (23:06)
[2019-01-18] MEDS ORDERED: hydrALAZINE 20 MG/ML VIAL SLOW IVP PRN (23:06)
[2019-01-18] MEDS ORDERED: Dextrose 50% Abboject 50 ML SYRINGE SLOW IVP PRN (23:06)
[2019-01-18] MEDS ORDERED: Ondansetron PF 4 MG/2 ML Vial IVP PRN (23:06)
[2019-01-18] MEDS ORDERED: Ondansetron ODT 4 MG TAB PO PRN (23:06)
[2019-01-18] MEDS: Piperacillin/Tazobactam 4.5 GM in Sodium Chloride 0.9% 100 ML IVPB SCH (23:47)
--- NOTE | 2019-01-19 02:24 | HP ---
PRIMARY CARE PROVIDER: Dr. Yulia Albert with [facility]. CHIEF COMPLAINT: Draining right foot wound. HISTORY OF PRESENT ILLNESS: This is a 58-year-old female, who presents to [facility] Emergency Department after the patient's home health agency noted malodorous drainage from the right heel. The patient sustained a right calcaneal fracture in November 2018, requiring open reduction and internal fixation of a displaced right calcaneal fracture on 12/01/2018. The patient received Wound Care in addition to inpatient rehabilitation as well as ongoing home health care with [facility] every other day of the week. The patient states the wound continues to drain malodorous discharge and is difficult to ambulate on the foot. The patient states she usually holds on to a wall or furniture in her home and slides to the restroom for short distances. The patient also uses a wheelchair for long distance mobilization. The patient denied any fever, chills, nausea, vomiting or diarrhea. The patient rates the pain as a 4/10, dull and aching. The patient denied taking any home medication for relief of her symptoms. In the emergency room, the patient underwent general evaluation including plain radiographic imaging showing no obvious evidence of osteomyelitis, however, large tissue destruction noted on the right calcaneus and heel. The patient received IV vancomycin and Zosyn in addition to normal saline and Zofran. The patient was referred to the Hospitalist Service for further evaluation. PAST MEDICAL HISTORY: 1. Diabetes mellitus type 2 with nephropathy. 2. History of atrial fibrillation. 3. Chronic systolic congestive heart failure with ejection fraction of 15% to 20%. 4. Ischemic cardiomyopathy with ejection fraction of 10% to 15%. 5. Hypertension. 6. Dyslipidemia. PAST SURGICAL HISTORY: 1. Status post cardiac catheterization. 2. Status post AICD placement. 3. Status post open reduction and internal fixation of right calcaneal fracture in 11/2018. CURRENT MEDICATIONS: 1. Allopurinol 100 mg p.o. daily. 2. Amiodarone 200 mg p.o. daily. 3. Aspirin 325 mg p.o. daily. 4. Lipitor 40 mg p.o. at bedtime. 5. Coreg 12.5 mg p.o. b.i.d. 6. Lasix 40 mg p.o. daily. 7. Glimepiride 4 mg p.o. daily. 8. Lisinopril 2.5 mg p.o. daily. 9. Spironolactone 25 mg p.o. daily. ALLERGIES: NO KNOWN DRUG ALLERGIES. FAMILY HISTORY: Positive for diabetes mellitus, hypertension, and coronary artery disease. SOCIAL HISTORY: The patient resides in [place], [place] with her children. Receives home health assistance with [facility] for right foot wound care. Quit smoking within the last 5 years. No current alcohol or illicit drug use. Mobilizes with a wheelchair or holding on to furniture in her home. REVIEW OF SYSTEMS: CONSTITUTIONAL: Negative for weight loss or gain, ability to conduct usual activities. SKIN: Negative for rash, itching. EYES: Negative for double vision, pain. ENT/MOUTH: Negative for nose bleeding, neck stiffness, pain, tenderness. CARDIOVASCULAR: Negative for palpitations, dyspnea on exertion, orthopnea. RESPIRATORY: Negative for shortness of breath, wheezing, cough, hemoptysis, fever or night sweats. GASTROINTESTINAL: Negative for poor appetite, abdominal pain, heartburn, nausea, vomiting, constipation, or diarrhea. GENITOURINARY: Negative for urgency, frequency, dysuria, nocturia. MUSCULOSKELETAL: Negative for pain, swelling. NEUROLOGIC/PSYCHIATRIC: Negative for anxiety, depression. ALLERGY/IMMUNOLOGIC: Negative for skin rash, bleeding tendency. Otherwise negative except as stated per HPI. PHYSICAL EXAMINATION: VITAL SIGNS: On admission, blood pressure 184/92, pulse 64, respiratory rate 18, temperature 98 degrees Fahrenheit, and O2 saturation 92% on room air. GENERAL APPEARANCE: This is a 58-year-old female, alert and oriented x3, pleasant, smiling, in no acute distress. HEENT: Pupils are equal, round, reactive to light and accommodation. Extraocular muscles are intact. No scleral icterus. No conjunctival injection. Nares are patent. OP is clear. Teeth in fair repair. NECK: Supple. No cervical adenopathy. No thyromegaly. No carotid bruits. No JVD appreciated. Cervical spine with full active and passive range of motion. No meningeal signs noted. CHEST: Lungs are clear to auscultation bilaterally. CARDIOVASCULAR: S1 and S2 with a 2/6 systolic ejection murmur in the left upper sternal border. ABDOMEN: Rounded, soft, nontender, and nondistended. Bowel sounds are positive in all 4 quadrants. There is no hepatosplenomegaly. No abdominal bruits. No rebound or guarding appreciated. EXTREMITIES: Warm and dry with poor turgor. Pulses are diminished bilaterally at the dorsalis pedis and posterior tibial arteries. Right foot with open ulceration on the right heel with malodorous drainage. Mild tenderness to palpation and erythema on the periphery aspects of the wound. NEUROLOGIC: Cranial nerves 2 through 12 are grossly intact. No focal or lateralizing signs appreciated. PERTINENT LABORATORY AND X-RAY FINDINGS: Sodium 144, potassium 4.4, chloride 105, CO2 of 33, BUN 19, creatinine 1.21, estimated GFR 55, glucose 130, and calcium 10.0. Alkaline phosphatase 171. CRP 0.50. ESR 28. CBC showed a white blood cell count of 6.7, hemoglobin 15, hematocrit 48, platelet count 177 with 56% neutrophils. Three views of the right foot dated 01/18/2019 showed diffuse bone demineralization with Lisfranc alignment. Persistent lucency of the calcaneal fracture noted with soft tissue erosion. EKG dated 01/18/2019 by my interpretation shows a sinus mechanism with heart rates in the 60s. Normal R-wave progression noted in the precordial leads. Normal axis. No acute ST-T wave changes appreciated. ASSESSMENT/PLAN: 1. Diabetic right heel ulcer. The patient will be admitted to the medical floor. Question of osteomyelitis not evident on plain radiographic imaging. Consider MRI imaging and consult General Surgery and Orthopedic Surgery for evaluation and consideration for debridement. Consult Wound Care Services for local care and wound dressing changes. Continue vancomycin 1 g IV q.12 hours with additional Zosyn 4.5 g IV q.6 hours. Wound cultures pending. Pain control with morphine sulfate 2 mg IV q.4 hours p.r.n. 2. Chronic kidney disease stage 3. Stable currently. Avoid nephrotoxic agents and limit contrast exposure. Repeat creatinine in the a.m. 3. Diabetes mellitus type 2 with nephropathy. Continue supportive management. Insulin sliding scale for reflexive coverage. ADA diet when tolerating p.o. intake. 4. Hypertension. Labile. Resume home blood pressure regimen and monitor clinical response. 5. Ischemic cardiomyopathy. Compensated currently. Continue home regimen to include amiodarone, Coreg, and Lasix. 6. Prophylaxis. SCDs while in bed. Pepcid 20 mg p.o. b.i.d. Wound care and physical therapy consultation in the a.m. 7. Code status is full. Surrogate medical decision maker is the patient's son. Job ID: [id number]
[2019-01-19] MEDS: Piperacillin/Tazobactam 4.5 GM in Sodium Chloride 0.9% 100 ML IVPB SCH ×4 (05:21→23:26)
[2019-01-19 06:04] LABS: Eosinophils 1 % (0-10); Hemoglobin 14.5 g/dL (12.0-16.0); Lymphocytes 29 % (21-51); MDiff Complete? YES; Mean Corpuscular HGB CONC 31.8 g/dL (32.0-36.0); Mean Corpuscular Hemoglobin 29.3 pg (27.0-31.0); Mean Corpuscular Volume 92.4 fL (78.0-98.0); Mean Platelet Volume 8.6 fL (7.4-10.4); Monocytes 10 % (0-10); Neutrophil 59 % (42-75); Platelet Count 161 thou/uL (130-400); Reactive Lymphocytes 1 % (0-10); Red Blood Cell (RBC) Count 4.93 mill/uL (4.20-5.40); White Blood Cell (WBC) Count 6.3 thou/uL (4.8-10.8)
[2019-01-19 06:24] LABS: Anion Gap 10 mmol/L (10-20); BUN (Urea Nitrogen) 20 mg/dL (9.8-20.1); Calc. Creatinine Clearance 91 mL/min (70-130); Calcium 9.2 mg/dL (7.8-10.44); Carbon Dioxide 28 mmol/L (22-29); Chloride 107 mmol/L (98-107); Estimated GFR-MDRD 56; Glucose 149 mg/dL (70-105); Potassium 4.1 mmol/L (3.5-5.1); Sodium 141 mmol/L (136-145)
[2019-01-19] MEDS: Spironolactone 25 MG TAB PO SCH (08:35)
[2019-01-19] MEDS: Aspirin 325 MG TAB PO SCH (08:35)
[2019-01-19] MEDS: Carvedilol 25 MG TAB PO SCH ×2 (08:35→16:32)
[2019-01-19] MEDS: Allopurinol 100 MG TAB PO SCH (08:36)
[2019-01-19] MEDS: Famotidine 20 MG TAB PO SCH ×2 (08:36→20:05)
[2019-01-19] MEDS: Vancomycin HCl 1 GM in Premix Bag 1 BAG IVPB SCH ×2 (08:36→20:06)
[2019-01-19] MEDS: Furosemide 40 MG TAB PO SCH (08:36)
[2019-01-19] MEDS: Amiodarone 200 MG TAB PO SCH (08:36)
[2019-01-19] MEDS: Lisinopril 2.5 MG TAB PO SCH (08:42)
[2019-01-19] MEDS ORDERED: Ondansetron PF 4 MG/2 ML Vial ONE (11:02)
[2019-01-19] MEDS ORDERED: PROPOFOL 200 MG/20 ML VIAL ONE (11:02)
--- NOTE | 2019-01-19 11:18 | CON ---
DATE OF CONSULTATION: 01/19/2019 CHIEF COMPLAINT: Right heel wound. HISTORY OF PRESENT ILLNESS: Ms. Plaza is a 58-year-old female, who presented to the emergency department yesterday after she had increased drainage and worsening of a wound over her posterior heel. The patient, I have seen in the past. I treated her in November for a calcaneal fracture. She had a tuberosity fracture that was treated operatively. The patient healed and was at [facility] and she reports she was doing well. After leaving [facility], she continued wearing her boot. She feels this has been rubbing her heel and has caused an ulceration. She has now developed a large ulceration with infection. The patient has been admitted to the hospital. She has been given vancomycin and Zosyn. She has been stable since arrival. Orthopedics was consulted regarding her heel infection. PAST MEDICAL HISTORY: Diabetes, atrial fibrillation, CHF, ischemic cardiomyopathy, hypertension, and hyperlipidemia. PAST SURGICAL HISTORY: Cardiac catheterization with history of AICD placement, previous open reduction of calcaneal fracture as per HPI. ALLERGIES: NO KNOWN DRUG ALLERGIES. FAMILY MEDICAL HISTORY: Positive for hypertension, diabetes, and coronary artery disease. SOCIAL HISTORY: The patient has been receiving home health care, but is living independently, otherwise. She denies active smoking or alcohol use. REVIEW OF SYSTEMS: Positive for pain in the heel. Otherwise, negative 10-point review of systems. PHYSICAL EXAMINATION: VITAL SIGNS: Temperature is 97.8, pulse is 64, respiratory rate is 16, and blood pressure is 170/94. GENERAL: She is lying supine. She is alert, no apparent distress. HEENT: Normocephalic, atraumatic. RESPIRATORY: Breathing comfortably. ABDOMEN: Soft, nontender, and nondistended. MUSCULOSKELETAL: The patient's right foot has a large 4 cm x 4 cm ulceration of the posterior heel. This is full-thickness slightly down to the bony level. There is purulent drainage. There is a foul smell. This appears to be consistent with pressure ulceration. IMPRESSION: Decubitus type ulcer of the posterior heel with history of recent calcaneal fracture. PLAN: At this point, the patient is going to need operative debridement of her wound. I will plan for debridement today. We will also remove the underlying screw fixation as the calcaneal fracture appears to be healed on recent x-ray. I would like to remove any foreign body. She will likely need a wound VAC. She has a serious problem that could result in amputation if we cannot make progress and healing this heel wound. She needs to strictly have no pressure on her heel. She will need antibiotics until her infection clears. We will continue to follow. N.p.o. until surgery. Job ID: [id number]
[2019-01-19] MEDS ORDERED: Neomycin-Polymyxin 1 ML AMP ONE (12:00)
[2019-01-19] MEDS ORDERED: Fentanyl 100 MCG/2 ML VIAL ONE ×2 (13:29→15:10)
[2019-01-19] MEDS ORDERED: Labetalol HCl 100 MG/20 ML VIAL ONE (14:47)
[2019-01-19] MEDS ORDERED: Ondansetron HCl/PF 4 MG/2 ML Vial IVP PRN (15:09)
--- NOTE | 2019-01-19 15:26 | OP ---
DATE OF PROCEDURE: 01/19/2019 OPERATION PERFORMED: Irrigation and debridement of right heel ulcer with hardware removal from the calcaneus. PREOPERATIVE DIAGNOSIS: Full-thickness skin loss from decubitus heel ulcer with history of calcaneal fracture. POSTOPERATIVE DIAGNOSIS: Full-thickness skin loss from decubitus heel ulcer with history of calcaneal fracture. COMPLICATIONS: None. ESTIMATED BLOOD LOSS: Minimal. ANESTHESIA: General. INDICATIONS: Ms. Plaza is a 58-year-old female, who has been living in the nursing facility. Approximately 2 months ago, she had a calcaneal fracture, which was treated with percutaneous screw fixation to heel. However, she developed a heel ulceration on the posterior skin. She has been indicated for debridement of her ulcer with hardware removal. She will likely have a prolonged course of recovery with this heel ulceration. Risks have been reviewed, which do include further infection, nerve or vascular injury, bleeding, need for further surgery including amputation and others. DESCRIPTION OF PROCEDURE: Ms. Plaza was identified in the preoperative holding area. Her correct extremity was marked. She was carried to the operating room. She was positioned supine. General anesthesia was induced. A multidisciplinary time-out was performed. The right lower extremity was prepped and draped in sterile fashion. We began the procedure with sharp dissection around the ulceration. We removed a wet eschar. There was purulent material deep to the eschar. This was debrided down to the underlying subcutaneous tissue and fascia. There was no obvious exposed bone. We debrided with a curette as well as a rongeur. We thoroughly irrigated with copious lavage. At this point, we removed the patient's 2 screws through small incisions at the base of the Achilles tendon. Again, we irrigated. We then placed a damp to dry dressing. The patient was taken to the recovery room in good condition at this point without complication. Job ID: [id number]
[2019-01-19] MEDS: Acetaminophen 500 MG TAB PO PRN (16:30)
[2019-01-19] MEDS: Morphine 2 MG/ML SYRINGE SLOW IVP PRN (16:30)
[2019-01-19] MEDS: Atorvastatin Calcium 40 MG TAB PO SCH (20:05)
[2019-01-19] MEDS: Acetaminophen/Codeine 30-300mg Tablet PO PRN (21:44)
[2019-01-20] MEDS: Piperacillin/Tazobactam 4.5 GM in Sodium Chloride 0.9% 100 ML IVPB SCH ×4 (05:25→23:28)
[2019-01-20] MEDS: Lisinopril 2.5 MG TAB PO SCH (08:08)
[2019-01-20] MEDS: Allopurinol 100 MG TAB PO SCH (08:08)
[2019-01-20] MEDS: Famotidine 20 MG TAB PO SCH ×2 (08:09→20:13)
[2019-01-20] MEDS: Aspirin 325 MG TAB PO SCH (08:09)
[2019-01-20] MEDS: Carvedilol 25 MG TAB PO SCH ×2 (08:09→17:49)
[2019-01-20] MEDS: Spironolactone 25 MG TAB PO SCH (08:09)
[2019-01-20] MEDS: Furosemide 40 MG TAB PO SCH (08:09)
[2019-01-20] MEDS: Amiodarone 200 MG TAB PO SCH (08:09)
[2019-01-20] MEDS: Vancomycin HCl 1 GM in Premix Bag 1 BAG IVPB SCH ×2 (08:09→20:14)
[2019-01-20] MEDS: Acetaminophen/Codeine 30-300mg Tablet PO PRN ×2 (11:59→18:37)
--- NOTE | 2019-01-20 15:02 | PDOC.HOSPP ---
- Subjective Encounter Date: 01/19/19 Encounter Time: 15:00 Subjective: pt post op, has some pain to her right foot. - Objective Vital Signs & Weight: Vital Signs (12 hours) Temp Pulse Resp BP Pulse Ox 01/20/19 08:10 92 L 01/20/19 07:28 97.8 F 60 18 135/78 92 L 01/20/19 04:15 97.9 F 60 18 140/84 94 L Weight Admit Weight 249 lb 1.957 oz Weight 249 lb 1.957 oz I&O: 01/19/19 01/20/19 01/21/19 06:59 06:59 06:59 Intake Total 650 1750 Balance 650 1750 Result Diagrams: 01/19/19 05:26 01/19/19 05:26 Additional Labs: Accuchecks 01/20/19 01/20/19 01/19/19 11:11 04:21 19:13 POC Glucose 172 H 140 H 146 H 01/19/19 16:10 POC Glucose 117 H Hospitalist ROS - Review of Systems Cardiovascular: denies: chest pain, palpitations, orthopnea, paroxysmal noc. dyspnea, edema, light headedness, other Gastrointestinal: denies: nausea, vomiting, abdominal pain, diarrhea, constipation, melena, hematochezia, other Musculoskeletal: reports: foot pain - Medication Medications: Active Medications Generic Name Dose Route Start Last Admin Trade Name Freq PRN Reason Stop Dose Admin Acetaminophen 1,000 mg 01/18/19 23:06 01/19/19 16:30 Tylenol PO 1,000 mg Q6H PRN Administration Mild Pain (1-3) Acetaminophen/Codeine Phosphate 1 tab 01/19/19 16:30 01/20/19 11:59 Tylenol #3 PO 1 tab Q6H PRN Administration Pain 4-6 Allopurinol 100 mg 01/19/19 09:00 01/20/19 08:08 Zyloprim PO 100 mg DAILY [facility] Administration Amiodarone HCl 200 mg 01/19/19 09:00 01/20/19 08:09 Cordarone PO 200 mg DAILY [facility] Administration Aspirin 325 mg 01/19/19 08:00 01/20/19 08:09 Aspirin PO 325 mg QAM-WM [facility] Administration Atorvastatin Calcium 40 mg 01/19/19 21:00 01/19/19 20:05 Lipitor PO 40 mg HS [facility] Administration Carvedilol 12.5 mg 01/19/19 08:00 01/20/19 08:09 Coreg PO 12.5 mg BID-WM [facility] Administration Famotidine 20 mg 01/19/19 09:00 01/20/19 08:09 Pepcid PO 20 mg BID [facility] Administration Furosemide 40 mg 01/19/19 09:00 01/20/19 08:09 Lasix PO 40 mg DAILY [facility] Administration Piperacillin Sod/Tazobactam 100 mls @ 200 mls/hr 01/18/19 23:59 01/20/19 11: 54 Sod 4.5 gm/ Sodium Chloride IVPB Not Given Q6HR [facility] Vancomycin HCl 1 gm/ Device 200 mls @ 200 mls/hr 01/19/19 09:00 01/20/19 08: 09 IVPB 200 mls Q12HR [facility] Administration Lisinopril 2.5 mg 01/19/19 09:00 01/20/19 08:08 Zestril PO 2.5 mg DAILY [facility] Administration Morphine Sulfate 2 mg 01/18/19 23:07 01/19/19 16:30 Morphine SLOW IVP 2 mg Q4H PRN Administration Moderate to Severe Pain (6-10) Ondansetron HCl 4 mg 01/18/19 23:06 01/19/19 22:10 Zofran Odt PO 4 mg Q6H PRN Administration Nausea/Vomiting Spironolactone 25 mg 01/19/19 08:00 01/20/19 08:09 Aldactone PO 25 mg QAM-WM [facility] Administration - Exam Neck: negative: supple, symmetric, no JVD, no thyromegaly, no lymphadenopathy, no carotid bruit, JVD Heart: negative: RRR, no murmur, no gallops, no rubs, normal peripheral pulses, irregular, diminshed peripheral pulses, murmur present, II/IV, III/IV Respiratory: negative: CTAB, no wheezes, no rales, no ronchi, normal chest expansion, no tachypnea, normal percussion, rales, rhonchi, tachypneic, wheezes Gastrointestinal: negative: soft, non-tender, non-distended, normal bowel sounds , no palpable masses, no hepatomegaly, no splenomegaly, no bruit, no guarding, no rigidity, tender to palpation, distended, diminished bowl sounds, voluntary guarding Extremities - other findings: right foot pain Hosp A/P (1) Hypertension Code(s): I10 - ESSENTIAL (PRIMARY) HYPERTENSION Status: Chronic Qualifiers: (2) Hypothyroidism Code(s): E03.9 - HYPOTHYROIDISM, UNSPECIFIED Status: Chronic (3) Obesity (BMI 30-39.9) Code(s): E66.9 - OBESITY, UNSPECIFIED Status: Chronic - Plan will continue abx, ID consulted. pt s/p irrigation and debridement and hardware removal.
--- NOTE | 2019-01-20 15:05 | PDOC.HOSPP ---
- Subjective Encounter Date: 01/20/19 Encounter Time: 10:30 Subjective: pt up in bed wants her IV out, explained to her the importance of having her iv so that she can get abx. - Objective Vital Signs & Weight: Vital Signs (12 hours) Temp Pulse Resp BP Pulse Ox 01/20/19 08:10 92 L 01/20/19 07:28 97.8 F 60 18 135/78 92 L 01/20/19 04:15 97.9 F 60 18 140/84 94 L Weight Admit Weight 249 lb 1.957 oz Weight 249 lb 1.957 oz I&O: 01/19/19 01/20/19 01/21/19 06:59 06:59 06:59 Intake Total 650 1750 Balance 650 1750 Result Diagrams: 01/19/19 05:26 01/19/19 05:26 Additional Labs: Accuchecks 01/20/19 01/20/19 01/19/19 11:11 04:21 19:13 POC Glucose 172 H 140 H 146 H 01/19/19 16:10 POC Glucose 117 H Hospitalist ROS - Review of Systems Cardiovascular: denies: chest pain, palpitations, orthopnea, paroxysmal noc. dyspnea, edema, light headedness, other Gastrointestinal: denies: nausea, vomiting, abdominal pain, diarrhea, constipation, melena, hematochezia, other Genitourinary: denies: dysuria, frequency, incontinence, hematuria, retention, other - Medication Medications: Active Medications Generic Name Dose Route Start Last Admin Trade Name Freq PRN Reason Stop Dose Admin Acetaminophen 1,000 mg 01/18/19 23:06 01/19/19 16:30 Tylenol PO 1,000 mg Q6H PRN Administration Mild Pain (1-3) Acetaminophen/Codeine Phosphate 1 tab 01/19/19 16:30 01/20/19 11:59 Tylenol #3 PO 1 tab Q6H PRN Administration Pain 4-6 Allopurinol 100 mg 01/19/19 09:00 01/20/19 08:08 Zyloprim PO 100 mg DAILY [facility] Administration Amiodarone HCl 200 mg 01/19/19 09:00 01/20/19 08:09 Cordarone PO 200 mg DAILY [facility] Administration Aspirin 325 mg 01/19/19 08:00 01/20/19 08:09 Aspirin PO 325 mg QAM-WM [facility] Administration Atorvastatin Calcium 40 mg 01/19/19 21:00 01/19/19 20:05 Lipitor PO 40 mg HS [facility] Administration Carvedilol 12.5 mg 01/19/19 08:00 01/20/19 08:09 Coreg PO 12.5 mg BID- [facility] Administration Famotidine 20 mg 01/19/19 09:00 01/20/19 08:09 Pepcid PO 20 mg BID [facility] Administration Furosemide 40 mg 01/19/19 09:00 01/20/19 08:09 Lasix PO 40 mg DAILY [facility] Administration Piperacillin Sod/Tazobactam 100 mls @ 200 mls/hr 01/18/19 23:59 01/20/19 11: 54 Sod 4.5 gm/ Sodium Chloride IVPB Not Given Q6HR [facility] Vancomycin HCl 1 gm/ Device 200 mls @ 200 mls/hr 01/19/19 09:00 01/20/19 08: 09 IVPB 200 mls Q12HR [facility] Administration Lisinopril 2.5 mg 01/19/19 09:00 01/20/19 08:08 Zestril PO 2.5 mg DAILY [facility] Administration Morphine Sulfate 2 mg 01/18/19 23:07 01/19/19 16:30 Morphine SLOW IVP 2 mg Q4H PRN Administration Moderate to Severe Pain (6-10) Ondansetron HCl 4 mg 01/18/19 23:06 01/19/19 22:10 Zofran Odt PO 4 mg Q6H PRN Administration Nausea/Vomiting Spironolactone 25 mg 01/19/19 08:00 01/20/19 08:09 Aldactone PO 25 mg [facility] Administration - Exam Neck: negative: supple, symmetric, no JVD, no thyromegaly, no lymphadenopathy, no carotid bruit, JVD Heart: negative: RRR, no murmur, no gallops, no rubs, normal peripheral pulses, irregular, diminshed peripheral pulses, murmur present, II/IV, III/IV Respiratory: negative: CTAB, no wheezes, no rales, no ronchi, normal chest expansion, no tachypnea, normal percussion, rales, rhonchi, tachypneic, wheezes Gastrointestinal: negative: soft, non-tender, non-distended, normal bowel sounds , no palpable masses, no hepatomegaly, no splenomegaly, no bruit, no guarding, no rigidity, tender to palpation, distended, diminished bowl sounds, voluntary guarding Extremities - other findings: right foot wrapped and wound vac in place Hosp A/P (1) Hypertension Code(s): I10 - ESSENTIAL (PRIMARY) HYPERTENSION Status: Chronic Qualifiers: (2) Hypothyroidism Code(s): E03.9 - HYPOTHYROIDISM, UNSPECIFIED Status: Chronic (3) Obesity (BMI 30-39.9) Code(s): E66.9 - OBESITY, UNSPECIFIED Status: Chronic - Plan will continue abx, ID consulted. pt s/p irrigation and debridement and hardware removal. 01/20 will continue abx, OR cx indicates gram negative. ID consulted. pt has agreed to have IV back in.
--- NOTE | 2019-01-20 19:04 | CON ---
DATE OF CONSULTATION: 01/20/2019 REASON FOR CONSULT: Changes in the appearance of the wound following ORIF of the right heel. HISTORY OF PRESENT ILLNESS: A 58-year-old, who has a nonischemic cardiomyopathy with EF in the teens, has an AICD in place and has had numerous admissions for decompensated CHF in the past, but more recently she fractured her right heel accidentally after falling from her bed. Dr. Cantu did an operative intervention on December 01. The operative report was reviewed and the incision was made over the posterior aspect of the heel near the Achilles tendon. Dissection carried out through this subcutaneous tissue to the tuberosity of the calcaneus and the displaced tuberosity fracture was found. Fracture was irrigated and bony edges were cleared and the fracture was reduced back into anatomic position and a clamp was placed and then two screws were threaded across the fracture site. Under intraoperative x-ray, area was irrigated and closed in layers. The patient was sent over to the hospital now because the nurse found that there was changes in the wound characteristics that were worrisome with foul odor and some changes with drainage and lack of improvement of the appearance. Did not have any headaches. No respiratory symptoms except for mild cough. No abdominal pain. No genitourinary symptoms or diarrhea. No bleeding. No other joint symptoms. No neurological symptoms. PAST MEDICAL HISTORY: Nonischemic cardiomyopathy, atrial fibrillation, AICD placement, type 2 diabetes, hyperlipidemia, hypertension, and recent ORIF of the right heel. SOCIAL HISTORY: She quit smoking recently. Drinks occasionally. ALLERGIES: NONE. SOCIAL HISTORY: Lives in [place]. CURRENT MEDICATION LIST: 1. Tylenol. 2. Codeine. 3. Zyloprim. 4. Cordarone. 5. Aspirin. 6. Lipitor. 7. Coreg. 8. Dextrose. 9. Pepcid. 10. Lasix. 11. Glucagon. 12. Apresoline. 13. Insulin. 14. Zestril. 15. Morphine. 16. Zofran. 17. Zosyn. 18. Vancomycin. PHYSICAL EXAMINATION: VITAL SIGNS: T-max 98.3, blood pressure 130/70, pulse 60, respirations 18, and O2 saturation 92. SKIN: Shows the area of ulceration with necrotic tissue at the base and I do not have a post debridement picture. She has an ICD with no abnormalities there and she is voiding in the toilet or the diaper. No lymphadenopathy. HEENT: Ocular movements conjugate. Oral cavity with no remarkable findings. NECK: Supple. No jugular vein distention. LUNGS: Symmetric clear breath sounds. HEART: S1 and S2. Regular rate without murmurs. ABDOMEN: Soft, not distended or tender. No ascites. No bladder distention. EXTREMITIES: No joint inflammatory activity. Pulses are 1+ in popliteal and dorsalis pedis. Cap refill is normal. NEURO: Nonfocal. LABORATORY DATA: White cell count 6.7, hemoglobin 15, and platelets 177 with a normal differential. Creatinine 1.21. Her baseline creatinine the lowest is 1.09 in September. Liver profile with alkaline phosphatase 171, but transaminases and bilirubin normal. CRP less than 0.5. The patient had an x-ray two days ago of the foot, which showed lucency involving the calcaneal fractures, soft tissue erosion. The operative report from the debridement by Dr. Cantu was read and the procedure initiated with a sharp dissection around the ulceration. The eschar was removed. There was purulent material deep to the eschar. This was debrided down to the underlying subcutaneous tissue and fascia. No exposed bone was noted. The area was thoroughly irrigated and cultures, we have a gram-negative emely, which appears to be Citrobacter. It is broadly susceptible organism. ASSESSMENT AND PLAN: 1. Nonischemic cardiomyopathy with automatic implantable cardioverter-defibrillator in place. 2. Type 2 diabetes. 3. Recent heel fracture, which was managed with open reduction and internal fixation and now she has developed poor progression of the wound with necrosis. The area was I and D'd by Dr. Cantu, it did not seem to penetrate into the bone area. There is no bone exposure. The vascular supply seems to be adequate for healing and it is not clear, the reason for the necrosis, if was due to pressure or other reasons, pressure is the more likely scenario. She has a higher risk of complications because of the underlying diabetes. The organism isolated seems to be ferrer susceptible and she would be eligible for transition to oral quinolone for discharge planning plus Flagyl. The duration of therapy would be not more than 2 weeks, but I would extend it depending on the clinical progression of the wound appearance. Basically, our goal is to developed good granulation tissue with negative pressure dressing. Evidently, she is at risk for progression of the infection towards the bone and development of osteomyelitis, so this will have to be monitored carefully. Imaging of the area would be of difficult interpretation because of the underlying recent fracture. She would not be eligible for an MRI because of the automatic implantable cardioverter-defibrillator. So, I think we are going to have to treat this empirically assuming less complicated process with limited to the subcutaneous tissues. Job ID: [id number]
[2019-01-20] MEDS: Atorvastatin Calcium 40 MG TAB PO SCH (20:14)
[2019-01-20] MEDS: Morphine 2 MG/ML SYRINGE SLOW IVP PRN (20:17)
[2019-01-21] MEDS: Piperacillin/Tazobactam 4.5 GM in Sodium Chloride 0.9% 100 ML IVPB SCH ×3 (06:00→17:16)
[2019-01-21] MEDS: Acetaminophen/Codeine 30-300mg Tablet PO PRN ×2 (06:01→17:20)
[2019-01-21] MEDS: Lisinopril 2.5 MG TAB PO SCH (08:06)
[2019-01-21] MEDS: Carvedilol 25 MG TAB PO SCH ×2 (08:06→17:14)
[2019-01-21] MEDS: Aspirin 325 MG TAB PO SCH (08:06)
[2019-01-21] MEDS: Amiodarone 200 MG TAB PO SCH (08:06)
[2019-01-21] MEDS: Allopurinol 100 MG TAB PO SCH (08:06)
[2019-01-21] MEDS: Spironolactone 25 MG TAB PO SCH (08:06)
[2019-01-21] MEDS: Furosemide 40 MG TAB PO SCH (08:07)
[2019-01-21] MEDS: Famotidine 20 MG TAB PO SCH ×2 (08:07→20:17)
[2019-01-21] MEDS: Vancomycin HCl 1 GM in Premix Bag 1 BAG IVPB SCH ×2 (08:07→20:16)
[2019-01-21 09:03] LABS: #Eosinphils 0.4 thou/uL (0.0-0.7); #Lymphocytes 1.8 thou/uL (1.20-3.40); #Monocytes 0.6 thou/uL (0.11-0.59); #Neutrophils 4.1 thou/uL (1.40-6.50); %Basophils 0.7 % (0.0-1.0); %Eosinophils 5.5 % (0.0-10.0); %Lymphocytes 25.5 % (21.0-51.0); %Monocytes 9.1 % (0.0-10.0); %Neutrophils 59.2 % (42.0-75.0); Hemoglobin 13.5 g/dL (12.0-16.0); Mean Corpuscular HGB CONC 32.2 g/dL (32.0-36.0); Mean Corpuscular Hemoglobin 29.8 pg (27.0-31.0); Mean Corpuscular Volume 92.5 fL (78.0-98.0); Mean Platelet Volume 8.1 fL (7.4-10.4); Platelet Count 151 thou/uL (130-400); RBC Distribution Width 13.7 % (11.5-14.5); Red Blood Cell (RBC) Count 4.51 mill/uL (4.20-5.40); White Blood Cell (WBC) Count 6.9 thou/uL (4.8-10.8)
[2019-01-21 09:21] LABS: Anion Gap 9 mmol/L (10-20); BUN (Urea Nitrogen) 28 mg/dL (9.8-20.1); Calc. Creatinine Clearance 71 mL/min (70-130); Calcium 9.2 mg/dL (7.8-10.44); Carbon Dioxide 34 mmol/L (22-29); Chloride 103 mmol/L (98-107); Estimated GFR-MDRD 42; Glucose 121 mg/dL (70-105); Potassium 4.1 mmol/L (3.5-5.1); Sodium 142 mmol/L (136-145)
[2019-01-21] MEDS: Morphine 2 MG/ML SYRINGE SLOW IVP PRN (10:03)
--- NOTE | 2019-01-21 11:20 | PQF ---
PIPE ESTRADACARLOS EDUARDO [id number] CLINICAL DOCUMENTATION IMPROVEMENT CLARIFICATION FORM: ICD-10 Updated PLEASE DO AN ADDENDUM TO THE PROGRESS NOTE WITH ANY DOCUMENTATION UPDATES OR ADDITIONS AND CARRY THROUGH TO DC SUMMARY. THANK YOU. DATE: 01/21/19 ATTN: Dr. Wolf Please exercise your independent, professional judgment in responding to the clarification form. Clinical indicators are provided on the bottom of this form for your review Please check appropriate box(s): [ ] Full thickness skin loss from decubitus heel ulcer due to post op infection a complication of current/recent surgery [ ] Full thickness skin loss from decubitus heel ulcer not a complication of current/recent surgery due to Diabetes type 2 [ ] Full thickness skin loss from decubitus heel ulcer due to orthopedic hardware(screw) [ ] Full thickness skin loss from decubitus heel ulcer due to [ ] Other diagnosis [x ] Unable to determine In addition, please specify: Present on Admission (POA): [ x] Yes [ ] No [ ] Unable to determine CLINICAL INDICATORS - SIGNS / SYMPTOMS / LABS / RESULTS AND LOCATION IN MR Right foot x-ray results--> 01/18 Soft tissue erosion Heel cultures--> Cirtobacter koseri 01/19 per lab Infection--> 01/19 Op note(Pepe): "There was purulent material deep to the eschar" RISK FACTORS / RESULTS AND LOCATION IN MR Recent surgery--> "ORIF from right calcaneus fracture 12/01/18" per H&P(Enrrique) Poor healing factors --> "Hx of Type 2 diabetes; wound with necrosis likely from pressure" per 01/20 ID(Jamel) 01/19 Pepe: "Decubitus type ulcer of the posterior heel with history of recent calcaneal fracture" "Diabetic right heel ulcer H&P" -(Enrrique) TREATMENT / RESULTS AND LOCATION IN MR Antibiotics--> VANC 1 GM IV Q12H; ZOSYN 4.5 G IV Q6H 01/18 to date per orders ID consult 01/19 per orders Surgical procedure--> Irrigation and debridement 01/19 (Pepe) per Op note 01/18 Wound care orders (This form is maintained as a part of the permanent medical record) 2014 [employer] All Rights Reserved Ayla Schreiber RN, BSN, CCDS [email or web address]
[2019-01-21] MEDS: Acetaminophen 500 MG TAB PO PRN (20:17)
[2019-01-21] MEDS: Atorvastatin Calcium 40 MG TAB PO SCH (20:17)
[2019-01-22] MEDS: Piperacillin/Tazobactam 4.5 GM in Sodium Chloride 0.9% 100 ML IVPB SCH ×2 (00:10→05:32)
[2019-01-22] MEDS: Acetaminophen/Codeine 30-300mg Tablet PO PRN ×2 (00:11→11:15)
[2019-01-22] MEDS: Morphine 2 MG/ML SYRINGE SLOW IVP PRN ×2 (05:33→09:42)
[2019-01-22 08:10] VITALS: BP 175/90; TEMP 98
[2019-01-22] MEDS: Allopurinol 100 MG TAB PO SCH (08:27)
[2019-01-22] MEDS: Aspirin 325 MG TAB PO SCH (08:27)
[2019-01-22] MEDS: Lisinopril 2.5 MG TAB PO SCH (08:27)
[2019-01-22] MEDS: Amiodarone 200 MG TAB PO SCH (08:27)
[2019-01-22] MEDS: Furosemide 40 MG TAB PO SCH (08:27)
[2019-01-22] MEDS: Famotidine 20 MG TAB PO SCH (08:27)
[2019-01-22] MEDS: Spironolactone 25 MG TAB PO SCH (08:27)
[2019-01-22] MEDS: Carvedilol 25 MG TAB PO SCH (08:28)
[2019-01-22] MEDS: Vancomycin HCl 1 GM in Premix Bag 1 BAG IVPB SCH (08:29)
--- NOTE | 2019-01-22 09:01 | PDOC.HOSPP ---
- Subjective Encounter Date: 01/21/19 Encounter Time: 10:00 Subjective: pt up in bed no complains - Objective Vital Signs & Weight: Vital Signs (12 hours) Temp Pulse Resp BP Pulse Ox 01/22/19 08:27 61 01/22/19 08:00 98.0 F 61 16 175/90 H 95 Weight Admit Weight 249 lb 1.957 oz Weight 249 lb 1.957 oz I&O: 01/21/19 01/22/19 01/23/19 06:59 06:59 06:59 Intake Total 1620 1510 Balance 1620 1510 Result Diagrams: 01/21/19 08:44 01/21/19 08:44 Additional Labs: Accuchecks 01/22/19 01/21/19 01/21/19 04:14 19:16 15:43 POC Glucose 109 244 H 181 H 01/21/19 11:28 POC Glucose 193 H Hospitalist ROS - Review of Systems Cardiovascular: denies: chest pain, palpitations, orthopnea, paroxysmal noc. dyspnea, edema, light headedness, other Gastrointestinal: denies: nausea, vomiting, abdominal pain, diarrhea, constipation, melena, hematochezia, other Genitourinary: denies: dysuria, frequency, incontinence, hematuria, retention, other - Medication Medications: Active Medications Generic Name Dose Route Start Last Admin Trade Name Freq PRN Reason Stop Dose Admin Acetaminophen 1,000 mg 01/18/19 23:06 01/21/19 20:17 Tylenol PO 1,000 mg Q6H PRN Administration Mild Pain (1-3) Acetaminophen/Codeine Phosphate 1 tab 01/19/19 16:30 01/22/19 00:11 Tylenol #3 PO 1 tab Q6H PRN Administration Pain 4-6 Allopurinol 100 mg 01/19/19 09:00 01/22/19 08:27 Zyloprim PO 100 mg DAILY [facility] Administration Amiodarone HCl 200 mg 01/19/19 09:00 01/22/19 08:27 Cordarone PO 200 mg DAILY [facility] Administration Aspirin 325 mg 01/19/19 08:00 01/22/19 08:27 Aspirin PO 325 mg QAM-WM [facility] Administration Atorvastatin Calcium 40 mg 01/19/19 21:00 01/21/19 20:17 Lipitor PO 40 mg HS [facility] Administration Carvedilol 12.5 mg 01/19/19 08:00 01/22/19 08:28 Coreg PO 12.5 mg BID-WM [facility] Administration Famotidine 20 mg 01/19/19 09:00 01/22/19 08:27 Pepcid PO 20 mg BID [facility] Administration Furosemide 40 mg 01/19/19 09:00 01/22/19 08:27 Lasix PO 40 mg DAILY [facility] Administration Insulin Human Lispro 0 units 01/18/19 23:06 01/21/19 12:33 Humalog SC 2 unit .MILD SLIDING SCALE PRN Administration Mild Correctional Scale Lisinopril 2.5 mg 01/19/19 09:00 01/22/19 08:27 Zestril PO 2.5 mg DAILY [facility] Administration Morphine Sulfate 2 mg 01/18/19 23:07 01/22/19 05:33 Morphine SLOW IVP 2 mg Q4H PRN Administration Moderate to Severe Pain (6-10) Ondansetron HCl 4 mg 01/18/19 23:06 01/19/19 22:10 Zofran Odt PO 4 mg Q6H PRN Administration Nausea/Vomiting Spironolactone 25 mg 01/19/19 08:00 01/22/19 08:27 Aldactone PO 25 mg QAM-WM [facility] Administration - Exam Neck: negative: supple, symmetric, no JVD, no thyromegaly, no lymphadenopathy, no carotid bruit, JVD Heart: negative: RRR, no murmur, no gallops, no rubs, normal peripheral pulses, irregular, diminshed peripheral pulses, murmur present, II/IV, III/IV Respiratory: negative: CTAB, no wheezes, no rales, no ronchi, normal chest expansion, no tachypnea, normal percussion, rales, rhonchi, tachypneic, wheezes Hosp A/P (1) Hypertension Code(s): I10 - ESSENTIAL (PRIMARY) HYPERTENSION Status: Chronic Qualifiers: (2) Hypothyroidism Code(s): E03.9 - HYPOTHYROIDISM, UNSPECIFIED Status: Chronic (3) Obesity (BMI 30-39.9) Code(s): E66.9 - OBESITY, UNSPECIFIED Status: Chronic - Plan will continue abx, ID consulted. pt s/p irrigation and debridement and hardware removal. 01/20 will continue abx, OR cx indicates gram negative. ID consulted. pt has agreed to have IV back in. 01/21 will change abx to oral per cx and add flagyl per id recommendation. if ok with surgery possible discharge home vs snf
[2019-01-22 11:29] LABS: Anion Gap 10 mmol/L (10-20); BUN (Urea Nitrogen) 22 mg/dL (9.8-20.1); Calc. Creatinine Clearance 88 mL/min (70-130); Calcium 9.2 mg/dL (7.8-10.44); Carbon Dioxide 32 mmol/L (22-29); Chloride 102 mmol/L (98-107); Estimated GFR-MDRD 54; Glucose 166 mg/dL (70-105); Potassium 3.6 mmol/L (3.5-5.1); Sodium 140 mmol/L (136-145)
--- NOTE | 2019-01-22 11:51 | PRG ---
DATE OF SERVICE: 01/22/2019 SUBJECTIVE: Still bothered by the pain in the right heel area. No respiratory symptoms or abdominal pain. No diarrhea. Urinating without difficulty. OBJECTIVE: VITAL SIGNS: Has been afebrile. Other vital signs with some elevation of systolic blood pressure. GENERAL: Awake, alert, and oriented. LUNGS: Symmetric. Clear breath sounds. HEART: S1 and S2. Regular rate. ABDOMEN: Soft. Not distended or tender. EXTREMITIES: Right foot with negative pressure dressing and protective footwear to offload the heel area. LABORATORY DATA: White cell count 6.9, hemoglobin 13.5, platelets 151. Creatinine is a little bit up to 1.55. Currently, on levofloxacin and metronidazole. Citrobacter koseri which was pansensitive has been retrieved in all 3 different samples. ASSESSMENT AND DISCUSSION: Type 2 diabetes, cardiomyopathy with automatic implantable cardioverter-defibrillator, and heel fracture with infection, but no osteomyelitis, status post I and D. Vascular supply seems to be adequate. We will switch her to oral and continue her oral Levaquin and oral Flagyl for about 2 to 3 weeks. Endpoint will be improvement of granulation tissue. Recheck QT before discharge to make sure that it did not change much after initiation of quinolone since she is on amiodarone. Job ID: [id number]
--- NOTE | 2019-01-22 13:53 | PDOC.EVN ---
Event Note - Event Note Event Note: i have discussed with pt that she will need to follow up with her primary care for ekg and i have also called her son pravin and notified him. i also told him she will need follow up with infectious disease and her surgeon.
[2019-01-22] MEDS ORDERED: metroNIDAZOLE 500 MG in Premix Bag 1 BAG IVPB SCH (14:00)
--- NOTE | 2019-01-22 19:21 | DIS ---
DATE OF ADMISSION: 01/18/2019 DATE OF DISCHARGE: 01/22/2019 DISCHARGE DIAGNOSIS: Diabetic right heel ulcer, status post I and D and removal of hardware from the right foot done on 01/19, and irrigation and debridement of the right heel ulcer with hardware removal from the calcaneus. HOSPITAL COURSE: The patient's culture from the OR indicated Citrobacter koseri, which was pansensitive. Infectious Disease also was consulted. The patient was then discharged home with Levaquin and Flagyl. Her QTc is around 478 on discharge. She is currently on amiodarone; however, we did discuss this with Infectious Disease, who stated that it had better penetration compared to cephalosporin. I will give a recommendation and I will write in my discharge notes that the patient is to follow up with her primary next week and check her QTc and keep a close eye on it. HOME MEDICATIONS: She is going to be on: 1. Lisinopril daily. 2. Atorvastatin 40 mg at bedtime. 3. Amiodarone 200 mg daily. 4. Glimepiride 4 mg daily. 5. Lasix 40 mg daily. 6. Coreg 12.5 b.i.d. 7. Aspirin 325 daily. 8. Aldactone 25 mg daily. 9. Flagyl 500 mg q.8 for 2 weeks. 10. Levofloxacin 500 mg for 2 weeks. PHYSICAL EXAMINATION: VITAL SIGNS: Temperature of 98.0, pulse 61, respirations 16, 95% on room air, blood pressure 127/68. GENERAL: She is awake, alert, and oriented x3. Does not appear in any distress. CV: S1 and S2 present. No murmurs, rubs, or gallops. ABDOMEN: Soft and nontender. Bowel sounds are present x2. Again, she will be discharged and she will follow up with her primary and also with Dr. Mccullough and also with her orthopedic surgeon. She also has a wound VAC, which she will go home with and [facility] has been set up for this patient. Job ID: [id number]
--- NOTE | 2019-01-24 16:24 | EKG ---
Test Reason : Blood Pressure : / mmHG Vent. Rate : 060 BPM Atrial Rate : 060 BPM P-R Int : 228 ms QRS Dur : 118 ms QT Int : 498 ms P-R-T Axes : 058 -06 095 degrees QTc Int : 498 ms Atrial-paced rhythm with prolonged AV conduction Non-specific intra-ventricular conduction delay Nonspecific ST and T wave abnormality Prolonged QT Abnormal ECG When compared with ECG of 18-JAN-2019 16:51, (Unconfirmed) Electronic atrial pacemaker has replaced Sinus rhythm QRS duration has increased Confirmed by DR. Mindy DORAN ([id number]) on 01/24/2019 4:24:04 PM Referred By: FER Confirmed By:DR. Mindy DORAN
--- NOTE | 2019-01-26 08:34 | PQF ---
PIPE ESTRADA CHRISTOPHER E MD [id number] [id number]- [id number] [id number] CLINICAL DOCUMENTATION CLARIFICATION FORM: POST DISCHARGE Addendum to original discharge summary date: ____ Late entry note date: __ DATE:01/26/2019 ATTN:ADEBAYO CADENA MD Please exercise your independent, professional judgment in responding to the clarification form. Clinical indicators are provided on the bottom of this form for your review Please check appropriate box(s): [x ] Excisional Debridement: [ x ] Excised [ ] Cut away [ ] Other: Depth / layer: (deepest layer of debridement): [ ] Skin[ ] SubQ Tissue [ x] Fascia [ ] Muscle [ ] Tendon [ ] Bone Appearance of wound: (e.g., down to fresh bleeding tissue, etc.)___ Margins: (please specify): / x x Instruments used: [ ] Scissors [ x] Scalpel [ x ] Curette [ ] Soft tissue clipper [ ] Other: [ ] Non-excisional Debridement: (Removal by flushing, brushing, chemical, or washing) Depth / layer: (deepest layer of debridement): [ ] Skin[ ] Subcutaneous [ ] Fascia [ ] Muscle [ ] Tendon [ ] Bone [ ] Incision and Drainage only (No Debridement): Depth:[ ] Skin [ ] Subcutaneous [ ] Fascia [ ] Muscle [ ] Tendon [ ] Bone [ ] Escharectomy [ ] Other procedure diagnosis [ ] Unable to determine For continuity of documentation, please document condition throughout progress notes and discharge summary. Thank You. CLINICAL INDICATORS - SIGNS / SYMPTOMS / LABS Approximately 2 months ago, She had a calcaneal fracture, Which was treated with percutaneous screw fixation to heel.However, she developed a heel ulceration on the posterior skin.She has been indicated for debridement of her ulcer with hardware removal.-Documented in OP note on 01/19 by Fermín Cadena Sharp dissection around the ulceration.We removed a wet eschar.There was purulent material deep to the eschar.This was debrided down to the underlying subcutaneous tissue and facia.There was no obvious exposed bone.-Documented in OP note on 01/19 by Fermín Cadena We debrided with a curette as well as a rongeur-Documented in OP note on 01/19 by Fermín Cadena RISK FACTORS Heel ulceration on the posterior skin-Documented in OP note on 01/19 by Fermín Cadena Diabetic right hell ulcer-Documented in DS on 01/22 by Nydia Wolf TREATMENTS: Placed a damp to dry dressing--Documented in OP note on 01/19 by Fermín Cadena [employer] Crystal Reports Winform Viewer (This form is maintained as a part of the permanent medical record) 2014 [employer]. All Rights Reserved [email or web address] [not provided] MTDD
--- NOTE | 2019-01-29 09:52 | PQF ---
PIPE ESTRADA KARISHMA [id number] [id number]- 4422 [id number] CLINICAL DOCUMENTATION CLARIFICATION FORM: POST DISCHARGE Addendum to original discharge summary date: ____ Late entry note date: __ DATE:01/29/2019 ATTN:CARLOS EDUARDO WOLF Please exercise your independent, professional judgment in responding to the clarification form. Clinical indicators are provided on the bottom of this form for your review Please check appropriate box(s): Conflicting documentation was noted in the Medical Record, please clarify if patient is being treated/monitored for: [ ] Decubitus type ulcer of the posterior heel [ X] Diabetic right heel ulcer [ ] Other diagnosis [ ] Unable to determine For continuity of documentation, please document condition throughout progress notes and discharge summary. Thank You. CLINICAL INDICATORS - SIGNS / SYMPTOMS/ LABS Decubitus type ulcer of the posterior heel with history of recent calcaneal fracture-Documented in consultation on 01/19 by Yogesh Lopez Full-thickness skin loss from decubitus heel ulcer-Documented in OP note by Fermín Cantu Diabetic right heel ulcer-Documented in DS on 01/22 by Carlos Eduardo Wolf RISK FACTORS Diabetic right heel ulcer-Documented in DS on 01/22 by Carlos Eduardo Wolf History of recent calcaneal fracture-Documented in consultation on 01/19 by Yogesh Lopez TREATMENT Removed the patient's 2 screws through small incisions at the base of the achilles tendon-Documented in OP note by Fermín Cantu Excisional debridement fascia right heel-Documented in Query response by Fermín Cantu [employer] Crystal Reports Winform Viewer(This form is maintained as a part of the permanent medical record) 2014 [employer]. All Rights Reserved [email or web address] [not provided] JIMI
== END 2019-01-22 16:56 | disposition home or self-care (01) | DRG 623 ==
LOC: ERS 13:49 → NSY 17:35 → T4-B 20:41
PROVIDERS: ADMIT Internal Medicine; ATTEND Internal Medicine
PROC: 0JBQ0ZZ Excision of Right Foot Subcutaneous Tissue and Fascia, Open Approach (ICD-10-PCS; principal; 2019-01-19)
PROC: 0QPL04Z Removal of Internal Fixation Device from Right Tarsal, Open Approach (ICD-10-PCS; 2019-01-19)
PROC: 0QBL0ZZ Excision of Right Tarsal, Open Approach (ICD-10-PCS; 2019-01-19)
DX: E11.621 Type 2 diabetes mellitus with foot ulcer (principal); I50.22 Chronic systolic (congestive) heart failure; Z68.42 Body mass index [BMI] 45.0-49.9, adult; I13.0 Hypertensive heart and chronic kidney disease with heart failure and stage 1 through stage 4 chronic kidney disease, or unspecified chronic kidney disease; L89.619 Pressure ulcer of right heel, unspecified stage; E78.5 Hyperlipidemia, unspecified; Z95.810 Presence of automatic (implantable) cardiac defibrillator; I25.5 Ischemic cardiomyopathy; L97.519 Non-pressure chronic ulcer of other part of right foot with unspecified severity; N18.3 Chronic kidney disease, stage 3 (moderate); E11.22 Type 2 diabetes mellitus with diabetic chronic kidney disease; Z83.3 Family history of diabetes mellitus; Z82.49 Family history of ischemic heart disease and other diseases of the circulatory system; Z87.891 Personal history of nicotine dependence; E11.21 Type 2 diabetes mellitus with diabetic nephropathy; E03.9 Hypothyroidism, unspecified; E66.9 Obesity, unspecified
CPT/HCPCS: 36415; 36416; 80048; 80053; 85007; 85025; 85027; 85652; 86140; 87040; 87070; 87077; 87186; 87205; 93005; 93010; 96361; 96365; 96367; 96375; J1956; J2270; J2405; J2543; J2704; J3010; J3370; J3490; Q0162

== ENCOUNTER 2019-09-02 16:27 | Emergency (ER) | payer MEDICARE ==
[2019-09-02 17:26] LABS: #Eosinphils 0.1 thou/uL (0.0-0.7); #Lymphocytes 1.7 thou/uL (1.20-3.40); #Monocytes 0.4 thou/uL (0.11-0.59); #Neutrophils 2.4 thou/uL (1.40-6.50); %Basophils 0.4 % (0.0-1.0); %Eosinophils 2.1 % (0.0-10.0); %Lymphocytes 36.5 % (21.0-51.0); %Monocytes 9.3 % (0.0-10.0); %Neutrophils 51.6 % (42.0-75.0); Hemoglobin 14.7 g/dL (12.0-16.0); Mean Corpuscular HGB CONC 31.4 g/dL (32.0-36.0); Mean Corpuscular Hemoglobin 28.5 pg (27.0-31.0); Mean Corpuscular Volume 90.8 fL (78.0-98.0); Mean Platelet Volume 8.8 fL (7.4-10.4); Platelet Count 159 thou/uL (130-400); RBC Distribution Width 13.1 % (11.5-14.5); Red Blood Cell (RBC) Count 5.16 mill/uL (4.20-5.40); White Blood Cell (WBC) Count 4.6 thou/uL (4.8-10.8)
[2019-09-02 17:45] LABS: ALT (SGPT) 13 U/L (8-55); AST (SGOT) 14 U/L (5-34); Albumin 3.9 g/dL (3.5-5.0); Alkaline Phosphatase 114 U/L (40-110); Anion Gap 10 mmol/L (10-20); BUN (Urea Nitrogen) 21 mg/dL (9.8-20.1); Bilirubin, Total 0.8 mg/dL (0.2-1.2); Calc. Creatinine Clearance 0 mL/min (70-130); Calcium 9.6 mg/dL (7.8-10.44); Carbon Dioxide 27 mmol/L (22-29); Chloride 109 mmol/L (98-107); Estimated GFR-MDRD 60; Globulin 3.7 g/dL (2.4-3.5); Glucose 90 mg/dL (70-105); Protein, Total 7.6 g/dL (6.0-8.3); Sodium 142 mmol/L (136-145)
[2019-09-02 18:31] LABS: CKMB 1.3 ng/mL (0-6.6)
== END 2019-09-02 21:39 | disposition left against medical advice (07) ==
LOC: ERS 16:27
DX: Z53.21 Procedure and treatment not carried out due to patient leaving prior to being seen by health care provider (principal)
CPT/HCPCS: 36415; 80053; 82553; 84484; 85025

== ENCOUNTER 2020-03-07 18:35 | Inpatient (IN) | payer MEDICARE ==
[2020-03-07] MEDS ORDERED: cefTRIAXone\\ROCEPHIN 1 GM VIAL ONE (18:55)
[2020-03-07] MEDS ORDERED: Acetaminophen 500 MG TAB ONE (18:55)
[2020-03-07 19:15] LABS: #Lymphocytes 1.2 thou/uL (1.20-3.40); #Monocytes 0.8 thou/uL (0.11-0.59); %Basophils 0.1 % (0.0-1.0); %Eosinophils 0.2 % (0.0-10.0); %Lymphocytes 6.8 % (21.0-51.0); %Monocytes 4.5 % (0.0-10.0); %Neutrophils 88.4 % (42.0-75.0); Hemoglobin 13.9 g/dL (12.0-16.0); Mean Corpuscular HGB CONC 32.7 g/dL (32.0-36.0); Mean Corpuscular Volume 91.7 fL (78.0-98.0); Mean Platelet Volume 8.4 fL (7.4-10.4); Platelet Count 173 thou/uL (130-400); RBC Distribution Width 14.1 % (11.5-14.5); Red Blood Cell (RBC) Count 4.63 mill/uL (4.20-5.40)
[2020-03-07 19:22] LABS: PTT 28.1 sec (22.9-36.1); Prothrombin Time 13.5 sec (12.0-14.7)
[2020-03-07 19:38] LABS: ALT (SGPT) 21 U/L (8-55); AST (SGOT) 24 U/L (5-34); Albumin 3.8 g/dL (3.5-5.0); Alkaline Phosphatase 118 U/L (40-110); Anion Gap 14 mmol/L (10-20); BUN (Urea Nitrogen) 17 mg/dL (9.8-20.1); Bilirubin, Total 0.8 mg/dL (0.2-1.2); Calc. Creatinine Clearance 0 mL/min (70-130); Carbon Dioxide 26 mmol/L (22-29); Chloride 106 mmol/L (98-107); Glucose 131 mg/dL (70-105); Potassium 3.7 mmol/L (3.5-5.1); Protein, Total 7.8 g/dL (6.0-8.3); Sodium 142 mmol/L (136-145)
[2020-03-07 20:00] LABS: CKMB 0.6 ng/mL (0-6.6)
--- NOTE | 2020-03-07 20:00 | ULT ---
BILATERAL LOWER EXTREMITY VENOUS DOPPLER ULTRAOSUND: 03/07/20 COMPARISON: None. HISTORY: Pain, assess for DVT. TECHNIQUE: Multiplanar gutierrez scale sonographic imaging of the venous structures bilateral lower extremities obtai hernan with Doppler interrogation including color flow and spectral analysis. FINDINGS: Bilateral common femoral veins, profunda femoral veins, femoral veins, popliteal veins, and posterior tibial veins appear patent. There is normal blood flow, augmentation, and compression within the sunni p venous system bilaterally. No evidence for DVT on either side. IMPRESSION: No evidence for deep venous thrombosis of either lower extremity. POS: GERRI
--- NOTE | 2020-03-07 20:10 | RAD ---
PORTABLE CHEST: 03/07/20 PROVIDED CLINICAL HISTORY: Congestive heart failure. FINDINGS: Comparison 10/23/19. The cardiac silhouette remains enlarged. Left subclavian cardiac pacing device and atherosclerosis ar e redemonstrated. Pulmonary vasculature is upper limits of normal. No gross focal consolidation, pleu ral fluid or pneumothorax apparent with limitations due to suboptimal evaluation of the left lung bas e on the basis of cardiomegaly. IMPRESSION: No evidence for an acute cardiopulmonary process. POS: ESTEPHANIE
[2020-03-07] MEDS ORDERED: Vancomycin 1 GM/200 ML BAG ONE (20:58)
[2020-03-07 21:22] LABS: Bilirubin Negative (Negative); Blood, Urine Negative (Negative); Clarity Clear (Clear); Glucose, Urine (Dipstick) Normal (Negative); Ketone, Urine Negative (Negative); Leukocyte Negative Leu/uL (Negative); Nitrite Negative (Negative); Protein, Urine (Dipstick) Negative (Neg-Trace); Specific Gravity, Urine 1.011 (1.002-1.036); Urobilinogen Normal mg/dL (Less than 2); pH, Urine 7.5 (5.0-9.0)
[2020-03-07] MEDS ORDERED: Aspirin 325 MG TAB ONE (21:38)
[2020-03-07 23:56] LABS: Troponin I 0.094 ng/mL (< 0.028)
[2020-03-08] MEDS ORDERED: Acetaminophen 325 MG TAB PO PRN (00:06)
[2020-03-08] MEDS ORDERED: Dextrose 5% in Water 1,000 ML IV PRN (00:06)
[2020-03-08] MEDS ORDERED: HumaLOG 300 UNITS/3 ML VIAL SC PRN (00:06)
[2020-03-08] MEDS ORDERED: HYDROcodone/Acetaminophen 5/325 mg Tablet PO PRN (00:06)
[2020-03-08] MEDS ORDERED: Ondansetron PF 4 MG/2 ML Vial IVP PRN (00:06)
[2020-03-08] MEDS ORDERED: Acetaminophen 650 MG Suppository PR PRN (00:06)
[2020-03-08] MEDS ORDERED: Ondansetron ODT 4 MG TAB PO PRN (00:06)
[2020-03-08] MEDS ORDERED: Dextrose 50% Abboject 50 ML SYRINGE SLOW IVP PRN (00:06)
[2020-03-08] MEDS ORDERED: Calcium Carbonate 500 MG ChewTAB PO PRN (00:06)
[2020-03-08 00:13] VITALS: BMI 34.7
--- NOTE | 2020-03-08 00:17 | PDOC.HHP ---
Hospitalist HPI - History of Present Illness left leg pain and sweling History of Present Illness: Case fo an 59y/o female with a pmhx of chf, cad, atrial fibrillation, hx of cva DM obesity, hld hnt and alzheimer disease who comes to hospital due to L leg pain and swelling. patient is a very poor historian and is not aware of her medical conditions but refers she was on her usual state of health until today when she started with pain and swelling on the dorsum of her L foot, she denies fever chills nausea or vomiting. Patient was recently discharged from [facility] for which she was a resident for left-sided weakness status post stroke and Alzheimer's and congestive heart failure. Patient states that she has been in her home for approximately 1 month with no medications. Most past history were obtained from her [facility] records. The patient is noted to be hypertensive tachycardic febrile to 101.8 with normal respiratory rate and oxygen saturation. hospitalist was called for further evaluation and management Hospitalist ROS - Review of Systems All other systems reviewed; all pertinent +/- noted in HPI/Subj Hospitalist History - Past Surgical History Other Surgical History: s/p aicd - Family History Family History: reports: diabetes mellitus, hypertension - Social History Smoking Status: Current some day smoker Alcohol: reports: None Drugs: reports: none Living Situation: With Family - Exam General Appearance: NAD, awake alert Eye: PERRL, anicteric sclera ENT: normocephalic atraumatic, no oropharyngeal lesions Neck: supple, symmetric, no JVD Heart: RRR, no murmur, no gallops Respiratory: CTAB, no wheezes, no rales Gastrointestinal: soft, non-tender, non-distended Extremities: no cyanosis, no clubbing Extremities - other findings: L legs with a penetrating laceration with associated pain and swelling Neurological: cranial nerve grossly intact, normal sensation to touch Musculoskeletal: normal tone, normal strength, no muscle wasting Psychiatric: normal affect, normal behavior, A&O x 3 Hospitalist Results - Labs Result Diagrams: 03/07/20 18:53 03/07/20 18:53 Lab results: WBC 17.0 thou/uL (4.8-10.8) H 03/07/20 18:53 Hgb 13.9 g/dL (12.0-16.0) 03/07/20 18:53 Hct 42.5 % (36.0-47.0) 03/07/20 18:53 MCV 91.7 fL (78.0-98.0) 03/07/20 18:53 Plt Count 173 thou/uL (130-400) 03/07/20 18:53 Neutrophils % 88.4 % (42.0-75.0) H 03/07/20 18:53 Sodium 142 mmol/L (136-145) 03/07/20 18:53 Potassium 3.7 mmol/L (3.5-5.1) 03/07/20 18:53 Chloride 106 mmol/L (98-107) 03/07/20 18:53 Carbon Dioxide 26 mmol/L (22-29) 03/07/20 18:53 BUN 17 mg/dL (9.8-20.1) 03/07/20 18:53 Creatinine 1.03 mg/dL (0.6-1.1) 03/07/20 18:53 Glucose 131 mg/dL (70-105) H 03/07/20 18:53 Lactic Acid 1.6 mmol/L (0.5-2.2) 03/07/20 19:52 Calcium 9.0 mg/dL (7.8-10.44) 03/07/20 18:53 Total Bilirubin 0.8 mg/dL (0.2-1.2) 03/07/20 18:53 AST 24 U/L (5-34) 03/07/20 18:53 ALT 21 U/L (8-55) 03/07/20 18:53 Alkaline Phosphatase 118 U/L (40-110) H 03/07/20 18:53 CK-MB (CK-2) 0.6 ng/mL (0-6.6) 03/07/20 18:53 Troponin I 0.094 ng/mL (< 0.028) H 03/07/20 23:07 B-Natriuretic Peptide 118.3 pg/mL (0-100) H 03/07/20 19:52 Serum Total Protein 7.8 g/dL (6.0-8.3) 03/07/20 18:53 Albumin 3.8 g/dL (3.5-5.0) 03/07/20 18:53 Urine Ketones Negative mg/dL (Negative) 12/29/20 21:01 Urine Blood Negative (Negative) 03/07/20 21:01 Urine Nitrite Negative (Negative) 03/07/20 21:01 Ur Leukocyte Esterase Negative Jose/uL (Negative) 03/07/20 21:01 Hospitalist H&P A/P - Problem (1) Sepsis Code(s): A41.9 - SEPSIS, UNSPECIFIED ORGANISM Status: Acute (2) Cellulitis of left foot Code(s): L03.116 - CELLULITIS OF LEFT LOWER LIMB Status: Acute - Plan Plan: Case of an 59y/o female with the stated pmhx who present with sepsis secondary to cellulitis of foot sepsis secondary to cellulitis of L leg - febrile + tachycardic + wbc in 17 - sepsis bundles started, cultures taken ivfs given, started on broad spectrum abx - LA 1.6 - f/u cultures - will start zosyn + vanc - b/l us leg negative for dvts - will order foot xr esr and crp to r/o OM chf - last echo showed ef 10-15% - poor medical complaince - will continue beta reshma, entresto spiraldactone - holding diuretics for atleast 24 hours given dx of sepsis, continue when more stable htn - continue home meds - hypertenive in the 170s atrial fib - continue rythm controll w amiodaraone - continue beta reshma - continue asa for AC DM ss+acc elevated troponin - likely troponin leak in setting of sepsis - will trend
[2020-03-08] MEDS: Piperacillin/Tazobactam 3.375 GM in Sodium Chloride 0.9% 100 ML IVPB SCH ×4 (01:27→20:41)
[2020-03-08] MEDS: Vancomycin HCl 750 MG in Sodium Chloride 0.9% 250 ML 250 ML IVPB SCH ×2 (04:22→15:26)
[2020-03-08 05:19] LABS: SARS-CoV-2 MS2 Positive; SARS-CoV-2 N Gene Negative; SARS-CoV-2 S Gene Negative; SARS-CoV-2 by NAA Not Detected (NotDetected); SARS-CoV-2 orf1ab Negative
[2020-03-08 05:23] LABS: ALT (SGPT) 18 U/L (8-55); AST (SGOT) 19 U/L (5-34); Albumin 3.1 g/dL (3.5-5.0); Alkaline Phosphatase 104 U/L (40-110); Anion Gap 11 mmol/L (10-20); BUN (Urea Nitrogen) 13 mg/dL (9.8-20.1); Calc. Creatinine Clearance 100 mL/min (70-130); Carbon Dioxide 24 mmol/L (22-29); Chloride 109 mmol/L (98-107); Globulin 3.3 g/dL (2.4-3.5); Glucose 147 mg/dL (70-105); Potassium 3.2 mmol/L (3.5-5.1); Protein, Total 6.4 g/dL (6.0-8.3); Sodium 141 mmol/L (136-145)
[2020-03-08 05:29] LABS: Troponin I 0.089 ng/mL (< 0.028)
[2020-03-08 05:53] LABS: Band 4 % (5-11); Hemoglobin 12.2 g/dL (12.0-16.0); Lymphocytes 10 % (21-51); MDiff Complete? YES; Mean Corpuscular Hemoglobin 29.4 pg (27.0-31.0); Mean Corpuscular Volume 91.9 fL (78.0-98.0); Mean Platelet Volume 8.6 fL (7.4-10.4); Monocytes 4 % (0-10); Neutrophil 81 % (42-75); Platelet Count 143 thou/uL (130-400); Platelet Morphology Comment Appears Adequate; RBC Distribution Width 14.1 % (11.5-14.5); Reactive Lymphocytes 1 % (0-10); Red Blood Cell (RBC) Count 4.14 mill/uL (4.20-5.40); White Blood Cell (WBC) Count 12.7 thou/uL (4.8-10.8)
[2020-03-08] MEDS: Carvedilol 6.25 MG TAB PO SCH ×2 (08:08→20:42)
[2020-03-08] MEDS: Enoxaparin Sodium 40 MG/0.4 ML SYRINGE SC SCH (08:08)
[2020-03-08] MEDS: Sacubitril 49 MG/Valsartan 51 MG TABLET PO SCH ×2 (08:08→20:42)
[2020-03-08] MEDS: Amiodarone 200 MG TAB PO SCH (08:09)
[2020-03-08] MEDS: Allopurinol 100 MG TAB PO SCH (08:09)
[2020-03-08] MEDS: Spironolactone 25 MG TAB PO SCH (08:09)
[2020-03-08] MEDS: Aspirin 81 mg Enteric Coated Tablet PO SCH (08:09)
--- NOTE | 2020-03-08 08:57 | RAD ---
LEFT FOOT 3 VIEWS: HISTORY: Foot pain. Question osteomyelitis. FINDINGS: Bones show osteopenia. Tarsals show degenerative changes. Metatarsals and phalanges appear intact. No focal lytic or destructive process identified. No evidence of focal osteomyelitis. Soft tissue swelling involving mid foot and forefoot regions. POS: AGW
[2020-03-08] MEDS ORDERED: Aspirin 325 MG TAB PO SCH (09:00)
--- NOTE | 2020-03-08 11:59 | PDOC.HOSPP ---
- Subjective Encounter Date: 03/08/20 Encounter Time: 11:57 Subjective: alert, no fever, left leg wet press tender - Objective Vital Signs & Weight: Vital Signs (12 hours) Temp Pulse Resp BP Pulse Ox 03/08/20 11:33 99.0 F 76 17 116/38 L 93 L 03/08/20 07:28 100.0 F H 93 16 150/72 H 97 03/08/20 04:31 98.3 F 66 18 149/66 H 97 Weight Weight 202 lb 6.4 oz I&O: 03/07/20 03/08/20 03/09/20 06:59 06:59 06:59 Intake Total 570 Output Total 500 Balance 70 Result Diagrams: 03/08/20 04:39 03/08/20 04:39 Additional Labs: Accuchecks 03/08/20 03/08/20 10:39 05:51 POC Glucose 193 H 109 H Hospitalist ROS - Medication Medications: Active Medications Generic Name Dose Route Start Last Admin Trade Name Freq PRN Reason Stop Dose Admin Allopurinol 100 mg 03/08/20 09:00 03/08/20 08:09 Allopurinol 100 Mg Tab PO 100 mg DAILY SHITAL Administration Amiodarone HCl 200 mg 03/08/20 09:00 03/08/20 08:09 Amiodarone 200 Mg Tab PO 200 mg DAILY SHITAL Administration Aspirin 81 mg 03/08/20 09:00 03/08/20 08:09 Aspirin 81 Mg Enteric Coated Tablet PO 81 mg DAILY SHITAL Administration Carvedilol 12.5 mg 03/08/20 09:00 03/08/20 08:08 Carvedilol 6.25 Mg Tab PO 12.5 mg BID SHITAL Administration Enoxaparin Sodium 40 mg 03/08/20 09:00 03/08/20 08:08 Enoxaparin Sodium 40 Mg/0.4 Ml Syringe SC 40 mg 0900 SHITAL Administration Piperacillin Sod/Tazobactam 100 mls @ 200 mls/hr 03/08/20 02:00 03/08/20 08:08 Sod 3.375 gm/ Sodium Chloride IVPB 100 mls 0200,0800,1400,2000 SHITAL Administration Vancomycin HCl 750 mg/ Sodium 250 mls @ 250 mls/hr 03/08/20 03:00 03/08/20 04:22 Chloride IVPB 250 mls 0300,1500 SHITAL Administration Sacubitril/Valsartan 1 tab 03/08/20 09:00 03/08/20 08:08 Sacubitril 49 Mg/Valsartan 51 Mg Tablet PO 1 tab BID SHITAL Administration Sodium Chloride 10 ml 03/08/20 09:00 03/08/20 08:09 Flush - Normal Saline 10 Ml Syringe IVF 10 ml Q12HR SHITAL Administration Spironolactone 50 mg 03/08/20 08:00 03/08/20 08:09 Spironolactone 25 Mg Tab PO 50 mg QAM-WM SHITAL Administration - Exam General Appearance: awake alert Neck: no JVD Heart: RRR, no murmur Respiratory: CTAB Gastrointestinal: soft, non-distended, normal bowel sounds Extremities - other findings: erythematous left leg prximal calf and distal, warm, tenfer Hosp A/P (1) Cellulitis of left foot Code(s): L03.116 - CELLULITIS OF LEFT LOWER LIMB Status: Acute (2) Chronic combined systolic and diastolic CHF, NYHA class 2 and MAMTA/AHA stage C Code(s): I50.42 - CHRONIC COMBINED SYSTOLIC AND DIASTOLIC HRT FAIL Status: Chronic (3) Diabetes type 2, controlled Code(s): E11.9 - TYPE 2 DIABETES MELLITUS WITHOUT COMPLICATIONS Status: Chronic Qualifiers: Diabetes mellitus [facility] insulin use: without predatory animal exterminator use Diabetes mellitus complication status: without complication Qualified Code(s): E11.9 - Type 2 diabetes mellitus without complications (4) Dyslipidemia Code(s): E78.5 - HYPERLIPIDEMIA, UNSPECIFIED Status: Chronic - Plan blood C&S pendind, if neg will deescalate antibx cont home meds accu/ss
[2020-03-08] MEDS: Atorvastatin Calcium 40 MG TAB PO SCH (20:42)
[2020-03-08] MEDS ORDERED: FLU VACC QS2020-21(6MOS UP)/PF 60 MCG/0.5 ML SYRINGE IM ONE (21:00)
[2020-03-09] MEDS: Piperacillin/Tazobactam 3.375 GM in Sodium Chloride 0.9% 100 ML IVPB SCH ×2 (01:55→09:01)
[2020-03-09 02:46] LABS: Vancomycin, Trough 11.5 ug/mL
[2020-03-09] MEDS: Vancomycin HCl 750 MG in Sodium Chloride 0.9% 250 ML 250 ML IVPB SCH (03:03)
[2020-03-09] MEDS: Spironolactone 25 MG TAB PO SCH (09:03)
[2020-03-09] MEDS: Carvedilol 6.25 MG TAB PO SCH ×2 (09:03→20:53)
[2020-03-09] MEDS: Glimepiride 2 MG TAB PO SCH (09:03)
[2020-03-09] MEDS: Aspirin 81 mg Enteric Coated Tablet PO SCH (09:03)
[2020-03-09] MEDS: Enoxaparin Sodium 40 MG/0.4 ML SYRINGE SC SCH (09:04)
[2020-03-09] MEDS: Sacubitril 49 MG/Valsartan 51 MG TABLET PO SCH ×2 (09:04→20:52)
[2020-03-09] MEDS: Allopurinol 100 MG TAB PO SCH (09:04)
[2020-03-09] MEDS: Polyethylene Glycol 3350 17 GM Packet PO SCH (09:04)
[2020-03-09] MEDS: Furosemide 40 MG TAB PO SCH (09:04)
[2020-03-09] MEDS: Amiodarone 200 MG TAB PO SCH (09:04)
--- NOTE | 2020-03-09 10:43 | PDOC.HOSPP ---
- Subjective Encounter Date: 03/09/20 Encounter Time: 10:36 Subjective: no fever, chills. L leg less painfull - Objective Vital Signs & Weight: Vital Signs (12 hours) Temp Pulse Resp BP Pulse Ox 03/09/20 07:27 98.0 F 64 18 119/72 95 03/09/20 04:00 98.1 F 69 20 115/57 L 96 03/08/20 23:34 99.2 F Weight Admit Weight 202 lb 6.4 oz Weight 202 lb 6.4 oz I&O: 03/08/20 03/09/20 03/10/20 06:59 06:59 06:59 Intake Total 570 717 Output Total 500 100 Balance 70 617 Result Diagrams: 03/08/20 04:39 03/08/20 04:39 Additional Labs: Accuchecks 03/09/20 03/08/20 03/08/20 06:31 21:37 16:32 POC Glucose 121 H 168 H 150 H 03/08/20 10:39 POC Glucose 193 H Hospitalist ROS - Medication Medications: Active Medications Generic Name Dose Route Start Last Admin Trade Name Freq PRN Reason Stop Dose Admin Acetaminophen 650 mg 03/08/20 00:06 03/08/20 20:40 Acetaminophen 325 Mg Tab PO 650 mg Q4H PRN Administration Headache/Fever/Mild Pain (1-3) Allopurinol 100 mg 03/08/20 09:00 03/09/20 09:04 Allopurinol 100 Mg Tab PO 100 mg DAILY SHITAL Administration Amiodarone HCl 200 mg 03/08/20 09:00 03/09/20 09:04 Amiodarone 200 Mg Tab PO 200 mg DAILY SHITAL Administration Aspirin 81 mg 03/08/20 09:00 03/09/20 09:03 Aspirin 81 Mg Enteric Coated Tablet PO 81 mg DAILY SHITAL Administration Atorvastatin Calcium 40 mg 03/08/20 21:00 03/08/20 20:42 Atorvastatin Calcium 40 Mg Tab PO 40 mg HS SHITAL Administration Carvedilol 12.5 mg 03/08/20 09:00 03/09/20 09:03 Carvedilol 6.25 Mg Tab PO 12.5 mg BID SHITAL Administration Enoxaparin Sodium 40 mg 03/08/20 09:00 03/09/20 09:04 Enoxaparin Sodium 40 Mg/0.4 Ml Syringe SC 40 mg 0900 SHITAL Administration Furosemide 40 mg 03/09/20 09:00 03/09/20 09:04 Furosemide 40 Mg Tab PO 40 mg DAILY SHITAL Administration Glimepiride 4 mg 03/09/20 09:00 03/09/20 09:03 Glimepiride 2 Mg Tab PO 4 mg DAILY SHITAL Administration Piperacillin Sod/Tazobactam 100 mls @ 200 mls/hr 03/08/20 02:00 03/09/20 09:01 Sod 3.375 gm/ Sodium Chloride IVPB 100 mls 0200,0800,1400,2000 SHITAL Administration Polyethylene Glycol 17 gm 03/09/20 09:00 03/09/20 09:04 Polyethylene Glycol 3350 17 Gm Packet PO 17 gm DAILY SHITAL Administration Sacubitril/Valsartan 1 tab 03/08/20 09:00 03/09/20 09:04 Sacubitril 49 Mg/Valsartan 51 Mg Tablet PO 1 tab BID SHITAL Administration Sodium Chloride 10 ml 03/08/20 09:00 03/09/20 09:04 Flush - Normal Saline 10 Ml Syringe IVF 10 ml Q12HR SHITAL Administration Spironolactone 50 mg 03/08/20 08:00 03/09/20 09:03 Spironolactone 25 Mg Tab PO 50 mg QAM-WM SHITAL Administration - Exam General Appearance: awake alert Neck: no JVD Heart: RRR, III/IV Respiratory: CTAB Gastrointestinal: soft, normal bowel sounds Extremities: no edema Extremities - other findings: decreasing erythema, tenderness, swelling LLL Hosp A/P (1) Cellulitis of left foot Code(s): L03.116 - CELLULITIS OF LEFT LOWER LIMB Status: Acute (2) Chronic combined systolic and diastolic CHF, NYHA class 2 and MAMTA/AHA stage C Code(s): I50.42 - CHRONIC COMBINED SYSTOLIC AND DIASTOLIC HRT FAIL Status: Chronic (3) Diabetes type 2, controlled Code(s): E11.9 - TYPE 2 DIABETES MELLITUS WITHOUT COMPLICATIONS Status: [facility] Qualifiers: Diabetes mellitus intermediate school teacher insulin use: without senior care use Diabetes mellitus complication status: without complication Qualified Code(s): E11.9 - Type 2 diabetes mellitus without complications (4) Dyslipidemia Code(s): E78.5 - HYPERLIPIDEMIA, UNSPECIFIED Status: Chronic (5) Hypertension Code(s): I10 - ESSENTIAL (PRIMARY) HYPERTENSION Status: Chronic Qualifiers: Hypertension type: essential hypertension (6) Hypothyroidism Code(s): E03.9 - HYPOTHYROIDISM, UNSPECIFIED Status: Chronic Qualifiers: Hypothyroidism type: unspecified Qualified Code(s): E03.9 - Hypothyroidism, unspecified (7) Nonischemic cardiomyopathy Code(s): I42.8 - OTHER CARDIOMYOPATHIES Status: Chronic - Plan C&S neg- deescalate antibx to ceftriaxone accu/ss/OHA cont amiodatrone, entresto, coreg, etc for CHF
[2020-03-09] MEDS ORDERED: cefTRIAXone Sodium 2 MG in Syringe 0 ML IVPB SCH (11:00)
[2020-03-09] MEDS: cefTRIAXone\\ROCEPHIN 2 GM in Sodium Chloride 0.9% 100 ML IVPB SCH (13:15)
[2020-03-09] MEDS ORDERED: Vancomycin 1 GM in Premix Bag 1 BAG IVPB SCH (15:00)
[2020-03-09] MEDS: Atorvastatin Calcium 40 MG TAB PO SCH (20:53)
[2020-03-10] MEDS: Carvedilol 6.25 MG TAB PO SCH ×2 (08:24→20:01)
[2020-03-10] MEDS: Enoxaparin Sodium 40 MG/0.4 ML SYRINGE SC SCH (08:24)
[2020-03-10] MEDS: Sacubitril 49 MG/Valsartan 51 MG TABLET PO SCH ×2 (08:24→20:01)
[2020-03-10] MEDS: Aspirin 81 mg Enteric Coated Tablet PO SCH (08:24)
[2020-03-10] MEDS: Glimepiride 2 MG TAB PO SCH (08:25)
[2020-03-10] MEDS: Allopurinol 100 MG TAB PO SCH (08:25)
[2020-03-10] MEDS: Spironolactone 25 MG TAB PO SCH (08:25)
[2020-03-10] MEDS: Furosemide 40 MG TAB PO SCH (08:25)
[2020-03-10] MEDS: Amiodarone 200 MG TAB PO SCH (08:25)
[2020-03-10] MEDS: Polyethylene Glycol 3350 17 GM Packet PO SCH (08:26)
--- NOTE | 2020-03-10 10:32 | PDOC.HOSPP ---
- Subjective Encounter Date: 03/10/20 Encounter Time: 10:28 Subjective: nofever,chills.legmuch less painfull - Objective Vital Signs & Weight: Vital Signs (12 hours) Temp Pulse Resp BP Pulse Ox 03/10/20 08:03 98.8 F 69 16 156/74 H 96 03/10/20 02:50 98.9 F 65 19 142/67 H 96 Weight Admit Weight 202 lb 6.4 oz Weight 202 lb 6.4 oz I&O: 03/09/20 03/10/20 03/11/20 06:59 06:59 06:59 Intake Total 717 240 Output Total 100 1600 Balance 617 -1360 Result Diagrams: 03/08/20 04:39 03/08/20 04:39 Additional Labs: Accuchecks 03/10/20 03/09/20 03/09/20 06:12 20:43 16:52 POC Glucose 73 176 H 97 03/09/20 10:50 POC Glucose 144 H Hospitalist ROS - Medication Medications: Active Medications Generic Name Dose Route Start Last Admin Trade Name Freq PRN Reason Stop Dose Admin Acetaminophen 650 mg 03/08/20 00:06 03/08/20 20:40 Acetaminophen 325 Mg Tab PO 650 mg Q4H PRN Administration Headache/Fever/Mild Pain (1-3) Allopurinol 100 mg 03/08/20 09:00 03/10/20 08:25 Allopurinol 100 Mg Tab PO 100 mg DAILY SHITAL Administration Amiodarone HCl 200 mg 03/08/20 09:00 03/10/20 08:25 Amiodarone 200 Mg Tab PO 200 mg DAILY SHITAL Administration Aspirin 81 mg 03/08/20 09:00 03/10/20 08:24 Aspirin 81 Mg Enteric Coated Tablet PO 81 mg DAILY SHITAL Administration Atorvastatin Calcium 40 mg 03/08/20 21:00 03/09/20 20:53 Atorvastatin Calcium 40 Mg Tab PO 40 mg HS SHITAL Administration Carvedilol 12.5 mg 03/08/20 09:00 03/10/20 08:24 Carvedilol 6.25 Mg Tab PO 12.5 mg BID SHITAL Administration Enoxaparin Sodium 40 mg 03/08/20 09:00 03/10/20 08:24 Enoxaparin Sodium 40 Mg/0.4 Ml Syringe SC 40 mg 0900 SHITAL Administration Furosemide 40 mg 03/09/20 09:00 03/10/20 08:25 Furosemide 40 Mg Tab PO 40 mg DAILY SHITAL Administration Glimepiride 4 mg 03/09/20 09:00 03/10/20 08:25 Glimepiride 2 Mg Tab PO 4 mg DAILY SHITAL Administration Ceftriaxone Sodium 2 gm/ 100 mls @ 100 mls/hr 03/09/20 12:00 03/09/20 13:15 Sodium Chloride IVPB 100 mls Q24HR SHITAL Administration Polyethylene Glycol 17 gm 03/09/20 09:00 03/10/20 08:26 Polyethylene Glycol 3350 17 Gm Packet PO Not Given DAILY SHITAL Sacubitril/Valsartan 1 tab 03/08/20 09:00 03/10/20 08:24 Sacubitril 49 Mg/Valsartan 51 Mg Tablet PO 1 tab BID SHITAL Administration Sodium Chloride 10 ml 03/08/20 09:00 03/10/20 08:25 Flush - Normal Saline 10 Ml Syringe IVF 10 ml Q12HR SHITAL Administration Spironolactone 50 mg 03/08/20 08:00 03/10/20 08:25 Spironolactone 25 Mg Tab PO 50 mg QAM-WM SHITAL Administration - Exam General Appearance: awake alert Neck: no JVD Heart: RRR, no murmur Respiratory: CTAB Gastrointestinal: soft, non-distended, normal bowel sounds Extremities - other findings: Llower leg swelling and tenderness resolve.has residual erythema and warth Hosp A/P (1) Cellulitis of left foot Code(s): L03.116 - CELLULITIS OF LEFT LOWER LIMB Status: Acute (2) Chronic combined systolic and diastolic CHF, NYHA class 2 and MAMTA/AHA stage C Code(s): I50.42 - CHRONIC COMBINED SYSTOLIC AND DIASTOLIC HRT FAIL Status: Chronic (3) Diabetes type 2, controlled Code(s): E11.9 - TYPE 2 DIABETES MELLITUS WITHOUT COMPLICATIONS Status: Chronic Qualifiers: Diabetes mellitus detention insulin use: without petroleum terminal plant operator use Diabetes mellitus complication status: without complication Qualified Code(s): E11.9 - Type 2 diabetes mellitus without complications (4) Dyslipidemia Code(s): E78.5 - HYPERLIPIDEMIA, UNSPECIFIED Status: Chronic (5) Hypertension Code(s): I10 - ESSENTIAL (PRIMARY) HYPERTENSION Status: Chronic Qualifiers: Hypertension type: essential hypertension (6) Hypothyroidism Code(s): E03.9 - HYPOTHYROIDISM, UNSPECIFIED Status: Chronic Qualifiers: Hypothyroidism type: unspecified Qualified Code(s): E03.9 - Hypothyroidism, unspecified (7) Nonischemic cardiomyopathy Code(s): I42.8 - OTHER CARDIOMYOPATHIES Status: Chronic - Plan 1 cellutis improving,suspect willneed 1-3 more days iv rocephinthentransition to cephalein 2.DM-accu/ss/OHA 3.HRTdisease/HTNcont amiodatrone, entresto, coreg, etc for CHF
[2020-03-10 11:21] LABS: Anion Gap 12 mmol/L (10-20); BUN (Urea Nitrogen) 16 mg/dL (9.8-20.1); Calc. Creatinine Clearance 100 mL/min (70-130); Calcium 8.5 mg/dL (7.8-10.44); Carbon Dioxide 26 mmol/L (22-29); Chloride 106 mmol/L (98-107); Glucose 145 mg/dL (70-105); Magnesium 1.7 mg/dL (1.6-2.6); Potassium 3.7 mmol/L (3.5-5.1); Sodium 140 mmol/L (136-145)
[2020-03-10] MEDS: cefTRIAXone\\ROCEPHIN 2 GM in Sodium Chloride 0.9% 100 ML IVPB SCH (12:58)
[2020-03-10] MEDS: Atorvastatin Calcium 40 MG TAB PO SCH (20:02)
[2020-03-11] MEDS: Carvedilol 6.25 MG TAB PO SCH ×2 (08:07→21:26)
[2020-03-11] MEDS: Aspirin 81 mg Enteric Coated Tablet PO SCH (08:07)
[2020-03-11] MEDS: Allopurinol 100 MG TAB PO SCH (08:07)
[2020-03-11] MEDS: Sacubitril 49 MG/Valsartan 51 MG TABLET PO SCH ×2 (08:07→21:26)
[2020-03-11] MEDS: Spironolactone 25 MG TAB PO SCH (08:07)
[2020-03-11] MEDS: Glimepiride 2 MG TAB PO SCH (08:07)
[2020-03-11] MEDS: Furosemide 40 MG TAB PO SCH (08:08)
[2020-03-11] MEDS: Enoxaparin Sodium 40 MG/0.4 ML SYRINGE SC SCH (08:08)
[2020-03-11] MEDS: Amiodarone 200 MG TAB PO SCH (08:09)
[2020-03-11] MEDS: Polyethylene Glycol 3350 17 GM Packet PO SCH (08:25)
[2020-03-11 09:19] LABS: Anion Gap 16 mmol/L (10-20); BUN (Urea Nitrogen) 23 mg/dL (9.8-20.1); Calc. Creatinine Clearance 101 mL/min (70-130); Calcium 8.5 mg/dL (7.8-10.44); Carbon Dioxide 18 mmol/L (22-29); Chloride 113 mmol/L (98-107); Glucose 98 mg/dL (70-105); Potassium 4.8 mmol/L (3.5-5.1); Sodium 142 mmol/L (136-145)
--- NOTE | 2020-03-11 11:19 | EKG ---
Test Reason : ER Blood Pressure : / mmHG Vent. Rate : 114 BPM Atrial Rate : 114 BPM P-R Int : 220 ms QRS Dur : 096 ms QT Int : 330 ms P-R-T Axes : 000 005 059 degrees QTc Int : 454 ms Sinus tachycardia with 1st degree A-V block with occasional Premature ventricular complexes Otherwise normal ECG Confirmed by BRYON ASHLEY, LATA Fernandes ([id number]), manager editorial MARCO RIOS ([id number]) on 03/11/2020 11:18:51 AM Referred By: Confirmed By:LATA SLATER MD
[2020-03-11] MEDS: cefTRIAXone\\ROCEPHIN 2 GM in Sodium Chloride 0.9% 100 ML IVPB SCH (11:24)
--- NOTE | 2020-03-11 17:59 | PDOC.HOSPP ---
- Subjective Encounter Date: 03/11/20 Subjective: Feels good. Denies pain in her foot. Eager to go home. Says she lives at home with her son and his girlfriend who help take care of her. - Objective Vital Signs & Weight: Vital Signs (12 hours) Temp Pulse Resp BP Pulse Ox 03/11/20 15:48 97.9 F 61 18 143/74 H 97 03/11/20 11:20 98.3 F 64 16 156/76 H 97 03/11/20 08:03 98.1 F 64 16 168/80 H 98 Weight Admit Weight 202 lb 6.4 oz Weight 203 lb 8 oz I&O: 03/10/20 03/11/20 03/12/20 06:59 06:59 06:59 Intake Total 1320 Output Total 2550 Balance -1230 Result Diagrams: 03/08/20 04:39 03/11/20 08:48 Additional Labs: Accuchecks 03/11/20 03/11/20 03/10/20 17:05 10:38 21:13 POC Glucose 89 95 117 H Hospitalist ROS - Medication Medications: Active Medications Generic Name Dose Route Start Last Admin Trade Name Freq PRN Reason Stop Dose Admin Acetaminophen 650 mg 03/08/20 00:06 03/08/20 20:40 Acetaminophen 325 Mg Tab PO 650 mg Q4H PRN Administration Headache/Fever/Mild Pain (1-3) Allopurinol 100 mg 03/08/20 09:00 03/11/20 08:07 Allopurinol 100 Mg Tab PO 100 mg DAILY SHITAL Administration Amiodarone HCl 200 mg 03/08/20 09:00 03/11/20 08:09 Amiodarone 200 Mg Tab PO 200 mg DAILY SHITAL Administration Aspirin 81 mg 03/08/20 09:00 03/11/20 08:07 Aspirin 81 Mg Enteric Coated Tablet PO 81 mg DAILY SHITAL Administration Atorvastatin Calcium 40 mg 03/08/20 21:00 03/10/20 20:02 Atorvastatin Calcium 40 Mg Tab PO 40 mg HS SHITAL Administration Carvedilol 12.5 mg 03/08/20 09:00 03/11/20 08:07 Carvedilol 6.25 Mg Tab PO 12.5 mg BID SHITAL Administration Enoxaparin Sodium 40 mg 03/08/20 09:00 03/11/20 08:08 Enoxaparin Sodium 40 Mg/0.4 Ml Syringe SC 40 mg 0900 SHITAL Administration Furosemide 40 mg 03/09/20 09:00 03/11/20 08:08 Furosemide 40 Mg Tab PO 40 mg DAILY SHITAL Administration Glimepiride 4 mg 03/09/20 09:00 03/11/20 08:07 Glimepiride 2 Mg Tab PO 4 mg DAILY SHITAL Administration Ceftriaxone Sodium 2 gm/ 100 mls @ 100 mls/hr 03/09/20 12:00 03/11/20 11:24 Sodium Chloride IVPB 100 mls Q24HR SHITAL Administration Polyethylene Glycol 17 gm 03/09/20 09:00 03/11/20 08:25 Polyethylene Glycol 3350 17 Gm Packet PO Not Given DAILY SHITAL Sacubitril/Valsartan 1 tab 03/08/20 09:00 03/11/20 08:07 Sacubitril 49 Mg/Valsartan 51 Mg Tablet PO 1 tab BID SHITAL Administration Sodium Chloride 10 ml 03/08/20 09:00 03/11/20 08:09 Flush - Normal Saline 10 Ml Syringe IVF 10 ml Q12HR SHITAL Administration Spironolactone 50 mg 03/08/20 08:00 03/11/20 08:07 Spironolactone 25 Mg Tab PO 50 mg QAM-WM SHITAL Administration - Exam General Appearance: NAD, awake alert Heart: RRR, no gallops, no rubs, normal peripheral pulses, II/IV Respiratory: CTAB, no wheezes, no rales, no ronchi, normal chest expansion, no tachypnea, normal percussion Gastrointestinal: soft, non-tender, non-distended, normal bowel sounds, no palpable masses, no hepatomegaly, no splenomegaly, no bruit Extremities: no cyanosis, no clubbing, no edema Extremities - other findings: No erythema or calor left lower extremity. Resolving cellulitis. 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 Code(s): I50.42 - CHRONIC COMBINED SYSTOLIC AND DIASTOLIC HRT FAIL Status: Chronic (4) Diabetes type 2, controlled Code(s): E11.9 - TYPE 2 DIABETES MELLITUS WITHOUT COMPLICATIONS Status: Chronic Qualifiers: Diabetes mellitus senior care insulin use: without senior care use Diabetes mellitus complication status: without complication Qualified Code(s): E11.9 - Type 2 diabetes mellitus without complications (5) Dyslipidemia Code(s): E78.5 - HYPERLIPIDEMIA, UNSPECIFIED Status: Chronic (6) GERD (gastroesophageal reflux disease) Code(s): K21.9 - GASTRO-ESOPHAGEAL REFLUX DISEASE WITHOUT ESOPHAGITIS Status: Chronic Qualifiers: Esophagitis presence: esophagitis presence not specified (7) Hypertension Code(s): I10 - ESSENTIAL (PRIMARY) HYPERTENSION Status: Chronic Qualifiers: Hypertension type: essential hypertension (8) Non compliance w medication regimen Code(s): Z91.14 - PATIENT'S OTHER NONCOMPLIANCE WITH MEDICATION REGIMEN Status: Chronic (9) Nonischemic cardiomyopathy Code(s): I42.8 - OTHER CARDIOMYOPATHIES Status: Chronic (10) CKD (chronic kidney disease), stage III Code(s): N18.30 - CHRONIC KIDNEY DISEASE, STAGE 3 UNSPECIFIED Status: Acute (11) History of atrial flutter Code(s): Z86.79 - PERSONAL HISTORY OF OTHER DISEASES OF THE CIRCULATORY SYSTEM Status: Acute - Plan Sepsis/cellulitis left foot: Appears to be basically resolved. Discontinue IV antibiotics. Initiate oral antibiotics. Generalized weakness: Patient was unable to get up with nursing today because she had poor strength and balance. Physical therapy consult. Diabetes mellitus: Blood sugars well controlled. No change with her regimen. History of atrial flutter: Continue amiodarone for rhythm control. Patient is not on anticoagulation. This is appropriate given her history of compliance issues and potential for falls. Hypertension: Blood pressure well controlled. Continue carvedilol, Entresto Severe nonischemic cardiomyopathy: Ejection fraction 10 to 15%. Moderate to severe TR. No evidence of acute decompensation. Continue with Lasix, Aldactone, carvedilol., Continue glimepiride Severe pulmonary hypertension: Most recent echo with right ventricular systolic pressure of 87 mmHg. No evidence of significant decompensation. Hyperlipidemia: Continue atorvastatin.
[2020-03-11] MEDS: Atorvastatin Calcium 40 MG TAB PO SCH (21:26)
[2020-03-12] MEDS: Aspirin 81 mg Enteric Coated Tablet PO SCH (08:52)
[2020-03-12] MEDS: Spironolactone 25 MG TAB PO SCH (08:52)
[2020-03-12] MEDS: Carvedilol 6.25 MG TAB PO SCH (08:52)
[2020-03-12] MEDS: Furosemide 40 MG TAB PO SCH (08:52)
[2020-03-12] MEDS: Allopurinol 100 MG TAB PO SCH (08:52)
[2020-03-12] MEDS: Amiodarone 200 MG TAB PO SCH (08:52)
[2020-03-12] MEDS: Glimepiride 2 MG TAB PO SCH (08:52)
[2020-03-12] MEDS: Sacubitril 49 MG/Valsartan 51 MG TABLET PO SCH (08:52)
[2020-03-12] MEDS: Enoxaparin Sodium 40 MG/0.4 ML SYRINGE SC SCH (08:53)
[2020-03-12] MEDS: Polyethylene Glycol 3350 17 GM Packet PO SCH (08:53)
[2020-03-12 12:08] VITALS: TEMP 98.7
[2020-03-12] MEDS: cefTRIAXone\\ROCEPHIN 2 GM in Sodium Chloride 0.9% 100 ML IVPB SCH (12:08)
--- NOTE | 2020-03-12 19:01 | PDOC.DS.DS ---
Provider - Provider Date of Admission: 03/08/20 05:28 Date of Discharge: 03/12/20 Admitting Provider: Davide Wong Primary Care Physician: Yulia Alas MD Course - Hospital Course Hospital Course: Sepsis/cellulitis left foot: Presented with septic picture and evidence of cellulitis of the dorsum of the left foot. Small open wound. Broad-spectrum IV antibiotics. Had essentially complete resolution. Subsequently transition to oral antibiotics as she was afebrile and had no leukocytosis. Generalized weakness: Patient was having some difficulty getting up with her balance with nursing. Initially requested physical therapy evaluation but the patient subsequently made it clear that she typically has a walker at home. She was able to get up and ambulate adequately with her walker and she was comfortable that she would be successful going home. She reported that she does have a son and his girlfriend at home who help take care of her if she has any needs. Diabetes mellitus: Blood sugars well controlled. No change with her regimen. History of atrial flutter: Continued amiodarone for rhythm control. Patient is not on anticoagulation. This is appropriate given her history of compliance issues and potential for falls. Hypertension: Blood pressure well controlled. Continued carvedilol, Entresto Severe nonischemic cardiomyopathy: Ejection fraction 10 to 15%. Moderate to severe TR. No evidence of acute decompensation. Continued with Lasix, Aldactone, carvedilol., Continue glimepiride Severe pulmonary hypertension: Most recent echo with right ventricular systolic pressure of 87 mmHg. No evidence of significant decompensation. Hyperlipidemia: Continue atorvastatin. Resuscitation Status: 03/08/20 00:06 Resuscitation Status Routine Resuscitation Status: FULL: Full Resuscitation - Labs Lab Results: 03/08/20 04:39 03/11/20 08:48 Abnormal Lab Results - Last 48 hrs 03/11/20 08:48: Chloride 113 H, Carbon Dioxide 18 L, BUN 23 H Microbiology - Entire Visit 03/07/20 19:34 Venous blood - Right Arm Blood Culture - Final Coagulase Neg Staphylococcus 03/10/20 13:28 Stool C. difficile GDH Antigen & Toxins - Final 03/07/20 21:01 Urine Straight Catheter Urine Culture - Final NO GROWTH AT 36 HOURS 03/07/20 18:53 Venous blood - Right Arm Blood Culture - Preliminary NO GROWTH AT 48 HOURS - Physical Exam Vitals: Vital Signs (12 hours) Temp Pulse Resp BP BP BP Pulse Ox 03/12/20 12:07 98.7 F 69 19 148/62 H 97 03/12/20 08:52 167/89 H 03/12/20 07:43 98.2 F 68 18 120/68 100 Weight Admit Weight 202 lb 6.4 oz Weight 200 lb 12.8 oz Physical Exam: The patient was seen and examined on the day of discharge. 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 Code(s): I50.42 - CHRONIC COMBINED SYSTOLIC AND DIASTOLIC HRT FAIL Status: Chronic (4) Diabetes type 2, controlled Code(s): E11.9 - TYPE 2 DIABETES MELLITUS WITHOUT COMPLICATIONS Status: Chronic Qualifiers: Diabetes mellitus jail insulin use: without salvage determiner use Diabetes mellitus complication status: without complication Qualified Code(s): E11.9 - Type 2 diabetes mellitus without complications (5) Dyslipidemia Code(s): E78.5 - HYPERLIPIDEMIA, UNSPECIFIED Status: Chronic (6) GERD (gastroesophageal reflux disease) Code(s): K21.9 - GASTRO-ESOPHAGEAL REFLUX DISEASE WITHOUT ESOPHAGITIS Status: Chronic Qualifiers: Esophagitis presence: esophagitis presence not specified (7) Hypertension Code(s): I10 - ESSENTIAL (PRIMARY) HYPERTENSION Status: Chronic Qualifiers: Hypertension type: essential hypertension (8) Non compliance w medication regimen Code(s): Z91.14 - PATIENT'S OTHER NONCOMPLIANCE WITH MEDICATION REGIMEN S tatus: Chronic (9) Nonischemic cardiomyopathy Code(s): I42.8 - OTHER CARDIOMYOPATHIES Status: Chronic (10) CKD (chronic kidney disease), stage III Code(s): N18.30 - CHRONIC KIDNEY DISEASE, STAGE 3 UNSPECIFIED Status: Acute (11) History of atrial flutter Code(s): Z86.79 - PERSONAL HISTORY OF OTHER DISEASES OF THE CIRCULATORY SYSTEM Status: Acute Plan - Discharge Medications Prescriptions: Cephalexin [Keflex] 500 mg PO Q12H #6 cap Home Medications: Medication Instructions Recorded Confirmed Type Glimepiride 4 mg PO DAILY #60 tablet 11/14/17 03/08/20 Rx Atorvastatin Calcium [Lipitor] 40 mg PO HS #30 tab 09/12/18 03/08/20 Rx Carvedilol [Coreg] 12.5 mg PO BID #60 tab 09/12/18 03/08/20 Rx Furosemide [Lasix] 40 mg PO DAILY #30 tablet 09/12/18 03/08/20 Rx Amiodarone [Cordarone] 200 mg PO DAILY #30 tab 12/05/18 03/08/20 Rx Spironolactone [Aldactone] 50 mg PO QAM-WM #30 tab 11/01/19 03/08/20 Rx Cephalexin [Keflex] 500 mg PO Q12H #6 cap 03/12/20 Rx Sacubitril/Valsartan 49/51 1 tab PO BID tab 03/12/20 Rx [Entresto 49 mg-51 mg Tablet] Allergies: No Known Drug Allergies Allergy (Verified 03/08/20 07:11) PER PCI - Discharge Instructions Discharge Instructions:: Resume Entresto at usual dose Activity:: Activity as Tolerated Nourishment:: Heart Healthy Diet - Follow up Plan Referrals: Yulia Alas MD [Primary Care Provider] - 7 Days (CALL AND [facility]LLOW UP APPT WITH DR ALAS IN 1 WEEK.) Disposition: HOME Quality - Care Measures CORE MEASURES:: N/A
[2020-03-12 21:20] VITALS: BP 146/73
--- NOTE | 2020-03-15 13:29 | PQF ---
CLINICAL DOCUMENTATION CLARIFICATION FORM: Dear : Louis Bell MD Date / Time: 03/15/2020 Please exercise your independent, professional judgment in responding to the clarification form. Clinical indicators are provided on the bottom of this form for your review Please check appropriate box(es) to clarify if the following diagnosis has been ruled in our ruled out: [x ] Ruled in sepsis [x ] Continue to treat [ ] Resolved [ ] Ruled out sepsis [ ] Improving [ ] Cannot rule out diagnosis [ ] Other diagnosis (Please specify if any) [ ] Unable to determine Physician Signature: Date/Time: For continuity of documentation, please document condition throughout progress notes and discharge summary. Thank You. To be completed by CDI/Coding staff for physician review: Present Clinical Indicators - Signs / Symptoms / Labs Results and Location in Medical Record [x] sepsis ED provider report on 03/08 [x] Sepsis secondary to cellulitis of L leg H&P on 03/08 [x] Sepsis/cellulitis left foot-discontinue IV antibiotics Hospitalist PN on 03/11 [x] Presented with septic picture & evidence of cellulitis of the dorsum of the left foot Discharge summary on 03/12 Present Risk Factors Results and Location in Medical Record [x] cellulitis H&P on 03/08 [ ] Present Treatments Results and Location in Medical Record [x] Sepsis bundle started, taken IVFs given, started on broad spectrum abs H&P on 03/08 [x] Vancomycin 750mg Medication from 03/08,03/09 [x] Rocephin 2gm Medication from 03/09 to 03/12 [ ] CDS/Transmission Inspector Signature: AAS Phone #: Date/Time: 03/15/2020 This is a permanent part of the Medical Record [facility]
== END 2020-03-12 14:17 | disposition home or self-care (01) | DRG 872 ==
LOC: ERS 18:35 → 2NO 22:04 → OBSVTOIN 03-08 05:28
PROVIDERS: ADMIT Internal Medicine; ATTEND Internal Medicine
DX: A41.9 Sepsis, unspecified organism (principal); L03.116 Cellulitis of left lower limb; I50.42 Chronic combined systolic (congestive) and diastolic (congestive) heart failure; I42.8 Other cardiomyopathies; I13.0 Hypertensive heart and chronic kidney disease with heart failure and stage 1 through stage 4 chronic kidney disease, or unspecified chronic kidney disease; I48.92 Unspecified atrial flutter; E78.00 Pure hypercholesterolemia, unspecified; G30.9 Alzheimer's disease, unspecified; F02.80 Dementia in other diseases classified elsewhere, unspecified severity, without behavioral disturbance, psychotic disturbance, mood disturbance, and anxiety; F17.210 Nicotine dependence, cigarettes, uncomplicated; R77.8 Other specified abnormalities of plasma proteins; I25.10 Atherosclerotic heart disease of native coronary artery without angina pectoris; I48.91 Unspecified atrial fibrillation; E66.9 Obesity, unspecified; Z95.810 Presence of automatic (implantable) cardiac defibrillator; Z98.890 Other specified postprocedural states; Z86.73 Personal history of transient ischemic attack (TIA), and cerebral infarction without residual deficits; Z91.14 Patient's other noncompliance with medication regimen; Z68.34 Body mass index [BMI] 34.0-34.9, adult; N18.30 Chronic kidney disease, stage 3 unspecified; E11.22 Type 2 diabetes mellitus with diabetic chronic kidney disease; I27.20 Pulmonary hypertension, unspecified; Z20.828 Contact with and (suspected) exposure to other viral communicable diseases
CPT/HCPCS: 36415; 36416; 51701; 71045; 80048; 80053; 80202; 81003; 82553; 83605; 83735; 83880; 84484; 85007; 85025; 85027; 85610; 85652; 85730; 86140; 87040; 87086; 87149; 87324; 87449; 87635; 93005; 93970; 94760; 96365; 96367; 96376; G0378; J0696; J1650; J2543; J3370; J3490; J7050; U0003

== ENCOUNTER 2020-07-31 03:47 | Emergency (ER) | payer OTHER, MEDICARE | END 2020-07-31 06:27 | disposition home or self-care (01) | LOC: ERS 03:47 | DX: S42.401A Unspecified fracture of lower end of right humerus, initial encounter for closed fracture (principal); I11.0 Hypertensive heart disease with heart failure; I50.9 Heart failure, unspecified; I48.91 Unspecified atrial fibrillation; E11.9 Type 2 diabetes mellitus without complications; E78.5 Hyperlipidemia, unspecified; E78.00 Pure hypercholesterolemia, unspecified; G30.9 Alzheimer's disease, unspecified; F17.210 Nicotine dependence, cigarettes, uncomplicated; W01.10XA Fall on same level from slipping, tripping and stumbling with subsequent striking against unspecified object, initial encounter | CPT/HCPCS: 29105 ==

== ENCOUNTER 2020-08-01 12:28 | Inpatient (IN) | payer MEDICARE ==
[2020-08-01 14:24] LABS: #Eosinphils 0.2 thou/uL (0.0-0.7); #Lymphocytes 1.5 thou/uL (1.20-3.40); #Monocytes 0.8 thou/uL (0.11-0.59); #Neutrophils 6.8 thou/uL (1.40-6.50); %Basophils 0.5 % (0.0-1.0); %Eosinophils 2.2 % (0.0-10.0); %Lymphocytes 16.4 % (21.0-51.0); %Monocytes 8.7 % (0.0-10.0); %Neutrophils 72.3 % (42.0-75.0); Hemoglobin 13.4 g/dL (12.0-16.0); Mean Corpuscular HGB CONC 33.6 g/dL (32.0-36.0); Mean Corpuscular Hemoglobin 30.2 pg (27.0-31.0); Mean Corpuscular Volume 89.8 fL (78.0-98.0); Mean Platelet Volume 8.4 fL (7.4-10.4); Platelet Count 151 thou/uL (130-400); RBC Distribution Width 12.4 % (11.5-14.5); Red Blood Cell (RBC) Count 4.46 mill/uL (4.20-5.40); White Blood Cell (WBC) Count 9.4 thou/uL (4.8-10.8)
[2020-08-01 14:45] LABS: ALT (SGPT) 27 U/L (8-55); AST (SGOT) 21 U/L (5-34); Albumin 3.7 g/dL (3.5-5.0); Alkaline Phosphatase 125 U/L (40-110); Anion Gap 13 mmol/L (10-20); BUN (Urea Nitrogen) 26 mg/dL (9.8-20.1); Bilirubin, Total 0.6 mg/dL (0.2-1.2); Calc. Creatinine Clearance 0 mL/min (70-130); Calcium 9.2 mg/dL (7.8-10.44); Carbon Dioxide 26 mmol/L (22-29); Chloride 106 mmol/L (98-107); Globulin 3.4 g/dL (2.4-3.5); Glucose 273 mg/dL (70-105); Potassium 4.4 mmol/L (3.5-5.1); Protein, Total 7.1 g/dL (6.0-8.3); Sodium 141 mmol/L (136-145)
[2020-08-01] MEDS ORDERED: Furosemide 40 MG/4 ML VIAL ONE (15:23)
[2020-08-01] MEDS ORDERED: Nitroglycerin 2% Ointment 1 INCH/1 GM Packet ONE (15:23)
[2020-08-01] MEDS ORDERED: Metoprolol Tartrate 5 MG/5 ML VIAL ONE (17:51)
[2020-08-01 17:56] LABS: Troponin I 0.091 ng/mL (< 0.028)
[2020-08-01] MEDS ORDERED: Dextrose 50% Abboject 50 ML SYRINGE SLOW IVP PRN (17:59)
[2020-08-01] MEDS ORDERED: Dextrose 5% in Water 1,000 ML IV PRN (17:59)
[2020-08-01] MEDS ORDERED: Metoprolol Tartrate 5 MG/5 ML VIAL IVP SCH ×2 (18:00→20:15)
[2020-08-01] MEDS ORDERED: Magnesium 2 GM/50 ML 2 GM in Premix Bag 1 BAG IVPB SCH (18:00)
[2020-08-01] MEDS ORDERED: Aspirin 325 MG TAB PO SCH (18:00)
[2020-08-01 20:42] LABS: Troponin I 0.086 ng/mL (< 0.028)
[2020-08-01] MEDS ORDERED: Atorvastatin Calcium 40 MG TAB PO SCH (21:00)
[2020-08-01] MEDS: HumaLOG 300 UNITS/3 ML VIAL SC PRN (21:41)
[2020-08-01] MEDS: Nitroglycerin 2% Ointment 1 INCH/1 GM Packet TOP SCH (21:43)
[2020-08-01] MEDS: Sacubitril 49 MG/Valsartan 51 MG TABLET PO SCH (21:43)
[2020-08-01 22:01] VITALS: BMI 45.4
[2020-08-02 05:35] LABS: Cardiac Risk 2.7 (Less than 4.5)
[2020-08-02] MEDS ORDERED: Furosemide 40 MG/4 ML VIAL SLOW IVP SCH (06:00)
[2020-08-02] MEDS: HumaLOG 300 UNITS/3 ML VIAL SC PRN ×3 (06:08→23:10)
[2020-08-02] MEDS: Nitroglycerin 2% Ointment 1 INCH/1 GM Packet TOP SCH ×3 (06:09→23:10)
[2020-08-02] MEDS: Aspirin 81 mg Enteric Coated Tablet PO SCH (08:47)
[2020-08-02] MEDS: Sacubitril 49 MG/Valsartan 51 MG TABLET PO SCH ×2 (08:47→22:52)
[2020-08-02] MEDS: Spironolactone 25 MG TAB PO SCH (08:47)
[2020-08-02] MEDS: traMADol HCl 50 MG TAB PO PRN (10:27)
[2020-08-02] MEDS: Atorvastatin Calcium 40 MG TAB PO SCH (22:52)
[2020-08-02] MEDS: Carvedilol 25 MG TAB PO SCH (22:53)
[2020-08-03] MEDS: traMADol HCl 50 MG TAB PO PRN ×2 (04:50→14:56)
[2020-08-03] MEDS: Nitroglycerin 2% Ointment 1 INCH/1 GM Packet TOP SCH (06:19)
[2020-08-03] MEDS: HumaLOG 300 UNITS/3 ML VIAL SC PRN ×3 (07:25→21:04)
[2020-08-03] MEDS: Furosemide 40 MG TAB PO SCH (08:20)
[2020-08-03] MEDS: Glimepiride 2 MG TAB PO SCH (08:20)
[2020-08-03] MEDS: Carvedilol 25 MG TAB PO SCH ×2 (08:21→20:30)
[2020-08-03] MEDS: Spironolactone 25 MG TAB PO SCH ×2 (08:21→08:23)
[2020-08-03] MEDS: Aspirin 81 mg Enteric Coated Tablet PO SCH (08:23)
[2020-08-03] MEDS: Amiodarone 200 MG TAB PO SCH (08:23)
[2020-08-03] MEDS: Sacubitril 49 MG/Valsartan 51 MG TABLET PO SCH ×2 (08:23→20:30)
[2020-08-03 16:47] LABS: Hemoglobin A1c 7.8 % (4.0-6.0)
[2020-08-03 16:57] LABS: Anion Gap 10 mmol/L (10-20); BUN (Urea Nitrogen) 35 mg/dL (9.8-20.1); Calc. Creatinine Clearance 86 mL/min (70-130); Calcium 8.8 mg/dL (7.8-10.44); Carbon Dioxide 29 mmol/L (22-29); Chloride 105 mmol/L (98-107); Glucose 141 mg/dL (70-105); Potassium 3.9 mmol/L (3.5-5.1); Sodium 140 mmol/L (136-145)
[2020-08-03] MEDS: Atorvastatin Calcium 40 MG TAB PO SCH (20:30)
[2020-08-04] MEDS: traMADol HCl 50 MG TAB PO PRN (04:35)
[2020-08-04 04:50] LABS: #Basophils 0.1 thou/uL (0.0-0.2); #Eosinphils 0.4 thou/uL (0.0-0.7); #Lymphocytes 2.8 thou/uL (1.20-3.40); #Monocytes 0.9 thou/uL (0.11-0.59); #Neutrophils 4.8 thou/uL (1.40-6.50); %Basophils 0.6 % (0.0-1.0); %Eosinophils 4.6 % (0.0-10.0); %Lymphocytes 31.3 % (21.0-51.0); %Monocytes 9.9 % (0.0-10.0); %Neutrophils 53.6 % (42.0-75.0); Hemoglobin 12.6 g/dL (12.0-16.0); Mean Corpuscular HGB CONC 32.7 g/dL (32.0-36.0); Mean Corpuscular Hemoglobin 29.7 pg (27.0-31.0); Mean Corpuscular Volume 90.8 fL (78.0-98.0); Mean Platelet Volume 8.7 fL (7.4-10.4); Platelet Count 167 thou/uL (130-400); RBC Distribution Width 12.3 % (11.5-14.5); Red Blood Cell (RBC) Count 4.24 mill/uL (4.20-5.40); White Blood Cell (WBC) Count 8.9 thou/uL (4.8-10.8)
[2020-08-04 05:16] LABS: ALT (SGPT) 22 U/L (8-55); AST (SGOT) 14 U/L (5-34); Albumin 3.1 g/dL (3.5-5.0); Alkaline Phosphatase 117 U/L (40-110); Anion Gap 10 mmol/L (10-20); BUN (Urea Nitrogen) 38 mg/dL (9.8-20.1); Bilirubin, Total 0.7 mg/dL (0.2-1.2); Calc. Creatinine Clearance 81 mL/min (70-130); Calcium 8.8 mg/dL (7.8-10.44); Carbon Dioxide 28 mmol/L (22-29); Chloride 103 mmol/L (98-107); Globulin 3.4 g/dL (2.4-3.5); Glucose 231 mg/dL (70-105); Potassium 3.9 mmol/L (3.5-5.1); Protein, Total 6.5 g/dL (6.0-8.3); Sodium 137 mmol/L (136-145)
[2020-08-04] MEDS: HumaLOG 300 UNITS/3 ML VIAL SC PRN ×4 (05:56→22:02)
[2020-08-04] MEDS: HYDROcodone/Acetaminophen 7.5/325 mg Tablet PO PRN ×2 (08:16→14:48)
[2020-08-04] MEDS: Carvedilol 25 MG TAB PO SCH ×2 (08:18→22:02)
[2020-08-04] MEDS: Aspirin 81 mg Enteric Coated Tablet PO SCH (08:18)
[2020-08-04] MEDS: Amiodarone 200 MG TAB PO SCH (08:18)
[2020-08-04] MEDS: Spironolactone 25 MG TAB PO SCH (08:18)
[2020-08-04] MEDS: Furosemide 40 MG TAB PO SCH (08:19)
[2020-08-04] MEDS: Sacubitril 49 MG/Valsartan 51 MG TABLET PO SCH ×2 (08:19→22:02)
[2020-08-04] MEDS: Glimepiride 2 MG TAB PO SCH (08:19)
[2020-08-04] MEDS: Atorvastatin Calcium 40 MG TAB PO SCH (22:02)
[2020-08-05] MEDS: HumaLOG 300 UNITS/3 ML VIAL SC PRN ×2 (05:45→13:17)
[2020-08-05] MEDS: traMADol HCl 50 MG TAB PO PRN (05:51)
[2020-08-05] MEDS: Amiodarone 200 MG TAB PO SCH (09:15)
[2020-08-05] MEDS: Carvedilol 25 MG TAB PO SCH (09:15)
[2020-08-05] MEDS: Aspirin 81 mg Enteric Coated Tablet PO SCH (09:15)
[2020-08-05] MEDS: Spironolactone 25 MG TAB PO SCH (09:16)
[2020-08-05] MEDS: Furosemide 40 MG TAB PO SCH (09:16)
[2020-08-05] MEDS: Glimepiride 2 MG TAB PO SCH (09:16)
[2020-08-05] MEDS: Sacubitril 49 MG/Valsartan 51 MG TABLET PO SCH (09:17)
[2020-08-05 15:59] VITALS: BP 138/76; TEMP 98.1
== END 2020-08-05 16:24 | DRG 280 ==
LOC: ERS 12:28 → ERHOLD 16:05 → 2SW 19:39 → OBSVTOIN 08-02 15:10
PROVIDERS: ADMIT Internal Medicine; ATTEND Internal Medicine
DX: I13.0 Hypertensive heart and chronic kidney disease with heart failure and stage 1 through stage 4 chronic kidney disease, or unspecified chronic kidney disease (principal); I50.23 Acute on chronic systolic (congestive) heart failure; I21.A1 Myocardial infarction type 2; S42.301A Unspecified fracture of shaft of humerus, right arm, initial encounter for closed fracture; N17.9 Acute kidney failure, unspecified; I42.8 Other cardiomyopathies; I16.0 Hypertensive urgency; E78.5 Hyperlipidemia, unspecified; R77.8 Other specified abnormalities of plasma proteins; G30.9 Alzheimer's disease, unspecified; F02.80 Dementia in other diseases classified elsewhere, unspecified severity, without behavioral disturbance, psychotic disturbance, mood disturbance, and anxiety; E66.9 Obesity, unspecified; E78.00 Pure hypercholesterolemia, unspecified; M10.9 Gout, unspecified; F17.210 Nicotine dependence, cigarettes, uncomplicated; N18.30 Chronic kidney disease, stage 3 unspecified; K21.9 Gastro-esophageal reflux disease without esophagitis; E03.9 Hypothyroidism, unspecified; I27.20 Pulmonary hypertension, unspecified; I45.81 Long QT syndrome; W18.30XA Fall on same level, unspecified, initial encounter; Z95.810 Presence of automatic (implantable) cardiac defibrillator; Z86.73 Personal history of transient ischemic attack (TIA), and cerebral infarction without residual deficits; Z68.39 Body mass index [BMI] 39.0-39.9, adult; Z86.79 Personal history of other diseases of the circulatory system; Z91.14 Patient's other noncompliance with medication regimen; Y92.002 Bathroom of unspecified non-institutional (private) residence as the place of occurrence of the external cause; Z79.899 Other long term (current) drug therapy
CPT/HCPCS: 36415; 36416; 71045; 80048; 80053; 80061; 82553; 83036; 83735; 83880; 84439; 84443; 84484; 85025; 93005; 93306; 94760; 96374; 96375; 96376; G0378; J1815; J1940; J3475

== ENCOUNTER 2020-10-05 14:56 | Emergency (ER) | payer MEDICARE ==
[2020-10-05 16:36] LABS: #Basophils 0.1 thou/uL (0.0-0.2); #Eosinphils 0.2 thou/uL (0.0-0.7); #Monocytes 0.6 thou/uL (0.11-0.59); #Neutrophils 2.9 thou/uL (1.40-6.50); %Basophils 0.9 % (0.0-1.0); %Eosinophils 3.6 % (0.0-10.0); %Lymphocytes 34.7 % (21.0-51.0); %Monocytes 9.8 % (0.0-10.0); Hemoglobin 12.9 g/dL (12.0-16.0); Mean Corpuscular HGB CONC 32.4 g/dL (32.0-36.0); Mean Corpuscular Hemoglobin 30.4 pg (27.0-31.0); Mean Corpuscular Volume 93.7 fL (78.0-98.0); Mean Platelet Volume 8.1 fL (7.4-10.4); Platelet Count 168 thou/uL (130-400); RBC Distribution Width 12.7 % (11.5-14.5); Red Blood Cell (RBC) Count 4.24 mill/uL (4.20-5.40); White Blood Cell (WBC) Count 5.7 thou/uL (4.8-10.8)
[2020-10-05 16:53] LABS: ALT (SGPT) 8 U/L (8-55); AST (SGOT) 10 U/L (5-34); Albumin 3.7 g/dL (3.5-5.0); Alkaline Phosphatase 122 U/L (40-110); Anion Gap 11 mmol/L (10-20); BUN (Urea Nitrogen) 23 mg/dL (9.8-20.1); Bilirubin, Total 0.3 mg/dL (0.2-1.2); Calc. Creatinine Clearance 0 mL/min (70-130); Calcium 9.2 mg/dL (7.8-10.44); Carbon Dioxide 26 mmol/L (22-29); Chloride 109 mmol/L (98-107); Globulin 3.4 g/dL (2.4-3.5); Glucose 97 mg/dL (70-105); Potassium 3.7 mmol/L (3.5-5.1); Protein, Total 7.1 g/dL (6.0-8.3); Sodium 142 mmol/L (136-145)
[2020-10-05 17:15] LABS: CKMB 0.8 ng/mL (0-6.6)
[2020-10-05] MEDS ORDERED: Nitroglycerin 2% Ointment 1 INCH/1 GM Packet ONE (17:27)
[2020-10-05] MEDS ORDERED: Aspirin Chewable 81 MG TAB ONE (17:27)
[2020-10-05 20:33] LABS: Troponin I 0.074 ng/mL (< 0.028)
[2020-10-05] MEDS ORDERED: Labetalol HCl 100 MG/20 ML VIAL ONE (22:16)
== END 2020-10-06 00:32 | disposition left against medical advice (07) ==
LOC: ERS 14:56
DX: I16.0 Hypertensive urgency (principal); R79.89 Other specified abnormal findings of blood chemistry; I11.0 Hypertensive heart disease with heart failure; I50.9 Heart failure, unspecified; I48.91 Unspecified atrial fibrillation; M10.9 Gout, unspecified; F17.210 Nicotine dependence, cigarettes, uncomplicated; E11.9 Type 2 diabetes mellitus without complications
CPT/HCPCS: 29105; 36415; 80053; 82553; 84484; 85025; 93005

== ENCOUNTER 2021-01-16 17:23 | Inpatient (IN) | payer MEDICARE ==
[2021-01-16 18:52] LABS: #Eosinphils 0.1 thou/uL (0.0-0.7); #Lymphocytes 1.4 thou/uL (1.20-3.40); #Monocytes 0.5 thou/uL (0.11-0.59); #Neutrophils 3.3 thou/uL (1.40-6.50); %Basophils 0.3 % (0.0-1.0); %Eosinophils 2.4 % (0.0-10.0); %Lymphocytes 25.6 % (21.0-51.0); %Monocytes 10.1 % (0.0-10.0); %Neutrophils 61.6 % (42.0-75.0); Hemoglobin 15.3 g/dL (12.0-16.0); Mean Corpuscular Hemoglobin 28.8 pg (27.0-31.0); Mean Corpuscular Volume 92.9 fL (78.0-98.0); Mean Platelet Volume 8.7 fL (7.4-10.4); Platelet Count 136 thou/uL (130-400); RBC Distribution Width 15.3 % (11.5-14.5); Red Blood Cell (RBC) Count 5.31 mill/uL (4.20-5.40); White Blood Cell (WBC) Count 5.3 thou/uL (4.8-10.8)
[2021-01-16 19:07] LABS: ALT (SGPT) 19 U/L (8-55); AST (SGOT) 14 U/L (5-34); Alkaline Phosphatase 92 U/L (40-110); Anion Gap 16 mmol/L (10-20); BUN (Urea Nitrogen) 29 mg/dL (9.8-20.1); Bilirubin, Total 0.9 mg/dL (0.2-1.2); Calc. Creatinine Clearance 0 mL/min (70-130); Calcium 9.7 mg/dL (7.8-10.44); Carbon Dioxide 23 mmol/L (22-29); Chloride 108 mmol/L (98-107); Glucose 102 mg/dL (70-105); Potassium 3.8 mmol/L (3.5-5.1); Sodium 143 mmol/L (136-145)
[2021-01-16] MEDS ORDERED: Furosemide 40 MG/4 ML VIAL ONE (22:12)
[2021-01-17 01:59] VITALS: BMI 42.1
[2021-01-17] MEDS ORDERED: Ondansetron PF 4 MG/2 ML Vial IVP PRN (03:31)
[2021-01-17] MEDS ORDERED: Acetaminophen 325 MG TAB PO PRN (03:31)
[2021-01-17] MEDS ORDERED: Dextrose 5% in Water 1,000 ML IV PRN (03:43)
[2021-01-17] MEDS ORDERED: Dextrose 50% Abboject 50 ML SYRINGE SLOW IVP PRN (03:43)
[2021-01-17] MEDS ORDERED: HumaLOG 300 UNITS/3 ML VIAL SC PRN (03:43)
[2021-01-17] MEDS: Furosemide 40 MG/4 ML VIAL SLOW IVP SCH ×2 (06:24→14:11)
[2021-01-17 06:36] LABS: Cardiac Risk 3.1 (Less than 4.5)
[2021-01-17] MEDS ORDERED: FLU VACC QS2021-22(6MOS UP)/PF 60 MCG/0.5 ML SYRINGE IM ONE (09:00)
[2021-01-17] MEDS: Heparin 5,000 UNITS/ML VIAL SC SCH ×3 (09:46→21:47)
[2021-01-17 13:41] LABS: SARS-CoV-2 PCR by NAA Not Detected (NotDetected)
[2021-01-17] MEDS: Atorvastatin Calcium 40 MG TAB PO SCH (21:46)
[2021-01-17] MEDS: Carvedilol 6.25 MG TAB PO SCH (21:46)
[2021-01-18 05:22] LABS: #Eosinphils 0.1 thou/uL (0.0-0.7); #Lymphocytes 1.2 thou/uL (1.20-3.40); #Monocytes 0.5 thou/uL (0.11-0.59); #Neutrophils 2.5 thou/uL (1.40-6.50); %Eosinophils 3.4 % (0.0-10.0); %Lymphocytes 27.8 % (21.0-51.0); %Neutrophils 55.9 % (42.0-75.0); Hemoglobin 12.3 g/dL (12.0-16.0); Mean Corpuscular Hemoglobin 29.5 pg (27.0-31.0); Mean Corpuscular Volume 92.2 fL (78.0-98.0); Mean Platelet Volume 8.3 fL (7.4-10.4); Platelet Count 144 thou/uL (130-400); RBC Distribution Width 14.9 % (11.5-14.5); Red Blood Cell (RBC) Count 4.17 mill/uL (4.20-5.40); White Blood Cell (WBC) Count 4.4 thou/uL (4.8-10.8)
[2021-01-18 05:42] LABS: Anion Gap 13 mmol/L (10-20); BUN (Urea Nitrogen) 24 mg/dL (9.8-20.1); Calc. Creatinine Clearance 75 mL/min (70-130); Carbon Dioxide 29 mmol/L (22-29); Chloride 106 mmol/L (98-107); Glucose 95 mg/dL (70-105); Potassium 3.5 mmol/L (3.5-5.1); Sodium 144 mmol/L (136-145)
[2021-01-18] MEDS: Furosemide 40 MG/4 ML VIAL SLOW IVP SCH ×2 (06:19→14:07)
[2021-01-18] MEDS: Amiodarone 200 MG TAB PO SCH (08:28)
[2021-01-18] MEDS: Heparin 5,000 UNITS/ML VIAL SC SCH ×3 (08:28→21:00)
[2021-01-18] MEDS: Carvedilol 6.25 MG TAB PO SCH ×2 (08:28→21:00)
[2021-01-18] MEDS: Aspirin 81 mg Enteric Coated Tablet PO SCH (08:28)
[2021-01-18] MEDS: Spironolactone 25 MG TAB PO SCH (08:28)
[2021-01-18] MEDS ORDERED: Potassium Chloride 20 MEQ TAB PO SCH (10:30)
[2021-01-18] MEDS: Atorvastatin Calcium 40 MG TAB PO SCH (21:01)
[2021-01-19 05:23] LABS: #Eosinphils 0.2 thou/uL (0.0-0.7); #Lymphocytes 1.4 thou/uL (1.20-3.40); #Monocytes 0.5 thou/uL (0.11-0.59); #Neutrophils 2.6 thou/uL (1.40-6.50); %Basophils 0.3 % (0.0-1.0); %Eosinophils 3.5 % (0.0-10.0); %Lymphocytes 29.5 % (21.0-51.0); %Monocytes 10.9 % (0.0-10.0); %Neutrophils 55.8 % (42.0-75.0); Hemoglobin 12.4 g/dL (12.0-16.0); Mean Corpuscular HGB CONC 31.5 g/dL (32.0-36.0); Mean Corpuscular Hemoglobin 29.5 pg (27.0-31.0); Mean Corpuscular Volume 93.5 fL (78.0-98.0); Mean Platelet Volume 8.5 fL (7.4-10.4); Platelet Count 148 thou/uL (130-400); RBC Distribution Width 15.1 % (11.5-14.5); White Blood Cell (WBC) Count 4.6 thou/uL (4.8-10.8)
[2021-01-19 05:45] LABS: ALT (SGPT) 12 U/L (8-55); AST (SGOT) 9 U/L (5-34); Albumin 3.2 g/dL (3.5-5.0); Alkaline Phosphatase 72 U/L (40-110); Anion Gap 12 mmol/L (10-20); BUN (Urea Nitrogen) 29 mg/dL (9.8-20.1); Bilirubin, Total 0.7 mg/dL (0.2-1.2); Calc. Creatinine Clearance 57 mL/min (70-130); Calcium 8.8 mg/dL (7.8-10.44); Carbon Dioxide 27 mmol/L (22-29); Chloride 107 mmol/L (98-107); Globulin 3.2 g/dL (2.4-3.5); Glucose 128 mg/dL (70-105); Potassium 3.6 mmol/L (3.5-5.1); Protein, Total 6.4 g/dL (6.0-8.3); Sodium 142 mmol/L (136-145)
[2021-01-19] MEDS: Furosemide 40 MG/4 ML VIAL SLOW IVP SCH (05:59)
[2021-01-19] MEDS: Carvedilol 6.25 MG TAB PO SCH ×3 (09:16→21:07)
[2021-01-19] MEDS: Spironolactone 25 MG TAB PO SCH ×2 (09:16→09:29)
[2021-01-19] MEDS: Amiodarone 200 MG TAB PO SCH (09:16)
[2021-01-19] MEDS: Heparin 5,000 UNITS/ML VIAL SC SCH ×3 (09:17→21:08)
[2021-01-19] MEDS: Aspirin 81 mg Enteric Coated Tablet PO SCH (09:17)
[2021-01-19] MEDS: Atorvastatin Calcium 40 MG TAB PO SCH (21:07)
[2021-01-20 05:35] LABS: #Eosinphils 0.2 thou/uL (0.0-0.7); #Lymphocytes 1.2 thou/uL (1.20-3.40); #Monocytes 0.6 thou/uL (0.11-0.59); #Neutrophils 2.8 thou/uL (1.40-6.50); %Basophils 0.3 % (0.0-1.0); %Eosinophils 4.1 % (0.0-10.0); %Lymphocytes 25.8 % (21.0-51.0); %Monocytes 11.4 % (0.0-10.0); %Neutrophils 58.5 % (42.0-75.0); Hemoglobin 12.6 g/dL (12.0-16.0); Mean Corpuscular Hemoglobin 28.8 pg (27.0-31.0); Mean Corpuscular Volume 93.1 fL (78.0-98.0); Mean Platelet Volume 8.8 fL (7.4-10.4); Platelet Count 150 thou/uL (130-400); RBC Distribution Width 14.9 % (11.5-14.5); Red Blood Cell (RBC) Count 4.38 mill/uL (4.20-5.40); White Blood Cell (WBC) Count 4.8 thou/uL (4.8-10.8)
[2021-01-20 05:54] LABS: Anion Gap 14 mmol/L (10-20); BUN (Urea Nitrogen) 29 mg/dL (9.8-20.1); Calc. Creatinine Clearance 67 mL/min (70-130); Calcium 9.3 mg/dL (7.8-10.44); Carbon Dioxide 28 mmol/L (22-29); Chloride 106 mmol/L (98-107); Glucose 113 mg/dL (70-105); Potassium 3.9 mmol/L (3.5-5.1); Sodium 144 mmol/L (136-145)
[2021-01-20] MEDS: Heparin 5,000 UNITS/ML VIAL SC SCH ×3 (08:22→21:31)
[2021-01-20] MEDS: Spironolactone 25 MG TAB PO SCH (08:24)
[2021-01-20] MEDS: Amiodarone 200 MG TAB PO SCH (08:24)
[2021-01-20] MEDS: Carvedilol 6.25 MG TAB PO SCH ×2 (08:24→21:37)
[2021-01-20] MEDS: Furosemide 40 MG/4 ML VIAL SLOW IVP SCH (08:24)
[2021-01-20] MEDS: Aspirin 81 mg Enteric Coated Tablet PO SCH (08:25)
[2021-01-20] MEDS ORDERED: traMADol HCl 50 MG TAB PO PRN (13:44)
[2021-01-20] MEDS ORDERED: HYDROcodone/Acetaminophen 7.5/325 mg Tablet PO PRN (13:44)
[2021-01-20] MEDS: Atorvastatin Calcium 40 MG TAB PO SCH (21:31)
[2021-01-21] MEDS: Aspirin 81 mg Enteric Coated Tablet PO SCH (08:53)
[2021-01-21] MEDS: Carvedilol 6.25 MG TAB PO SCH ×2 (08:53→23:00)
[2021-01-21] MEDS: Amiodarone 200 MG TAB PO SCH (08:54)
[2021-01-21] MEDS: Spironolactone 25 MG TAB PO SCH (08:54)
[2021-01-21] MEDS: Heparin 5,000 UNITS/ML VIAL SC SCH ×3 (08:54→23:25)
[2021-01-21] MEDS: Furosemide 40 MG/4 ML VIAL SLOW IVP SCH ×2 (08:54→15:05)
[2021-01-21] MEDS ORDERED: Polyethylene Glycol 3350 17 GM Packet PO SCH (12:00)
[2021-01-21] MEDS ORDERED: Docusate 100 MG CAP PO SCH (12:00)
[2021-01-21 14:37] LABS: Anion Gap 12 mmol/L (10-20); BUN (Urea Nitrogen) 30 mg/dL (9.8-20.1); Calc. Creatinine Clearance 61 mL/min (70-130); Calcium 9.1 mg/dL (7.8-10.44); Carbon Dioxide 29 mmol/L (22-29); Chloride 105 mmol/L (98-107); Glucose 143 mg/dL (70-105); Magnesium 1.9 mg/dL (1.6-2.6); Phosphorus 2.9 mg/dL (2.3-4.7); Potassium 3.8 mmol/L (3.5-5.1); Sodium 142 mmol/L (136-145)
[2021-01-21] MEDS: Atorvastatin Calcium 40 MG TAB PO SCH (22:59)
[2021-01-21] MEDS: Docusate 100 MG CAP PO SCH (23:00)
[2021-01-22 04:54] LABS: Anion Gap 13 mmol/L (10-20); BUN (Urea Nitrogen) 32 mg/dL (9.8-20.1); Calc. Creatinine Clearance 63 mL/min (70-130); Calcium 8.9 mg/dL (7.8-10.44); Carbon Dioxide 28 mmol/L (22-29); Chloride 106 mmol/L (98-107); Glucose 135 mg/dL (70-105); Potassium 3.8 mmol/L (3.5-5.1); Sodium 143 mmol/L (136-145)
[2021-01-22] MEDS: Furosemide 40 MG/4 ML VIAL SLOW IVP SCH ×2 (07:11→15:12)
[2021-01-22] MEDS: Amiodarone 200 MG TAB PO SCH (09:07)
[2021-01-22] MEDS: Docusate 100 MG CAP PO SCH ×2 (09:07→19:45)
[2021-01-22] MEDS: Aspirin 81 mg Enteric Coated Tablet PO SCH (09:07)
[2021-01-22] MEDS: Spironolactone 25 MG TAB PO SCH (09:07)
[2021-01-22] MEDS: Carvedilol 6.25 MG TAB PO SCH ×2 (09:07→19:46)
[2021-01-22] MEDS: Heparin 5,000 UNITS/ML VIAL SC SCH ×3 (09:08→19:51)
[2021-01-22] MEDS: Polyethylene Glycol 3350 17 GM Packet PO SCH (09:08)
[2021-01-22 15:17] LABS: Anion Gap 11 mmol/L (10-20); BUN (Urea Nitrogen) 31 mg/dL (9.8-20.1); Calc. Creatinine Clearance 55 mL/min (70-130); Calcium 9.2 mg/dL (7.8-10.44); Carbon Dioxide 33 mmol/L (22-29); Chloride 104 mmol/L (98-107); Glucose 104 mg/dL (70-105); Potassium 3.9 mmol/L (3.5-5.1); Sodium 144 mmol/L (136-145)
[2021-01-22] MEDS: Atorvastatin Calcium 40 MG TAB PO SCH (19:47)
[2021-01-23] MEDS: Furosemide 40 MG/4 ML VIAL SLOW IVP SCH (05:32)
[2021-01-23 06:02] LABS: Anion Gap 13 mmol/L (10-20); BUN (Urea Nitrogen) 31 mg/dL (9.8-20.1); Calc. Creatinine Clearance 62 mL/min (70-130); Carbon Dioxide 27 mmol/L (22-29); Chloride 105 mmol/L (98-107); Glucose 147 mg/dL (70-105); Potassium 4.4 mmol/L (3.5-5.1); Sodium 141 mmol/L (136-145)
[2021-01-23] MEDS ORDERED: Sacubitril 49 MG/Valsartan 51 MG TABLET PO SCH (09:00)
[2021-01-23] MEDS: Amiodarone 200 MG TAB PO SCH (09:27)
[2021-01-23] MEDS: Aspirin 81 mg Enteric Coated Tablet PO SCH (09:27)
[2021-01-23] MEDS: Carvedilol 6.25 MG TAB PO SCH (09:27)
[2021-01-23] MEDS: Polyethylene Glycol 3350 17 GM Packet PO SCH (09:27)
[2021-01-23] MEDS: Spironolactone 25 MG TAB PO SCH (09:27)
[2021-01-23] MEDS: Heparin 5,000 UNITS/ML VIAL SC SCH ×2 (09:27→15:37)
[2021-01-23] MEDS: Docusate 100 MG CAP PO SCH (09:27)
[2021-01-23 15:27] LABS: Anion Gap 13 mmol/L (10-20); BUN (Urea Nitrogen) 32 mg/dL (9.8-20.1); Calc. Creatinine Clearance 60 mL/min (70-130); Calcium 9.2 mg/dL (7.8-10.44); Carbon Dioxide 29 mmol/L (22-29); Chloride 105 mmol/L (98-107); Glucose 184 mg/dL (70-105); Magnesium 1.9 mg/dL (1.6-2.6); Potassium 4.2 mmol/L (3.5-5.1); Sodium 143 mmol/L (136-145)
[2021-01-23 16:03] VITALS: BP 124/80; TEMP 97.6
[2021-01-24] MEDS ORDERED: Furosemide 40 MG TAB PO SCH (07:30)
== END 2021-01-23 18:06 | disposition home health service (06) | DRG 291 ==
LOC: ERS 17:23 → 2NO 23:16 → OBSVTOIN 01-18 12:19
PROVIDERS: ADMIT Student in an Organized Health Care Education/Training Program; ATTEND Internal Medicine
DX: I13.0 Hypertensive heart and chronic kidney disease with heart failure and stage 1 through stage 4 chronic kidney disease, or unspecified chronic kidney disease (principal); I50.23 Acute on chronic systolic (congestive) heart failure; J96.01 Acute respiratory failure with hypoxia; Z68.41 Body mass index [BMI] 40.0-44.9, adult; L97.419 Non-pressure chronic ulcer of right heel and midfoot with unspecified severity; I48.92 Unspecified atrial flutter; N17.9 Acute kidney failure, unspecified; Z20.822 Contact with and (suspected) exposure to COVID-19; I42.8 Other cardiomyopathies; E66.01 Morbid (severe) obesity due to excess calories; E11.22 Type 2 diabetes mellitus with diabetic chronic kidney disease; N18.31 Chronic kidney disease, stage 3a; E78.5 Hyperlipidemia, unspecified; K21.9 Gastro-esophageal reflux disease without esophagitis; E03.9 Hypothyroidism, unspecified; I48.91 Unspecified atrial fibrillation; E78.00 Pure hypercholesterolemia, unspecified; M10.9 Gout, unspecified; G30.9 Alzheimer's disease, unspecified; F02.80 Dementia in other diseases classified elsewhere, unspecified severity, without behavioral disturbance, psychotic disturbance, mood disturbance, and anxiety; E11.621 Type 2 diabetes mellitus with foot ulcer; I08.3 Combined rheumatic disorders of mitral, aortic and tricuspid valves; Z90.49 Acquired absence of other specified parts of digestive tract; Z28.21 Immunization not carried out because of patient refusal; Z86.73 Personal history of transient ischemic attack (TIA), and cerebral infarction without residual deficits; Z91.14 Patient's other noncompliance with medication regimen; Z79.84 Long term (current) use of oral hypoglycemic drugs; Z79.82 Long term (current) use of aspirin; Z79.899 Other long term (current) drug therapy; Z95.810 Presence of automatic (implantable) cardiac defibrillator
CPT/HCPCS: 36415; 36416; 71045; 80048; 80053; 80061; 83735; 83880; 84100; 84443; 85025; 93005; 93010; 93306; 93798; 96374; 96376; G0378; J1644; J1815; J1940; J2405; U0003; U0005

== ENCOUNTER 2021-03-18 21:54 | Inpatient (IN) | payer MEDICARE ==
[2021-03-18] MEDS ORDERED: Diltiazem 125 MG/25 ML ONE (22:26)
[2021-03-18] MEDS ORDERED: Diltiazem HCl 125 MG, Admixture Fee 1 EACH in Sodium Chloride 0.9% 100 ML IVPB SCH (22:45)
[2021-03-18 22:47] LABS: Hemoglobin 17.9 g/dL (12.0-16.0); Lymphocytes 17 % (21-51); MDiff Complete? YES; Mean Corpuscular HGB CONC 31.4 g/dL (32.0-36.0); Mean Corpuscular Hemoglobin 29.6 pg (27.0-31.0); Mean Corpuscular Volume 94.1 fL (78.0-98.0); Mean Platelet Volume 6.4 fL (7.4-10.4); Monocytes 4 % (0-10); Neutrophil 79 % (42-75); Platelet Count 81 thou/uL (130-400); Platelet Morphology Comment Appears Decreased; RBC Distribution Width 18.2 % (11.5-14.5); RBC Morphology Normal; Red Blood Cell (RBC) Count 6.04 mill/uL (4.20-5.40); White Blood Cell (WBC) Count 7.4 thou/uL (4.8-10.8)
[2021-03-18 22:55] LABS: Actual Bicarbonate (HCO3a) 20.5 mEq/L (22-28); Analyzer IN Cardio ER; Base Excess (BEa) -3.7 mEq/L (-2.0 to +3.0); CO2 Tension 34.8 mmHg (35.0-45.0); Calcium, Ionized (arterial) 1.13 mmol/L (1.12-1.30); Carboxyhemoglobin (COHb) 0.6 gm% (0.0-3.0); Hemoglobin (Hb) 16.2 g/dL (12.0-16.0); O2 Tension (PaO2), arterial 79.8 mmHg (> 80.0); Potassium - ABG Lab 3.75 mmol/L (3.70-5.30); pH, Arterial 7.39 (7.35-7.45)
[2021-03-18] MEDS ORDERED: Dexamethasone 10 MG/ML VIAL ONE (22:57)
[2021-03-18 22:59] LABS: Puncture Site RRA
[2021-03-18 23:13] LABS: Anion Gap 27 mmol/L (10-20); Bilirubin, Total 1.8 mg/dL (0.2-1.2); Carbon Dioxide 13 mmol/L (22-29)
[2021-03-18 23:14] LABS: Alkaline Phosphatase 227 U/L (40-110)
[2021-03-18 23:15] LABS: Calc. Creatinine Clearance 0 mL/min (70-130)
[2021-03-18 23:31] LABS: Bacteria/HPF 1+ HPF (None Seen); Bilirubin Negative (Negative); Blood, Urine Negative (Negative); Clarity Turbid (Clear); Glucose, Urine (Dipstick) Normal (Negative); Ketone, Urine Negative (Negative); Leukocyte Negative Leu/uL (Negative); Nitrite Negative (Negative); Protein, Urine (Dipstick) 100 mg/dL (Neg-Trace); RBC/HPF 0-3 HPF (0-3); pH, Urine 5.5 (5.0-9.0)
[2021-03-18 23:37] LABS: ALT (SGPT) 106 U/L (8-55); AST (SGOT) 180 U/L (5-34); Albumin 3.6 g/dL (3.5-5.0); BUN (Urea Nitrogen) 47 mg/dL (9.8-20.1); CK (CPK) 27 U/L (29-168); Chloride 106 mmol/L (98-107); Globulin 3.8 g/dL (2.4-3.5); Glucose 181 mg/dL (70-105); Potassium 4.9 mmol/L (3.5-5.1); Protein, Total 7.4 g/dL (6.0-8.3); Sodium 140 mmol/L (136-145)
[2021-03-18] MEDS ORDERED: Furosemide 40 MG/4 ML VIAL ONE (23:39)
[2021-03-19] MEDS ORDERED: Ondansetron PF 4 MG/2 ML Vial IVP PRN (00:54)
[2021-03-19] MEDS ORDERED: Acetaminophen 325 MG TAB PO PRN (00:54)
[2021-03-19] MEDS ORDERED: Dextrose 50% Abboject 50 ML SYRINGE SLOW IVP PRN (00:58)
[2021-03-19] MEDS ORDERED: Dextrose 5% in Water 1,000 ML IV PRN (00:58)
[2021-03-19 02:15] LABS: SARS-CoV-2 NAA Rapid Test DETECTED (NotDetected)
[2021-03-19] MEDS ORDERED: hydrALAZINE 20 MG/ML VIAL ONE ×3 (03:28→14:48)
[2021-03-19] MEDS: hydrALAZINE 20 MG/ML VIAL SLOW IVP PRN ×3 (03:36→14:46)
[2021-03-19 04:29] LABS: Amphetamine Not Detected (NotDetected); Barbiturates Screen Not Detected (NotDetected); Benzodiazepine Screen Not Detected (NotDetected); Cocaine Metabolite Screen Not Detected (NotDetected); Methadone Not Detected (NotDetected); Methamphetamine Not Detected (NotDetected); Opiate Screen Not Detected (NotDetected); Oxycodone Screen Not Detected (NotDetected); Phencyclidine (PCP) Not Detected (NotDetected); THC/Cannabinoid Screen Not Detected (NotDetected); Tricyclic Screen Not Detected (NotDetected)
[2021-03-19 04:44] LABS: #Monocytes 0.3 thou/uL (0.11-0.59); #Neutrophils 6.9 thou/uL (1.40-6.50); %Basophils 0.5 % (0.0-1.0); %Eosinophils 0.1 % (0.0-10.0); %Lymphocytes 11.5 % (21.0-51.0); %Monocytes 4.2 % (0.0-10.0); %Neutrophils 83.8 % (42.0-75.0); Hemoglobin 15.8 g/dL (12.0-16.0); Mean Corpuscular HGB CONC 32.1 g/dL (32.0-36.0); Mean Corpuscular Hemoglobin 30.5 pg (27.0-31.0); Mean Corpuscular Volume 95.1 fL (78.0-98.0); Mean Platelet Volume 10.2 fL (7.4-10.4); Platelet Count 85 thou/uL (130-400); RBC Distribution Width 17.7 % (11.5-14.5); Red Blood Cell (RBC) Count 5.16 mill/uL (4.20-5.40); White Blood Cell (WBC) Count 8.2 thou/uL (4.8-10.8)
[2021-03-19 05:00] LABS: Lactic Acid 2.3 mmol/L (0.5-2.2)
[2021-03-19 05:05] LABS: ALT (SGPT) 124 U/L (8-55); AST (SGOT) 170 U/L (5-34); Albumin 3.2 g/dL (3.5-5.0); Alkaline Phosphatase 207 U/L (40-110); Anion Gap 16 mmol/L (10-20); BUN (Urea Nitrogen) 45 mg/dL (9.8-20.1); Bilirubin, Total 1.6 mg/dL (0.2-1.2); CRP (Inflammatory) 1.82 mg/dL (= or < 0.5); Calc. Creatinine Clearance 0 mL/min (70-130); Calcium 9.1 mg/dL (7.8-10.44); Carbon Dioxide 27 mmol/L (22-29); Chloride 103 mmol/L (98-107); Globulin 3.7 g/dL (2.4-3.5); Glucose 225 mg/dL (70-105); Magnesium 2.3 mg/dL (1.6-2.6); Potassium 4.1 mmol/L (3.5-5.1); Protein, Total 6.9 g/dL (6.0-8.3); Sodium 142 mmol/L (136-145)
[2021-03-19] MEDS ORDERED: Furosemide 20 MG/2 ML VIAL ONE (05:42)
[2021-03-19] MEDS: Furosemide 20 MG/2 ML VIAL SLOW IVP SCH ×2 (05:58→14:38)
[2021-03-19] MEDS ORDERED: Famotidine 20 MG TAB PO SCH (09:00)
[2021-03-19] MEDS ORDERED: Ascorbic Acid 500 mg Chewable Tablet ONE (09:13)
[2021-03-19] MEDS ORDERED: Zinc Sulfate 220 MG CAP ONE (09:13)
[2021-03-19] MEDS: Ascorbic Acid 500 mg Chewable Tablet PO SCH (09:49)
[2021-03-19] MEDS: Dexamethasone 10 MG/ML VIAL SLOW IVP SCH (09:49)
[2021-03-19] MEDS: Zinc Sulfate 220 MG CAP PO SCH (09:50)
[2021-03-20] MEDS: Furosemide 20 MG/2 ML VIAL SLOW IVP SCH ×2 (06:42→13:07)
[2021-03-20 06:52] LABS: #Lymphocytes 0.7 thou/uL (1.20-3.40); #Monocytes 0.4 thou/uL (0.11-0.59); #Neutrophils 6.7 thou/uL (1.40-6.50); %Basophils 0.2 % (0.0-1.0); %Eosinophils 0.1 % (0.0-10.0); %Lymphocytes 8.8 % (21.0-51.0); %Monocytes 4.9 % (0.0-10.0); Hemoglobin 15.2 g/dL (12.0-16.0); Mean Corpuscular HGB CONC 31.2 g/dL (32.0-36.0); Mean Corpuscular Hemoglobin 29.5 pg (27.0-31.0); Mean Corpuscular Volume 94.8 fL (78.0-98.0); Mean Platelet Volume 10.4 fL (7.4-10.4); Platelet Count 82 thou/uL (130-400); RBC Distribution Width 17.3 % (11.5-14.5); Red Blood Cell (RBC) Count 5.16 mill/uL (4.20-5.40); White Blood Cell (WBC) Count 7.8 thou/uL (4.8-10.8)
[2021-03-20 07:04] LABS: ALT (SGPT) 82 U/L (8-55); AST (SGOT) 50 U/L (5-34); Albumin 3.1 g/dL (3.5-5.0); Alkaline Phosphatase 189 U/L (40-110); Anion Gap 16 mmol/L (10-20); BUN (Urea Nitrogen) 45 mg/dL (9.8-20.1); Bilirubin, Total 1.6 mg/dL (0.2-1.2); Calc. Creatinine Clearance 51 mL/min (70-130); Calcium 9.3 mg/dL (7.8-10.44); Carbon Dioxide 30 mmol/L (22-29); Chloride 103 mmol/L (98-107); Globulin 3.5 g/dL (2.4-3.5); Glucose 195 mg/dL (70-105); Protein, Total 6.6 g/dL (6.0-8.3); Sodium 145 mmol/L (136-145)
[2021-03-20 07:06] LABS: CRP (Inflammatory) 1.19 mg/dL (= or < 0.5); Magnesium 2.2 mg/dL (1.6-2.6)
[2021-03-20] MEDS: Dexamethasone 10 MG/ML VIAL SLOW IVP SCH (09:29)
[2021-03-20] MEDS: Ascorbic Acid 500 mg Chewable Tablet PO SCH (12:29)
[2021-03-20] MEDS: Zinc Sulfate 220 MG CAP PO SCH (12:30)
[2021-03-20] MEDS: Atorvastatin Calcium 40 MG TAB PO SCH (21:16)
[2021-03-20] MEDS: Apixaban 5 MG TAB PO SCH ×2 (21:16→21:32)
[2021-03-20] MEDS: AMOXicillin 250 MG CAP PO SCH (21:33)
[2021-03-21] MEDS: Furosemide 20 MG/2 ML VIAL SLOW IVP SCH (05:12)
[2021-03-21 06:04] LABS: ALT (SGPT) 68 U/L (8-55); AST (SGOT) 31 U/L (5-34); Albumin 3.1 g/dL (3.5-5.0); Alkaline Phosphatase 180 U/L (40-110); Anion Gap 15 mmol/L (10-20); BUN (Urea Nitrogen) 53 mg/dL (9.8-20.1); Bilirubin, Total 1.6 mg/dL (0.2-1.2); Calc. Creatinine Clearance 56 mL/min (70-130); Calcium 9.4 mg/dL (7.8-10.44); Carbon Dioxide 29 mmol/L (22-29); Chloride 105 mmol/L (98-107); Globulin 3.6 g/dL (2.4-3.5); Glucose 206 mg/dL (70-105); Magnesium 2.1 mg/dL (1.6-2.6); Protein, Total 6.7 g/dL (6.0-8.3); Sodium 145 mmol/L (136-145)
[2021-03-21 06:06] LABS: #Lymphocytes 0.9 thou/uL (1.20-3.40); #Monocytes 0.4 thou/uL (0.11-0.59); #Neutrophils 6.2 thou/uL (1.40-6.50); %Basophils 0.5 % (0.0-1.0); %Eosinophils 0.1 % (0.0-10.0); %Lymphocytes 12.2 % (21.0-51.0); %Monocytes 5.3 % (0.0-10.0); %Neutrophils 81.9 % (42.0-75.0); Hemoglobin 15.7 g/dL (12.0-16.0); Mean Corpuscular HGB CONC 31.4 g/dL (32.0-36.0); Mean Corpuscular Hemoglobin 29.7 pg (27.0-31.0); Mean Corpuscular Volume 94.8 fL (78.0-98.0); Platelet Count 81 thou/uL (130-400); RBC Distribution Width 17.4 % (11.5-14.5); Red Blood Cell (RBC) Count 5.29 mill/uL (4.20-5.40); White Blood Cell (WBC) Count 7.6 thou/uL (4.8-10.8)
[2021-03-21 06:07] LABS: Band 10 % (5-11); Lymphocytes 8 % (21-51); MDiff Complete? YES; Monocytes 2 % (0-10); Neutrophil 80 % (42-75); Platelet Morphology Comment Appears Decreased; RBC Morphology Normal
[2021-03-21] MEDS: Dexamethasone 10 MG/ML VIAL SLOW IVP SCH (08:59)
[2021-03-21] MEDS ORDERED: Ascorbic Acid 500 mg Chewable Tablet PO SCH (09:00)
[2021-03-21] MEDS: AMOXicillin 250 MG CAP PO SCH ×4 (14:54→21:58)
[2021-03-21] MEDS: Zinc Sulfate 220 MG CAP PO SCH (14:55)
[2021-03-21] MEDS: Apixaban 5 MG TAB PO SCH ×3 (14:55→21:58)
[2021-03-21] MEDS: Ascorbic Acid 500 mg Chewable Tablet PO SCH (14:55)
[2021-03-21] MEDS ORDERED: Albuterol 200 PUFF (6.7GM INHALER) INH PRN (15:45)
[2021-03-21] MEDS: Dexamethasone 4 mg/ml Vial SLOW IVP SCH (17:39)
[2021-03-21] MEDS: Atorvastatin Calcium 40 MG TAB PO SCH ×2 (21:21→21:58)
[2021-03-21] MEDS: HumaLOG 300 UNITS/3 ML VIAL SC PRN (21:21)
[2021-03-22] MEDS: Dexamethasone 4 mg/ml Vial SLOW IVP SCH ×2 (05:34→16:18)
[2021-03-22] MEDS: HumaLOG 300 UNITS/3 ML VIAL SC PRN (05:34)
[2021-03-22] MEDS: Glimepiride 4 MG TAB PO SCH (06:40)
[2021-03-22] MEDS: AMOXicillin 250 MG CAP PO SCH ×3 (12:36→20:14)
[2021-03-22] MEDS: Zinc Sulfate 220 MG CAP PO SCH (12:37)
[2021-03-22] MEDS: Furosemide 40 MG TAB PO SCH (12:37)
[2021-03-22] MEDS: Apixaban 5 MG TAB PO SCH ×2 (12:37→20:14)
[2021-03-22] MEDS: Ascorbic Acid 500 mg Chewable Tablet PO SCH (12:37)
[2021-03-22] MEDS: Sodium Chloride 0.45% 1,000 ML IV SCH ×2 (12:38→20:20)
[2021-03-22] MEDS: Atorvastatin Calcium 40 MG TAB PO SCH (20:14)
[2021-03-22] MEDS ORDERED: Metoprolol Tartrate 5 MG/5 ML VIAL IVP SCH (22:30)
[2021-03-23] MEDS ORDERED: Metoprolol Tartrate 5 MG/5 ML VIAL IVP SCH (03:30)
[2021-03-23] MEDS: Dexamethasone 4 mg/ml Vial SLOW IVP SCH ×2 (04:47→17:27)
[2021-03-23] MEDS: Sodium Chloride 0.45% 1,000 ML IV SCH ×3 (04:47→20:08)
[2021-03-23] MEDS: HumaLOG 300 UNITS/3 ML VIAL SC PRN ×2 (06:47→20:50)
[2021-03-23] MEDS: Pantoprazole 40 MG VIAL IVP SCH (08:40)
[2021-03-23] MEDS ORDERED: FLU VACC QS2021-22(6MOS UP)/PF 60 MCG/0.5 ML SYRINGE IM ONE (09:00)
[2021-03-23] MEDS: Furosemide 40 MG TAB PO SCH (09:15)
[2021-03-23] MEDS: Apixaban 5 MG TAB PO SCH ×2 (10:27→20:08)
[2021-03-23] MEDS: Glimepiride 4 MG TAB PO SCH (10:27)
[2021-03-23] MEDS: AMOXicillin 250 MG CAP PO SCH ×3 (10:27→20:09)
[2021-03-23] MEDS: Zinc Sulfate 220 MG CAP PO SCH (10:27)
[2021-03-23] MEDS: Ascorbic Acid 500 mg Chewable Tablet PO SCH (10:27)
[2021-03-23 13:15] LABS: Hemoglobin 17.6 g/dL (12.0-16.0); Mean Corpuscular HGB CONC 30.7 g/dL (32.0-36.0); Mean Corpuscular Hemoglobin 28.9 pg (27.0-31.0); Mean Corpuscular Volume 94.3 fL (78.0-98.0); Mean Platelet Volume 11.5 fL (7.4-10.4); Platelet Count 87 thou/uL (130-400); RBC Distribution Width 17.4 % (11.5-14.5); Red Blood Cell (RBC) Count 6.07 mill/uL (4.20-5.40); White Blood Cell (WBC) Count 8.2 thou/uL (4.8-10.8)
[2021-03-23 13:17] LABS: #Lymphocytes 0.3 thou/uL (1.20-3.40); #Monocytes 0.3 thou/uL (0.11-0.59); #Neutrophils 7.6 thou/uL (1.40-6.50); %Eosinophils 0.1 % (0.0-10.0); %Lymphocytes 4.1 % (21.0-51.0); %Monocytes 4.1 % (0.0-10.0); %Neutrophils 91.7 % (42.0-75.0)
[2021-03-23 13:26] LABS: Anion Gap 17 mmol/L (10-20); BUN (Urea Nitrogen) 69 mg/dL (9.8-20.1); Calc. Creatinine Clearance 51 mL/min (70-130); Calcium 9.5 mg/dL (7.8-10.44); Carbon Dioxide 23 mmol/L (22-29); Chloride 109 mmol/L (98-107); Glucose 222 mg/dL (70-105); Potassium 4.1 mmol/L (3.5-5.1); Sodium 145 mmol/L (136-145)
[2021-03-23] MEDS: hydrALAZINE 20 MG/ML VIAL SLOW IVP PRN (13:31)
[2021-03-23] MEDS: Atorvastatin Calcium 40 MG TAB PO SCH (20:08)
[2021-03-24] MEDS ORDERED: Metoprolol Tartrate 5 MG/5 ML VIAL IVP SCH (04:00)
[2021-03-24] MEDS: Sodium Chloride 0.45% 1,000 ML IV SCH ×3 (04:37→20:54)
[2021-03-24] MEDS: Dexamethasone 4 mg/ml Vial SLOW IVP SCH ×2 (04:45→17:51)
[2021-03-24] MEDS: HumaLOG 300 UNITS/3 ML VIAL SC PRN ×3 (06:15→20:53)
[2021-03-24] MEDS: Furosemide 40 MG TAB PO SCH (13:00)
[2021-03-24] MEDS: Zinc Sulfate 220 MG CAP PO SCH (13:00)
[2021-03-24] MEDS: Apixaban 5 MG TAB PO SCH ×2 (13:00→20:53)
[2021-03-24] MEDS: AMOXicillin 250 MG CAP PO SCH ×3 (13:00→20:53)
[2021-03-24] MEDS: Pantoprazole 40 MG VIAL IVP SCH (13:00)
[2021-03-24] MEDS: Glimepiride 4 MG TAB PO SCH (13:00)
[2021-03-24] MEDS: Ascorbic Acid 500 mg Chewable Tablet PO SCH (13:00)
[2021-03-24] MEDS ORDERED: Metoprolol Tartrate 100 MG TAB PER TUBE SCH (15:00)
[2021-03-24] MEDS: Metoclopramide HCl 10 MG/2 ML VIAL IVP SCH ×2 (15:33→20:53)
[2021-03-24] MEDS: Atorvastatin Calcium 40 MG TAB PO SCH (20:53)
[2021-03-24] MEDS: Metoprolol Tartrate 100 MG TAB PER TUBE SCH (20:53)
[2021-03-24] MEDS: Lantus 1000 UNITS/10 ML VIAL SC SCH (21:46)
[2021-03-25] MEDS: Dexamethasone 4 mg/ml Vial SLOW IVP SCH ×2 (05:19→17:28)
[2021-03-25] MEDS: Metoclopramide HCl 10 MG/2 ML VIAL IVP SCH ×3 (05:20→23:18)
[2021-03-25] MEDS: Sodium Chloride 0.45% 1,000 ML IV SCH ×3 (05:20→23:01)
[2021-03-25] MEDS: HumaLOG 300 UNITS/3 ML VIAL SC PRN ×2 (06:12→22:40)
[2021-03-25] MEDS: Pantoprazole 40 MG VIAL IVP SCH (08:22)
[2021-03-25] MEDS: Glimepiride 4 MG TAB PO SCH (08:23)
[2021-03-25] MEDS: Zinc Sulfate 220 MG CAP PO SCH (08:23)
[2021-03-25] MEDS: Furosemide 40 MG TAB PO SCH (08:23)
[2021-03-25] MEDS: AMOXicillin 250 MG CAP PO SCH ×3 (08:23→22:39)
[2021-03-25] MEDS: Ascorbic Acid 500 mg Chewable Tablet PO SCH (08:23)
[2021-03-25] MEDS: Apixaban 5 MG TAB PO SCH ×2 (08:23→22:39)
[2021-03-25] MEDS: Metoprolol Tartrate 100 MG TAB PER TUBE SCH ×2 (08:25→22:40)
[2021-03-25] MEDS: Atorvastatin Calcium 40 MG TAB PO SCH (22:39)
[2021-03-25] MEDS: Lantus 1000 UNITS/10 ML VIAL SC SCH (22:40)
[2021-03-26 06:07] LABS: #Lymphocytes 0.2 thou/uL (1.20-3.40); #Monocytes 0.4 thou/uL (0.11-0.59); #Neutrophils 8.4 thou/uL (1.40-6.50); %Eosinophils 0.2 % (0.0-10.0); %Lymphocytes 2.5 % (21.0-51.0); %Monocytes 3.8 % (0.0-10.0); %Neutrophils 93.4 % (42.0-75.0); Hemoglobin 16.7 g/dL (12.0-16.0); Mean Corpuscular HGB CONC 29.7 g/dL (32.0-36.0); Mean Corpuscular Hemoglobin 27.9 pg (27.0-31.0); Mean Corpuscular Volume 93.9 fL (78.0-98.0); Mean Platelet Volume 6.5 fL (7.4-10.4); Platelet Count 70 thou/uL (130-400); RBC Distribution Width 17.5 % (11.5-14.5); Red Blood Cell (RBC) Count 5.99 mill/uL (4.20-5.40)
[2021-03-26] MEDS: Metoclopramide HCl 10 MG/2 ML VIAL IVP SCH ×3 (06:08→22:19)
[2021-03-26] MEDS: Dexamethasone 4 mg/ml Vial SLOW IVP SCH ×2 (06:08→16:14)
[2021-03-26] MEDS: HumaLOG 300 UNITS/3 ML VIAL SC PRN ×2 (06:19→22:19)
[2021-03-26 06:21] LABS: Anion Gap 14 mmol/L (10-20); BUN (Urea Nitrogen) 58 mg/dL (9.8-20.1); Calc. Creatinine Clearance 83 mL/min (70-130); Calcium 8.5 mg/dL (7.8-10.44); Carbon Dioxide 22 mmol/L (22-29); Chloride 103 mmol/L (98-107); Glucose 266 mg/dL (70-105); Potassium 4.1 mmol/L (3.5-5.1); Sodium 135 mmol/L (136-145)
[2021-03-26] MEDS: Glimepiride 4 MG TAB PO SCH (07:37)
[2021-03-26] MEDS: Zinc Sulfate 220 MG CAP PO SCH (07:37)
[2021-03-26] MEDS: Pantoprazole 40 MG VIAL IVP SCH (07:37)
[2021-03-26] MEDS: Furosemide 40 MG TAB PO SCH (07:38)
[2021-03-26] MEDS: Ascorbic Acid 500 mg Chewable Tablet PO SCH (07:38)
[2021-03-26] MEDS: Metoprolol Tartrate 100 MG TAB PER TUBE SCH ×2 (07:38→20:41)
[2021-03-26] MEDS: AMOXicillin 250 MG CAP PO SCH ×3 (07:38→20:41)
[2021-03-26] MEDS: Apixaban 5 MG TAB PO SCH ×2 (08:00→20:41)
[2021-03-26] MEDS: Atorvastatin Calcium 40 MG TAB PO SCH (20:41)
[2021-03-26] MEDS: Lantus 1000 UNITS/10 ML VIAL SC SCH (22:19)
[2021-03-27] MEDS: Dexamethasone 4 mg/ml Vial SLOW IVP SCH (05:45)
[2021-03-27] MEDS: Metoclopramide HCl 10 MG/2 ML VIAL IVP SCH ×3 (05:45→21:32)
[2021-03-27] MEDS: HumaLOG 300 UNITS/3 ML VIAL SC PRN ×2 (05:49→21:32)
[2021-03-27] MEDS: Glimepiride 4 MG TAB PO SCH (08:25)
[2021-03-27] MEDS: Zinc Sulfate 220 MG CAP PO SCH (08:25)
[2021-03-27] MEDS: Apixaban 5 MG TAB PO SCH ×2 (08:25→21:34)
[2021-03-27] MEDS: Ascorbic Acid 500 mg Chewable Tablet PO SCH (08:25)
[2021-03-27] MEDS: Metoprolol Tartrate 100 MG TAB PER TUBE SCH ×2 (08:25→21:33)
[2021-03-27] MEDS: Pantoprazole 40 MG VIAL IVP SCH (08:25)
[2021-03-27] MEDS: Furosemide 40 MG TAB PO SCH (08:25)
[2021-03-27] MEDS: AMOXicillin 250 MG CAP PO SCH ×3 (08:25→21:34)
[2021-03-27] MEDS: Lantus 1000 UNITS/10 ML VIAL SC SCH (21:33)
[2021-03-27] MEDS: Atorvastatin Calcium 40 MG TAB PO SCH (21:34)
[2021-03-28] MEDS: Metoclopramide HCl 10 MG/2 ML VIAL IVP SCH ×3 (06:34→21:24)
[2021-03-28] MEDS: Pantoprazole 40 MG VIAL IVP SCH (09:29)
[2021-03-28] MEDS: Zinc Sulfate 220 MG CAP PO SCH (09:29)
[2021-03-28] MEDS: Furosemide 40 MG TAB PO SCH (09:29)
[2021-03-28] MEDS: AMOXicillin 250 MG CAP PO SCH ×3 (09:29→19:47)
[2021-03-28] MEDS: Apixaban 5 MG TAB PO SCH ×2 (09:29→19:47)
[2021-03-28] MEDS: Glimepiride 4 MG TAB PO SCH (09:29)
[2021-03-28] MEDS: Metoprolol Tartrate 100 MG TAB PER TUBE SCH ×2 (09:30→19:47)
[2021-03-28] MEDS: Ascorbic Acid 500 mg Chewable Tablet PO SCH (14:20)
[2021-03-28] MEDS: HumaLOG 300 UNITS/3 ML VIAL SC PRN ×2 (14:21→21:42)
[2021-03-28] MEDS: Atorvastatin Calcium 40 MG TAB PO SCH (19:47)
[2021-03-28] MEDS: Lantus 1000 UNITS/10 ML VIAL SC SCH (21:42)
[2021-03-29] MEDS: HumaLOG 300 UNITS/3 ML VIAL SC PRN ×3 (06:28→21:38)
[2021-03-29 06:29] LABS: #Basophils 0.1 thou/uL (0.0-0.2); #Lymphocytes 0.8 thou/uL (1.20-3.40); #Monocytes 0.7 thou/uL (0.11-0.59); #Neutrophils 8.8 thou/uL (1.40-6.50); %Basophils 0.8 % (0.0-1.0); %Eosinophils 0.2 % (0.0-10.0); %Lymphocytes 7.8 % (21.0-51.0); %Monocytes 6.5 % (0.0-10.0); %Neutrophils 84.7 % (42.0-75.0); Hemoglobin 17.5 g/dL (12.0-16.0); Mean Corpuscular HGB CONC 29.1 g/dL (32.0-36.0); Mean Corpuscular Volume 92.6 fL (78.0-98.0); Mean Platelet Volume 11.4 fL (7.4-10.4); Platelet Count 106 thou/uL (130-400); RBC Distribution Width 17.6 % (11.5-14.5); Red Blood Cell (RBC) Count 6.47 mill/uL (4.20-5.40); White Blood Cell (WBC) Count 10.3 thou/uL (4.8-10.8)
[2021-03-29] MEDS: Metoclopramide HCl 10 MG/2 ML VIAL IVP SCH ×3 (06:29→21:39)
[2021-03-29 06:44] LABS: Anion Gap 17 mmol/L (10-20); BUN (Urea Nitrogen) 58 mg/dL (9.8-20.1); Calc. Creatinine Clearance 80 mL/min (70-130); Calcium 8.7 mg/dL (7.8-10.44); Carbon Dioxide 24 mmol/L (22-29); Chloride 100 mmol/L (98-107); Glucose 227 mg/dL (70-105); Potassium 4.6 mmol/L (3.5-5.1); Sodium 136 mmol/L (136-145)
[2021-03-29] MEDS: Zinc Sulfate 220 MG CAP PO SCH (08:37)
[2021-03-29] MEDS: Ascorbic Acid 500 mg Chewable Tablet PO SCH (08:37)
[2021-03-29] MEDS: Pantoprazole 40 MG VIAL IVP SCH (08:37)
[2021-03-29] MEDS: Metoprolol Tartrate 100 MG TAB PER TUBE SCH ×2 (08:37→21:39)
[2021-03-29] MEDS: Glimepiride 4 MG TAB PO SCH (08:37)
[2021-03-29] MEDS: Apixaban 5 MG TAB PO SCH ×2 (08:37→21:37)
[2021-03-29] MEDS: Furosemide 40 MG TAB PO SCH (08:38)
[2021-03-29] MEDS: AMOXicillin 250 MG CAP PO SCH ×3 (08:38→21:37)
[2021-03-29] MEDS: Atorvastatin Calcium 40 MG TAB PO SCH (21:37)
[2021-03-29] MEDS: Lantus 1000 UNITS/10 ML VIAL SC SCH (21:38)
[2021-03-30] MEDS: HumaLOG 300 UNITS/3 ML VIAL SC PRN ×3 (06:31→18:01)
[2021-03-30] MEDS: Metoclopramide HCl 10 MG/2 ML VIAL IVP SCH ×3 (06:31→22:33)
[2021-03-30] MEDS: Metoprolol Tartrate 100 MG TAB PER TUBE SCH ×2 (08:38→22:32)
[2021-03-30] MEDS: Glimepiride 4 MG TAB PO SCH (08:38)
[2021-03-30] MEDS: Apixaban 5 MG TAB PO SCH ×2 (08:38→22:34)
[2021-03-30] MEDS: Ascorbic Acid 500 mg Chewable Tablet PO SCH (08:38)
[2021-03-30] MEDS: AMOXicillin 250 MG CAP PO SCH ×3 (08:38→22:34)
[2021-03-30] MEDS: Furosemide 40 MG TAB PO SCH (08:39)
[2021-03-30] MEDS: Pantoprazole 40 MG VIAL IVP SCH (08:39)
[2021-03-30] MEDS: Zinc Sulfate 220 MG CAP PO SCH (08:39)
[2021-03-30] MEDS: Atorvastatin Calcium 40 MG TAB PO SCH (22:32)
[2021-03-30] MEDS: Lantus 1000 UNITS/10 ML VIAL SC SCH (22:35)
[2021-03-31] MEDS: Metoclopramide HCl 10 MG/2 ML VIAL IVP SCH ×3 (05:31→21:09)
[2021-03-31] MEDS: HumaLOG 300 UNITS/3 ML VIAL SC PRN ×3 (05:37→21:08)
[2021-03-31] MEDS: Pantoprazole 40 MG VIAL IVP SCH (10:38)
[2021-03-31] MEDS: Glimepiride 4 MG TAB PO SCH (10:39)
[2021-03-31] MEDS: Ascorbic Acid 500 mg Chewable Tablet PO SCH (10:39)
[2021-03-31] MEDS: Zinc Sulfate 220 MG CAP PO SCH (10:39)
[2021-03-31] MEDS: Metoprolol Tartrate 100 MG TAB PER TUBE SCH ×2 (10:39→21:08)
[2021-03-31] MEDS: Furosemide 40 MG TAB PO SCH (10:39)
[2021-03-31] MEDS: Apixaban 5 MG TAB PO SCH ×2 (10:39→21:08)
[2021-03-31] MEDS: Atorvastatin Calcium 40 MG TAB PO SCH (21:08)
[2021-03-31] MEDS: Lantus 1000 UNITS/10 ML VIAL SC SCH (21:08)
[2021-04-01] MEDS: Metoclopramide HCl 10 MG/2 ML VIAL IVP SCH ×3 (05:43→21:33)
[2021-04-01] MEDS: Zinc Sulfate 220 MG CAP PO SCH (09:27)
[2021-04-01] MEDS: Metoprolol Tartrate 100 MG TAB PER TUBE SCH ×2 (09:27→21:33)
[2021-04-01] MEDS: Ascorbic Acid 500 mg Chewable Tablet PO SCH (09:27)
[2021-04-01] MEDS: Glimepiride 4 MG TAB PO SCH (09:27)
[2021-04-01] MEDS: Furosemide 40 MG TAB PO SCH (09:27)
[2021-04-01] MEDS: Apixaban 5 MG TAB PO SCH ×2 (09:27→21:33)
[2021-04-01] MEDS: Pantoprazole 40 MG VIAL IVP SCH (11:03)
[2021-04-01 14:53] LABS: Bacteria/HPF 2+ HPF (None Seen); RBC/HPF 0-3 HPF (0-3); Squamous Epithelial 0-3 HPF (0-3); WBC/HPF 0-3 HPF (0-3)
[2021-04-01] MEDS: HumaLOG 300 UNITS/3 ML VIAL SC PRN ×2 (17:59→21:34)
[2021-04-01] MEDS: Atorvastatin Calcium 40 MG TAB PO SCH (21:33)
[2021-04-01] MEDS: Lantus 1000 UNITS/10 ML VIAL SC SCH (21:33)
[2021-04-02] MEDS: HumaLOG 300 UNITS/3 ML VIAL SC PRN (05:37)
[2021-04-02] MEDS: Metoclopramide HCl 10 MG/2 ML VIAL IVP SCH ×3 (05:39→22:53)
[2021-04-02] MEDS: Glimepiride 4 MG TAB PO SCH (09:33)
[2021-04-02] MEDS: Metoprolol Tartrate 100 MG TAB PER TUBE SCH ×2 (09:34→20:34)
[2021-04-02] MEDS: Ascorbic Acid 500 mg Chewable Tablet PO SCH (09:34)
[2021-04-02] MEDS: Zinc Sulfate 220 MG CAP PO SCH (09:34)
[2021-04-02] MEDS: Apixaban 5 MG TAB PO SCH (09:34)
[2021-04-02] MEDS: Furosemide 40 MG TAB PO SCH (09:34)
[2021-04-02] MEDS: Atorvastatin Calcium 40 MG TAB PO SCH (20:34)
[2021-04-02] MEDS: Lantus 1000 UNITS/10 ML VIAL SC SCH (20:35)
[2021-04-03 05:29] LABS: #Eosinphils 0.1 thou/uL (0.0-0.7); #Lymphocytes 0.8 thou/uL (1.20-3.40); #Monocytes 0.6 thou/uL (0.11-0.59); #Neutrophils 6.7 thou/uL (1.40-6.50); %Basophils 0.4 % (0.0-1.0); %Eosinophils 0.8 % (0.0-10.0); %Lymphocytes 9.5 % (21.0-51.0); %Monocytes 6.7 % (0.0-10.0); %Neutrophils 82.5 % (42.0-75.0); Hemoglobin 13.2 g/dL (12.0-16.0); Mean Corpuscular HGB CONC 29.7 g/dL (32.0-36.0); Mean Corpuscular Hemoglobin 28.1 pg (27.0-31.0); Mean Corpuscular Volume 94.3 fL (78.0-98.0); Mean Platelet Volume 10.3 fL (7.4-10.4); Platelet Count 102 thou/uL (130-400); RBC Distribution Width 17.1 % (11.5-14.5); White Blood Cell (WBC) Count 8.1 thou/uL (4.8-10.8)
[2021-04-03 05:49] LABS: Anion Gap 12 mmol/L (10-20); BUN (Urea Nitrogen) 30 mg/dL (9.8-20.1); Calc. Creatinine Clearance 119 mL/min (70-130); Calcium 7.7 mg/dL (7.8-10.44); Carbon Dioxide 27 mmol/L (22-29); Chloride 100 mmol/L (98-107); Glucose 144 mg/dL (70-105); Potassium 4.4 mmol/L (3.5-5.1); Sodium 135 mmol/L (136-145)
[2021-04-03] MEDS: Metoclopramide HCl 10 MG/2 ML VIAL IVP SCH ×3 (06:08→21:10)
[2021-04-03] MEDS: Ascorbic Acid 500 mg Chewable Tablet PO SCH (08:49)
[2021-04-03] MEDS: Metoprolol Tartrate 100 MG TAB PER TUBE SCH ×2 (08:50→21:10)
[2021-04-03] MEDS: Zinc Sulfate 220 MG CAP PO SCH (08:50)
[2021-04-03] MEDS: Furosemide 40 MG TAB PO SCH (08:50)
[2021-04-03] MEDS: HumaLOG 300 UNITS/3 ML VIAL SC PRN (17:27)
[2021-04-03] MEDS: Lantus 1000 UNITS/10 ML VIAL SC SCH (21:10)
[2021-04-03] MEDS: Atorvastatin Calcium 40 MG TAB PO SCH (21:10)
[2021-04-04] MEDS: Metoclopramide HCl 10 MG/2 ML VIAL IVP SCH ×3 (05:27→21:24)
[2021-04-04] MEDS: Ascorbic Acid 500 mg Chewable Tablet PO SCH (10:55)
[2021-04-04] MEDS: Zinc Sulfate 220 MG CAP PO SCH (10:55)
[2021-04-04] MEDS: Furosemide 40 MG TAB PO SCH (10:55)
[2021-04-04] MEDS: Metoprolol Tartrate 100 MG TAB PER TUBE SCH ×2 (10:55→21:24)
[2021-04-04] MEDS ORDERED: Ketamine 50 MG/ML (10ML VIAL) ONE (12:00)
[2021-04-04] MEDS: Atorvastatin Calcium 40 MG TAB PO SCH (21:24)
[2021-04-04] MEDS: Lantus 1000 UNITS/10 ML VIAL SC SCH (21:24)
[2021-04-05] MEDS: Metoclopramide HCl 10 MG/2 ML VIAL IVP SCH ×3 (05:12→21:30)
[2021-04-05] MEDS: Furosemide 40 MG TAB PO SCH (09:16)
[2021-04-05] MEDS: Metoprolol Tartrate 100 MG TAB PER TUBE SCH ×2 (09:16→21:30)
[2021-04-05] MEDS: Ascorbic Acid 500 mg Chewable Tablet PO SCH (09:17)
[2021-04-05] MEDS: Lisinopril 20 MG TAB PO SCH (09:17)
[2021-04-05] MEDS: Zinc Sulfate 220 MG CAP PO SCH (09:17)
[2021-04-05] MEDS: HumaLOG 300 UNITS/3 ML VIAL SC PRN (17:43)
[2021-04-05] MEDS ORDERED: Apixaban 5 MG TAB PO SCH (21:00)
[2021-04-05] MEDS: Lantus 1000 UNITS/10 ML VIAL SC SCH (21:30)
[2021-04-05] MEDS: Atorvastatin Calcium 40 MG TAB PO SCH (21:30)
[2021-04-06] MEDS: Metoclopramide HCl 10 MG/2 ML VIAL IVP SCH ×3 (07:58→21:48)
[2021-04-06 10:14] LABS: Hemoglobin 13.3 g/dL (12.0-16.0)
[2021-04-06] MEDS: Ascorbic Acid 500 mg Chewable Tablet PO SCH (10:51)
[2021-04-06] MEDS: Metoprolol Tartrate 100 MG TAB PER TUBE SCH ×2 (10:51→21:48)
[2021-04-06] MEDS: Zinc Sulfate 220 MG CAP PO SCH (10:51)
[2021-04-06] MEDS: Furosemide 40 MG TAB PO SCH (10:51)
[2021-04-06] MEDS: Lisinopril 20 MG TAB PO SCH (10:51)
[2021-04-06] MEDS ORDERED: Apixaban 5 MG TAB PO SCH (21:00)
[2021-04-06] MEDS: Atorvastatin Calcium 40 MG TAB PO SCH (21:48)
[2021-04-06] MEDS: Lantus 1000 UNITS/10 ML VIAL SC SCH (21:52)
[2021-04-07] MEDS: Metoclopramide HCl 10 MG/2 ML VIAL IVP SCH ×3 (06:14→21:51)
[2021-04-07] MEDS: HumaLOG 300 UNITS/3 ML VIAL SC PRN (06:17)
[2021-04-07 08:32] LABS: #Eosinphils 0.1 thou/uL (0.0-0.7); #Lymphocytes 1.4 thou/uL (1.20-3.40); #Monocytes 0.3 thou/uL (0.11-0.59); #Neutrophils 4.2 thou/uL (1.40-6.50); %Basophils 0.2 % (0.0-1.0); %Eosinophils 1.2 % (0.0-10.0); %Lymphocytes 23.2 % (21.0-51.0); %Monocytes 5.7 % (0.0-10.0); %Neutrophils 69.7 % (42.0-75.0); Hemoglobin 13.9 g/dL (12.0-16.0); Mean Corpuscular HGB CONC 30.8 g/dL (32.0-36.0); Mean Corpuscular Hemoglobin 28.5 pg (27.0-31.0); Mean Corpuscular Volume 92.5 fL (78.0-98.0); Mean Platelet Volume 10.1 fL (7.4-10.4); Platelet Count 84 thou/uL (130-400); Red Blood Cell (RBC) Count 4.89 mill/uL (4.20-5.40)
[2021-04-07 08:38] LABS: Anion Gap 8 mmol/L (10-20); BUN (Urea Nitrogen) 22 mg/dL (9.8-20.1); Calc. Creatinine Clearance 140 mL/min (70-130); Carbon Dioxide 29 mmol/L (22-29); Chloride 102 mmol/L (98-107); Glucose 153 mg/dL (70-105); Sodium 135 mmol/L (136-145)
[2021-04-07] MEDS: Ascorbic Acid 500 mg Chewable Tablet PO SCH (09:55)
[2021-04-07] MEDS: Furosemide 40 MG TAB PO SCH (09:55)
[2021-04-07] MEDS: Lisinopril 20 MG TAB PO SCH (09:56)
[2021-04-07] MEDS: Metoprolol Tartrate 100 MG TAB PER TUBE SCH ×2 (09:56→21:51)
[2021-04-07] MEDS: Atorvastatin Calcium 40 MG TAB PO SCH (21:51)
[2021-04-07] MEDS: Lantus 1000 UNITS/10 ML VIAL SC SCH (21:52)
[2021-04-08] MEDS: Metoclopramide HCl 10 MG/2 ML VIAL IVP SCH ×3 (05:22→22:21)
[2021-04-08] MEDS: HumaLOG 300 UNITS/3 ML VIAL SC PRN (05:58)
[2021-04-08 10:16] LABS: Hemoglobin 14.7 g/dL (12.0-16.0); Mean Corpuscular HGB CONC 31.6 g/dL (32.0-36.0); Mean Corpuscular Hemoglobin 28.8 pg (27.0-31.0); Mean Corpuscular Volume 91.1 fL (78.0-98.0); Platelet Count 89 thou/uL (130-400); RBC Distribution Width 16.8 % (11.5-14.5); White Blood Cell (WBC) Count 7.2 thou/uL (4.8-10.8)
[2021-04-08 10:27] LABS: Anion Gap 13 mmol/L (10-20); BUN (Urea Nitrogen) 22 mg/dL (9.8-20.1); Calc. Creatinine Clearance 143 mL/min (70-130); Carbon Dioxide 24 mmol/L (22-29); Chloride 104 mmol/L (98-107); Glucose 145 mg/dL (70-105); Potassium 4.6 mmol/L (3.5-5.1); Sodium 136 mmol/L (136-145)
[2021-04-08 10:35] LABS: Band 9 % (5-11); Eosinophils 1 % (0-10); Large Platelets SLIGHT; Lymphocytes 17 % (21-51); MDiff Complete? YES; Monocytes 7 % (0-10); Neutrophil 58 % (42-75); Ovalocytes SLIGHT = 2-5 cells (100X) (0-1/hpf); Platelet Morphology Comment Appears Decreased; Reactive Lymphocytes 8 % (0-10); Target Cells SLIGHT = 2-5 cells (100X) (0-1/hpf)
[2021-04-08] MEDS: Zinc Sulfate 220 MG CAP PO SCH (10:35)
[2021-04-08] MEDS: Metoprolol Tartrate 100 MG TAB PER TUBE SCH ×2 (10:35→22:21)
[2021-04-08] MEDS: Ascorbic Acid 500 mg Chewable Tablet PO SCH (10:35)
[2021-04-08] MEDS: Furosemide 40 MG TAB PO SCH (10:35)
[2021-04-08] MEDS: Lisinopril 20 MG TAB PO SCH (10:35)
[2021-04-08] MEDS: Lantus 1000 UNITS/10 ML VIAL SC SCH (22:21)
[2021-04-08] MEDS: Atorvastatin Calcium 40 MG TAB PO SCH (22:21)
[2021-04-09 04:29] LABS: Anion Gap 10 mmol/L (10-20); BUN (Urea Nitrogen) 24 mg/dL (9.8-20.1); Calc. Creatinine Clearance 127 mL/min (70-130); Calcium 8.1 mg/dL (7.8-10.44); Carbon Dioxide 29 mmol/L (22-29); Chloride 102 mmol/L (98-107); Glucose 218 mg/dL (70-105); Potassium 4.2 mmol/L (3.5-5.1); Sodium 137 mmol/L (136-145)
[2021-04-09 06:12] LABS: Hemoglobin 13.9 g/dL (12.0-16.0); Mean Corpuscular Hemoglobin 28.5 pg (27.0-31.0); Platelet Count 100 thou/uL (130-400); RBC Distribution Width 16.8 % (11.5-14.5); Red Blood Cell (RBC) Count 4.88 mill/uL (4.20-5.40); White Blood Cell (WBC) Count 6.2 thou/uL (4.8-10.8)
[2021-04-09] MEDS: Metoclopramide HCl 10 MG/2 ML VIAL IVP SCH ×3 (06:15→22:40)
[2021-04-09 06:27] LABS: #Eosinphils 0.2 thou/uL (0.0-0.7); #Lymphocytes 1.4 thou/uL (1.20-3.40); #Monocytes 0.5 thou/uL (0.11-0.59); #Neutrophils 4.1 thou/uL (1.40-6.50); %Basophils 0.3 % (0.0-1.0); %Eosinophils 2.8 % (0.0-10.0); %Lymphocytes 22.6 % (21.0-51.0); %Monocytes 7.6 % (0.0-10.0); %Neutrophils 66.7 % (42.0-75.0)
[2021-04-09] MEDS: HumaLOG 300 UNITS/3 ML VIAL SC PRN (07:50)
[2021-04-09] MEDS: Zinc Sulfate 220 MG CAP PO SCH (09:50)
[2021-04-09] MEDS: Ascorbic Acid 500 mg Chewable Tablet PO SCH (09:50)
[2021-04-09] MEDS: Furosemide 40 MG TAB PO SCH (09:50)
[2021-04-09] MEDS: Lisinopril 20 MG TAB PO SCH (09:51)
[2021-04-09] MEDS: Metoprolol Tartrate 100 MG TAB PER TUBE SCH ×2 (09:51→22:40)
[2021-04-09] MEDS: Apixaban 5 MG TAB PO SCH ×2 (09:52→22:40)
[2021-04-09] MEDS: Lantus 1000 UNITS/10 ML VIAL SC SCH (22:40)
[2021-04-09] MEDS: Atorvastatin Calcium 40 MG TAB PO SCH (22:40)
[2021-04-10 04:47] LABS: #Eosinphils 0.2 thou/uL (0.0-0.7); #Lymphocytes 1.4 thou/uL (1.20-3.40); #Monocytes 0.4 thou/uL (0.11-0.59); #Neutrophils 3.2 thou/uL (1.40-6.50); %Basophils 0.9 % (0.0-1.0); %Eosinophils 3.1 % (0.0-10.0); %Lymphocytes 26.5 % (21.0-51.0); %Monocytes 8.4 % (0.0-10.0); %Neutrophils 61.2 % (42.0-75.0); Hemoglobin 13.8 g/dL (12.0-16.0); Mean Corpuscular HGB CONC 30.8 g/dL (32.0-36.0); Mean Corpuscular Hemoglobin 28.6 pg (27.0-31.0); Mean Platelet Volume 9.9 fL (7.4-10.4); Platelet Count 104 thou/uL (130-400); RBC Distribution Width 16.9 % (11.5-14.5); Red Blood Cell (RBC) Count 4.81 mill/uL (4.20-5.40); White Blood Cell (WBC) Count 5.3 thou/uL (4.8-10.8)
[2021-04-10 05:09] LABS: Anion Gap 11 mmol/L (10-20); BUN (Urea Nitrogen) 23 mg/dL (9.8-20.1); Calc. Creatinine Clearance 131 mL/min (70-130); Calcium 8.2 mg/dL (7.8-10.44); Carbon Dioxide 29 mmol/L (22-29); Chloride 103 mmol/L (98-107); Glucose 214 mg/dL (70-105); Potassium 4.2 mmol/L (3.5-5.1); Sodium 139 mmol/L (136-145)
[2021-04-10] MEDS: HumaLOG 300 UNITS/3 ML VIAL SC PRN (05:17)
[2021-04-10] MEDS: Metoclopramide HCl 10 MG/2 ML VIAL IVP SCH ×2 (05:18→13:35)
[2021-04-10] MEDS ORDERED: Spironolactone 25 MG TAB PO SCH (08:00)
[2021-04-10] MEDS: Ascorbic Acid 500 mg Chewable Tablet PO SCH (08:59)
[2021-04-10] MEDS: Metoprolol Tartrate 100 MG TAB PER TUBE SCH (09:00)
[2021-04-10] MEDS: Zinc Sulfate 220 MG CAP PO SCH (09:00)
[2021-04-10] MEDS: Lisinopril 20 MG TAB PO SCH (09:00)
[2021-04-10] MEDS: Apixaban 5 MG TAB PO SCH (09:00)
[2021-04-10] MEDS: Furosemide 40 MG TAB PO SCH (09:00)
[2021-04-10 12:41] VITALS: BMI 39.4
[2021-04-10 15:00] VITALS: BP 143/92; TEMP 98.2
== END 2021-04-10 16:40 | DRG 871 ==
LOC: ERS 21:54 → ERHOLD 23:49 → 2SW 03-19 18:59 → 2NO 03-30 21:42
PROVIDERS: ADMIT Internal Medicine; ATTEND Hospitalist
PROC: 8E0ZXY6 Isolation (ICD-10-PCS; 2021-03-18)
PROC: 0DH67UZ Insertion of Feeding Device into Stomach, Via Natural or Artificial Opening (ICD-10-PCS; 2021-03-23)
PROC: 0DH63UZ Insertion of Feeding Device into Stomach, Percutaneous Approach (ICD-10-PCS; principal; 2021-04-04)
DX: A41.89 Other specified sepsis (principal); U07.1 COVID-19; J12.82 Pneumonia due to coronavirus disease 2019; J96.01 Acute respiratory failure with hypoxia; I50.43 Acute on chronic combined systolic (congestive) and diastolic (congestive) heart failure; G93.41 Metabolic encephalopathy; I42.8 Other cardiomyopathies; N17.9 Acute kidney failure, unspecified; I13.0 Hypertensive heart and chronic kidney disease with heart failure and stage 1 through stage 4 chronic kidney disease, or unspecified chronic kidney disease; I48.92 Unspecified atrial flutter; E87.2 Acidosis; I48.20 Chronic atrial fibrillation, unspecified; E44.0 Moderate protein-calorie malnutrition; G30.9 Alzheimer's disease, unspecified; F02.80 Dementia in other diseases classified elsewhere, unspecified severity, without behavioral disturbance, psychotic disturbance, mood disturbance, and anxiety; D69.6 Thrombocytopenia, unspecified; R13.12 Dysphagia, oropharyngeal phase; E11.22 Type 2 diabetes mellitus with diabetic chronic kidney disease; N30.90 Cystitis, unspecified without hematuria; B95.2 Enterococcus as the cause of diseases classified elsewhere; E78.00 Pure hypercholesterolemia, unspecified; M10.9 Gout, unspecified; R74.8 Abnormal levels of other serum enzymes; E03.9 Hypothyroidism, unspecified; F17.210 Nicotine dependence, cigarettes, uncomplicated; N18.31 Chronic kidney disease, stage 3a; E66.01 Morbid (severe) obesity due to excess calories; E11.65 Type 2 diabetes mellitus with hyperglycemia; K94.21 Gastrostomy hemorrhage; Y83.3 Surgical operation with formation of external stoma as the cause of abnormal reaction of the patient, or of later complication, without mention of misadventure at the time of the procedure; Z68.39 Body mass index [BMI] 39.0-39.9, adult; Z78.1 Physical restraint status; Z86.73 Personal history of transient ischemic attack (TIA), and cerebral infarction without residual deficits; Z79.899 Other long term (current) drug therapy; Z79.01 Long term (current) use of anticoagulants; Z79.4 Long term (current) use of insulin; Z95.810 Presence of automatic (implantable) cardiac defibrillator; Z91.19 Patient's noncompliance with other medical treatment and regimen; Z98.890 Other specified postprocedural states
CPT/HCPCS: 36415; 36416; 36600; 70450; 71045; 71250; 74018; 80048; 80053; 80306; 81003; 81015; 82140; 82550; 82728; 82805; 83605; 83735; 83880; 85014; 85018; 85025; 85379; 85730; 86140; 87040; 87077; 87086; 87186; 93005; 96365; 96366; 96375; C9113; J0360; J1100; J1815; J1940; J1956; J2765; J3490; U0002

== ENCOUNTER 2022-05-16 18:28 | Inpatient (IN) | payer MEDICAID, MEDICARE ==
[2022-05-16 21:43] LABS: #Basophils 0.1 thou/uL (0.0-0.2); #Eosinphils 0.2 thou/uL (0.0-0.7); #Lymphocytes 1.9 thou/uL (1.20-3.40); #Monocytes 0.4 thou/uL (0.11-0.59); #Neutrophils 3.7 thou/uL (1.40-6.50); %Eosinophils 3.9 % (0.0-10.0); %Lymphocytes 29.9 % (21.0-51.0); %Monocytes 6.7 % (0.0-10.0); %Neutrophils 58.6 % (42.0-75.0); Mean Corpuscular HGB CONC 31.8 g/dL (32.0-36.0); Mean Corpuscular Hemoglobin 30.1 pg (27.0-31.0); Mean Corpuscular Volume 94.6 fl (78.0-98.0); Mean Platelet Volume 8.4 fL (7.4-10.4); Platelet Count 149 10x3/uL (130-400); RBC Distribution Width 14.4 % (11.5-14.5); Red Blood Cell (RBC) Count 4.98 mill/uL (4.20-5.40); White Blood Cell (WBC) Count 6.3 10x3/uL (4.8-10.8)
[2022-05-16 22:05] LABS: ALT (SGPT) 12 U/L (8-55); AST (SGOT) 12 U/L (5-34); Albumin 3.7 g/dL (3.4-4.8); Alkaline Phosphatase 98 U/L (40-110); Anion Gap 16 mmol/L (10-20); BUN (Urea Nitrogen) 27 mg/dL (9.8-20.1); Bilirubin, Total 1.2 mg/dL (0.2-1.2); CK (CPK) 29 U/L (29-168); Calc. Creatinine Clearance 0 mL/min (70-130); Calcium 9.1 mg/dL (7.8-10.44); Carbon Dioxide 20 mmol/L (23-31); Chloride 113 mmol/L (98-107); Estimated GFR 74; Globulin 3.4 g/dL (2.4-3.5); Glucose 113 mg/dL (80-115); Protein, Total 7.1 g/dL (5.8-8.1); Sodium 145 mmol/L (136-145)
[2022-05-16] MEDS ORDERED: Aspirin Chewable 81 MG TAB ONE (22:55)
[2022-05-16] MEDS ORDERED: Furosemide 40 MG/4 ML VIAL ONE (22:55)
[2022-05-17] MEDS ORDERED: Albuterol 200 PUFF (6.7GM INHALER) INH PRN (00:09)
[2022-05-17] MEDS ORDERED: Ondansetron ODT 4 MG TAB PO PRN (00:14)
[2022-05-17] MEDS ORDERED: Acetaminophen 325 MG TAB PO PRN (00:14)
[2022-05-17] MEDS ORDERED: Senokot S 8.6-50 MG TAB PO PRN (00:14)
[2022-05-17 01:58] LABS: Critical Call Chem Troponin I RESULT DECREASING; Troponin I 0.487 ng/mL (< 0.028)
[2022-05-17 04:24] LABS: #Eosinphils 0.2 thou/uL (0.0-0.7); #Lymphocytes 2.3 thou/uL (1.20-3.40); #Monocytes 0.4 thou/uL (0.11-0.59); #Neutrophils 3.2 thou/uL (1.40-6.50); %Basophils 0.5 % (0.0-1.0); %Lymphocytes 37.8 % (21.0-51.0); %Monocytes 6.3 % (0.0-10.0); %Neutrophils 51.4 % (42.0-75.0); Mean Corpuscular HGB CONC 31.5 g/dL (32.0-36.0); Mean Corpuscular Hemoglobin 29.6 pg (27.0-31.0); Mean Corpuscular Volume 94.2 fl (78.0-98.0); Mean Platelet Volume 9.5 fL (7.4-10.4); Platelet Count 134 10x3/uL (130-400); RBC Distribution Width 14.1 % (11.5-14.5); Red Blood Cell (RBC) Count 4.71 mill/uL (4.20-5.40); White Blood Cell (WBC) Count 6.1 10x3/uL (4.8-10.8)
[2022-05-17 04:57] LABS: Magnesium 1.7 mg/dL (1.6-2.6)
[2022-05-17 05:06] LABS: Critical Call Chem Troponin I RESULT DECREASING; Troponin I 0.477 ng/mL (< 0.028)
[2022-05-17] MEDS: Furosemide 40 MG/4 ML VIAL SLOW IVP SCH ×2 (05:38→12:42)
[2022-05-17] MEDS ORDERED: Spironolactone 25 MG TAB PO SCH (08:00)
[2022-05-17] MEDS ORDERED: Aspirin Chewable 81 MG TAB PO SCH (09:00)
[2022-05-17] MEDS ORDERED: FLU VACC QS2022-23(6MOS UP)/PF 60 MCG/0.5 ML SYRINGE IM ONE (09:00)
[2022-05-17] MEDS: Apixaban 5 MG TAB PO SCH ×2 (10:03→20:12)
[2022-05-17] MEDS: Famotidine 20 MG TAB PO SCH ×2 (10:03→20:13)
[2022-05-17] MEDS: Lisinopril 20 MG TAB PO SCH (10:04)
[2022-05-17 12:49] VITALS: BMI 36.9
[2022-05-17] MEDS: Insulin Glargine 30 UNITS/0.3 ML VIAL SC SCH (20:12)
[2022-05-17] MEDS: Atorvastatin Calcium 40 MG TAB PO SCH (20:13)
[2022-05-18 05:20] LABS: Anion Gap 14 mmol/L (10-20); BUN (Urea Nitrogen) 25 mg/dL (9.8-20.1); Calc. Creatinine Clearance 112 mL/min (70-130); Calcium 9.4 mg/dL (7.8-10.44); Carbon Dioxide 23 mmol/L (23-31); Chloride 108 mmol/L (98-107); Estimated GFR 83; Glucose 83 mg/dL (80-115); Potassium 3.3 mmol/L (3.5-5.1); Sodium 142 mmol/L (136-145)
[2022-05-18] MEDS: Furosemide 40 MG/4 ML VIAL SLOW IVP SCH ×2 (05:36→15:09)
[2022-05-18] MEDS: Famotidine 20 MG TAB PO SCH ×2 (07:52→22:06)
[2022-05-18] MEDS: Empagliflozin 10 MG TAB PO SCH (07:52)
[2022-05-18] MEDS: Spironolactone 25 MG TAB PO SCH (07:52)
[2022-05-18] MEDS: Lisinopril 20 MG TAB PO SCH (07:53)
[2022-05-18] MEDS: Apixaban 5 MG TAB PO SCH ×2 (07:53→22:07)
[2022-05-18] MEDS ORDERED: Potassium Chloride 20 MEQ TAB PO SCH (11:00)
[2022-05-18] MEDS: Insulin Glargine 30 UNITS/0.3 ML VIAL SC SCH (22:07)
[2022-05-18] MEDS: Atorvastatin Calcium 40 MG TAB PO SCH (22:07)
[2022-05-19 05:29] LABS: Anion Gap 15 mmol/L (10-20); BUN (Urea Nitrogen) 24 mg/dL (9.8-20.1); Calc. Creatinine Clearance 96 mL/min (70-130); Calcium 9.6 mg/dL (7.8-10.44); Carbon Dioxide 25 mmol/L (23-31); Chloride 107 mmol/L (98-107); Estimated GFR 68; Glucose 98 mg/dL (80-115); Sodium 143 mmol/L (136-145)
[2022-05-19] MEDS: Furosemide 40 MG/4 ML VIAL SLOW IVP SCH ×2 (05:46→15:59)
[2022-05-19] MEDS: Famotidine 20 MG TAB PO SCH ×2 (10:23→20:45)
[2022-05-19] MEDS: Lisinopril 20 MG TAB PO SCH (10:23)
[2022-05-19] MEDS: Apixaban 5 MG TAB PO SCH ×2 (10:23→20:45)
[2022-05-19] MEDS: Empagliflozin 10 MG TAB PO SCH (10:24)
[2022-05-19] MEDS: Spironolactone 25 MG TAB PO SCH (10:27)
[2022-05-19] MEDS: Atorvastatin Calcium 40 MG TAB PO SCH (20:45)
[2022-05-19] MEDS: Insulin Glargine 30 UNITS/0.3 ML VIAL SC SCH (20:46)
[2022-05-20] MEDS: Furosemide 40 MG/4 ML VIAL SLOW IVP SCH (05:29)
[2022-05-20 06:02] LABS: Anion Gap 16 mmol/L (10-20); BUN (Urea Nitrogen) 29 mg/dL (9.8-20.1); Calc. Creatinine Clearance 77 mL/min (70-130); Calcium 9.9 mg/dL (7.8-10.44); Carbon Dioxide 25 mmol/L (23-31); Chloride 106 mmol/L (98-107); Estimated GFR 55; Glucose 85 mg/dL (80-115); Potassium 3.8 mmol/L (3.5-5.1); Sodium 143 mmol/L (136-145)
[2022-05-20] MEDS: Famotidine 20 MG TAB PO SCH (09:33)
[2022-05-20] MEDS: Spironolactone 25 MG TAB PO SCH (09:34)
[2022-05-20] MEDS: Apixaban 5 MG TAB PO SCH (09:34)
[2022-05-20] MEDS: Lisinopril 20 MG TAB PO SCH (09:34)
[2022-05-20] MEDS: Empagliflozin 10 MG TAB PO SCH (09:34)
[2022-05-20 11:42] VITALS: BP 128/80; TEMP 97
[2022-05-21] MEDS ORDERED: Furosemide 40 MG TAB PO SCH (07:30)
== END 2022-05-20 13:30 | disposition home health service (06) | DRG 280 ==
LOC: ERS 18:28 → 2NO 22:49
PROVIDERS: ADMIT Student in an Organized Health Care Education/Training Program; ATTEND Internal Medicine
DX: I13.0 Hypertensive heart and chronic kidney disease with heart failure and stage 1 through stage 4 chronic kidney disease, or unspecified chronic kidney disease (principal); I50.43 Acute on chronic combined systolic (congestive) and diastolic (congestive) heart failure; I21.A1 Myocardial infarction type 2; J96.01 Acute respiratory failure with hypoxia; G81.91 Hemiplegia, unspecified affecting right dominant side; I48.21 Permanent atrial fibrillation; I48.91 Unspecified atrial fibrillation; E78.00 Pure hypercholesterolemia, unspecified; M10.9 Gout, unspecified; G30.9 Alzheimer's disease, unspecified; F02.80 Dementia in other diseases classified elsewhere, unspecified severity, without behavioral disturbance, psychotic disturbance, mood disturbance, and anxiety; I11.0 Hypertensive heart disease with heart failure; E66.01 Morbid (severe) obesity due to excess calories; E11.22 Type 2 diabetes mellitus with diabetic chronic kidney disease; I42.8 Other cardiomyopathies; E11.69 Type 2 diabetes mellitus with other specified complication; E03.9 Hypothyroidism, unspecified; R13.10 Dysphagia, unspecified; E87.6 Hypokalemia; Z91.199 Patient's noncompliance with other medical treatment and regimen due to unspecified reason; Z87.891 Personal history of nicotine dependence; Z88.0 Allergy status to penicillin; Z79.899 Other long term (current) drug therapy; Z79.51 Long term (current) use of inhaled steroids; Z79.4 Long term (current) use of insulin; Z95.810 Presence of automatic (implantable) cardiac defibrillator; Z68.35 Body mass index [BMI] 35.0-35.9, adult; I69.991 Dysphagia following unspecified cerebrovascular disease; Z99.3 Dependence on wheelchair
CPT/HCPCS: 36415; 71045; 80048; 80053; 82550; 82553; 83735; 83880; 84484; 85025; 93005; 93306; 96374; 97139; J1815; J1940; U0003; U0005

== ENCOUNTER 2022-06-04 06:30 | Emergency (ER) | payer MEDICARE | END 2022-06-04 10:48 | LOC: ERS 06:30 | DX: H53.9 Unspecified visual disturbance (principal); I11.0 Hypertensive heart disease with heart failure; I50.9 Heart failure, unspecified; E11.9 Type 2 diabetes mellitus without complications; E78.00 Pure hypercholesterolemia, unspecified; F17.210 Nicotine dependence, cigarettes, uncomplicated; Z79.01 Long term (current) use of anticoagulants; Z79.899 Other long term (current) drug therapy | CPT/HCPCS: 99283 ==

== ENCOUNTER 2022-11-23 18:54 | Emergency (ER) | payer MEDICARE, OTHER ==
[2022-11-23 20:02] LABS: #Eosinphils 0.2 thou/uL (0.0-0.7); #Monocytes 0.5 thou/uL (0.11-0.59); #Neutrophils 2.4 thou/uL (1.40-6.50); %Basophils 0.9 % (0.0-1.0); %Eosinophils 4.9 % (0.0-10.0); %Lymphocytes 32.2 % (21.0-51.0); %Monocytes 9.9 % (0.0-10.0); %Neutrophils 51.9 % (42.0-75.0); Hematocrit 46.3 % (36.0-47.0); Hemoglobin 14.9 g/dL (12.0-16.0); Mean Corpuscular HGB CONC 32.2 g/dL (32.0-36.0); Mean Corpuscular Hemoglobin 28.9 pg (27.0-31.0); Mean Corpuscular Volume 89.9 fl (78.0-98.0); Mean Platelet Volume 10.1 fL (7.4-10.4); Platelet Count 135 10x3/uL (130-400); RBC Distribution Width 17.3 % (11.5-14.5); Red Blood Cell (RBC) Count 5.15 mill/uL (4.20-5.40); White Blood Cell (WBC) Count 4.7 10x3/uL (4.8-10.8)
[2022-11-23 20:28] LABS: Troponin I 0.142 ng/mL (< 0.028)
[2022-11-23 20:30] LABS: ALT (SGPT) 11 U/L (8-55); AST (SGOT) 12 U/L (5-34); Albumin 3.2 g/dL (3.4-4.8); Alkaline Phosphatase 81 U/L (40-110); Anion Gap 14 mmol/L (10-20); BUN (Urea Nitrogen) 30 mg/dL (9.8-20.1); Bilirubin, Total 1.2 mg/dL (0.2-1.2); Calc. Creatinine Clearance 0 mL/min (70-130); Calcium 9.4 mg/dL (7.8-10.44); Carbon Dioxide 23 mmol/L (23-31); Chloride 109 mmol/L (98-107); Estimated GFR 47; Globulin 3.2 g/dL (2.4-3.5); Glucose 68 mg/dL (80-115); Potassium 3.2 mmol/L (3.5-5.1); Protein, Total 6.4 g/dL (5.8-8.1); Sodium 143 mmol/L (136-145)
== END 2022-11-24 03:11 ==
LOC: ERS 18:54
DX: R06.02 Shortness of breath (principal); I11.0 Hypertensive heart disease with heart failure; I50.9 Heart failure, unspecified; E78.00 Pure hypercholesterolemia, unspecified; E11.9 Type 2 diabetes mellitus without complications; F17.210 Nicotine dependence, cigarettes, uncomplicated; Z79.899 Other long term (current) drug therapy; Z79.82 Long term (current) use of aspirin; Z79.4 Long term (current) use of insulin; Z79.01 Long term (current) use of anticoagulants; Z79.84 Long term (current) use of oral hypoglycemic drugs
CPT/HCPCS: 36415; 71045; 80053; 84484; 85025; 93005

== ENCOUNTER 2023-01-22 11:17 | Emergency (ER) | payer MEDICARE, OTHER ==
[2023-01-22 12:10] LABS: #Monocytes 0.8 thou/uL (0.11-0.59); %Basophils 0.3 % (0.0-1.0); %Eosinophils 0.2 % (0.0-10.0); %Lymphocytes 8.4 % (21.0-51.0); %Monocytes 8.4 % (0.0-10.0); %Neutrophils 81.7 % (42.0-75.0); Hematocrit 49.3 % (36.0-47.0); Hemoglobin 15.6 g/dL (12.0-16.0); Mean Corpuscular HGB CONC 31.6 g/dL (32.0-36.0); Mean Corpuscular Hemoglobin 29.4 pg (27.0-31.0); Mean Corpuscular Volume 92.8 fl (78.0-98.0); Mean Platelet Volume 10.4 fL (7.4-10.4); Platelet Count 149 10x3/uL (130-400); RBC Distribution Width 18.1 % (11.5-14.5); Red Blood Cell (RBC) Count 5.31 mill/uL (4.20-5.40); White Blood Cell (WBC) Count 9.8 10x3/uL (4.8-10.8)
[2023-01-22] MEDS ORDERED: Cefepime 2 GM VIAL ONE (12:16)
[2023-01-22] MEDS ORDERED: Sodium Chloride 0.9% 100 ML ONE (12:16)
[2023-01-22 12:33] LABS: ALT (SGPT) 13 U/L (8-55); AST (SGOT) 19 U/L (5-34); Albumin 3.4 g/dL (3.4-4.8); Alkaline Phosphatase 104 U/L (40-110); Anion Gap 17 mmol/L (10-20); BUN (Urea Nitrogen) 28 mg/dL (9.8-20.1); Bilirubin, Total 3.2 mg/dL (0.2-1.2); Calc. Creatinine Clearance 0 mL/min (70-130); Calcium 9.2 mg/dL (7.8-10.44); Carbon Dioxide 21 mmol/L (23-31); Chloride 109 mmol/L (98-107); Estimated GFR 62; Globulin 3.7 g/dL (2.4-3.5); Glucose 98 mg/dL (80-115); Potassium 4.1 mmol/L (3.5-5.1); Protein, Total 7.1 g/dL (5.8-8.1); Sodium 143 mmol/L (136-145)
[2023-01-22] MEDS ORDERED: Vancomycin 2.5 GM in Sodium Chloride 0.9% 500 ML IVPB SCH (13:30)
[2023-01-22 16:52] LABS: Bacteria/HPF 3+ HPF (None Seen); Bilirubin 1+ (Negative); Blood, Urine 2+ (Negative); CAUTI Indications for Culture Dysuria,urgency,freq; Clarity Extra Turbid (Clear); Glucose, Urine (Dipstick) 200 mg/dL (Negative); Ketone, Urine Trace mg/dL (Negative); Leukocyte Negative Leu/uL (Negative); Nitrite Negative (Negative); Protein, Urine (Dipstick) 300 mg/dL (Neg-Trace); RBC/HPF 21-50 HPF (0-3); Specific Gravity, Urine 1.031 (1.002-1.036); Squamous Epithelial 0-3 HPF (0-3); WBC/HPF 0-3 HPF (0-3); Yeast-Budding 2+ HPF (None Seen)
[2023-01-22 16:54] LABS: Urine Culture Reflex No No
[2023-01-23] MEDS ORDERED: Cefepime 1 GM VIAL ONE (00:53)
[2023-01-23] MEDS ORDERED: Vancomycin (BATCH) 1.5 GM in Premix 1 BAG IVPB SCH (02:30)
[2023-01-23] MEDS ORDERED: NOREPINEPHRINE 8 MG/250 ML-D5W 250 ML ONE (04:42)
[2023-01-23] MEDS ORDERED: Midazolam HCl 2 mg/2 ml Vial ONE (04:42)
[2023-01-23 05:11] LABS: Magnesium 1.9 mg/dL (1.6-2.6)
[2023-01-23 06:59] LABS: Lactic Acid 2.6 mmol/L (0.5-2.2)
== END 2023-01-22 11:31 | disposition home or self-care (01) ==
LOC: ERS 11:17
DX: T81.49XA Infection following a procedure, other surgical site, initial encounter (principal); A41.9 Sepsis, unspecified organism; J90 Pleural effusion, not elsewhere classified; E11.9 Type 2 diabetes mellitus without complications; E78.00 Pure hypercholesterolemia, unspecified; I48.91 Unspecified atrial fibrillation; F17.210 Nicotine dependence, cigarettes, uncomplicated; I11.0 Hypertensive heart disease with heart failure; I50.9 Heart failure, unspecified; Z79.51 Long term (current) use of inhaled steroids; Z79.899 Other long term (current) drug therapy; Z79.01 Long term (current) use of anticoagulants; Z79.84 Long term (current) use of oral hypoglycemic drugs
CPT/HCPCS: 36415; 36416; 36556; 51701; 71045; 80053; 81001; 83605; 83735; 85025; 87040; 87077; 87086; 87149; 87186; 93005; 96361; 96365; 96366; 96367; 96368; 96375; J0692; J2250; J3370; J3490; J7030